=== PATIENT | female | born 1940 | race Caucasian/White ===

== ENCOUNTER 2016-11-14 15:35 | Outpatient (CLI) | payer MEDICARE, BC | END 2016-11-14 15:36 | disposition home or self-care (01) | DX: R07.9 Chest pain, unspecified (principal) ==

== ENCOUNTER 2016-11-22 09:14 | Outpatient (CLI) | payer MEDICARE, BC | END 2016-11-22 09:15 | disposition home or self-care (01) | DX: I08.3 Combined rheumatic disorders of mitral, aortic and tricuspid valves (principal) ==

== ENCOUNTER 2016-12-15 09:09 | Outpatient (CLI) | payer MEDICARE, BC | END 2016-12-15 09:10 | disposition home or self-care (01) | DX: I50.32 Chronic diastolic (congestive) heart failure (principal) ==

== ENCOUNTER 2017-01-22 14:10 | Inpatient (IN) | payer MEDICARE, BC ==
[2017-01-22] MEDS ORDERED: SODIUM CHLORIDE 0.9% 1,000 ML IV ONE (14:20)
[2017-01-22 15:13] LABS: BASOPHILS # (AUTO) 0.1 10^3/uL (0.0-0.1); BASOPHILS % (AUTO) 0.7 %; EOSINOPHILS % (AUTO) 0.1 %; HCT - HEMATOCRIT 42.5 % (37.0-47.0); HGB - HEMOGLOBIN 14.8 g/dL (12.0-16.0); LYMPHOCYTES # (AUTO) 0.8 10^3/uL (1.5-3.5); LYMPHOCYTES % (AUTO) 10.9 %; MEAN CORPUSCULAR HEMOGLOBIN 34.3 pg (27.0-31.0); MEAN CORPUSCULAR HGB CONC 34.8 g/dL (32.0-36.0); MEAN CORPUSCULAR VOLUME 98.8 fL (81.0-99.0); MEAN PLATELET VOLUME 7.8 fL (7.9-10.8); MONOCYTES # (AUTO) 0.8 10^3/uL (0.0-1.0); MONOCYTES % (AUTO) 10.6 %; NEUTROPHILS # (AUTO) 5.6 10^3/uL (1.5-6.6); NEUTROPHILS % (AUTO) 77.7 %; RED CELL DISTRIBUTION WIDTH 14.1 % (12.0-15.0); UNCORRECTED WHITE BLOOD COUNT 7.2 x10^3/uL; WHITE BLOOD COUNT 7.2 x10^3/uL (4.8-10.8)
[2017-01-22 15:18] LABS: INR 1.2 (0.8-1.2); PT - PROTHROMBIN TIME 13.1 secs (9.9-12.6)
--- NOTE | 2017-01-22 15:21 | XRAY Preliminary Report ---
Exam: XR Chest 1 View IMPRESSION: No acute pulmonary consolidation. Atherosclerosis. [facility] SITE ID: [id number]
--- NOTE | 2017-01-22 15:23 | XRAY Report ---
EXAM: CHEST RADIOGRAPHY EXAM DATE: 01/22/2017 03:01 PM. CLINICAL HISTORY: Hypotension. COMPARISON: None. TECHNIQUE: 1 view. FINDINGS: Lungs/Pleura: No focal opacities evident. No pleural effusion. No pneumothorax. Mediastinum: Normal heart size with mild aortic tortuosity and atherosclerotic calcification. Other: None. IMPRESSION: No acute pulmonary consolidation. Atherosclerosis. [facility] Referring Provider Line: [phone] SITE ID: [id number]
[2017-01-22 15:24] LABS: ALBUMIN/GLOBULIN RATIO 1.2 (1.0-2.2); BILIRUBIN,TOTAL 0.9 mg/dL (0.2-1.0); CALCIUM 9.2 mg/dL (8.5-10.3); CREATININE 0.9 mg/dL (0.4-1.0); POTASSIUM 3.3 mmol/L (3.5-5.0); TOTAL PROTEIN 7.8 g/dL (6.7-8.2)
--- NOTE | 2017-01-22 15:27 | ED Physician Documentation ---
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 denies: Fever, Chills Throat: denies: Sore throat Cardiac: denies: Chest pain / pressure, Palpitations Respiratory: reports: Dyspnea. 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 : None HEENT: None Psych: None Musculoskeletal: Other Derm: None - Past Surgical History Past Surgical History: Yes /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 [employer]: section, Hysterectomy, Other - Present Medications Home Medications: Ambulatory Orders Medication Instructions Recorded Confirmed Gabapentin [Neurontin] 300 mg PO BID 03/04/13 01/22/17 metFORMIN [Glucophage] 500 mg PO BIDWM 04/06/15 01/22/17 Atenolol [Tenormin] 50 mg PO BID 08/30/16 01/22/17 Digoxin 0.125 mg PO DAILY 08/30/16 01/22/17 Albuterol Sulfate [Proventil Hfa 1 - 2 puffs INH Q4H PRN #1 inhaler 09/05/16 Inhaler] Furosemide [Lasix] 40 mg PO BIDDIURETIC #120 tablet 09/05/16 01/22/17 Potassium Chloride [K-Dur] 20 meq PO DAILYWM #30 tablet 09/05/16 01/22/17 Mometasone Furoate [Asmanex] 1 puffs INH BID 01/22/17 01/22/17 Warfarin [Coumadin] 2.5 mg PO QDWARFARIN 01/22/17 01/22/17 - Allergies Allergies/Adverse Reactions: Allergies Allergy/AdvReac Type Severity Reaction Status Date / Time No Known Drug Allergies Allergy Verified 01/22/17 14:18 - Social History Does the pt smoke?: No Smoking Status: Never smoker Does the pt drink ETOH?: Yes Does the pt have substance abuse?: No - Immunizations Immunizations are current?: No - POLST Patient has POLST: No POLST Status: Full Code PD ED PE NORMAL - Vitals Vital signs reviewed: Yes - General General: Alert and oriented X 3 - HEENT HEENT: PERRL - Neck Neck: Supple, no meningeal sign - Cardiac Cardiac: No: RRR (rapid irreg) - Respiratory Respiratory: No respiratory distress, Clear bilaterally - Abdomen Abdomen: Soft, Non tender - Derm Derm: Normal color - Extremities Extremities: No edema, No calf tenderness / cord - Neuro Neuro: Alert and oriented X 3 Results - Vitals Vitals: Vital Signs - 24 hr 01/22/17 01/22/17 01/22/17 14:16 15:15 15:45 Temperature 36.7 C Heart Rate 115 H 118 H 116 H Respiratory 14 24 22 Rate Blood Pressure 110/63 102/68 118/75 O2 Saturation 100 96 01/22/17 01/22/17 01/22/17 16:17 16:30 17:00 Temperature 38.3 C H Heart Rate 116 H 124 H 118 H Respiratory 30 H 32 H 34 H Rate Blood Pressure 121/77 125/85 H O2 Saturation 96 96 96 01/22/17 01/22/17 17:03 17:08 Temperature Heart Rate 106 H 108 H Respiratory 34 H Rate Blood Pressure 115/83 H 129/68 O2 Saturation 96 Oxygen O2 Source Room air - EKG (time done) 1433 Rate: Rate (enter#) Rhythm: Atrial fibrillation Other comments: Other comments (ST depression similar but more pronounce than 2016 EKG, no ST elev) - Labs Labs: Laboratory Tests 01/22/17 01/22/17 01/22/17 14:55 14:55 14:55 WBC 7.2 RBC 4.30 Hgb 14.8 Hct 42.5 MCV 98.8 MCH 34.3 H MCHC 34.8 RDW 14.1 Plt Count 169 MPV 7.8 L Neut # 5.6 Lymph # 0.8 L Pope # 0.8 Eos # 0.0 Baso # 0.1 Absolute Nucleated RBC 0.00 Nucleated RBCs 0.0 PT 13.1 H INR 1.2 Sodium 135 Potassium 3.3 L Chloride 95 L Carbon Dioxide 28 Anion Gap 12.0 BUN 12 Creatinine 0.9 Estimated GFR (MDRD) 61 L Glucose 132 H Lactic Acid Calcium 9.2 Total Bilirubin 0.9 AST 38 ALT 24 Alkaline Phosphatase 56 Troponin I Total Protein 7.8 Albumin 4.3 Globulin 3.5 Albumin/Globulin Ratio 1.2 Lipase 19 L Urine Color Urine Clarity Urine pH Ur Specific [place] Urine Protein Urine Glucose (UA) Urine Ketones Urine Occult Blood Urine Nitrite Urine Bilirubin Urine Urobilinogen Ur Leukocyte Esterase Urine RBC Urine WBC Ur Squamous Epith Cells Urine Bacteria Ur Microscopic Review Urine Culture Comments Last Dose Date Last Dose Time Digoxin 01/22/17 01/22/17 01/22/17 14:55 14:55 14:55 WBC RBC Hgb Hct MCV MCH MCHC RDW Plt Count MPV Neut # Lymph # Pope # Eos # Baso # Absolute Nucleated RBC Nucleated RBCs PT INR Sodium Potassium Chloride Carbon Dioxide Anion Gap BUN Creatinine Estimated GFR (MDRD) Glucose Lactic Acid 3.3 H* Calcium Total Bilirubin AST ALT Alkaline Phosphatase Troponin I 0.09 Total Protein Albumin Globulin Albumin/Globulin Ratio Lipase Urine Color Urine Clarity Urine pH Ur Specific [place] Urine Protein Urine Glucose (UA) Urine Ketones Urine Occult Blood Urine Nitrite Urine Bilirubin Urine Urobilinogen Ur Leukocyte Esterase Urine RBC Urine WBC Ur Squamous Epith Cells Urine Bacteria Ur Microscopic Review Urine Culture Comments Last Dose Date UNKNOWN Last Dose Time UNKNOWN Digoxin 0.6 01/22/17 16:00 WBC RBC Hgb Hct MCV MCH MCHC RDW Plt Count MPV Neut # Lymph # Pope # Eos # Baso # Absolute Nucleated RBC Nucleated RBCs PT INR Sodium Potassium Chloride Carbon Dioxide Anion Gap BUN Creatinine Estimated GFR (MDRD) Glucose Lactic Acid Calcium Total Bilirubin AST ALT Alkaline Phosphatase Troponin I Total Protein Albumin Globulin Albumin/Globulin Ratio Lipase Urine Color YELLOW Urine Clarity CLEAR Urine pH 6.0 Ur Specific [place] 1.010 Urine Protein TRACE Urine Glucose (UA) 100 H Urine Ketones NEGATIVE Urine Occult Blood MODERATE H Urine Nitrite NEGATIVE Urine Bilirubin NEGATIVE Urine Urobilinogen 0.2 (NORMAL) Ur Leukocyte Esterase MODERATE H Urine RBC 0-5 Urine WBC 4-5 Ur Squamous Epith Cells FEW Squamous Urine Bacteria Rare Ur Microscopic Review INDICATED Urine Culture Comments INDICATED Last Dose Date Last Dose Time Digoxin - Rads (name of study) CXR Radiology: See rad report (no acute) CTH Radiology: See rad report (no acute) echo Radiology: See rad report (a fib RVR, no regional wall motion abn detected, nl pulm artery and aorta, mod aortic stenosis, mild mitral and tricuspid regurge, no effusion) CTPA Radiology: See rad report (no PE, no dissection, no aneurysm, cardiomegaly, ground glass opacities but no infiltarte or effusion) PD MEDICAL DECISION MAKING - ED course ED course: abn EKG but trop neg and echo = no wall motion abn - so doubt hypotension is cardiac ischemia in etiology INR sub therapeutic - so doubt hemorrhagic / volume hypotension low INR but nl pulm artery on echo so doubt PE elev lactate - suspect sepsis - source unclear but weakly + urine gave invanz will admit pt with inc soa during ER stay - received IVF but lungs still clear no CHF on CXR, actually worse with sitting better with laying down, still slghtly tachypneic - gave lopressor now that BP better, as above doubt PE but planning to get a CT chest for further eval and so will get CTPA Departure - Departure Disposition: 66 [facility] DC/Xfer Clinical Impression: Hypotension Qualifiers: Hypotension type: unspecified hypotension type Qualified Code(s): I95.9 - Hypotension, unspecified Sepsis Qualifiers: Sepsis type: sepsis due to unspecified organism Qualified Code(s): A41.9 - Sepsis, unspecified organism Discharge Date/Time: 01/22/17 18:33
--- NOTE | 2017-01-22 16:06 | CT Preliminary Report ---
Exam: CT Head W/O IMPRESSION: Generalized age-related cortical atrophic changes without evidence of acute intracranial abnormality. [facility] SITE ID: [id number]
[2017-01-22 16:12] LABS: BILIRUBIN,URINE NEGATIVE (NEGATIVE)
[2017-01-22 16:13] LABS: UA w/ MICROSCOPIC CHARGE YES
[2017-01-22 16:16] LABS: UR CULTURE IF IND INDICATED
--- NOTE | 2017-01-22 16:16 | CT Report ---
EXAM: CT HEAD EXAM DATE: 01/22/2017 03:38 PM. CLINICAL HISTORY: Severe headache; on coumadin. COMPARISON: Head MRI 08/13/2007. No prior head CT. TECHNIQUE: Multiaxial CT images were obtained from the foramen magnum to the vertex. IV contrast: Non e. Reformats: Coronal. In accordance with CT protocol optimization, one or more of the following dose reduction techniques w ere utilized for this exam: automated exposure control, adjustment of mA and/or KV based on patient s ize, or use of iterative reconstructive technique. FINDINGS: Parenchyma: No intraparenchymal hemorrhage. No evidence of mass, midline shift, or CT findings of acu te infarction. Cha-white differentiation is distinct. Extraaxial Spaces: Normal for age. No subdural or epidural collections identified. Ventricles: The ventricles and cortical sulci are enlarged, consistent with age-related tissue loss. Sinuses: Imaged paranasal sinuses, orbits, and mastoids show no significant abnormality. Bones: No evidence of fracture or calvarial defect. Other: Diffuse chronic microangiopathic white matter changes are evident. IMPRESSION: Generalized age-related cortical atrophic changes without evidence of acute intracranial abnormality. [facility] Referring Provider Line: [phone] SITE ID: [id number]
[2017-01-22] MEDS ORDERED: METOPROLOL 5 MG/5 ML VIAL IVP STA (16:42)
[2017-01-22] MEDS ORDERED: ERTAPENEM 1 GM in SODIUM CHLORIDE 0.9% MINIBAG 100 ML IV STA (16:43)
[2017-01-22] MEDS ORDERED: METOPROLOL 5 MG/5 ML VIAL IVP ONE (16:46)
[2017-01-22] MEDS ORDERED: HYDROcod/ACETAM 10 MG/325 MG TABLET PO PRN (17:28)
[2017-01-22] MEDS ORDERED: ACETAMINOPHEN 325 MG TABLET PO PRN (17:28)
[2017-01-22] MEDS ORDERED: SODIUM CHLORIDE FLUSH 0.9% 10 ML SYRINGE IVP PRN (17:28)
[2017-01-22] MEDS ORDERED: HYDROcod/ACETAM 5/325 MG TABLET PO PRN (17:28)
[2017-01-22] MEDS ORDERED: LORazepam 2 MG/ML SYRINGE ONE (17:37)
[2017-01-22] MEDS ORDERED: LORazepam 2 MG/ML SYRINGE IVP STA (17:37)
[2017-01-22] MEDS ORDERED: ACETAMINOPHEN 325 MG TABLET PO STA (17:41)
[2017-01-22] MEDS ORDERED: VANCOMYCIN PER PHARMACY 1 GM in SODIUM CHLORIDE 0.9% 250 ML IV SCH (18:00)
[2017-01-22] MEDS ORDERED: NS W/20 MEQ KCL 1,000 ML IV SCH ×2 (18:00→21:45)
[2017-01-22] MEDS ORDERED: IOPAMIDOL-300 100 ML VIAL IVP ONE (18:28)
[2017-01-22] MEDS ORDERED: VANCOMYCIN INJ 1.5 GM in SODIUM CHLORIDE 0.9% 500 ML IV ONE (18:30)
--- NOTE | 2017-01-22 18:52 | CT Preliminary Report ---
Exam: CT Chest Angio (PE) IMPRESSION: 1. No evidence of acute pulmonary embolism through the mid segmental branch level. 2. There is no evidence of thoracic aortic dissection or aneurysm. 3. There are several small, stable areas of groundglass opacity within the lungs. No evidence of loba r consolidation or effusion. 4. There is cardiomegaly. [facility] SITE ID: [id number]
--- NOTE | 2017-01-22 18:54 | CT Report ---
EXAM: CT ANGIOGRAM CHEST EXAM DATE: 01/22/2017 06:34 PM. CLINICAL HISTORY: Dyspnea. COMPARISON: 01/06/2015. TECHNIQUE: Routine helical imaging was performed through the chest in the pulmonary arterial phase. I V Contrast: 100 cc Isovue-300. Reconstructions: Coronal 3-D MIP reconstructions.Sagittal and coronal. In accordance with CT protocol optimization, one or more of the following dose reduction techniques w ere utilized for this exam: automated exposure control, adjustment of mA and/or KV based on patient s ize, or use of iterative reconstructive technique. FINDINGS: Pulmonary Arteries: Diagnostic quality: Adequate through the mid segmental arteries. Respiratory motion artifact obscures portions of distal vessels. No evidence for acute or chronic pulmonary emboli. Lungs/Pleura: There is some scattered areas of groundglass opacity within the lungs. No evidence of l obar consolidation or effusion. No intralobular septal thickening. No focal central airway abnormalit ies. No pneumothorax. Mediastinum: There is cardiomegaly. There are coronary artery calcifications. There are no enlarged t horacic lymph nodes. Thoracic Aorta: There is no evidence of aneurysm or dissection. There are calcifications of the aorta and aortic valve. Upper Abdomen: The visualized portions of the upper abdominal organs demonstrate no acute abnormaliti es. Other: None. IMPRESSION: 1. No evidence of acute pulmonary embolism through the mid segmental branch level. 2. There is no evidence of thoracic aortic dissection or aneurysm. 3. There are several small, stable areas of groundglass opacity within the lungs. No evidence of loba r consolidation or effusion. 4. There is cardiomegaly. [facility] Referring Provider Line: [phone] SITE ID: [id number]
[2017-01-22] MEDS ORDERED: MAGNESIUM SULFATE 2 GRAM 50 ML IV SCH (19:05)
[2017-01-22 19:06] LABS: BASOPHILS % (AUTO) 0.6 %; EOSINOPHILS % (AUTO) 0.2 %; HCT - HEMATOCRIT 42.7 % (37.0-47.0); HGB - HEMOGLOBIN 14.2 g/dL (12.0-16.0); LYMPHOCYTES # (AUTO) 0.8 10^3/uL (1.5-3.5); MEAN CORPUSCULAR HEMOGLOBIN 33.3 pg (27.0-31.0); MEAN CORPUSCULAR HGB CONC 33.4 g/dL (32.0-36.0); MEAN CORPUSCULAR VOLUME 99.8 fL (81.0-99.0); MEAN PLATELET VOLUME 7.8 fL (7.9-10.8); MONOCYTES # (AUTO) 0.8 10^3/uL (0.0-1.0); MONOCYTES % (AUTO) 10.3 %; NEUTROPHILS # (AUTO) 5.8 10^3/uL (1.5-6.6); NEUTROPHILS % (AUTO) 77.9 %; NUCLEATED RED BLOOD CELLS AUTO 0.1 /100WBC; RED BLOOD COUNT 4.28 10^6/uL (4.20-5.40); RED CELL DISTRIBUTION WIDTH 14.3 % (12.0-15.0); UNCORRECTED WHITE BLOOD COUNT 7.4 x10^3/uL; WHITE BLOOD COUNT 7.4 x10^3/uL (4.8-10.8)
[2017-01-22 19:21] LABS: CALCIUM 8.5 mg/dL (8.5-10.3); CREATININE 0.8 mg/dL (0.4-1.0); POTASSIUM 3.6 mmol/L (3.5-5.0)
[2017-01-22] MEDS ORDERED: ALBUTEROL NEB 2.5 MG/3 ML INH PRN (19:43)
[2017-01-22] MEDS: LORazepam 2 MG/ML SYRINGE IVP PRN (19:59)
--- NOTE | 2017-01-22 20:23 | HISTORY & PHYSICAL EXAMINATION ---
DATE OF ADMISSION: 01/22/2017 PRIMARY CARE PHYSICIAN: Doroteo Burton MD. CHIEF COMPLAINT: "I don't feel well." She has not felt well for a couple of days. Friends stopped by to see her and noted she had low blood pressure, brought her into the emergency department. IDENTIFYING INFORMATION: The patient is the primary source of history but is vague and almost evasive at times and has a poor grasp of both recent and past history. The patient's friend is not much yan tional help. There is additional information obtained in the [facility], as well as personal review of past medical records and the data collected during this visit. All were used in addition to her examination in her evaluation and the preparation of th is document. HISTORY OF PRESENT ILLNESS: The patient has had 2 days of being very tired, weak, had a headache. She does not report any fall. She says she has not had any fever or chills. No chest pain. No neck pain. No cough. She says she always is somewhat short of breath and she does not feel any more so today. T he patient denies any nausea, vomiting, diarrhea, vomiting of blood, bloody stool or black stool. REVIEW OF SYSTEMS: The rest of the review of systems is likewise. A complete review of systems is neg ative as well. PAST MEDICAL HISTORY: Remarkable for hypertension, diabetes, peripheral neuropathy. 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 Osteoarthritis. She says she has asthma. She has had pneumonia. The patie nt has also had atrial fibrillation with RVR, is anticoagulated, but has not checked her INR in maybe a year. Also, the patient has had RVR with her atrial fibrillation 2 years ago. PAST SURGICAL HISTORY: She had a x4. She has had a D and C. She has had breast biopsy. PERSONAL AND SOCIAL HISTORY: The patient was born in [place], raised there. She was an only chi ld. She does not really remember what she did after high school. She said she did get . She sa id she did work and she did go to school, but she cannot be more clear about this. It would seem that the patient's mentation is impaired at this time, which may be a part of her septic picture. PERSONAL HABITS: She smoked about 10 years, she says less than a pack a day. Drinks alcohol and has f or many years. The amount of alcohol is unclear, but she says she drinks whiskey with ice and water a nd reports are anywhere from 4-6 drinks a day. FAMILY HISTORY: Father at 91 of old age and mother, 102, old age. There is no diabetes in the jus la, except herself, nor heart disease or cancer. MEDICATIONS AT HOME 1. Neurontin 300 mg b.i.d. 2. Lasix 40 mg b.i.d. 3. Coumadin 2.5 Sunday, Sunday, , Sunday, Sunday. 4. Metformin 500 mg a day. 5. Atenolol 50 mg b.i.d. 6. Digoxin 0.125 daily. 7. Warfarin 2 mg on Sunday and Sunday. 8. Albuterol puff as needed. 9. Tessalon Perles as needed.' 10. Pulmicort 1 puff b.i.d. 11. Potassium 20 mEq daily. 12. Robitussin AC. ALLERGIES: NONE KNOWN. PHYSICAL EXAMINATION GENERAL APPEARANCE: Elderly female, appears stated age, well developed, well nourished. Appears to be addle-brained or altered cognition secondary to the illness that she has. The patient is an obese fe male, appears in respiratory distress, mild to moderate. VITAL SIGNS: Temperature is 36.7, later it was 38.3. 115, 14, later her respiratory rate was up into the 30s. Blood pressure 110/63, O2 saturation was 100% on room air. EYES: EOM within normal limits. PERRL. Nonicteric. MOUTH AND THROAT: Moist mucous membranes. No other pathology noted. NECK: No pain in the neck to palpation. No lymphadenopathy and no thyromegaly. CHEST WALL: Nontender. Symmetric. BREASTS: No breast exam done. HEART: She has atrial fibrillation with RVR. LUNGS: Clear to auscultation. Fair air movement. Patient does have an increased work of breathing. ABDOMEN: Thick abdominal wall, soft, nontender. RECTAL/GENITAL: Exams not done. EXTREMITIES: Trace to 1+ edema in ankles. No pulses appreciated. No cyanosis. Capillary refill 2 seco nds. NEUROLOGIC: Cognition, as noted above, is mildly impaired. The patient's cranial nerves are intact. M otor intact. Sensory intact. Gait was not tested. DIAGNOSTIC DATA: Shows a white count 7.2, hemoglobin and hematocrit 14 and 42. Her platelet count is 169. INR is 1.2. Her sodium 135, potassium 3.3, chloride is 95, CO2 is 28, BUN 12, creatinine 0.1, gl ucose is 132, calcium 9.2, albumin is 4.3. Normal liver enzymes. Lipase is low at 19. Chest x-ray is negative. Urine has some white cells and is being cultured. Lactic is high at 3.3. The patient's digoxin level is 0.6. The patient has an EF of 70% on echocardiogram today and only moderate aortic stenosis. SUMMARY: This is a 76-year-old lady who has had fatigue and complaints of headache for the last coupl e of days. She said she has had no other complaints. In both her history and in the system, patient's past medical history includes aortic stenosis reported as critical. Past medical history of aortic s tenosis, as stated above, CHF exacerbation 2 years ago. diabetes, hypertension. The patient was seen in the emergency department today and has criteria for sepsis and is being admitted. DIAGNOSES 1. Sepsis. No identified source. 2. Atrial fibrillation with rapid ventricular response. 3. Diabetes. 4. Hypertension. 5. Alcohol abuse. DISCUSSION/DECISION MAKING 1. Sepsis: She will be resuscitated with IV fluids and antibiotics choosing vancomycin and cefepime f or initial coverage. She has cultures of blood and urine pending. 2. Atrial fibrillation with RVR: Patient will be given oral medications, IV medications if necessary, to control her atrial fibrillation in the high 90s to low 100s. 3. Diabetes: She will be monitored with glucose checks and sliding scale. 4. Hypertension: Presently, she is not hypertensive and we will be vigilant for possible development of hypotension as a result of her sepsis. 5. Alcohol abuse: The patient will be on a CIWA protocol given the large amount of alcohol over a osiel g period of time, and her inability to actually identify the quantity of alcohol she drinks. HOSPITAL ISSUES 1. CODE STATUS: She is still FULL CODE. 2. VTE prophylaxis will be Lovenox. 3. Her diet, which will be clear liquids and then move on to a diabetic diet. 4. Her activity, which will be bed rest and bedside commode. 5. Tubes and lines: She will have a peripheral IV and Oneal at this time. 6. Hospital status: Given the diagnosis of sepsis with the fever, tachycardia, tachypnea and lactate of 3.3, she will be inpatient status for at least 2 nights, not more than 96 hours. 7. Length of stay: Estimated at 4 nights. 8. Disposition, which is in question whether she will be able to return home or need SNF or assisted living will have to be decided at a later date, but should prepare for a woman with alcohol and decon ditioning to need to go to a retirement facility. JOB #: [id number] EXT JOB #:[id number]
[2017-01-22] MEDS: CEFEPIME 2 GM in SODIUM CHLORIDE 0.9% MINIBAG 100 ML IV SCH (20:50)
[2017-01-22] MEDS ORDERED: CEFEPIME 2 GM in SODIUM CHLORIDE 0.9% MINIBAG 100 ML IV SCH (21:00)
[2017-01-22] MEDS: SODIUM CHLORIDE FLUSH 0.9% 10 ML SYRINGE IVP SCH (22:40)
[2017-01-22] MEDS: GABAPENTIN 300 MG CAPSULE PO SCH (23:58)
[2017-01-23] MEDS: ATENOLOL 25 MG TABLET PO SCH ×4 (01:32→19:56)
[2017-01-23] MEDS ORDERED: FUROSEMIDE 40 MG/4 ML VIAL IVP ONE (02:45)
[2017-01-23] MEDS: METOPROLOL 5 MG/5 ML VIAL IVP PRN ×2 (03:17→05:15)
[2017-01-23] MEDS: SODIUM CHLORIDE FLUSH 0.9% 10 ML SYRINGE IVP SCH ×3 (05:14→21:44)
[2017-01-23 06:02] LABS: BASOPHILS % (AUTO) 0.4 %; EOSINOPHILS % (AUTO) 0.3 %; HCT - HEMATOCRIT 42.6 % (37.0-47.0); HGB - HEMOGLOBIN 14.2 g/dL (12.0-16.0); LYMPHOCYTES # (AUTO) 0.5 10^3/uL (1.5-3.5); LYMPHOCYTES % (AUTO) 6.1 %; MEAN CORPUSCULAR HEMOGLOBIN 33.2 pg (27.0-31.0); MEAN CORPUSCULAR HGB CONC 33.3 g/dL (32.0-36.0); MEAN CORPUSCULAR VOLUME 99.6 fL (81.0-99.0); MEAN PLATELET VOLUME 7.6 fL (7.9-10.8); MONOCYTES # (AUTO) 1.1 10^3/uL (0.0-1.0); MONOCYTES % (AUTO) 12.3 %; NEUTROPHILS % (AUTO) 80.9 %; NUCLEATED RED BLOOD CELLS AUTO 0.1 /100WBC; RED BLOOD COUNT 4.28 10^6/uL (4.20-5.40); RED CELL DISTRIBUTION WIDTH 14.2 % (12.0-15.0); UNCORRECTED WHITE BLOOD COUNT 8.7 x10^3/uL; WHITE BLOOD COUNT 8.7 x10^3/uL (4.8-10.8)
[2017-01-23] MEDS ORDERED: METOPROLOL 5 MG/5 ML VIAL IVP ONE (06:06)
[2017-01-23 06:08] LABS: INR 1.2 (0.8-1.2); PT - PROTHROMBIN TIME 13.1 secs (9.9-12.6)
[2017-01-23 06:16] LABS: ALBUMIN/GLOBULIN RATIO 1.3 (1.0-2.2); BILIRUBIN,TOTAL 0.9 mg/dL (0.2-1.0); CALCIUM 8.3 mg/dL (8.5-10.3); CREATININE 0.7 mg/dL (0.4-1.0); PHOSPHORUS 3.2 mg/dL (2.5-4.6); POTASSIUM 3.6 mmol/L (3.5-5.0); TOTAL PROTEIN 6.8 g/dL (6.7-8.2)
[2017-01-23] MEDS ORDERED: POTASSIUM CHLORIDE INJ 20 MEQ in SODIUM CHLORIDE 0.45% 1,000 ML IV SCH (07:00)
[2017-01-23] MEDS: LORazepam 2 MG/ML SYRINGE IVP PRN ×2 (07:46→10:11)
[2017-01-23] MEDS: DIGOXIN 125 MCG TABLET PO SCH (08:02)
[2017-01-23] MEDS ORDERED: METOPROLOL 5 MG/5 ML VIAL IVP STA (08:13)
[2017-01-23] MEDS ORDERED: LORazepam 2 MG/ML SYRINGE IVP STA (08:13)
--- NOTE | 2017-01-23 08:33 | XRAY Report ---
FRONTAL CHEST: 01/23/2017 CLINICAL INDICATION: Sepsis, worsening hypoxia. COMPARISON: 01/22/2017 FINDINGS: Frontal view of the chest demonstrates an enlarged cardiac silhouette. The lungs remain c lear. No effusion or pneumothorax is present. IMPRESSION: CARDIOMEGALY, BUT NO EVIDENCE OF ACUTE CARDIOPULMONARY DISEASE. JOB #: [id number] EXT JOB #:[id number]
[2017-01-23] MEDS: POTASSIUM CHLORIDE 20 MEQ TABLET PO SCH (08:56)
[2017-01-23] MEDS: SACCHAROMYCES BOULARDII 250 MG CAPSULE PO SCH ×2 (08:56→17:08)
[2017-01-23] MEDS: GABAPENTIN 300 MG CAPSULE PO SCH ×2 (08:56→19:56)
[2017-01-23] MEDS: MULTIVITAMIN 10 ML, THIAMINE INJ 100 MG, FOLIC ACID INJ 1 MG in SODIUM CHLORIDE 0.9% 1,... IV SCH (08:59)
[2017-01-23] MEDS ORDERED: DIGOXIN 125 MCG TABLET PO SCH (09:00)
[2017-01-23] MEDS ORDERED: SODIUM CHLORIDE 0.9% 500 ML IV ONE ×4 (09:14→23:11)
--- NOTE | 2017-01-23 09:30 | PROVIDER PROGRESS NOTE ---
Assessment/Plan - Problem List (1) Severe sepsis Assessment/Plan: Patient presented with nonspecific complaint of not feeling well On presentation patient had a fever with MAXIMUM TEMPERATURE of 39.4, was tachycardic in the 130s to 160s in A. fib, and tachypneic up to the 40s but had no leukocytosis. Patient's lactic acid was elevated to 3.3 Chest x-ray and UA were negative The patient has severe sepsis with unclear source Started on broad-spectrum IV antibiotics given vancomycin and ertapenem in the ER CT angiogram of thorax negative for PE or infection Plan: Continue IV antibiotics with vancomycin and cefepime Echocardiogram did not show any vegetations but did show moderate aortic stenosis Continue IV fluids Awaiting blood cultures and urine culture Repeat chest x-ray negative for pneumonia. 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 CIWA score elevated this morning Plan: On CIWA protocol Patient continues to score high on CIWA Continue IV Ativan On IV fluids with banana bag Daily multivitamin, daily thiamine, daily folic acid Monitor electrolytes Patient currently protecting her airway but continues to be very tachypneic I am concerned the patient may tire out and could possibly need intubation (3) Atrial fibrillation with RVR Assessment/Plan: Patient tachycardic on presentation thought to be secondary to sepsis, alcohol withdrawal and dehydration. History of chronic A. fib in A. fib with RVR with heart rate 130s to 160s Patient received IV fluids and several doses of IV metoprolol and IV diltiazem overnight On telemetry patient continues to have heart rate 130s to 160s Patient on Coumadin for question of compliance as patient has not seen a PCP in one year and has not had INR checked. INR on presentation was 1.2 Plan: Continue home digoxin and atenolol We'll give a dose of IV metoprolol this morning Continue to monitor on telemetry Continue home dose of Coumadin and monitor INR daily (4) Diabetes Qualifiers: Diabetes mellitus type: type 2 Diabetes mellitus complication status: with hyperglycemia Diabetes mellitus long term care pharmacist insulin use: without long term care pharmacist use Qualified Code(s): E11.65 - Type 2 diabetes mellitus with hyperglycemia Assessment/Plan: on presentation patient'sBlood sugar is slightly elevated at 132 The patient is not on insulin at home Patient seen with an A1c of 6.2 Plan Patient was placed on sliding scale insulin while hospitalized we will continue to monitor blood sugars 4 times a day (5) Asthma Assessment/Plan: Patient has history of asthma Patient has a lot of diffuse wheezing this am Plan: Duonebs and Xopenex prn Will consider steroids if this continues CXR negative (6) Aortic stenosis Assessment/Plan: History of critical aortic stenosis was advised to follow up with cardiology during previous admission but failed to do so Repeat Echo shows only moderate aortic stenosis Will need to be careful with IVFs Monitor (7) Hypertension Assessment/Plan: Patient hypotensive this morning after receiving PO atenolol and IV metoprolol for a fib rvr Given 500 ml IV bolus x2 and will receive another bolus Will hold BP meds if BP stays low Will need to consider pressers if we cant get BP to improve - Current Meds Current Meds: Current Medications Generic Name Dose Route Start Last Admin Trade Name Freq PRN Reason Stop Dose Admin Atenolol 50 mg 01/23/17 08:00 01/23/17 08:02 Tenormin PO Not Given BID RAMIRO Digoxin 125 mcg 01/23/17 08:00 01/23/17 08:02 Lanoxin PO Not Given DAILY RAMIRO Gabapentin 300 mg 01/22/17 21:00 01/23/17 08:56 Neurontin PO Not Given BID RAMIRO Cefepime HCl 2 gm/ Sodium 100 mls @ 200 mls/hr 01/22/17 20:00 01/22/17 20:50 Chloride IV 200 mls/hr Q24H RAMIRO Administration Multivitamins 10 ml/ Thiamine 1,011.2 mls @ 100 mls/hr 01/23/17 09:00 01/23/17 08:59 HCl 100 mg/ Folic Acid 1 mg/ IV 100 mls/hr Sodium Chloride DAILY RAMIRO Administration Potassium Chloride 20 meq/ 1,010 mls @ 80 mls/hr 01/23/17 07:00 01/23/17 07:48 Sodium Chloride IV 80 mls/hr .[id number] RAMIRO Administration Lorazepam 2 mg 01/22/17 19:05 01/23/17 07:46 Ativan Inj IVP 2 mg Q30M PRN Administration CIWA>8 Protocol Metoprolol Tartrate 5 mg 01/22/17 19:47 01/23/17 05:15 Lopressor Inj IVP 5 mg Q4H PRN Administration Tachycardia Potassium Chloride 20 meq 01/23/17 08:00 01/23/17 08:56 K-Dur PO Not Given DAILYWM RAMIRO Saccharomyces Boulardii 250 mg 01/23/17 08:00 01/23/17 08:56 Florastor PO Not Given BIDWM RAMIRO Sodium Chloride 10 ml 01/22/17 22:00 01/23/17 05:14 Normal Saline Flush 0.9% IVP 10 ml Q8HR RAMIRO Administration - Lab Result Lab results reviewed: Yes Fish Bone Diagrams: 01/23/17 05:56 01/23/17 05:56 - EKG Results EKG Interpreted Independently: Yes - Diagnostic Imaging Results Diagnostic Imaging Results: positive: Final report reviewed - Additional Planning Condition/Complexity: Critical My Orders: My Active Orders 01/23/17 08:27 Nebulizer/MDI Tx. [RC] QID Resp Teach Nebulizer/MDI [RC] .ONCE Levalbuterol [Xopenex] 1.25 mg INH Q4H PRN Sodium Chloride [Normal Saline] 3 ml INH PRN PRN Plan Discussed with:: Patient Time Spent: 31-60 minutes Subjective - Subjective Patient Reports: Other (Patient very drowsy this morning secondary to ativan. She is not able to provide history but appears to be in significant distress. She is not combative or agitated at this time. She is however very tachypnic, tachycardic and in respiratory distress.) Nursing Reports: Sedated, Shortness of Breath Objective Vital Signs: Vital Signs - 24 hr 01/22/17 01/22/17 01/22/17 19:00 20:00 21:00 Temperature 39.4 C H 99.9 C H Heart Rate Heart Rate [ 120 H 131 H 104 H Monitoring electrodes] Respiratory 15 42 H 32 H Rate Blood Pressure Blood Pressure 108/51 L 88/56 L 83/58 L [Brachial artery] O2 Saturation 98 97 96 01/22/17 01/22/17 01/22/17 21:59 22:00 22:53 Temperature Heart Rate 104 H Heart Rate [ 104 H 99 Monitoring electrodes] Respiratory 29 H 30 H 26 H Rate Blood Pressure Blood Pressure 94/38 L 88/56 L [Brachial artery] O2 Saturation 97 96 01/22/17 01/22/17 01/23/17 23:16 23:59 00:58 Temperature 36.3 C L Heart Rate Heart Rate [ 102 H 98 Monitoring electrodes] Respiratory 28 H 28 H Rate Blood Pressure Blood Pressure 83/62 L 90/50 L [Brachial artery] O2 Saturation 97 96 01/23/17 01/23/17 01/23/17 01:57 02:58 03:17 Temperature Heart Rate Heart Rate [ 95 128 H Monitoring electrodes] Respiratory 30 H 35 H Rate Blood Pressure 131/95 H Blood Pressure 96/64 139/95 H [Brachial artery] O2 Saturation 97 99 01/23/17 01/23/17 01/23/17 03:47 03:58 04:55 Temperature 36.6 C Heart Rate Heart Rate [ 114 H 122 H Monitoring electrodes] Respiratory 36 H 35 H Rate Blood Pressure 113/94 H Blood Pressure 113/84 H 115/74 [Brachial artery] O2 Saturation 97 98 01/23/17 01/23/17 01/23/17 05:15 05:45 05:59 Temperature Heart Rate Heart Rate [ 115 H Monitoring electrodes] Respiratory 38 H Rate Blood Pressure 112/54 L 118/91 H Blood Pressure 123/65 [Brachial artery] O2 Saturation 97 01/23/17 01/23/17 01/23/17 06:55 07:30 08:00 Temperature 36.6 C Heart Rate 150 H Heart Rate [ 132 H 160 H Monitoring electrodes] Respiratory 40 H 45 H 40 H Rate Blood Pressure Blood Pressure 127/60 119/84 H [Brachial artery] O2 Saturation 97 95 01/23/17 01/23/17 08:15 09:00 Temperature Heart Rate Heart Rate [ 103 H Monitoring electrodes] Respiratory 38 H Rate Blood Pressure 119/84 H Blood Pressure 95/61 [Brachial artery] O2 Saturation 97 Oxygen O2 Source Nasal cannula I&O (Last 24 Hrs): Intake and Output Totals x24h 01/21/17 01/22/17 01/23/17 23:59 23:59 23:59 Intake Total 1300 1110 Output Total 260 2045 Balance 1040 -935 General: Severe distress (very tachypnic and drowsy) HEENT: Atraumatic, PERRLA, EOMI, Other (dry mucus membranes) Neck: Supple, No JVD, No thyromegaly, +2 carotid pulse wo bruit, No LAD Lymphatic: no adenopathy Neuro: Non Focal, CN 2-12 Grossly Intact, Other (drowsy but arousable, following commands, not able to provide history) Cardiovascular: Other (tachycardic, irregularily irregular) Respiratory: Chest non-tender, Wheezes (Diffuse, inspiratory and expiratory) Abdomen: Normal bowel sounds, Soft, No tenderness, No hepatospenomegaly Extremities: No clubbing, No cyanosis, No edema, Normal pulses Skin: No rashes, No breakdown, No significant lesion - Results Results: Laboratory Results WBC 8.7 x10^3/uL (4.8-10.8) 01/23/17 05:56 RBC 4.28 10^6/uL (4.20-5.40) 01/23/17 05:56 Hgb 14.2 g/dL (12.0-16.0) 01/23/17 05:56 Hct 42.6 % (37.0-47.0) 01/23/17 05:56 MCV 99.6 fL (81.0-99.0) H 01/23/17 05:56 MCH 33.2 pg (27.0-31.0) H 01/23/17 05:56 MCHC 33.3 g/dL (32.0-36.0) 01/23/17 05:56 RDW 14.2 % (12.0-15.0) 01/23/17 05:56 Plt Count 147 10^3/uL (130-450) 01/23/17 05:56 MPV 7.6 fL (7.9-10.8) L 01/23/17 05:56 Neut # 7.0 10^3/uL (1.5-6.6) H 01/23/17 05:56 Lymph # 0.5 10^3/uL (1.5-3.5) L 01/23/17 05:56 [place] # 1.1 10^3/uL (0.0-1.0) H 01/23/17 05:56 Eos # 0.0 10^3/uL (0.0-0.7) 01/23/17 05:56 Baso # 0.0 10^3/uL (0.0-0.1) 01/23/17 05:56 Absolute Nucleated RBC 0.01 x10^3/uL 01/23/17 05:56 Nucleated RBCs 0.1 /100WBC 01/23/17 05:56 PT 13.1 secs (9.9-12.6) H 01/23/17 05:56 INR 1.2 (0.8-1.2) 01/23/17 05:56 D-Dimer 440.8 ng/mL (200.0-255.0) H 01/22/17 18:56 Sodium 136 mmol/L (135-145) 01/23/17 05:56 Potassium 3.6 mmol/L (3.5-5.0) 01/23/17 05:56 Chloride 100 mmol/L (101-111) L 01/23/17 05:56 Carbon Dioxide 27 mmol/L (21-32) 01/23/17 05:56 Anion Gap 9.0 (6-13) 01/23/17 05:56 BUN 12 mg/dL (6-20) 01/23/17 05:56 Creatinine 0.7 mg/dL (0.4-1.0) 01/23/17 05:56 Estimated GFR (MDRD) 81 (>89) L 01/23/17 05:56 Glucose 142 mg/dL (70-100) H 01/23/17 05:56 Lactic Acid 1.1 mmol/L (0.5-2.2) 01/22/17 18:56 Calcium 8.3 mg/dL (8.5-10.3) L 01/23/17 05:56 Phosphorus 3.2 mg/dL (2.5-4.6) 01/23/17 05:56 Magnesium 2.0 mg/dL (1.7-2.8) 01/23/17 05:56 Total Bilirubin 0.9 mg/dL (0.2-1.0) 01/23/17 05:56 AST 35 IU/L (10-42) 01/23/17 05:56 ALT 26 IU/L (10-60) 01/23/17 05:56 Alkaline Phosphatase 50 IU/L (42-121) 01/23/17 05:56 Troponin I 0.09 ng/mL (<0.49) 01/22/17 14:55 Total Protein 6.8 g/dL (6.7-8.2) 01/23/17 05:56 Albumin 3.8 g/dL (3.2-5.5) 01/23/17 05:56 Globulin 3.0 g/dL (2.1-4.2) 01/23/17 05:56 Albumin/Globulin Ratio 1.3 (1.0-2.2) 01/23/17 05:56 Lipase 19 U/L (22-51) L 01/22/17 14:55 Urine Color YELLOW 01/22/17 16:00 Urine Clarity CLEAR (CLEAR) 01/22/17 16:00 Urine pH 6.0 PH (5.0-7.5) 01/22/17 16:00 Ur Specific [place] 1.010 (1.002-1.030) 01/22/17 16:00 Urine Protein TRACE mg/dL (NEGATIVE) 01/22/17 16:00 Urine Glucose (UA) 100 mg/dL (NEGATIVE) H 01/22/17 16:00 Urine Ketones NEGATIVE mg/dL (NEGATIVE) 01/22/17 16:00 Urine Occult Blood MODERATE (NEGATIVE) H 01/22/17 16:00 Urine Nitrite NEGATIVE (NEGATIVE) 01/22/17 16:00 Urine Bilirubin NEGATIVE (NEGATIVE) 01/22/17 16:00 Urine Urobilinogen 0.2 (NORMAL) E.U./dL (NORMAL) 01/22/17 16:00 Ur Leukocyte Esterase MODERATE (NEGATIVE) H 01/22/17 16:00 Urine RBC 0-5 /HPF (0-5) 01/22/17 16:00 Urine WBC 4-5 /HPF (0-5) 01/22/17 16:00 Ur Squamous Epith Cells FEW Squamous (<= Few) 01/22/17 16:00 Urine Bacteria Rare /HPF (None Seen) 01/22/17 16:00 Ur Microscopic Review INDICATED 01/22/17 16:00 Urine Culture Comments INDICATED 01/22/17 16:00 Last Dose Date UNKNOWN 01/22/17 14:55 Last Dose Time UNKNOWN 01/22/17 14:55 Digoxin 0.6 ng/mL 01/22/17 14:55
[2017-01-23] MEDS: LEVALBUTEROL 1.25 MG INH PRN (09:35)
[2017-01-23] MEDS: SODIUM CHLORIDE INHALATION 3 ML NEB INH PRN (09:35)
[2017-01-23] MEDS ORDERED: SODIUM CHLORIDE 0.9% 1,000 ML IV SCH (10:00)
[2017-01-23] MEDS ORDERED: MULTIVITAMIN 10 ML, THIAMINE INJ 100 MG, FOLIC ACID INJ 1 MG in SODIUM CHLORIDE 0.9% 1,... IV SCH (10:00)
[2017-01-23 10:23] LABS: HEMOGLOBIN A1C 0.68 g/dL
[2017-01-23] MEDS: BUDESONIDE 0.5 MG/2 ML NEB INH SCH ×2 (11:19→18:12)
[2017-01-23] MEDS: INSULIN ASPART 300 UNIT/3 ML PEN SUBQ SCH ×3 (12:10→20:06)
[2017-01-23] MEDS: WARFARIN 2.5 MG TABLET PO SCH (13:58)
[2017-01-23] MEDS ORDERED: VANCOMYCIN INJ 1 GM in SODIUM CHLORIDE 0.9% 250 ML IV SCH (18:00)
[2017-01-23] MEDS: CEFEPIME 2 GM in SODIUM CHLORIDE 0.9% MINIBAG 100 ML IV SCH (19:53)
[2017-01-23] MEDS ORDERED: SODIUM CHLORIDE 0.9% 500 ML IV SCH (23:49)
[2017-01-24] MEDS: LORazepam 2 MG/ML SYRINGE IVP PRN (02:47)
[2017-01-24] MEDS: SODIUM CHLORIDE FLUSH 0.9% 10 ML SYRINGE IVP SCH ×3 (05:05→20:49)
[2017-01-24] MEDS: BUDESONIDE 0.5 MG/2 ML NEB INH SCH ×2 (06:51→19:15)
[2017-01-24] MEDS: SODIUM CHLORIDE INHALATION 3 ML NEB INH PRN ×3 (06:54→19:15)
[2017-01-24] MEDS: LEVALBUTEROL 1.25 MG INH PRN ×3 (06:54→19:15)
[2017-01-24] MEDS: INSULIN ASPART 300 UNIT/3 ML PEN SUBQ SCH ×4 (08:02→21:27)
[2017-01-24] MEDS: GABAPENTIN 300 MG CAPSULE PO SCH ×2 (08:02→20:05)
[2017-01-24] MEDS: DIGOXIN 125 MCG TABLET PO SCH (08:03)
[2017-01-24] MEDS: ATENOLOL 25 MG TABLET PO SCH ×2 (08:03→20:05)
[2017-01-24] MEDS: SACCHAROMYCES BOULARDII 250 MG CAPSULE PO SCH ×2 (08:03→17:04)
[2017-01-24] MEDS: POTASSIUM CHLORIDE 20 MEQ TABLET PO SCH (08:03)
[2017-01-24] MEDS: PRENATAL VITAMIN TABLET PO SCH (08:11)
[2017-01-24] MEDS: THIAMINE 100 MG TABLET PO SCH (08:11)
[2017-01-24] MEDS ORDERED: SODIUM CHLORIDE 0.9% 500 ML IV ONE (08:25)
[2017-01-24 08:37] LABS: BASOPHILS % (AUTO) 0.4 %; EOSINOPHILS # (AUTO) 0.1 10^3/uL (0.0-0.7); EOSINOPHILS % (AUTO) 1.5 %; HGB - HEMOGLOBIN 12.9 g/dL (12.0-16.0); LYMPHOCYTES % (AUTO) 12.3 %; MEAN CORPUSCULAR HEMOGLOBIN 34.1 pg (27.0-31.0); MEAN CORPUSCULAR VOLUME 100.4 fL (81.0-99.0); MEAN PLATELET VOLUME 8.5 fL (7.9-10.8); MONOCYTES # (AUTO) 0.9 10^3/uL (0.0-1.0); MONOCYTES % (AUTO) 11.4 %; NEUTROPHILS % (AUTO) 74.4 %; RED BLOOD COUNT 3.79 10^6/uL (4.20-5.40); RED CELL DISTRIBUTION WIDTH 14.2 % (12.0-15.0); UNCORRECTED WHITE BLOOD COUNT 8.1 x10^3/uL; WHITE BLOOD COUNT 8.1 x10^3/uL (4.8-10.8)
[2017-01-24] MEDS: methylPREDNISolone SUCCINATE 40 MG/ML VIAL IVP SCH ×3 (08:41→21:27)
[2017-01-24] MEDS: MULTIVITAMIN 10 ML, THIAMINE INJ 100 MG, FOLIC ACID INJ 1 MG in SODIUM CHLORIDE 0.9% 1,... IV SCH (09:04)
[2017-01-24 09:14] LABS: ALBUMIN/GLOBULIN RATIO 1.1 (1.0-2.2); BILIRUBIN,TOTAL 1.4 mg/dL (0.2-1.0); BUN - BLOOD UREA NITROGEN 16 mg/dL (6-20); CALCIUM 8.3 mg/dL (8.5-10.3); CARBON DIOXIDE - CO2 26 mmol/L (21-32); CHLORIDE 105 mmol/L (101-111); CREATININE 0.7 mg/dL (0.4-1.0); GFR - MDRD 81 (>89); GLUCOSE 151 mg/dL (70-100); POTASSIUM 3.9 mmol/L (3.5-5.0); SODIUM 139 mmol/L (135-145); TOTAL PROTEIN 6.5 g/dL (6.7-8.2)
[2017-01-24 09:42] LABS: CALCIUM, IONIZED 1.12 mmol/L (1.15-1.33); VBG PH 7.301 (7.31-7.41)
[2017-01-24] MEDS: FUROSEMIDE 40 MG TABLET PO SCH (14:08)
[2017-01-24] MEDS: WARFARIN 2.5 MG TABLET PO SCH (14:10)
--- NOTE | 2017-01-24 17:21 | PROVIDER PROGRESS NOTE ---
Assessment/Plan - Problem List (1) Severe sepsis Assessment/Plan: Patient presented with nonspecific complaint of not feeling well On presentation patient had a fever with MAXIMUM TEMPERATURE of 39.4, was tachycardic in the 130s to 160s in A. fib, and tachypneic up to the 40s but had no leukocytosis. Patient's lactic acid was elevated to 3.3 Chest x-ray and UA were negative The patient has severe sepsis with unclear source Started on broad-spectrum IV antibiotics given vancomycin and ertapenem in the ER CT angiogram of thorax negative for PE or infection Echocardiogram did not show any vegetations but did show moderate aortic stenosis No further fevers, no leukocytosis Presumed source is urine at this time Will get abd ultrasound to look for ascites as patient is alcoholic Resolved Plan: Continue IV antibiotics with cefepime and stop vancomycin Continue IV fluids Blood cx negative, Urine cx showing entercoccus and mixed vivi Repeat chest x-ray negative for pneumonia. Lactic acid improved Patient's presentation may be secondary to alcohol withdrawal Transfer to [facility] PT eval patient may need placement (2) Alcohol withdrawal Assessment/Plan: Patient admits to drinking 6 drinks of whiskey nightly Unable to drink prior to admission secondary to not feeling well Patient with tachycardia, tachypnea and tremors without a source for sepsis concerning for alcohol withdrawal. CIWA score improving Still confused and very forgetful this could be watermelon harvesting supervisor effect of drinking or dementia, could also be delirium or secondary to infection Will get abd us given history of alcohol abuse and check ammonia level Improving Plan: On CIWA protocol On IV fluids with banana bag Daily multivitamin, daily thiamine, daily folic acid Monitor electrolytes (3) Atrial fibrillation with RVR Assessment/Plan: Patient tachycardic on presentation thought to be secondary to sepsis, alcohol withdrawal and dehydration. History of chronic A. fib in A. fib with RVR with heart rate 130s to 160s Patient received IV fluids and several doses of IV metoprolol and IV diltiazem overnight On telemetry this am HR much better controlled Patient on Coumadin for question of compliance as patient has not seen a PCP in one year and has not had INR checked. INR is 1.2 Plan: Continue home digoxin and atenolol Continue to monitor on telemetry Continue home dose of Coumadin and monitor INR daily (4) Diabetes Qualifiers: Diabetes mellitus type: type 2 Diabetes mellitus complication status: with hyperglycemia Diabetes mellitus penitentiary insulin use: without watermelon harvesting supervisor use Qualified Code(s): E11.65 - Type 2 diabetes mellitus with hyperglycemia Assessment/Plan: on presentation patient's Blood sugar is slightly elevated at 132 The patient is not on insulin at home Patient seen with an A1c of 6.2 Plan Patient was placed on sliding scale insulin while hospitalized we will continue to monitor blood sugars 4 times a day (5) Asthma Assessment/Plan: Patient has history of asthma Continues to have diffuse wheezing Plan: Duonebs and Xopenex prn CXR negative Start IV steroid today (6) Aortic stenosis Assessment/Plan: History of critical aortic stenosis was advised to follow up with cardiology during previous admission but failed to do so Repeat Echo shows only moderate aortic stenosis Will need to be careful with IVFs Monitor (7) Hypertension Assessment/Plan: Patient continues to be low normal BP Will continue IVfs Will hold BP meds if SBP less than 90 - Current Meds Current Meds: Current Medications Generic Name Dose Route Start Last Admin Trade Name Freq PRN Reason Stop Dose Admin Acetaminophen 650 mg 01/22/17 17:28 01/23/17 19:29 Tylenol PO 650 mg Q4HR PRN Administration Pain 1 to 4 Atenolol 50 mg 01/23/17 23:12 01/24/17 08:03 Tenormin PO 50 mg BID RAMIRO Administration Budesonide 0.5 mg 01/23/17 11:30 01/24/17 06:51 Pulmicort INH 0.5 mg RTBID RAMIRO Administration Digoxin 125 mcg 01/23/17 08:00 01/24/17 08:03 Lanoxin PO 125 mcg DAILY RAMIRO Administration Furosemide 40 mg 01/24/17 14:00 01/24/17 14:08 Lasix PO 40 mg BIDDIURETIC RAMIRO Administration Gabapentin 300 mg 01/22/17 21:00 01/24/17 08:02 Neurontin PO 300 mg BID RAMIRO Administration Cefepime HCl 2 gm/ Sodium 100 mls @ 200 mls/hr 01/22/17 20:00 01/23/17 19:53 Chloride IV 200 mls/hr Q24H RAMIRO Administration Multivitamins 10 ml/ Thiamine 1,011.2 mls @ 100 mls/hr 01/23/17 09:00 01/24/17 09:04 HCl 100 mg/ Folic Acid 1 mg/ IV 100 mls/hr Sodium Chloride DAILY RAMIRO Administration Insulin Aspart 1 - 5 unit 01/23/17 12:00 01/24/17 17:04 Novolog SUBQ 3 unit 0800,1200,1700,2100 RAMIRO Administration Protocol Levalbuterol HCl 1.25 mg 01/23/17 08:27 01/24/17 10:47 Xopenex INH 1.25 mg Q4H PRN Administration Wheezing Lorazepam 1 mg 01/23/17 09:16 01/24/17 02:47 Ativan Inj IVP 1 mg Q30M PRN Administration CIWA > 8 Protocol Methylprednisolone 40 mg 01/24/17 09:00 01/24/17 14:08 Solu-Medrol (40mg Vial) IVP 40 mg TID RAMIRO Administration Metoprolol Tartrate 5 mg 01/22/17 19:47 01/23/17 05:15 Lopressor Inj IVP 5 mg Q4H PRN Administration Tachycardia Potassium Chloride 20 meq 01/23/17 08:00 01/24/17 08:03 K-Dur PO 20 meq DAILYWM RAMIRO Administration Multivit/Folic Acid/Iron 1 tab 01/24/17 09:00 01/24/17 08:11 Trinatal Rx 1 PO 1 tab DAILY RAMIRO Administration Saccharomyces Boulardii 250 mg 01/23/17 08:00 01/24/17 17:04 Florastor PO 250 mg BIDWM RAMIRO Administration Sodium Chloride 10 ml 01/22/17 22:00 01/24/17 14:08 Normal Saline Flush 0.9% IVP 10 ml Q8HR RAMIRO Administration Sodium Chloride 3 ml 01/23/17 08:27 01/24/17 10:47 Normal Saline INH 3 ml PRN PRN Administration Levalbuterol treatment Thiamine HCl 100 mg 01/24/17 09:00 01/24/17 08:11 Vitamin B-1 PO 100 mg DAILY RAMIRO Administration Warfarin Sodium 2.5 mg 01/23/17 14:00 01/24/17 14:10 Coumadin PO 2.5 mg QDWARFARIN RAMIRO Administration - Lab Result Lab results reviewed: Yes Fish Bone Diagrams: 01/24/17 08:29 01/24/17 08:29 - EKG Results EKG Interpreted Independently: Yes - Diagnostic Imaging Results Diagnostic Imaging Results: positive: Final report reviewed - Additional Planning Condition/Complexity: Guarded My Orders: My Active Orders 01/24/17 Abdomen Complete [US] Routine 01/24/17 09:00 methylPREDNISolone SUCCINATE [SOLU-Medrol (40MG VIAL)] 40 mg IVP TID 01/24/17 13:18 Vital Signs [RC] Q4HR 01/24/17 14:00 Furosemide [Lasix] 40 mg PO BIDDIURETIC Sodium Chloride 0.9% [Normal Saline 0.9%] 1,000 ml IV 125 mls/hr 01/24/17 Dinner DIET [Carb-controlled Diet] [DIET] Consult/Specialty: PT Plan Discussed with:: Patient Time Spent: 31-60 minutes Subjective - Subjective Patient Reports: Other (Confused this am does not remember who I am. She is doing better. No fevers. Much more alert and awake. No tremor.) Nursing Reports: No Complaints Objective Vital Signs: Vital Signs - 24 hr 01/23/17 01/23/17 01/23/17 18:00 18:14 18:42 Temperature Heart Rate 74 Heart Rate [ 75 78 Monitoring electrodes] Respiratory 30 H 22 36 H Rate Blood Pressure 92/54 L 112/69 [Brachial artery] Blood Pressure [Left Brachial artery] O2 Saturation 98 97 01/23/17 01/23/17 01/23/17 19:59 20:53 22:00 Temperature 35.9 C L Heart Rate Heart Rate [ 83 81 72 Monitoring electrodes] Respiratory 30 H 25 H 25 H Rate Blood Pressure 98/53 L 81/46 L 79/51 L [Brachial artery] Blood Pressure [Left Brachial artery] O2 Saturation 98 97 97 01/23/17 01/24/17 01/24/17 23:00 00:00 01:00 Temperature 35.9 C L Heart Rate Heart Rate [ 73 71 70 Monitoring electrodes] Respiratory 26 H 26 H 25 H Rate Blood Pressure 83/53 L 82/45 L 86/50 L [Brachial artery] Blood Pressure [Left Brachial artery] O2 Saturation 97 98 98 01/24/17 01/24/17 01/24/17 01:53 03:00 03:58 Temperature 36.1 C L Heart Rate Heart Rate [ 69 73 80 Monitoring electrodes] Respiratory 21 31 H 27 H Rate Blood Pressure 76/52 L 86/54 L 83/54 L [Brachial artery] Blood Pressure [Left Brachial artery] O2 Saturation 97 98 98 01/24/17 01/24/17 01/24/17 04:42 05:47 06:54 Temperature Heart Rate Heart Rate [ 82 76 105 H Monitoring electrodes] Respiratory 28 H 27 H 36 H Rate Blood Pressure 84/52 L 90/48 L 90/59 L [Brachial artery] Blood Pressure [Left Brachial artery] O2 Saturation 97 97 94 01/24/17 01/24/17 01/24/17 06:55 08:00 09:00 Temperature 36.4 C L 36.7 C Heart Rate 95 Heart Rate [ 105 H 80 Monitoring electrodes] Respiratory 30 H 28 H 38 H Rate Blood Pressure 93/52 L 101/72 [Brachial artery] Blood Pressure [Left Brachial artery] O2 Saturation 96 98 01/24/17 01/24/17 01/24/17 10:00 10:49 11:00 Temperature Heart Rate 96 Heart Rate [ 87 94 Monitoring electrodes] Respiratory 31 H 30 H 34 H Rate Blood Pressure 97/64 122/78 [Brachial artery] Blood Pressure [Left Brachial artery] O2 Saturation 98 96 01/24/17 01/24/17 01/24/17 12:00 12:55 14:17 Temperature Heart Rate Heart Rate [ 93 103 H Monitoring electrodes] Respiratory 30 H 25 H Rate Blood Pressure 105/63 82/61 L 99/69 [Brachial artery] Blood Pressure [Left Brachial artery] O2 Saturation 97 96 01/24/17 01/24/17 15:28 15:40 Temperature 36.4 C L 36.8 C Heart Rate Heart Rate [ 92 94 Monitoring electrodes] Respiratory 26 H 25 H Rate Blood Pressure 105/72 [Brachial artery] Blood Pressure 110/73 [Left Brachial artery] O2 Saturation 97 97 Oxygen O2 Source Nasal cannula I&O (Last 24 Hrs): Intake and Output Totals x24h 01/22/17 01/23/17 01/24/17 23:59 23:59 23:59 Intake Total 1300 4577 2080 Output Total 260 2380 405 Balance 1040 2197 1675 General: Alert, Cooperative, Mild distress (tachypnic), Other (Oriented x2) HEENT: Atraumatic, PERRLA, EOMI, Mucous membr. moist/pink Neck: Supple, No JVD, No thyromegaly, +2 carotid pulse wo bruit, No LAD Lymphatic: no adenopathy Neuro: Alert, Non Focal, CN 2-12 Grossly Intact Cardiovascular: Other (irregular and tachy) Respiratory: Chest non-tender, Wheezes (diffuse exp and insp), Other (tachypnic) Abdomen: Normal bowel sounds, Soft, No tenderness, No hepatospenomegaly Extremities: No clubbing, No cyanosis, No edema, Normal pulses, No tenderness/ swelling Skin: No rashes, No breakdown, No significant lesion - Results Results: Laboratory Results WBC 8.1 x10^3/uL (4.8-10.8) 01/24/17 08: RBC 3.79 10^6/uL (4.20-5.40) L 01/24/17 08: Hgb 12.9 g/dL (12.0-16.0) 01/24/17 08: Hct 38.0 % (37.0-47.0) 01/24/17 08: MCV 100.4 fL (81.0-99.0) H 01/24/17 08: MCH 34.1 pg (27.0-31.0) H 01/24/17 08: MCHC 34.0 g/dL (32.0-36.0) 01/24/17 08: RDW 14.2 % (12.0-15.0) 01/24/17 08: Plt Count 124 10^3/uL (130-450) L 01/24/17 08: MPV 8.5 fL (7.9-10.8) 01/24/17 08: Neut # 6.0 10^3/uL (1.5-6.6) 01/24/17 08: Lymph # 1.0 10^3/uL (1.5-3.5) L 01/24/17 08: [place] # 0.9 10^3/uL (0.0-1.0) 01/24/17 08: Eos # 0.1 10^3/uL (0.0-0.7) 01/24/17 08: Baso # 0.0 10^3/uL (0.0-0.1) 01/24/17 08: Absolute Nucleated RBC 0.00 x10^3/uL 01/24/17 08: Nucleated RBCs 0.0 /100WBC 01/24/17 08: PT 13.1 secs (9.9-12.6) H 01/23/17 05:56 INR 1.2 (0.8-1.2) 01/23/17 05:56 D-Dimer 440.8 ng/mL (200.0-255.0) H 01/22/17 18:56 VBG pH 7.301 (7.31-7.41) L 01/24/17 08:29 Ionized Calcium 1.12 mmol/L (1.15-1.33) L 01/24/17 08:29 Sodium 139 mmol/L (135-145) 01/24/17 08:29 Potassium 3.9 mmol/L (3.5-5.0) 01/24/17 08:29 Chloride 105 mmol/L (101-111) 01/24/17 08:29 Carbon Dioxide 26 mmol/L (21-32) 01/24/17 08:29 Anion Gap 8.0 (6-13) 01/24/17 08:29 BUN 16 mg/dL (6-20) 01/24/17 08:29 Creatinine 0.7 mg/dL (0.4-1.0) 01/24/17 08:29 Estimated GFR (MDRD) 81 (>89) L 01/24/17 08:29 Glucose 151 mg/dL (70-100) H 01/24/17 08:29 Glycated Hemoglobin 6.2 % (4.6-6.2) 01/23/17 05:56 Estim Average Glucose 131 (70-100) H 01/23/17 05:56 Lactic Acid 1.1 mmol/L (0.5-2.2) 01/22/17 18:56 Calcium 8.3 mg/dL (8.5-10.3) L 01/24/17 08:29 Ionized Calcium YES 01/24/17 08:29 Phosphorus 3.2 mg/dL (2.5-4.6) 01/23/17 05:56 Magnesium 2.0 mg/dL (1.7-2.8) 01/23/17 05:56 Total Bilirubin 1.4 mg/dL (0.2-1.0) H 01/24/17 08:29 AST 26 IU/L (10-42) 01/24/17 08:29 ALT 21 IU/L (10-60) 01/24/17 08:29 Alkaline Phosphatase 49 IU/L (42-121) 01/24/17 08:29 Ammonia 23.3 umol/L (7-35) 01/24/17 13:36 Troponin I 0.05 ng/mL (<0.49) 01/24/17 00:32 Total Protein 6.5 g/dL (6.7-8.2) L 01/24/17 08:29 Albumin 3.4 g/dL (3.2-5.5) 01/24/17 08:29 Globulin 3.1 g/dL (2.1-4.2) 01/24/17 08:29 Albumin/Globulin Ratio 1.1 (1.0-2.2) 01/24/17 08:29 Lipase 19 U/L (22-51) L 01/22/17 14:55 Urine Color YELLOW 01/22/17 16:00 Urine Clarity CLEAR (CLEAR) 01/22/17 16:00 Urine pH 6.0 PH (5.0-7.5) 01/22/17 16:00 Ur Specific [place] 1.010 (1.002-1.030) 01/22/17 16:00 Urine Protein TRACE mg/dL (NEGATIVE) 01/22/17 16:00 Urine Glucose (UA) 100 mg/dL (NEGATIVE) H 01/22/17 16:00 Urine Ketones NEGATIVE mg/dL (NEGATIVE) 01/22/17 16:00 Urine Occult Blood MODERATE (NEGATIVE) H 01/22/17 16:00 Urine Nitrite NEGATIVE (NEGATIVE) 01/22/17 16:00 Urine Bilirubin NEGATIVE (NEGATIVE) 01/22/17 16:00 Urine Urobilinogen 0.2 (NORMAL) E.U./dL (NORMAL) 01/22/17 16:00 Ur Leukocyte Esterase MODERATE (NEGATIVE) H 01/22/17 16:00 Urine RBC 0-5 /HPF (0-5) 01/22/17 16:00 Urine WBC 4-5 /HPF (0-5) 01/22/17 16:00 Ur Squamous Epith Cells FEW Squamous (<= Few) 01/22/17 16:00 Urine Bacteria Rare /HPF (None Seen) 01/22/17 16:00 Ur Microscopic Review INDICATED 01/22/17 16:00 Urine Culture Comments INDICATED 01/22/17 16:00 Last Dose Date UNKNOWN 01/22/17 14:55 Last Dose Time UNKNOWN 01/22/17 14:55 Digoxin 0.6 ng/mL 01/22/17 14:55
[2017-01-24] MEDS: SODIUM CHLORIDE 0.9% 1,000 ML IV SCH ×2 (20:06→22:05)
[2017-01-24] MEDS: CEFEPIME 2 GM in SODIUM CHLORIDE 0.9% MINIBAG 100 ML IV SCH (20:45)
[2017-01-25] MEDS: FUROSEMIDE 40 MG TABLET PO SCH ×2 (05:51→14:06)
[2017-01-25] MEDS: methylPREDNISolone SUCCINATE 40 MG/ML VIAL IVP SCH ×2 (05:51→14:06)
[2017-01-25] MEDS: SODIUM CHLORIDE 0.9% 1,000 ML IV SCH (05:59)
[2017-01-25] MEDS: SODIUM CHLORIDE FLUSH 0.9% 10 ML SYRINGE IVP SCH ×3 (05:59→20:44)
[2017-01-25] MEDS: LEVALBUTEROL 1.25 MG INH PRN ×3 (08:09→19:30)
[2017-01-25] MEDS: SODIUM CHLORIDE INHALATION 3 ML NEB INH PRN ×3 (08:09→19:30)
[2017-01-25] MEDS: BUDESONIDE 0.5 MG/2 ML NEB INH SCH ×2 (08:09→19:30)
[2017-01-25] MEDS: LORazepam 2 MG/ML SYRINGE IVP PRN ×3 (08:19→10:38)
[2017-01-25] MEDS: INSULIN ASPART 300 UNIT/3 ML PEN SUBQ SCH ×4 (09:10→20:42)
[2017-01-25] MEDS: GABAPENTIN 300 MG CAPSULE PO SCH ×2 (09:54→20:41)
[2017-01-25] MEDS: ATENOLOL 25 MG TABLET PO SCH ×2 (09:54→20:41)
[2017-01-25] MEDS: DIGOXIN 125 MCG TABLET PO SCH (09:55)
[2017-01-25] MEDS: MULTIVITAMIN 10 ML, THIAMINE INJ 100 MG, FOLIC ACID INJ 1 MG in SODIUM CHLORIDE 0.9% 1,... IV SCH (10:36)
--- NOTE | 2017-01-25 12:52 | Ultrasound Preliminary Report ---
Exam: US Abdomen Complete IMPRESSION: 1. Heterogeneous and echogenic hepatic parenchyma which may be the result of an infiltrative hepatic process, possibly fatty replacement or the result of a developing cirrhotic morphology. Nodular hepat ic contour suggested. No hepatic lesions. If further detail for hepatic lesion is warranted then dedi cated MRI/CT of the liver is recommended. 2. Diffuse gallbladder wall thickening. Findings are nonspecific and can be seen with adjacent hepati c disease, decreased albumin as well as acalculus cholecystitis. No intraluminal calculi are identifi ed. No sonographic Brown's sign is elicited per bus mechanic. 3. No biliary ductal dilatation . 4. Splenic echogenic foci, calcified granulomas versus calcified vessels. 5. Small volume of intra-abdominal free fluid. [facility] SITE ID: [id number]
--- NOTE | 2017-01-25 12:55 | Ultrasound Report ---
EXAM: ABDOMEN ULTRASOUND EXAM DATE: 01/25/2017 12:12 PM. CLINICAL HISTORY: Alcoholic with confusion. Concern for cirrhosis . COMPARISON: 11/22/2016. 01/22/2017.. TECHNIQUE: Real-time scanning was performed with static images obtained. FINDINGS: Liver: Heterogeneous and echogenic hepatic parenchyma. Hepatic contour nodularity suggested. No hepat ic lesions are definitively identified. The liver is not enlarged, 16.6 cm. Main portal vein flow: He patopetal. Gallbladder: Gallbladder is mild to moderately distended and diffusely thick-walled . No intraluminal calculi. Per agricultural agent, no sonographic Brown sign was elicited. Biliary System: Common bile duct measures 3 mm. No intrahepatic or extrahepatic ductal dilatation. Pancreas: The visualized portions of the pancreas are normal in contour and echotexture. Peripancreat ic 1.0 x 0.6 x 1.6 cm structure seen by the pancreatic head favoring a peripancreatic lymph node rath er than pancreatic lesion. Kidneys: Right: 11.8 cm longitudinally. Normal. No contour-deforming mass, stones, or hydronephrosis. Left: 10.6 cm longitudinally. Normal. No contour-deforming mass, stones, or hydronephrosis. Spleen: 9.3 cm. Normal size. Echogenic foci in the spleen may represent splenic granulomas or calcifi ed vessels. Aorta and Inferior Vena Cava: Abdominal aorta is normal in caliber. Calcified atheromatous plaque. No aneurysm. IVC is enlarged. Small volume of intra-abdominal ascites largely perihepatic and perisplenic . IMPRESSION: 1. Heterogeneous and echogenic hepatic parenchyma which may be the result of an infiltrative hepatic process, possibly fatty replacement or the result of a developing cirrhotic morphology. Nodular hepat ic contour suggested. No hepatic lesions. If further detail for hepatic lesion is warranted then dedi cated MRI/CT of the liver is recommended. 2. Diffuse gallbladder wall thickening. Findings are nonspecific and can be seen with adjacent hepati c disease, decreased albumin as well as acalculus cholecystitis. No intraluminal calculi are identifi ed. No sonographic Brown's sign is elicited per agricultural agent. 3. No biliary ductal dilatation . 4. Splenic echogenic foci, calcified granulomas versus calcified vessels. 5. Small volume of intra-abdominal free fluid. [facility] Referring Provider Line: [phone] SITE ID: [id number]
[2017-01-25] MEDS: SACCHAROMYCES BOULARDII 250 MG CAPSULE PO SCH ×2 (13:07→17:04)
[2017-01-25] MEDS ORDERED: ATENOLOL 25 MG TABLET PO SCH (13:30)
[2017-01-25] MEDS: WARFARIN 2.5 MG TABLET PO SCH ×2 (14:06→17:05)
[2017-01-25] MEDS: PRENATAL VITAMIN TABLET PO SCH (14:06)
[2017-01-25] MEDS: POTASSIUM CHLORIDE 20 MEQ TABLET PO SCH (14:06)
[2017-01-25] MEDS: THIAMINE 100 MG TABLET PO SCH (14:06)
--- NOTE | 2017-01-25 16:50 | PROVIDER PROGRESS NOTE ---
Assessment/Plan - Problem List (1) Severe sepsis Assessment/Plan: Patient presented with nonspecific complaint of not feeling well On presentation patient had a fever with MAXIMUM TEMPERATURE of 39.4, was tachycardic in the 130s to 160s in A. fib, and tachypneic up to the 40s but had no leukocytosis. Patient's lactic acid was elevated to 3.3 Chest x-ray and UA were negative The patient has severe sepsis with unclear source Started on broad-spectrum IV antibiotics given vancomycin and ertapenem in the ER CT angiogram of thorax negative for PE or infection Echocardiogram did not show any vegetations but did show moderate aortic stenosis No further fevers, no leukocytosis Presumed source is urine at this time Will get abd ultrasound to look for ascites as patient is alcoholic Resolved (2) Encephalopathy Assessment/Plan: Thought to initially be secondary to sepsis and alcohol withdrawal however both appear to have resolved and patient still confused This morning she does not remember who I am and does not know where she is She continues to have intermittent confusion This could be delirium from being in the hospital Could also be secondary to ativan Could also be secondary to steroids Plan: Stop ativan and CIWA Monitor mental status If not improved tomorrow get MRI and consider LP (3) Alcohol withdrawal Assessment/Plan: Patient admits to drinking 6 drinks of whiskey nightly Unable to drink prior to admission secondary to not feeling well Patient with tachycardia, tachypnea and tremors without a source for sepsis concerning for alcohol withdrawal. CIWA score improving Still confused and very forgetful this could be group home effect of drinking or dementia, could also be delirium or secondary to infection Will get abd us given history of alcohol abuse and check ammonia level Resolved Discontinue CIWA (4) Urinary Tract Infection Assessment/Plan: Likely source of sepsis On cefepime IV Will switch to PO levaquin (5) Atrial fibrillation with RVR Assessment/Plan: Patient tachycardic on presentation thought to be secondary to sepsis, alcohol withdrawal and dehydration. History of chronic A. fib in A. fib with RVR with heart rate 130s to 160s Patient received IV fluids and several doses of IV metoprolol and IV diltiazem overnight On telemetry this am HR much better controlled Patient on Coumadin for question of compliance as patient has not seen a PCP in one year and has not had INR checked. INR is 1.2 HR elevated in 100s today Plan: Continue home digoxin and increase atenolol to 100 mg BID Continue to monitor on telemetry Continue home dose of Coumadin and monitor INR daily (6) Diabetes Qualifiers: Diabetes mellitus type: type 2 Diabetes mellitus complication status: with hyperglycemia Diabetes mellitus group home insulin use: without group home use Qualified Code(s): E11.65 - Type 2 diabetes mellitus with hyperglycemia Assessment/Plan: on presentation patient's Blood sugar is slightly elevated at 132 The patient is not on insulin at home Patient seen with an A1c of 6.2 Plan Patient was placed on sliding scale insulin while hospitalized we will continue to monitor blood sugars 4 times a day (7) Asthma Assessment/Plan: Patient has history of asthma Wheezing improved Plan: Duonebs and Xopenex prn CXR negative IV steroids will change to PO today as this could also contribute to delirium (8) Aortic stenosis Assessment/Plan: History of critical aortic stenosis was advised to follow up with cardiology during previous admission but failed to do so Repeat Echo shows only moderate aortic stenosis Will need to be careful with IVFs Monitor (9) Hypertension Assessment/Plan: BP stable Continue home meds PT saw her today and she is very weak needs SNF - Current Meds Current Meds: Current Medications Generic Name Dose Route Start Last Admin Trade Name Freq PRN Reason Stop Dose Admin Acetaminophen 650 mg 01/22/17 17:28 01/23/17 19:29 Tylenol PO 650 mg Q4HR PRN Administration Pain 1 to 4 Budesonide 0.5 mg 01/23/17 11:30 01/25/17 08:09 Pulmicort INH 0.5 mg RTBID RAMIRO Administration Digoxin 125 mcg 01/23/17 08:00 01/25/17 09:55 Lanoxin PO 125 mcg DAILY RAMIRO Administration Furosemide 40 mg 01/24/17 14:00 01/25/17 14:06 Lasix PO 40 mg BIDDIURETIC RAMIRO Administration Gabapentin 300 mg 01/22/17 21:00 01/25/17 09:54 Neurontin PO 300 mg BID RAMIRO Administration Cefepime HCl 2 gm/ Sodium 100 mls @ 200 mls/hr 01/22/17 20:00 01/24/17 20:45 Chloride IV 200 mls/hr Q24H RAMIRO Administration Insulin Aspart 1 - 5 unit 01/23/17 12:00 01/25/17 14:06 Novolog SUBQ 1 unit 0800,1200,1700,2100 RAMIRO Administration Protocol Levalbuterol HCl 1.25 mg 01/23/17 08:27 01/25/17 14:03 Xopenex INH 1.25 mg Q4H PRN Administration Wheezing Methylprednisolone 40 mg 01/24/17 09:00 01/25/17 14:06 Solu-Medrol (40mg Vial) IVP 40 mg TID RAMIRO Administration Metoprolol Tartrate 5 mg 01/22/17 19:47 01/23/17 05:15 Lopressor Inj IVP 5 mg Q4H PRN Administration Tachycardia Potassium Chloride 20 meq 01/23/17 08:00 01/25/17 14:06 K-Dur PO 20 meq DAILYWM RAMIRO Administration Multivit/Folic Acid/Iron 1 tab 01/24/17 09:00 01/25/17 14:06 Trinatal Rx 1 PO 1 tab DAILY RAMIRO Administration Saccharomyces Boulardii 250 mg 01/23/17 08:00 01/25/17 13:07 Florastor PO Not Given BIDWM ARMIRO Sodium Chloride 10 ml 01/22/17 17:28 01/24/17 21:27 Normal Saline Flush 0.9% IVP 10 ml PRN PRN Administration NEEDED PER PROVIDER ORDERS Sodium Chloride 10 ml 01/22/17 22:00 01/25/17 13:07 Normal Saline Flush 0.9% IVP Not Given Q8HR RAMIRO Sodium Chloride 3 ml 01/23/17 08:27 01/25/17 14:03 Normal Saline INH 3 ml PRN PRN Administration Levalbuterol treatment Thiamine HCl 100 mg 01/24/17 09:00 01/25/17 14:06 Vitamin B-1 PO 100 mg DAILY RAMIRO Administration Warfarin Sodium 2.5 mg 01/23/17 14:00 01/25/17 14:06 Coumadin PO 2.5 mg QDWARFARIN RAMIRO Administration - Lab Result Lab results reviewed: Yes Fish Bone Diagrams: 01/24/17 08:29 01/24/17 08:29 - EKG Results EKG Interpreted Independently: Yes - Diagnostic Imaging Results Diagnostic Imaging Results: positive: Final report reviewed - Additional Planning Condition/Complexity: Improved My Orders: My Active Orders 01/25/17 Evaluate and Treat OT [OT] Routine Evaluate and Treat PT [PT] Routine 01/25/17 21:00 Atenolol [Tenormin] 100 mg PO BID 01/25/17 Dinner Carb-controlled Diet [DIET] 01/26/17 05:00 CBC - COMP BLD CT W/AUTO DIFF [HEME] DAILYLAB CMP, RFLX TO IONIZED CA IF [CHEM] DAILYLAB MAGNESIUM [CHEM] DAILYLAB PHOSPHORUS [CHEM] DAILYLAB PT WITH INR [COAG] DAILYLAB 01/27/17 05:00 CBC - COMP BLD CT W/AUTO DIFF [HEME] DAILYLAB CMP, RFLX TO IONIZED CA IF [CHEM] DAILYLAB MAGNESIUM [CHEM] DAILYLAB PHOSPHORUS [CHEM] DAILYLAB PT WITH INR [COAG] DAILYLAB 01/28/17 05:00 CBC - COMP BLD CT W/AUTO DIFF [HEME] DAILYLAB CMP, RFLX TO IONIZED CA IF [CHEM] DAILYLAB MAGNESIUM [CHEM] DAILYLAB PHOSPHORUS [CHEM] DAILYLAB PT WITH INR [COAG] DAILYLAB 01/29/17 05:00 CBC - COMP BLD CT W/AUTO DIFF [HEME] DAILYLAB CMP, RFLX TO IONIZED CA IF [CHEM] DAILYLAB MAGNESIUM [CHEM] DAILYLAB PHOSPHORUS [CHEM] DAILYLAB PT WITH INR [COAG] DAILYLAB 01/30/17 05:00 CMP, RFLX TO IONIZED CA IF [CHEM] DAILYLAB MAGNESIUM [CHEM] DAILYLAB 01/31/17 05:00 MAGNESIUM [CHEM] DAILYLAB Consult/Specialty: OT, PT Plan Discussed with:: Patient, Family Time Spent: 31-60 minutes Subjective - Subjective Patient Reports: Other (Confused does not remember who I am or why she is here. She denies any pain or difficulty breathing. She is alert. Weak.) Nursing Reports: Confused (Fell twice) Objective Vital Signs: Vital Signs - 24 hr 01/24/17 01/24/17 01/24/17 19:15 20:00 23:30 Temperature 36.8 C 36.5 C Heart Rate 117 H Heart Rate [ 100 93 Monitoring electrodes] Heart Rate [ Sitting] Respiratory 20 20 24 Rate Blood Pressure 119/72 114/78 [Left Brachial artery] Blood Pressure [Sitting] O2 Saturation 96 94 01/25/17 01/25/17 01/25/17 08:12 09:00 11:59 Temperature 36.3 C L 36.4 C L Heart Rate 107 H Heart Rate [ 112 H 108 H Monitoring electrodes] Heart Rate [ Sitting] Respiratory 20 20 18 Rate Blood Pressure 118/85 H 133/80 H [Left Brachial artery] Blood Pressure [Sitting] O2 Saturation 94 01/25/17 01/25/17 01/25/17 14:00 14:03 14:45 Temperature Heart Rate 89 Heart Rate [ 94 Monitoring electrodes] Heart Rate [ 89 Sitting] Respiratory 20 20 Rate Blood Pressure 118/81 H [Left Brachial artery] Blood Pressure 114/78 [Sitting] O2 Saturation 95 Oxygen O2 Source Room air I&O (Last 24 Hrs): Intake and Output Totals x24h 01/23/17 01/24/17 01/25/17 23:59 23:59 23:59 Intake Total 4577 3734 1677 Output Total 2380 1105 740 Balance 2197 2629 937 General: Alert, Cooperative, No acute distress, Other (Oriented x1) HEENT: Atraumatic, PERRLA, EOMI, Mucous membr. moist/pink Neck: Supple, No JVD, No thyromegaly, +2 carotid pulse wo bruit, No LAD Lymphatic: no adenopathy Neuro: Alert, Non Focal, CN 2-12 Grossly Intact, Other (Oriented x1) Cardiovascular: No murmurs, Other (Irregularily irregular) Respiratory: Chest non-tender, No respiratory distress, Wheezes (scattered) Abdomen: Normal bowel sounds, Soft, No tenderness, No hepatospenomegaly Extremities: No clubbing, No cyanosis, No edema, Normal pulses Skin: No rashes, No breakdown - Results Results: Laboratory Results WBC 8.1 x10^3/uL (4.8-10.8) 01/24/17 08:29 RBC 3.79 10^6/uL (4.20-5.40) L 01/24/17 08:29 Hgb 12.9 g/dL (12.0-16.0) 01/24/17 08:29 Hct 38.0 % (37.0-47.0) 01/24/17 08:29 MCV 100.4 fL (81.0-99.0) H 01/24/17 08:29 MCH 34.1 pg (27.0-31.0) H 01/24/17 08:29 MCHC 34.0 g/dL (32.0-36.0) 01/24/17 08:29 RDW 14.2 % (12.0-15.0) 01/24/17 08:29 Plt Count 124 10^3/uL (130-450) L 01/24/17 08:29 MPV 8.5 fL (7.9-10.8) 01/24/17 08:29 Neut # 6.0 10^3/uL (1.5-6.6) 01/24/17 08:29 Lymph # 1.0 10^3/uL (1.5-3.5) L 01/24/17 08:29 [place] # 0.9 10^3/uL (0.0-1.0) 01/24/17 08:29 Eos # 0.1 10^3/uL (0.0-0.7) 01/24/17 08:29 Baso # 0.0 10^3/uL (0.0-0.1) 01/24/17 08:29 Absolute Nucleated RBC 0.00 x10^3/uL 01/24/17 08:29 Nucleated RBCs 0.0 /100WBC 01/24/17 08:29 PT 13.1 secs (9.9-12.6) H 01/23/17 05:56 INR 1.2 (0.8-1.2) 01/23/17 05:56 D-Dimer 440.8 ng/mL (200.0-255.0) H 01/22/17 18:56 VBG pH 7.301 (7.31-7.41) L 01/24/17 08:29 Ionized Calcium 1.12 mmol/L (1.15-1.33) L 01/24/17 08:29 Sodium 139 mmol/L (135-145) 01/24/17 08:29 Potassium 3.9 mmol/L (3.5-5.0) 01/24/17 08:29 Chloride 105 mmol/L (101-111) 01/24/17 08:29 Carbon Dioxide 26 mmol/L (21-32) 01/24/17 08:29 Anion Gap 8.0 (6-13) 01/24/17 08:29 BUN 16 mg/dL (6-20) 01/24/17 08:29 Creatinine 0.7 mg/dL (0.4-1.0) 01/24/17 08:29 Estimated GFR (MDRD) 81 (>89) L 01/24/17 08:29 Glucose 151 mg/dL (70-100) H 01/24/17 08:29 Glycated Hemoglobin 6.2 % (4.6-6.2) 01/23/17 05:56 Estim Average Glucose 131 (70-100) H 01/23/17 05:56 Lactic Acid 1.1 mmol/L (0.5-2.2) 01/22/17 18:56 Calcium 8.3 mg/dL (8.5-10.3) L 01/24/17 08:29 Ionized Calcium YES 01/24/17 08:29 Phosphorus 3.2 mg/dL (2.5-4.6) 01/23/17 05:56 Magnesium 2.0 mg/dL (1.7-2.8) 01/23/17 05:56 Total Bilirubin 1.4 mg/dL (0.2-1.0) H 01/24/17 08:29 AST 26 IU/L (10-42) 01/24/17 08:29 ALT 21 IU/L (10-60) 01/24/17 08:29 Alkaline Phosphatase 49 IU/L (42-121) 01/24/17 08:29 Ammonia 23.3 umol/L (7-35) 01/24/17 13:36 Troponin I 0.05 ng/mL (<0.49) 01/24/17 00:32 Total Protein 6.5 g/dL (6.7-8.2) L 01/24/17 08:29 Albumin 3.4 g/dL (3.2-5.5) 01/24/17 08:29 Globulin 3.1 g/dL (2.1-4.2) 01/24/17 08:29 Albumin/Globulin Ratio 1.1 (1.0-2.2) 01/24/17 08:29 Lipase 19 U/L (22-51) L 01/22/17 14:55 Urine Color YELLOW 01/22/17 16:00 Urine Clarity CLEAR (CLEAR) 01/22/17 16:00 Urine pH 6.0 PH (5.0-7.5) 01/22/17 16:00 Ur Specific [place] 1.010 (1.002-1.030) 01/22/17 16:00 Urine Protein TRACE mg/dL (NEGATIVE) 01/22/17 16:00 Urine Glucose (UA) 100 mg/dL (NEGATIVE) H 01/22/17 16:00 Urine Ketones NEGATIVE mg/dL (NEGATIVE) 01/22/17 16:00 Urine Occult Blood MODERATE (NEGATIVE) H 01/22/17 16:00 Urine Nitrite NEGATIVE (NEGATIVE) 01/22/17 16:00 Urine Bilirubin NEGATIVE (NEGATIVE) 01/22/17 16:00 Urine Urobilinogen 0.2 (NORMAL) E.U./dL (NORMAL) 01/22/17 16:00 Ur Leukocyte Esterase MODERATE (NEGATIVE) H 01/22/17 16:00 Urine RBC 0-5 /HPF (0-5) 01/22/17 16:00 Urine WBC 4-5 /HPF (0-5) 01/22/17 16:00 Ur Squamous Epith Cells FEW Squamous (<= Few) 01/22/17 16:00 Urine Bacteria Rare /HPF (None Seen) 01/22/17 16:00 Ur Microscopic Review INDICATED 01/22/17 16:00 Urine Culture Comments INDICATED 01/22/17 16:00 Last Dose Date UNKNOWN 01/22/17 14:55 Last Dose Time UNKNOWN 01/22/17 14:55 Digoxin 0.6 ng/mL 01/22/17 14:55
[2017-01-25] MEDS ORDERED: OLANZapine ODT 5 MG TABLET TL PRN (21:11)
[2017-01-26] MEDS: SODIUM CHLORIDE FLUSH 0.9% 10 ML SYRINGE IVP SCH ×2 (06:19→13:54)
[2017-01-26] MEDS: FUROSEMIDE 40 MG TABLET PO SCH ×2 (06:19→13:53)
[2017-01-26 06:20] LABS: BASOPHILS % (AUTO) 0.4 %; HCT - HEMATOCRIT 39.9 % (37.0-47.0); HGB - HEMOGLOBIN 13.2 g/dL (12.0-16.0); LYMPHOCYTES # (AUTO) 1.1 10^3/uL (1.5-3.5); LYMPHOCYTES % (AUTO) 8.6 %; MEAN CORPUSCULAR HEMOGLOBIN 33.5 pg (27.0-31.0); MEAN CORPUSCULAR HGB CONC 33.1 g/dL (32.0-36.0); MEAN CORPUSCULAR VOLUME 101.2 fL (81.0-99.0); MEAN PLATELET VOLUME 8.8 fL (7.9-10.8); MONOCYTES # (AUTO) 0.7 10^3/uL (0.0-1.0); MONOCYTES % (AUTO) 5.5 %; NEUTROPHILS # (AUTO) 10.9 10^3/uL (1.5-6.6); NEUTROPHILS % (AUTO) 85.5 %; RED BLOOD COUNT 3.94 10^6/uL (4.20-5.40); RED CELL DISTRIBUTION WIDTH 14.4 % (12.0-15.0); UNCORRECTED WHITE BLOOD COUNT 12.7 x10^3/uL; WHITE BLOOD COUNT 12.7 x10^3/uL (4.8-10.8)
[2017-01-26 06:23] LABS: INR 1.4 (0.8-1.2); PT - PROTHROMBIN TIME 16.4 secs (9.9-12.6)
[2017-01-26 06:24] LABS: ALBUMIN/GLOBULIN RATIO 1.2 (1.0-2.2); BILIRUBIN,TOTAL 1.1 mg/dL (0.2-1.0); BUN - BLOOD UREA NITROGEN 29 mg/dL (6-20); CALCIUM 8.8 mg/dL (8.5-10.3); CARBON DIOXIDE - CO2 22 mmol/L (21-32); CHLORIDE 108 mmol/L (101-111); CREATININE 0.8 mg/dL (0.4-1.0); GFR - MDRD 69 (>89); GLUCOSE 160 mg/dL (70-100); PHOSPHORUS 2.6 mg/dL (2.5-4.6); POTASSIUM 4.1 mmol/L (3.5-5.0); SODIUM 138 mmol/L (135-145); TOTAL PROTEIN 6.5 g/dL (6.7-8.2)
[2017-01-26] MEDS: BUDESONIDE 0.5 MG/2 ML NEB INH SCH (07:47)
[2017-01-26] MEDS: SODIUM CHLORIDE INHALATION 3 ML NEB INH PRN ×2 (07:48→13:28)
[2017-01-26] MEDS: LEVALBUTEROL 1.25 MG INH PRN ×2 (07:48→13:27)
[2017-01-26] MEDS ORDERED: predniSONE 20 MG TABLET PO SCH (08:00)
[2017-01-26] MEDS ORDERED: levoFLOXacin 250 MG TABLET PO SCH (09:00)
[2017-01-26] MEDS: INSULIN ASPART 300 UNIT/3 ML PEN SUBQ SCH ×2 (10:01→11:38)
[2017-01-26] MEDS: DIGOXIN 125 MCG TABLET PO SCH (10:02)
[2017-01-26] MEDS: ATENOLOL 25 MG TABLET PO SCH (10:02)
[2017-01-26] MEDS: GABAPENTIN 300 MG CAPSULE PO SCH (10:08)
[2017-01-26] MEDS: THIAMINE 100 MG TABLET PO SCH (10:08)
[2017-01-26] MEDS: PRENATAL VITAMIN TABLET PO SCH (10:08)
[2017-01-26] MEDS: POTASSIUM CHLORIDE 20 MEQ TABLET PO SCH (10:09)
[2017-01-26] MEDS: SACCHAROMYCES BOULARDII 250 MG CAPSULE PO SCH (10:10)
[2017-01-26] MEDS ORDERED: WARFARIN 2.5 MG TABLET PO SCH (14:00)
[2017-01-26 15:31] VITALS: BP 114/78
--- NOTE | 2017-01-26 18:50 | DISCHARGE SUMMARY ---
DATE OF ADMISSION: 01/22/2017 DATE OF DISCHARGE: 01/26/2017 PRIMARY CARE PROVIDER: Doroteo Burton MD. DISCHARGING PHYSICIAN: Amrit Haro MD. DISCHARGE DIAGNOSES: 1. Severe sepsis. 2. Encephalopathy. 3. Alcohol withdrawal. 4. Urinary tract infection. 5. Atrial fibrillation with rapid ventricular response. 6. Diabetes. 7. Asthma. 8. Aortic stenosis. 9. Hypertension. DISCHARGE MEDICATIONS: 1. Levaquin 500 mg p.o. daily x3 days for UTI and sepsis. 2. Coumadin 5 mg p.o. daily. 3. Metformin 500 mg p.o. b.i.d. with meals. 4. Mometasone furoate 1 puff inhaled b.i.d.. 5. Albuterol sulfate 1-2 puffs inhaled q.4h. p.r.n. for dyspnea or wheezing. 6. Lasix 40 mg p.o. b.i.d.. 7. Digoxin 0.125 mg p.o. daily. 8. Atenolol 100 mg p.o. b.i.d.. 9. Gabapentin 300 mg p.o. b.i.d.. 10. Potassium chloride 20 mEq p.o. daily. 11. Prednisone 40 mg p.o. daily x5 days. 12. Thiamine 100 mg p.o. daily. 13. vitamin 1 tablet p.o. daily. HOSPITAL COURSE: The patient is a 76-year-old female with a past medical history significant for aort ic stenosis, atrial fibrillation on Coumadin, osteoarthritis, and hypertension, who presented to the emergency department with vague symptoms of not feeling well. According to the patient's daughter, th e patient had not been acting her normal self the last few days prior to presenting to the emergency department, and according to the patient, she just did not feel well. She was fatigued. It was diffic ult initially to get a history out of the patient. The patient on presentation was found to be tachyc ardic. She was hypotensive with blood pressure in the 90s. She did have a fever of 38.3 with a T-max of 39.4. She was quite tachypneic with a respiratory rate in the 30s and her lab work was pretty michael gn and unremarkable aside from a lactic acid of 3.3. The patient's urine was weakly positive with ashanti kocyte esterase and 4-5 WBCs. Her chest x-ray was negative for pneumonia and her CT angio of the thor ax was also negative for PE. Her chest CT head was negative for an acute stroke. The patient was init ially admitted to the ICU for severe sepsis of unknown source. Initially the patient was placed on va ncomycin and cefepime. We later learned the patient was also drinking 6 whiskey's a night and she did begin to go into some withdrawal, the patient was placed on CIWA. The patient remained tachypneic fo r the next 24-48 hours. However, she did not appear to have pneumonia. Her fevers did subside with an tibiotics and eventually it was decided that the patient likely had sepsis secondary to UTI. Therefor e, she was switched just to cefepime and then eventually to Levaquin by the time of discharge. The nanda boland did have some acute encephalopathy during the hospitalization, initially was thought to be seco ndary to sepsis, then it was thought to be secondary to alcohol withdrawal. However, once the patient 's alcohol withdrawal seemed to have resolved, the patient likely was still confused secondary to Ati van. Her CIWA was stopped, the Ativan was discontinued and on the morning of 01/26/2017 the patient a ppeared to be back to her baseline mental status. The patient was seen by Physical Therapy. She was v herlinda unsteady on her feet. She fell twice while in the hospital, partially because she was so impulsiv e and would get up without calling for the nurses. The patient had buckling at her knees and was too weak to return home to live independently. The patient qualified for subacute rehab and was sent to [facility] for PT and OT treatment. We did speak with the patient's daughter, who was very concerned abou t the patient's alcohol abuse, and has stated that had been going on for over 30 years now. The patie nt was advised about the need to quit alcohol and was recommended to go to alcohol rehabilitation aft er her stint at the subacute rehabilitation. The patient's daughter was given information by the fran al work regarding alcohol rehab centers. The patient also underwent an ultrasound of her abdomen, whi ch did show some heterogeneous and echogenic hepatic parenchymal changes which could be secondary to infiltrative hepatic process or just fatty replacement or the results of a developing cirrhosis. The patient's daughter was made aware of this and the patient was also told of the effects that the drink ing is having on her body, particularly her liver. The patient did not seem particularly interested i n quitting drinking, as she became disinterested in conversation when it was brought up. The patient was in stable condition at the time of discharge, she has had no further fevers. Her white blood cell count had improved. It did go up prior to discharge, likely secondary to being given steroids. While the patient was hospitalized, she did develop an asthma exacerbation, and was discharged to [facility]hab [facility]. PHYSICAL EXAMINATION AT DISCHARGE: VITAL SIGNS: Temperature 36.4, heart rate 78, blood pressure 107/70, respiratory rate 20, O2 saturati on 96% on room air. GENERAL: The patient is alert and able to answer all my questions appropriately. She is not in any ac jh distress. She is sitting in the chair comfortably. HEENT: Pupils are equal and reactive to light. Extraocular muscles are intact. Mucous membranes are m oist. There is no conjunctival pallor or scleral icterus noted. NECK: Supple. No thyromegaly. No JVD. Trachea is midline. LYMPH NODES: There is no cervical or axillary lymphadenopathy noted. CARDIOVASCULAR: S1, S2, irregularly irregular rhythm. No murmurs, rubs, or gallops. LUNGS: There are some scattered wheezes, but they are much improved from earlier. She has no rhonchi, no crackles. She is not in any respiratory distress. ABDOMEN: Soft, nontender, nondistended. Bowel sounds are present in all 4 quadrants. EXTREMITIES: No lower extremity edema. Peripheral pulses are palpable. There is no cyanosis or clubbi ng. SKIN: No skin rashes, lesions, cellulitis, or abscesses. NEUROLOGIC: The patient is alert and oriented x3. Cranial nerves 2-12 grossly intact. Strength is edgar ssly normal. Sensations are intact. LABORATORY: WBC is 12.7, hemoglobin 13.2, hematocrit 39.9, platelet count 189. INR 1.4, ionized calci um 1.12. Sodium 138, potassium 4.1, chloride 108, carbon dioxide 22, BUN 29, creatinine 0.8, glucose 160, glycosylated hemoglobin 6.2, calcium 8.8, phosphorus 2.6, magnesium 2.0. Total bilirubin 1.1, T 32, ALT 36, alkaline phosphatase 56. Ammonia 23.3. Troponin 0.05. Albumin 3.5. UA, moderate occult blood, moderate leukocyte esterase, 4-5 WBCs. Blood cultures negative x2 days. Urine culture was 10,000-50,000 enterococcus species. FOLLOWUP/RECOMMENDATIONS: The patient is being discharged to [facility] for physical therapy and occupational therapy rehabilitation. The patient previously was living independently but was too weak after her hospitalization for severe sepsis and alcohol withdrawal to return back to independent living. The patient will need at least 1-2 weeks of rehabilitation to get appropriate strength to re turn home. The patient also had acute encephalopathy which was likely secondary to her sepsis and alc ohol withdrawal, but this had resolved by the time of discharge. The patient was given information on alcohol rehab programs. She will complete a course of Levaquin. She also developed some asthma exace rbation during the hospitalization and will also complete a course of prednisone at [facility]. She was stable at the time of discharge and will followup with her primary care physician. The patient will n eed to have her INR checked. Her INR was subtherapeutic prior to presentation. The patient had stated that she was not taking her Coumadin as prescribed to her prior to admission. They will also need to check her digoxin level during her stay at [facility]. TIME SPENT ON DISCHARGE: Greater than 30 minutes were spent on discharge. JOB #: [id number] EXT JOB #:[id number]
== END 2017-01-26 16:05 | DRG 871 ==
LOC: ED 14:10 → ICU 17:28 → MS 01-24 14:49
PROVIDERS: ADMIT Internal Medicine; ATTEND Internal Medicine
DX: A41.9 Sepsis, unspecified organism (principal); G93.41 Metabolic encephalopathy; R82.90 Unspecified abnormal findings in urine; F10.231 Alcohol dependence with withdrawal delirium; I48.91 Unspecified atrial fibrillation; N39.0 Urinary tract infection, site not specified; J45.901 Unspecified asthma with (acute) exacerbation; J45.909 Unspecified asthma, uncomplicated; E11.9 Type 2 diabetes mellitus without complications; R65.20 Severe sepsis without septic shock; B95.2 Enterococcus as the cause of diseases classified elsewhere; I48.2 Chronic atrial fibrillation; E11.65 Type 2 diabetes mellitus with hyperglycemia; E11.42 Type 2 diabetes mellitus with diabetic polyneuropathy; I35.0 Nonrheumatic aortic (valve) stenosis; I11.0 Hypertensive heart disease with heart failure; I50.9 Heart failure, unspecified; E86.0 Dehydration; I95.9 Hypotension, unspecified; D47.2 Monoclonal gammopathy; E66.9 Obesity, unspecified; Z79.01 Long term (current) use of anticoagulants; Z79.84 Long term (current) use of oral hypoglycemic drugs; Z91.81 History of falling; Z87.01 Personal history of pneumonia (recurrent); Z87.891 Personal history of nicotine dependence; Z68.31 Body mass index [BMI] 31.0-31.9, adult
CPT/HCPCS: 36415; 51701; 70450; 71010; 71275; 76700; 80048; 80053; 80162; 81001; 81003; 82140; 82330; 83036; 83605; 83690; 83735; 84100; 84484; 85025; 85379; 85610; 87040; 87086; 87150; 93005; 93010; 93306; 94640; 96361; 96365; 96375; 99284; 99285

== ENCOUNTER 2017-01-28 08:00 | Outpatient (CLI) | payer BC, MEDICARE, OTHER | END 2017-01-28 08:01 | disposition home or self-care (01) | LOC: LAB.R 08:00 | PROVIDERS: ATTEND Internal Medicine | DX: I48.91 Unspecified atrial fibrillation (principal) | CPT/HCPCS: 80162 ==

== ENCOUNTER 2017-05-17 06:55 | Day surgery (SDC) | payer MEDICARE, BC ==
[~2017-05-17 06:55] MED LIST: CYCLOPENTOLATE 1% OPHTH DROPS 2 ML ONE; KETOROLAC 0.45% OPHTH DROPS ONE; PHENYLEPHRINE 2.5% OPHTH 2 ML DROPS ONE; PROPARACAINE 0.5% OPHTH DROPS 15 ML ONE
[2017-05-17] MEDS ORDERED: CYCLOPENTOLATE 1% OPHTH DROPS 2 ML OPTH ONE (07:10)
[2017-05-17] MEDS ORDERED: KETOROLAC 0.45% OPHTH DROPS OPTH ONE (07:10)
[2017-05-17] MEDS ORDERED: PHENYLEPHRINE 2.5% OPHTH 2 ML DROPS OPTH ONE (07:10)
[2017-05-17] MEDS ORDERED: PROPARACAINE 0.5% OPHTH DROPS 15 ML OPTH ONE ×2 (07:10→08:04)
[2017-05-17] MEDS ORDERED: LACTATED RINGERS 1,000 ML IV ONE (07:59)
[2017-05-17] MEDS ORDERED: CHONDR SULF/HYALURONATE SYRINGE IO ONE (08:04)
[2017-05-17] MEDS ORDERED: TIMOLOL 0.5% OPHTH DROPS OPTH ONE (08:04)
[2017-05-17] MEDS ORDERED: TRIAMCIN/MOXIFLOX/VANCO 1 ML VIAL IO ONE ×2 (08:04)
[2017-05-17] MEDS ORDERED: BRIMONIDINE 0.2% OPHTH DROPS 5 ML OPTH ONE (08:04)
[2017-05-17] MEDS ORDERED: BSS/LIDOCAINE/EPINEPHRINE 1 ML SYRINGE IO ONE ×2 (08:04)
[2017-05-17] MEDS ORDERED: EPINEPHrine 1 MG/ML AMP IVP ONE (08:04)
[2017-05-17] MEDS ORDERED: MIDAZOLAM 2 MG/2 ML VIAL IVP ONE (08:10)
--- NOTE | 2017-05-17 08:36 | OPERATIVE REPORT ---
DATE OF SURGERY: 05/17/2017 00:00:00 PREOPERATIVE DIAGNOSIS: Visually significant cataract, left eye. This is her first cataract surgery. POSTOPERATIVE DIAGNOSIS: Visually significant cataract, left eye. This is her first cataract surgery. NAME OF PROCEDURE: Phacoemulsification posterior chamber intraocular lens implant, left eye. SURGEON: Kirit Basurto MD. ANESTHESIA: Monitored anesthesia care. COMPLICATIONS: None. OPERATIVE INDICATIONS: This is a 77-year-old woman with progressive vision loss in the left eye due t o 2+ nuclear sclerotic and 3+ cortical cataract. Best corrected visual acuity was 20/30 with glare to 20/100 in the left eye. Indications for surgery were overall decrease in vision, difficulty seeing w ords on the computer screen, difficulty reading, difficulty seeing words or close captions or game sc ores on TV, difficulty seeing street signs, and difficulty driving in low light or at night. She was consented at length concerning the risks and benefits of cataract surgery, after which she expressed a desire to proceed with surgery. OPERATIVE PROCEDURE: The patient was taken into OR #2 and placed under monitored anesthesia care. A s urgical time-out was conducted confirming the correct patient, correct procedure, and correct surgica l site. She was given topical anesthesia and then prepped and draped in the usual sterile fashion. Th e eye was entered at the 6- and 3 o'clock positions. Intracameral Shugarcaine was injected into the a nterior chamber followed by Viscoat. A continuous tear curvilinear capsulorrhexis was performed. The nucleus was hydrodissected and phacoemulsified. The cortex was evacuated using automated infusion asp iration. Provisc was injected into the capsular bag and a 21.5 diopter intraocular lens was inserted into the bag. Approximately 0.7 mL of a mixture of triamcinolone, moxifloxacin, and vancomycin was in jected subconjunctivally in the superior quadrant for infection and inflammation prophylaxis. I/A was used to evacuate the viscoelastic materials. The eye was inflated to physiologic pressure using gracy nced salt solution and found to be watertight. The patient was taken from the operating room in good condition and given postoperative instructions. JOB #: [id number] EXT JOB #:[id number]
[2017-05-17 09:10] VITALS: BP 88/44
== END 2017-05-17 06:56 | disposition home or self-care (01) ==
LOC: SDS 06:55
PROVIDERS: ATTEND Ophthalmology
PROC: 08RK3JZ Replacement of Left Lens with Synthetic Substitute, Percutaneous Approach (ICD-10-PCS; principal; 2017-05-17 08:00)
DX: H25.812 Combined forms of age-related cataract, left eye (principal); I48.91 Unspecified atrial fibrillation; Z79.01 Long term (current) use of anticoagulants; I50.9 Heart failure, unspecified
CPT/HCPCS: 66984; A9270; J3490; J7120; V2632

== ENCOUNTER 2017-08-30 07:15 | Day surgery (SDC) | payer MEDICARE, BC ==
[2017-08-30] MEDS ORDERED: BRIMONIDINE 0.2% OPHTH DROPS 5 ML ONE (07:16)
[2017-08-30] MEDS ORDERED: TIMOLOL 0.5% OPHTH DROPS ONE (07:17)
[2017-08-30] MEDS ORDERED: EPINEPHrine 1 MG/ML VIAL ONE (07:31)
[2017-08-30] MEDS ORDERED: KETOROLAC 0.45% OPHTH DROPS ONE (07:33)
[2017-08-30] MEDS ORDERED: PROPARACAINE 0.5% OPHTH DROPS 15 ML ONE (07:33)
[2017-08-30] MEDS ORDERED: CYCLOPENTOLATE 1% OPHTH DROPS 2 ML ONE ×2 (07:34)
[2017-08-30] MEDS ORDERED: PHENYLEPHRINE 50 MG/5 ML VIAL ONE (07:35)
[2017-08-30] MEDS ORDERED: PHENYLEPHRINE 2.5% OPHTH 2 ML DROPS ONE (07:35)
[2017-08-30] MEDS ORDERED: KETOROLAC 0.45% OPHTH DROPS RIGHTEYE ONE (08:00)
[2017-08-30] MEDS ORDERED: PROPARACAINE 0.5% OPHTH DROPS 15 ML RIGHTEYE ONE ×2 (08:00→09:01)
[2017-08-30] MEDS ORDERED: CYCLOPENTOLATE 1% OPHTH DROPS 2 ML RIGHTEYE ONE (08:00)
[2017-08-30] MEDS ORDERED: PHENYLEPHRINE 2.5% OPHTH 2 ML DROPS RIGHTEYE ONE (08:00)
[2017-08-30] MEDS ORDERED: LACTATED RINGERS 500 ML IV ONE (08:15)
[2017-08-30] MEDS ORDERED: TIMOLOL 0.5% OPHTH DROPS OPTH ONE (08:59)
[2017-08-30] MEDS ORDERED: CHONDR SULF/HYALURONATE SYRINGE IO ONE (08:59)
[2017-08-30] MEDS ORDERED: BRIMONIDINE 0.2% OPHTH DROPS 5 ML OPTH ONE (08:59)
[2017-08-30] MEDS ORDERED: EPINEPHrine 1 MG/ML AMP IVP ONE (08:59)
[2017-08-30] MEDS ORDERED: MIDAZOLAM 2 MG/2 ML VIAL IVP ONE (09:00)
[2017-08-30] MEDS ORDERED: PROPOFOL 200 MG/20 ML VIAL IVP ONE (09:00)
[2017-08-30] MEDS ORDERED: BSS/LIDOCAINE/EPINEPHRINE 1 ML SYRINGE IO ONE (09:00)
[2017-08-30] MEDS ORDERED: TRIAMCIN/MOXIFLOX/VANCO 1 ML VIAL IO ONE (09:00)
[2017-08-30 09:37] VITALS: BP 90/63
--- NOTE | 2017-08-30 09:38 | PROCEDURE REPORT ---
[address] [address] DOS: 08/30/2017 Physician: Kirit Basurto MD PREOPERATIVE DIAGNOSIS: Visually significant cataract, right eye. A cataract surgery was performed on the left eye on 05/27/2017. POSTOPERATIVE DIAGNOSIS: Visually significant cataract, right eye. PROCEDURE: Phacoemulsification with posterior chamber intraocular implant, right eye. SURGEON: Dr. Kirit Basruto. ANESTHESIA: Monitored anesthesia care. COMPLICATIONS: None. OPERATIVE INDICATIONS: This is a 77-year-old woman with progressive vision loss in the right eye due to 2+ nuclear sclerotic and 3+ cortical cataract. Best corrected visual acuity was 20/30 with glare to 20/40 in the right eye. Indications for surgery were difficulty reading, difficulty seeing words, close captions or game scores on TV and difficulty seeing street signs. She was consented at length concerning risks and benefits of cataract surgery, after which she expressed a desire to proceed with surgery. OPERATIVE PROCEDURE: The patient was taken to OR #3 and placed under monitored anesthesia care. A surgical timeout was conducted confirming the correct patient , correct procedure, and correct surgical site. She was given topical anesthesia and then prepped and draped in the usual sterile fashion. The eye was entered at the 12 and 9 o'clock positions. Intracameral Shugarcaine was injected into the anterior chamber, followed by Viscoat. A continuous-tear curvilinear capsulorrhexis was performed. The nucleus was hydrodissected and phacoemulsified. The cortex was evacuated using automated infusion and aspiration (I&A). Provisc was injected in the capsular bag and a 22.0 diopter intraocular lens was inserted into the bag. Approximately 0.7 mL of a mixture of triamcinolone and moxifloxacin, vancomycin was injected subconjunctivally in the superior quadrant for infection or inflammation prophylaxis. I&A was used to evacuate the viscoelastic material. The eye was inflated to physiologic pressure using balanced salt solution and found to be watertight. The patient was taken from the operating room in good condition and given postop instructions. Dictating Provider: MD LIZBETH Nelson/ TD: 08/30/2017 10:37 [facility]
== END 2017-08-30 07:16 | disposition home or self-care (01) ==
LOC: SDS 07:15
PROVIDERS: ATTEND Ophthalmology
PROC: 08RJ3JZ Replacement of Right Lens with Synthetic Substitute, Percutaneous Approach (ICD-10-PCS; principal; 2017-08-30 08:30)
DX: H25.811 Combined forms of age-related cataract, right eye (principal); I48.91 Unspecified atrial fibrillation; Z79.01 Long term (current) use of anticoagulants; I50.9 Heart failure, unspecified
CPT/HCPCS: 66984; A9270; J0171; J3490; V2632

== ENCOUNTER 2017-09-07 12:49 | Outpatient (CLI) | payer MEDICARE, BC | END 2017-09-07 12:50 | disposition home or self-care (01) | LOC: DI 12:49 | PROVIDERS: ATTEND Internal Medicine Cardiovascular Disease | DX: I08.3 Combined rheumatic disorders of mitral, aortic and tricuspid valves (principal); I27.20 Pulmonary hypertension, unspecified | CPT/HCPCS: 93306 ==

== ENCOUNTER 2017-09-16 02:29 | Emergency (ER) | payer MEDICARE, BC ==
[2017-09-16 02:36] VITALS: BP 100/61
[2017-09-16] MEDS ORDERED: LIDOCAINE VISCOUS 2% 15 ML UDC MM STA (02:42)
--- NOTE | 2017-09-16 02:49 | ED Physician Documentation ---
PD HPI HEENT - Stated complaint Stated Complaint: BLISTERS IN MOUTH - Chief complaint Chief Complaint: General - History obtained from History obtained from: Patient - History of Present Illness Timing - onset: Yesterday Timing - details: Gradual onset, Still present Location: Mouth Worsens: Swalllowing, Temperatures Associated symptoms: No: Fever, Congestion Similar symptoms before: Has not had sx before Recently seen: Not recently seen - Additional information Additional information: Patient is a 77 year old female who is presenting to the emergency department for mouth pain. patient states that it has been going on for the last couple of days. patient states that she can't sleep due to the pain so she came in for evaluation. Review of Systems Constitutional: denies: Fever, Chills Eyes: reports: Reviewed and negative Ears: reports: Reviewed and negative Nose: reports: Reviewed and negative Throat: reports: Oral lesions / sores. 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 HEENT: None Psych: None Musculoskeletal: Other Derm: None - Past Surgical History Past Surgical History: Yes /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: section, Hysterectomy, Other HEENT: Cataracts - Present Medications Home Medications: Ambulatory Orders Medication Instructions Recorded Confirmed Gabapentin [Neurontin] 300 mg PO BID 03/04/13 08/30/17 metFORMIN [Glucophage] 500 mg PO BIDWM 04/06/15 08/30/17 Digoxin 0.125 mg PO DAILY 08/30/16 08/30/17 Furosemide [Lasix] 40 mg PO BIDDIURETIC #120 tablet 09/05/16 08/30/17 Potassium Chloride [K-Dur] 20 meq PO DAILYWM #30 tablet 09/05/16 08/30/17 Warfarin [Coumadin] 2 mg PO QDWARFARIN 01/22/17 08/30/17 Metoprolol Succinate 50 mg PO 08/30/17 Chlorhexidine Gluconate 15 ml MM Q6HR #473 ml 09/16/17 Lidocaine Viscous 2% [Xylocaine 15 ml MM TID PRN #1 bottle 09/16/17 Viscous 2%] - Allergies Allergies/Adverse Reactions: Allergies Allergy/AdvReac Type Severity Reaction Status Date / Time No Known Drug Allergies Allergy Verified 01/22/17 14:18 - Social History Does the pt smoke?: No Smoking Status: Never smoker Does the pt drink ETOH?: Yes Does the pt have substance abuse?: No - Immunizations Immunizations are current?: No - POLST Patient has POLST: No POLST Status: Full Code PD ED PE NORMAL - Vitals Vital signs reviewed: Yes - General General: Alert and oriented X 3, No acute distress - Neck Neck: Supple, no meningeal sign - Cardiac Cardiac: RRR, No murmur - Respiratory Respiratory: No respiratory distress - Abdomen Abdomen: Soft, Non tender, Non distended - Derm Derm: Normal color, Warm and dry, No rash - Extremities Extremities: No deformity, Normal ROM s pain, No calf tenderness / cord - Neuro Neuro: Alert and oriented X 3, No motor deficit, No sensory deficit, Normal speech Eye Opening: Spontaneous Motor: Obeys Commands Verbal: Oriented GCS Score: 15 PD ED PE EXPANDED - HEENT HEENT: Other (oral lesions and decay on the medial surface of multiple teeth, and some leukoplakia) Results - Vitals Vitals: Vital Signs - 24 hr 09/16/17 02:32 Temperature 35.4 C L Heart Rate 104 H Respiratory 18 Rate Blood Pressure 100/61 O2 Saturation 96 Oxygen O2 Source Room air PD MEDICAL DECISION MAKING - ED course Complexity details: reviewed old records, reviewed results, re-evaluated patient , considered differential, d/w patient ED course: Patient was seen and examined at bedside. patient was treated with viscous lidocaine. prescriptions were written. patient required no further inpatient work up or testing and was stable for discharge with outpatient follow up. Departure - Departure Disposition: 01 Home, Self Care Clinical Impression: Gingivitis Condition: Good Instructions: Gingivitis Follow-Up: Doroteo Burton MD [Primary Care Provider] - Prescriptions: Chlorhexidine Gluconate 15 ml MM Q6HR #473 ml Lidocaine Viscous 2% [Xylocaine Viscous 2%] 15 ml MM TID PRN #1 bottle PRN Reason: Pain Comments: Your symptoms are being caused by gingivitis. You have been given a numbing medication tonight and a prescription for an antibiotic rinse. You will need to use the antibiotic rinse after every meal. You should follwo up with your dentist this week for reevaluation.
== END 2017-09-16 02:56 | disposition home or self-care (01) ==
LOC: ED 02:29
DX: K05.10 Chronic gingivitis, plaque induced (principal); I11.0 Hypertensive heart disease with heart failure; I50.9 Heart failure, unspecified; I48.91 Unspecified atrial fibrillation; Z79.01 Long term (current) use of anticoagulants; E11.9 Type 2 diabetes mellitus without complications; Z79.84 Long term (current) use of oral hypoglycemic drugs; J45.909 Unspecified asthma, uncomplicated
CPT/HCPCS: 99283

== ENCOUNTER 2017-11-26 15:29 | Outpatient (CLI) | payer MEDICARE, BC ==
--- NOTE | 2017-11-27 17:41 | Mammography Report ---
DIGITAL SCREENING MAMMOGRAM: 11/26/2017 CLINICAL INDICATION: A 77-year-old with history of benign biopsies for screening. COMPARISON: 01/2015, 07/2012, 07/2011, 07/2010. TECHNIQUE: Routine CC and MLO projections were obtained of the breasts. FINDINGS: The breasts again demonstrate heterogeneously dense fibroglandular parenchyma bilaterally. Postoperative changes are stable. Coarse and punctate, typically benign calcifications are present. No suspicious masses, clustered microcalcifications, or regions of architectural distortion are identified. IMPRESSION: BENIGN FINDINGS. RECOMMENDATION: Routine annual screening unless otherwise clinically indicated. BIRADS category 2 benign findings. STANDARD QUALIFYING STATEMENTS 1. This examination was reviewed with the aid of Computed-Aided Detection (CAD). 2. A negative or benign imaging report should not delay biopsy if clinically suspicious findings are present. Consider surgical consultation if warranted. More than 5% of cancers are not identified by imaging. 3. Dense breasts may obscure an underlying neoplasm. TD: 11/27/2017 17:40
== END 2017-11-26 15:30 | disposition home or self-care (01) ==
LOC: DI 15:29
PROVIDERS: ATTEND Internal Medicine
DX: Z12.31 Encounter for screening mammogram for malignant neoplasm of breast (principal)
CPT/HCPCS: 77067

== ENCOUNTER 2018-02-25 10:31 | Outpatient (CLI) | payer MEDICARE, BC ==
--- NOTE | 2018-02-25 11:56 | Ultrasound Report ---
Procedure Date: 02/25/2018 Accession Number: [id number] / [id number] Procedure: US - Breast Unilateral Limited CPT Code: FULL RESULT: EXAM: Right breast mammogram and right breast ultrasound DATE: 02/25/2018 11:25 AM CLINICAL HISTORY: RT BREAST PAIN TECHNIQUE: Right CC, MLO, and true lateral views. Real-time scanning by the infection control nurse in the area of norma-areolar pain with saved static images reviewed. COMPARISON: 11/26/2017 mammogram UNILATERAL RIGHT MAMMOGRAM FINDINGS: The breast tissue is heterogeneously dense. No dominant mass, architectural distortion, skin thickening, suspicious microcalcifications or interval change since 11/26/2017. Multiple coarse and punctate typically benign calcifications are present. RIGHT BREAST ULTRASOUND FINDINGS: The right breast is scanned in the periareolar 3:00 and 9:00 positions. No cystic or solid mass, abnormal fluid collection, dilated ducts, or other abnormality is seen. IMPRESSION: Benign findings right breast BI-RADS 2. Suggest return to routine screening November 2018. Suggest clinical follow-up of the area of pain.
--- NOTE | 2018-02-25 18:31 | Mammography Report ---
Procedure Date: 02/25/2018 Accession Number: [id number] / [id number] Procedure: DOUG - Diagnostic Dig RT CPT Code: FULL RESULT: EXAM: Right breast mammogram and right breast ultrasound DATE: 02/25/2018 11:25 AM CLINICAL HISTORY: RT BREAST PAIN TECHNIQUE: Right CC, MLO, and true lateral views. Real-time scanning by the manager of learning in the area of norma-areolar pain with saved static images reviewed. COMPARISON: 11/26/2017 mammogram UNILATERAL RIGHT MAMMOGRAM FINDINGS: The breast tissue is heterogeneously dense. No dominant mass, architectural distortion, skin thickening, suspicious microcalcifications or interval change since 11/26/2017. Multiple coarse and punctate typically benign calcifications are present. RIGHT BREAST ULTRASOUND FINDINGS: The right breast is scanned in the periareolar 3:00 and 9:00 positions. No cystic or solid mass, abnormal fluid collection, dilated ducts, or other abnormality is seen. IMPRESSION: Benign findings right breast BI-RADS 2. Suggest return to routine screening November 2018. Suggest clinical follow-up of the area of pain. STANDARD QUALIFYING STATEMENTS: 1. This examination was reviewed with the aid of Computer-Aided Detection (CAD). 2. A negative or benign imaging report should not delay biopsy if clinically suspicious findings are present. Consider surgical consultation if warrented. More than 5% of cancers are not identified by imaging. 3. Dense breasts may obscure an underlying neoplasm.
== END 2018-02-25 10:32 | disposition home or self-care (01) ==
LOC: DI 10:31
PROVIDERS: ATTEND Registered Nurse
DX: N64.4 Mastodynia (principal)
CPT/HCPCS: 76642

== ENCOUNTER 2018-05-25 10:52 | Outpatient (CLI) | payer MEDICARE, BC | END 2018-05-25 10:53 | disposition home or self-care (01) | LOC: DI 10:52 | PROVIDERS: ATTEND Internal Medicine Cardiovascular Disease | DX: I08.3 Combined rheumatic disorders of mitral, aortic and tricuspid valves (principal) | CPT/HCPCS: 93306 ==

== ENCOUNTER 2018-07-16 16:23 | Outpatient (CLI) | payer MEDICARE, BC ==
--- NOTE | 2018-07-16 19:48 | Ultrasound Report ---
Reason: SEVERE AORTIC STENOSIS, PRE-OP TESTING Procedure Date: 07/16/2018 Accession Number: [id number] / [id number] Procedure: US - Carotid Doppler Complete CPT Code: FULL RESULT: EXAM: BILATERAL CAROTID AND VERTEBRAL ARTERY DUPLEX DOPPLER ULTRASOUND. EXAM DATE: 07/16/2018 07:24 PM CLINICAL HISTORY: Severe aortic stenosis, pre-op testing. COMPARISON: None available. TECHNIQUE: Grayscale imaging, color Doppler, and duplex spectral Doppler were used to evaluate the carotid and vertebral arteries bilaterally. Static images were obtained. FINDINGS: Calcified and noncalcified plaque is identified in the right and left common and internal carotid arteries. No abnormally elevated peak systolic velocities to suggest hemodynamically significant stenosis. Antegrade flow is present in bilateral vertebral arteries. VELOCITIES (cm/sec): Right CCA mid: PSV 55.5 cm/sec CCA dist: PSV 45.4 cm/sec ICA prox: PSV 41.7 cm/sec, EDV 11.51 cm/sec ICA mid: PSV 54.1 cm/sec, EDV 10.53 cm/sec ICA dist: PSV 54.2 cm/sec, EDV 11.4 cm/sec ECA: PSV 43.6 cm/sec Vert: PSV 25.4 cm/sec ICA/CCA: 0.97 Left CCA mid: PSV 42.6 cm/sec CCA dist: PSV 68.7 cm/sec ICA prox: PSV 56.1 cm/sec, EDV 11.0 cm/sec ICA mid: PSV 54.7 cm/sec, EDV 15.1 cm/sec ICA dist: PSV 47.0 cm/sec, EDV 17.7 cm/sec ECA: PSV 56.1 cm/sec Vert: PSV 21.1 cm/sec ICA/CCA: 0.82 ICA diameter stenosis: Right: <50% by velocity and <70% by NASCET criteria. Left: <50% by velocity and <70% by NASCET criteria. IMPRESSION: 1. Bilateral carotid artery atherosclerosis. 2. In the right carotid artery there are no elevated carotid artery velocities to suggest hemodynamically significant stenosis. 3. In the left carotid artery there are no elevated carotid artery velocities to suggest hemodynamically significant stenosis. 4. Normal antegrade flow is present in bilateral vertebral arteries. General Recommendations: Stenosis =50% ICA - Follow-up ultrasound 6-12 months Stenosis <50% ICA - High Risk Patient with plaque - Follow-up ultrasound 1-2 years Normal Study but High Risk Patient - Follow-up ultrasound 3-5 years Management recommendations and diagnostic criteria are based on current IAC endorsed standards in Carotid Artery Stenosis: Grayscale and Doppler Ultrasound Diagnosis. Validated velocity measurements with angiographic measurements and velocity criteria are extrapolated from diameter data as defined by the Society of Radiologists in Ultrasound Consensus Conference Radiology 2003; 229;340-346. RADIA
== END 2018-07-16 16:24 | disposition home or self-care (01) ==
LOC: DI 16:23
PROVIDERS: ATTEND Nurse Practitioner
DX: Z01.818 Encounter for other preprocedural examination (principal); I35.0 Nonrheumatic aortic (valve) stenosis
CPT/HCPCS: 93880

== ENCOUNTER 2018-08-02 23:35 | Emergency (ER) | payer MEDICARE, BC ==
[2018-08-02 23:50] VITALS: BP 104/71
--- NOTE | 2018-08-03 00:40 | ED Physician Documentation ---
History of Present Illness - Stated complaint Stated Complaint: LOW BLOOD PRESSURE,DIZZINESS - Chief complaint Chief Complaint: General - History obtained from History obtained from: Patient - History of Present Illness Timing: Prior to arrival Pain level max: 0 Pain level now: 0 - Additonal information Additional information: 78-year-old female who had an aortic valve replacement 2 weeks ago and was supposed to check her blood pressure daily. Today her blood pressure was low and so she tried to get to the EMS but nobody was answering so they went to the emergency room. Patient denied any symptoms. She is just here to have her blood pressure checked.Her systolic blood pressure in the ER was 104 with this blood pressure she said that her normal and she does not want any workup labs or EKG. She says she is feeling better she just needed her blood pressure checked. 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, Other Cardiovascular: Valve replacement HEENT: Cataracts - Present Medications Home Medications: Ambulatory Orders Medication Instructions Recorded Confirmed RX: Gabapentin [Neurontin] 300 mg PO BID 03/04/13 06/11/18 RX: metFORMIN [Glucophage] 500 mg PO BIDWM 04/06/15 06/11/18 RX: Digoxin 0.125 mg PO DAILY 08/30/16 06/11/18 RX: Furosemide [Lasix] 40 mg PO BIDDIURETIC #120 tablet 09/05/16 06/11/18 RX: Potassium Chloride [K-Dur] 20 meq PO DAILYWM #30 tablet 09/05/16 06/11/18 Warfarin [Coumadin] 2 mg PO QDWARFARIN 01/22/17 06/11/18 RX: Metoprolol Succinate 50 mg PO DAILY 08/30/17 06/11/18 RX: Chlorhexidine Gluconate 15 ml MM Q6HR #473 ml 09/16/17 06/11/18 RX: Lidocaine Viscous 2% 15 ml MM TID PRN #1 bottle 09/16/17 06/11/18 [Xylocaine Viscous 2%] - Allergies Allergies/Adverse Reactions: Allergies Allergy/AdvReac Type Severity Reaction Status Date / Time No Known Drug Allergies Allergy Verified 01/22/17 14:18 - Social History Does the pt smoke?: No Smoking Status: Never smoker Does the pt drink ETOH?: Yes Does the pt have substance abuse?: No - Immunizations Immunizations are current?: No - POLST Patient has POLST: No POLST Status: Full Code PD ED PE NORMAL - Vitals Vital signs reviewed: Yes - General General: Alert and oriented X 3, No acute distress, Well developed/nourished - HEENT HEENT: Moist mucous membranes - Neck Neck: Supple, no meningeal sign - Cardiac Cardiac: RRR, No murmur - Respiratory Respiratory: No respiratory distress, Clear bilaterally - Abdomen Abdomen: Normal bowel sounds, Soft, Non tender - Back Back: No CVA TTP - Derm Derm: Normal color, Warm and dry - Extremities Extremities: No deformity - Neuro Neuro: Alert and oriented X 3 - Psych Psych: Normal mood, Normal affect Results - Vitals Vitals: Vital Signs - 24 hr 08/02/18 08/02/18 23:42 23:53 Temperature 35.8 C L Heart Rate 68 Respiratory 18 Rate Blood Pressure 104/71 104/71 O2 Saturation 94 94 Oxygen O2 Source Room air PD MEDICAL DECISION MAKING - ED course Complexity details: re-evaluated patient, considered differential (Blood pressure machine air, blood pressure check), d/w patient ED course: 12:45 AM patient denies any dizziness, headaches, chest pain or shortness of breath. She stated her blood pressure is normal and would like to go home and does not want any workup. Patient is in no acute distress and nontoxic appearing. Departure - Departure Disposition: 01 Home, Self Care Clinical Impression: Blood pressure check Condition: Stable Instructions: ED Hypotension All Causes Comments: Monitor your blood pressure closely. If you become symptomatic return to the emergency room or if you become worse return to the emergency room. Otherwise follow-up with your primary doctor as scheduled. Discharge Date/Time: 08/03/18 00:53
== END 2018-08-03 00:53 | disposition home or self-care (01) ==
LOC: ED 23:35
DX: Z01.30 Encounter for examination of blood pressure without abnormal findings (principal); I11.0 Hypertensive heart disease with heart failure; I50.9 Heart failure, unspecified; I48.91 Unspecified atrial fibrillation; Z79.01 Long term (current) use of anticoagulants; E11.9 Type 2 diabetes mellitus without complications; Z79.84 Long term (current) use of oral hypoglycemic drugs; Z95.2 Presence of prosthetic heart valve
CPT/HCPCS: 99281; 99283

== ENCOUNTER 2018-10-02 11:43 | Outpatient (CLI) | payer MEDICARE, BC ==
--- NOTE | 2018-10-02 14:18 | XRAY Report ---
Reason: LOW BACK PAIN Procedure Date: 10/02/2018 Accession Number: [id number] / [id number] Procedure: XR - Lumbar Spine 2 View CPT Code: FULL RESULT: EXAM: LUMBOSACRAL SPINE RADIOGRAPHY EXAM DATE: 10/02/2018 12:53 PM. CLINICAL HISTORY: Low back pain. COMPARISONS: XR lumbar spine 2 or 3 views 03/02/2010 1:51 AM. TECHNIQUE: 3 views. FINDINGS: Alignment: S-shaped at least moderate lumbar scoliosis in the form of a dextroconvex scoliosis centered about L2 followed by a compensatory levoconvex scoliosis centered at L4-L5. Mild, approximately 5 mm anterolisthesis of L4 on L5. Bones: Five [id number] lumbar vertebral bodies are present. No fractures or bone lesions. Disks: Significant degenerative changes along the scoliotic curvature. Facets: Multilevel facet arthropathy which is most pronounced at L5 where it is severe. Sacroiliac Joints: Unremarkable. Soft Tissues: Calcified aorta. IMPRESSION: At least moderate degenerative changes including anterolisthesis and scoliosis as described. RADIA
== END 2018-10-02 11:44 | disposition home or self-care (01) ==
LOC: DI 11:43
PROVIDERS: ATTEND Internal Medicine
DX: M47.9 Spondylosis, unspecified (principal); M51.36 Other intervertebral disc degeneration, lumbar region; M41.56 Other secondary scoliosis, lumbar region; M43.16 Spondylolisthesis, lumbar region
CPT/HCPCS: 72100

== ENCOUNTER 2018-11-08 21:36 | Emergency (ER) | payer MEDICARE, BC ==
[2018-11-08 21:48] VITALS: BP 114/60
== END 2018-11-08 22:35 | disposition left against medical advice (07) ==
LOC: ED 21:36
DX: M54.5 Low back pain (principal); M19.90 Unspecified osteoarthritis, unspecified site; Z53.21 Procedure and treatment not carried out due to patient leaving prior to being seen by health care provider

== ENCOUNTER 2018-12-11 14:15 | Emergency (ER) | payer MEDICARE, BC ==
--- NOTE | 2018-12-11 14:32 | ED Physician Documentation ---
History of Present Illness - Stated complaint Stated Complaint: SOA - Chief complaint Chief Complaint: Resp - History obtained from History obtained from: Patient - History of Present Illness Timing: Other (1 month ago) Pain level max: 0 Pain level now: 0 - Additonal information Additional information: states had TAVR at [facility] 07/28 and for the past month has had increasing dyspnea. Has severe mitral regurg as well. saw aviation electrician last month who reportedly wanted an echo. patient unable to get to [facility] to have that done. [facility] administrator sent patient here for eval. Sees Dr. Melendez for cardiology. 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 HEENT: None Psych: None Musculoskeletal: Other Derm: None - Past Surgical History Past Surgical History: Yes General: Other /MARINE FIREMAN: section, Hysterectomy, Other Cardiovascular: Valve replacement HEENT: Cataracts - Present Medications Home Medications: Ambulatory Orders Medication Instructions Recorded Confirmed Gabapentin [Neurontin] 300 mg PO BID 03/04/13 06/11/18 metFORMIN [Glucophage] 500 mg PO BIDWM 04/06/15 06/11/18 Digoxin 0.125 mg PO DAILY 08/30/16 06/11/18 Furosemide [Lasix] 40 mg PO BIDDIURETIC #120 tablet 09/05/16 06/11/18 Potassium Chloride [K-Dur] 20 meq PO DAILYWM #30 tablet 09/05/16 06/11/18 Warfarin [Coumadin] 5 mg PO QDWARFARIN 01/22/17 06/11/18 Metoprolol Succinate 100 mg PO BID 08/30/17 06/11/18 Albuterol Sulf [Ventolin Hfa 1 - 2 puffs INH Q4HR PRN 12/11/18 12/11/18 Inhaler] Aspirin 81 mg PO 12/11/18 12/11/18 Fluticasone 44 Mcg [Flovent] 1 puffs INH BID 12/11/18 12/11/18 Multivitamin [Multiple Vitamins] 1 each PO 12/11/18 12/11/18 - Allergies Allergies/Adverse Reactions: Allergies Allergy/AdvReac Type Severity Reaction Status Date / Time No Known Drug Allergies Allergy Verified 12/11/18 14:29 - Social History Does the pt smoke?: No Smoking Status: Never smoker Does the pt drink ETOH?: Yes Does the pt have substance abuse?: No - Immunizations Immunizations are current?: No - POLST Patient has POLST: No POLST Status: Full Code PD ED PE NORMAL - Vitals Vital signs reviewed: Yes - General General: Alert and oriented X 3, No acute distress, Well developed/nourished - HEENT HEENT: PERRL, Moist mucous membranes - Neck Neck: Supple, no meningeal sign - Cardiac Cardiac: RRR, No murmur - Respiratory Respiratory: No respiratory distress, Clear bilaterally - Abdomen Abdomen: Soft, Non tender, Non distended - Derm Derm: Warm and dry - Extremities Extremities: No calf tenderness / cord, Other (1+ BLE edema) - Neuro Neuro: Alert and oriented X 3 - Psych Psych: Normal mood, Normal affect Results - Vitals Vitals: Vital Signs - 24 hr 12/11/18 12/11/18 12/11/18 14:27 16:00 17:48 Temperature 35.8 C L Heart Rate 76 66 61 Respiratory 20 17 18 Rate Blood Pressure 126/78 124/58 L 124/58 L O2 Saturation 96 96 100 Oxygen O2 Source Room air - EKG (time done) 1437 Rate: Rate (enter#) (74) Rhythm: Atrial fibrillation [place]: Normal QRS: Normal Ischemia: Normal ST segments - Labs Labs: Laboratory Tests 12/11/18 12/11/18 12/11/18 14:46 14:46 14:46 WBC 7.4 RBC 4.13 L Hgb 14.6 Hct 42.8 MCV 103.5 H MCH 35.2 H MCHC 34.0 RDW 15.0 Plt Count 251 MPV 7.7 L Neut # (Auto) 5.0 Lymph # (Auto) 1.4 L [place] # (Auto) 0.7 Eos # (Auto) 0.2 Baso # (Auto) 0.2 H Absolute Nucleated RBC 0.00 Nucleated RBC % 0.1 PT INR Sodium 137 Potassium 4.0 Chloride 97 L Carbon Dioxide 26 Anion Gap 14.0 H BUN 18 Creatinine 1.0 Estimated GFR (MDRD) 53 L Glucose 106 H Calcium 9.1 Total Bilirubin 1.8 H AST 27 ALT 17 Alkaline Phosphatase 73 B-Natriuretic Peptide 364 H Total Protein 8.1 Albumin 4.5 Globulin 3.6 Albumin/Globulin Ratio 1.3 Lipase 31 Last Dose Date Last Dose Time Digoxin 12/11/18 12/11/18 14:46 14:46 WBC RBC Hgb Hct MCV MCH MCHC RDW Plt Count MPV Neut # (Auto) Lymph # (Auto) [place] # (Auto) Eos # (Auto) Baso # (Auto) Absolute Nucleated RBC Nucleated RBC % PT 37.5 H INR 3.4 H Sodium Potassium Chloride Carbon Dioxide Anion Gap BUN Creatinine Estimated GFR (MDRD) Glucose Calcium Total Bilirubin AST ALT Alkaline Phosphatase B-Natriuretic Peptide Total Protein Albumin Globulin Albumin/Globulin Ratio Lipase Last Dose Date Not Reportable Last Dose Time Not Reportable Digoxin 0.7 - Rads (name of study) cxr Radiology: Prelim report reviewed, EMP read contemporaneously, See rad report (No acute infiltrates or edema. ) cardiac echo Radiology: Prelim report reviewed PD MEDICAL DECISION MAKING - ED course Complexity details: reviewed results, re-evaluated patient, considered differential, d/w patient, d/w it security consultant ED course: 78-year-old female with dyspnea over the past month. Discussed the case with Dr. Ramos. who will see her on sunday. Departure - Departure Disposition: Home, Self Care Clinical Impression: Dyspnea Qualifiers: Dyspnea type: unspecified Qualified Code(s): R06.00 - Dyspnea, unspecified Condition: Good Instructions: ED Dyspnea Shortness of Breath Follow-Up: Doroteo Burton MD [Primary Care Provider] - Ezra Melendez MD [Provider Admit Priv/Credential] - ANDREA RAMOS MD [Physician No Access] - 12/13/18 Comments: Dr. Ramos's office will call you with your appointment on Sunday. Return if you worsen. Your TAVR is performing normally on the echo today. Discharge Date/Time: 12/11/18 17:49
[2018-12-11 15:09] LABS: INR 3.4 (0.8-1.2); PT - PROTHROMBIN TIME 37.5 secs (9.9-12.6)
[2018-12-11 15:18] LABS: BASOPHILS # (AUTO) 0.2 10^3/uL (0.0-0.1); BASOPHILS % (AUTO) 2.3 %; EOSINOPHILS # (AUTO) 0.2 10^3/uL (0.0-0.7); HGB - HEMOGLOBIN 14.6 g/dL (12.0-16.0); LYMPHOCYTES # (AUTO) 1.4 10^3/uL (1.5-3.5); LYMPHOCYTES % (AUTO) 18.6 %; MEAN CORPUSCULAR HEMOGLOBIN 35.2 pg (27.0-31.0); MEAN CORPUSCULAR VOLUME 103.5 fL (81.0-99.0); MEAN PLATELET VOLUME 7.7 fL (7.9-10.8); MONOCYTES # (AUTO) 0.7 10^3/uL (0.0-1.0); MONOCYTES % (AUTO) 8.9 %; NEUTROPHILS % (AUTO) 67.2 %; PLT - PLATELET COUNT 251 10^3/uL (130-450); RED BLOOD COUNT 4.13 10^6/uL (4.20-5.40); WHITE BLOOD COUNT 7.4 x10^3/uL (4.8-10.8)
[2018-12-11 15:21] LABS: DIGOXIN 0.7 ng/mL
--- NOTE | 2018-12-11 15:27 | XRAY Report ---
Reason: dyspnea Procedure Date: 12/11/2018 Accession Number: [id number] / [id number] Procedure: XR - Chest 2 View X-Ray CPT Code: 16370 FULL RESULT: EXAM: CHEST RADIOGRAPHY EXAM DATE: 12/11/2018 03:09 PM. CLINICAL HISTORY: Dyspnea. COMPARISON: CHEST 1 VIEW 01/23/2017 8:03 AM. CHEST ANGIO 01/22/2017 6:16 PM. CHEST 2 VIEW PA/LAT 11/14/2016 3:43 PM. TECHNIQUE: 2 views. FINDINGS: Lungs/Pleura: No focal opacities evident. No pleural effusion. No pneumothorax. Normal volumes. No edema. Mediastinum: Heart size is upper limits of normal. There is a stable appearance of contour prominence of the anterior mediastinum on the lateral projection which otherwise corresponds to normal superimposition of vascular structures by CT. Prominent mitral annular calcification noted. Other: Aortic valvuloplasty component is in stable position. Stable degenerative dextroscoliosis of the upper lumbar spine. IMPRESSION: No acute infiltrates or edema. RADIA
[2018-12-11 15:36] LABS: ALBUMIN 4.5 g/dL (3.2-5.5); ALBUMIN/GLOBULIN RATIO 1.3 (1.0-2.2); BILIRUBIN,TOTAL 1.8 mg/dL (0.2-1.0); CALCIUM 9.1 mg/dL (8.5-10.3); TOTAL PROTEIN 8.1 g/dL (6.7-8.2)
[2018-12-11 16:31] VITALS: BP 124/58
== END 2018-12-11 17:49 | disposition home or self-care (01) ==
LOC: ED 14:15
DX: R06.00 Dyspnea, unspecified (principal); I48.91 Unspecified atrial fibrillation; I11.0 Hypertensive heart disease with heart failure; I50.9 Heart failure, unspecified; E11.9 Type 2 diabetes mellitus without complications; Z79.84 Long term (current) use of oral hypoglycemic drugs; Z79.82 Long term (current) use of aspirin; Z79.01 Long term (current) use of anticoagulants; Z95.2 Presence of prosthetic heart valve
CPT/HCPCS: 36415; 71046; 80053; 80162; 83690; 83880; 85025; 85610; 93005; 93306; 99283; 99284

== ENCOUNTER 2019-01-31 06:14 | Outpatient (CLI) | payer MEDICARE, BC | END 2019-01-31 06:15 | disposition critical access hospital (66) | LOC: EMS 06:14 | PROVIDERS: ATTEND Surgery | DX: R10.32 Left lower quadrant pain (principal); R11.0 Nausea | CPT/HCPCS: A0425; A0429 ==

== ENCOUNTER 2019-01-31 06:26 | Emergency (ER) | payer MEDICARE, BC ==
[2019-01-31] MEDS ORDERED: KETOROLAC 30 MG/ML VIAL IVP STA (06:33)
--- NOTE | 2019-01-31 06:39 | ED Physician Documentation ---
PD HPI BACK PAIN - Stated complaint Stated Complaint: FLANK PAIN - Chief complaint Chief Complaint: Back Pain - History obtained from History obtained from: Patient, EMS - History of Present Illness Timing - onset: How many days ago (3) Timing - duration: Days (3) Timing - details: Gradual onset Pain level max: 8 Pain level now: 8 Location: Lower, Left Quality: Pain, Spasm, Similar to prior episodes Associated symptoms: No: Fever, Weakness, Numbness, Incontinent of urine, Unable to urinate, Hematuria, Incontinent of stool Improves with: Rest Worsened by: Movement Contributing factors: No: Lifting, Twisting, Trauma, Anticoagulated, Cancer, IVDA, Out of meds Similar symptoms before: Diagnosis (has had sciatica, but states that this feels different.) Recently seen: Clinic (yesterday by PCP for same. States that they, "didn't do anything" but gave her a "slip for an xray" if she didn't feel better by Sunday. 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 HEENT: None Psych: None Musculoskeletal: Other Derm: None - Past Surgical History Past Surgical History: Yes General: Other /EMT PARAMEDIC: section, Hysterectomy, Other Cardiovascular: Valve replacement HEENT: Cataracts - Present Medications Home Medications: Ambulatory Orders Medication Instructions Recorded Confirmed Gabapentin [Neurontin] 300 mg PO BID 03/04/13 06/11/18 metFORMIN [Glucophage] 500 mg PO BIDWM 04/06/15 06/11/18 Digoxin 0.125 mg PO DAILY 08/30/16 06/11/18 Furosemide [Lasix] 40 mg PO BIDDIURETIC #120 tablet 09/05/16 06/11/18 Potassium Chloride [K-Dur] 20 meq PO DAILYWM #30 tablet 09/05/16 06/11/18 Warfarin [Coumadin] 5 mg PO QDWARFARIN 01/22/17 06/11/18 Metoprolol Succinate 100 mg PO BID 08/30/17 06/11/18 Albuterol Sulf [Ventolin Hfa 1 - 2 puffs INH Q4HR PRN 12/11/18 12/11/18 Inhaler] Aspirin 81 mg PO 12/11/18 12/11/18 Fluticasone 44 Mcg [Flovent] 1 puffs INH BID 12/11/18 12/11/18 Multivitamin [Multiple Vitamins] 1 each PO 12/11/18 12/11/18 - Allergies Allergies/Adverse Reactions: Allergies Allergy/AdvReac Type Severity Reaction Status Date / Time No Known Drug Allergies Allergy Verified 01/31/19 06:33 - Social History Does the pt smoke?: No Smoking Status: Never smoker Does the pt drink ETOH?: Yes Does the pt have substance abuse?: No - Immunizations Immunizations are current?: No - POLST Patient has POLST: No POLST Status: Full Code PD ED PE NORMAL - Vitals Vital signs reviewed: Yes - General General: Alert and oriented X 3, No acute distress, Well developed/nourished - HEENT HEENT: PERRL, Moist mucous membranes - Neck Neck: Supple, no meningeal sign - Cardiac Cardiac: RRR, Strong equal pulses - Respiratory Respiratory: No respiratory distress, Clear bilaterally - Abdomen Abdomen: Soft, Non tender, Non distended - Back Back: No spinal TTP, Other (No midline tenderness to palpation or percussion. No step-off or deformity. Tender to palpation left lower lumbar paraspinal area. No CVA tenderness.) - Derm Derm: Warm and dry - Extremities Extremities: No calf tenderness / cord, Other (When she lifts her left leg it hurts her low back.) - Neuro Neuro: Alert and oriented X 3, No motor deficit, No sensory deficit, Other (Normal bilateral lower extremity patellar and ankle jerk reflexes. Normal great toe extension bilaterally. no saddle anesthesia) - Psych Psych: Normal mood, Normal affect Results - Vitals Vitals: Vital Signs - 24 hr 01/31/19 06:31 Temperature 36.5 C Heart Rate 98 Respiratory 17 Rate Blood Pressure 113/78 O2 Saturation 97 Oxygen O2 Source Room air PD MEDICAL DECISION MAKING - ED course Complexity details: reviewed results, re-evaluated patient, considered differential (No cauda equina, no spinal epidural abscess, no fracture, no aortic dissection or evidence of aneursym rupture), d/w patient ED course: 78-year-old female presents to the emergency department with what appears to be likely musculoskeletal left-sided low back pain. Given her age, comorbidities and her warfarin status. Will check labs as well as urinalysis. Given 15 mg of IV Toradol initially. Patient will be signed out to Dr. Sorensen for final disposition. This document was made in part using voice recognition software. While efforts are made to proofread this document, sound alike and grammatical errors may occur. Departure - Departure Clinical Impression: Low back pain Qualifiers: Chronicity: acute Back pain laterality: left Sciatica presence: without sciatica Qualified Code(s): M54.5 - Low back pain
[2019-01-31 06:58] LABS: BASOPHILS # (AUTO) 0.1 10^3/uL (0.0-0.1); BASOPHILS % (AUTO) 1.1 %; EOSINOPHILS # (AUTO) 0.4 10^3/uL (0.0-0.7); EOSINOPHILS % (AUTO) 5.3 %; HGB - HEMOGLOBIN 14.4 g/dL (12.0-16.0); LYMPHOCYTES # (AUTO) 1.6 10^3/uL (1.5-3.5); LYMPHOCYTES % (AUTO) 23.2 %; MEAN CORPUSCULAR HEMOGLOBIN 36.1 pg (27.0-31.0); MEAN CORPUSCULAR HGB CONC 34.3 g/dL (32.0-36.0); MEAN CORPUSCULAR VOLUME 105.1 fL (81.0-99.0); MEAN PLATELET VOLUME 7.4 fL (7.9-10.8); MONOCYTES # (AUTO) 0.7 10^3/uL (0.0-1.0); MONOCYTES % (AUTO) 10.7 %; NEUTROPHILS # (AUTO) 4.1 10^3/uL (1.5-6.6); NEUTROPHILS % (AUTO) 59.7 %; PLT - PLATELET COUNT 249 10^3/uL (130-450); RED BLOOD COUNT 3.98 10^6/uL (4.20-5.40); RED CELL DISTRIBUTION WIDTH 14.4 % (12.0-15.0); WHITE BLOOD COUNT 6.8 x10^3/uL (4.8-10.8)
[2019-01-31 07:05] LABS: INR 2.9 (0.8-1.2); PT - PROTHROMBIN TIME 32.4 secs (9.9-12.6)
[2019-01-31 07:17] LABS: ALBUMIN 4.3 g/dL (3.2-5.5); ALBUMIN/GLOBULIN RATIO 1.2 (1.0-2.2); BILIRUBIN,TOTAL 1.1 mg/dL (0.2-1.0); CALCIUM 9.1 mg/dL (8.5-10.3); CREATININE 0.9 mg/dL (0.4-1.0); TOTAL PROTEIN 7.8 g/dL (6.7-8.2)
[2019-01-31 10:28] LABS: BILIRUBIN,URINE NEGATIVE (NEGATIVE); GLUCOSE, URINE (UA) NEGATIVE (NEGATIVE); KETONES,URINE (UA) NEGATIVE (NEGATIVE); LEUKOCYTE ESTERASE, URINE TRACE (NEGATIVE); NITRITE,URINE NEGATIVE (NEGATIVE); OCCULT BLOOD,URINE SMALL (NEGATIVE); PH,URINE 5.5 PH (5.0-7.5); PROTEIN,URINE NEGATIVE (NEGATIVE); UROBILINOGEN,URINE 0.2 (NORMAL) E.U./dL (NORMAL)
[2019-01-31 10:32] LABS: CLARITY,URINE CLEAR (CLEAR)
[2019-01-31 10:41] LABS: BACTERIA,URINE Few /HPF (None Seen); RBC,URINE 0-5 /HPF (0-5); SQUAMOUS EPITHELIAL CELL,UR MOD Squamous (<= Few)
[2019-01-31] MEDS ORDERED: HYDROmorphone 1 MG/ML CARPUJECT IVP STA (11:30)
[2019-01-31] MEDS ORDERED: ONDANSETRON 4 MG/2 ML VIAL IVP STA (11:30)
--- NOTE | 2019-01-31 11:32 | ED Physician Documentation ---
PD HPI BACK PAIN - Stated complaint Stated Complaint: FLANK PAIN - Chief complaint Chief Complaint: Back Pain - History obtained from History obtained from: Patient - Additional information Additional information: Care of patient is turned over to me at shift change See [place] note for further details. 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 HEENT: None Psych: None Musculoskeletal: Other Derm: None - Past Surgical History Past Surgical History: Yes General: Other /RADIO REPAIRER: section, Hysterectomy, Other Cardiovascular: Valve replacement HEENT: Cataracts - Present Medications Home Medications: Ambulatory Orders Medication Instructions Recorded Confirmed RX: Gabapentin [Neurontin] 300 mg PO BID 03/04/13 06/11/18 RX: metFORMIN [Glucophage] 500 mg PO BIDWM 04/06/15 06/11/18 RX: Digoxin 0.125 mg PO DAILY 08/30/16 06/11/18 RX: Furosemide [Lasix] 40 mg PO BIDDIURETIC #120 tablet 09/05/16 06/11/18 RX: Potassium Chloride [K-Dur] 20 meq PO DAILYWM #30 tablet 09/05/16 06/11/18 Warfarin [Coumadin] 5 mg PO QDWARFARIN 01/22/17 06/11/18 RX: Metoprolol Succinate 100 mg PO BID 08/30/17 06/11/18 Albuterol Sulf [Ventolin Hfa 1 - 2 puffs INH Q4HR PRN 12/11/18 12/11/18 Inhaler] Fluticasone 44 Mcg [Flovent] 1 puffs INH BID 12/11/18 12/11/18 Multivitamin [Multiple Vitamins] 1 each PO 12/11/18 12/11/18 RX: Aspirin 81 mg PO 12/11/18 12/11/18 Cyclobenzaprine [Flexeril] 10 mg PO TID PRN #20 tablet 01/31/19 Hydrocodone/Acetaminophen 1 - 2 each PO Q6H PRN #14 tablet 01/31/19 [Hydrocodon-Acetaminophen 5-325] - Allergies Allergies/Adverse Reactions: Allergies Allergy/AdvReac Type Severity Reaction Status Date / Time No Known Drug Allergies Allergy Verified 01/31/19 06:33 - Social History Does the pt smoke?: No Smoking Status: Never smoker Does the pt drink ETOH?: Yes Does the pt have substance abuse?: No - Immunizations Immunizations are current?: No - POLST Patient has POLST: No POLST Status: Full Code Results - Vitals Vitals: Vital Signs - 24 hr 01/31/19 01/31/19 01/31/19 06:31 06:54 07:13 Temperature 36.5 C Heart Rate 98 90 92 Respiratory 17 17 16 Rate Blood Pressure 113/78 112/73 111/71 O2 Saturation 97 95 98 01/31/19 01/31/19 01/31/19 10:23 13:04 15:11 Temperature Heart Rate 63 64 80 Respiratory 14 14 Rate Blood Pressure 138/94 H 123/82 H 106/80 O2 Saturation 100 98 97 Oxygen O2 Source Room air - Labs Labs: Laboratory Tests 01/31/19 01/31/19 01/31/19 06:50 06:50 06:50 WBC 6.8 RBC 3.98 L Hgb 14.4 Hct 41.8 MCV 105.1 H MCH 36.1 H MCHC 34.3 RDW 14.4 Plt Count 249 MPV 7.4 L Neut # (Auto) 4.1 Lymph # (Auto) 1.6 [place] # (Auto) 0.7 Eos # (Auto) 0.4 Baso # (Auto) 0.1 Absolute Nucleated RBC 0.00 Nucleated RBC % 0.1 PT 32.4 H INR 2.9 H Sodium 139 Potassium 3.6 Chloride 99 L Carbon Dioxide 27 Anion Gap 13.0 BUN 18 Creatinine 0.9 Estimated GFR (MDRD) 60 L Glucose 114 H Calcium 9.1 Total Bilirubin 1.1 H AST 29 ALT 21 Alkaline Phosphatase 71 Total Protein 7.8 Albumin 4.3 Globulin 3.5 Albumin/Globulin Ratio 1.2 Lipase 26 Urine Color Urine Clarity Urine pH Ur Specific [place] Urine Protein Urine Glucose (UA) Urine Ketones Urine Occult Blood Urine Nitrite Urine Bilirubin Urine Urobilinogen Ur Leukocyte Esterase Urine RBC Urine WBC Ur Squamous Epith Cells Urine Bacteria Ur Microscopic Review Urine Culture Comments 01/31/19 10:15 WBC RBC Hgb Hct MCV MCH MCHC RDW Plt Count MPV Neut # (Auto) Lymph # (Auto) [place] # (Auto) Eos # (Auto) Baso # (Auto) Absolute Nucleated RBC Nucleated RBC % PT INR Sodium Potassium Chloride Carbon Dioxide Anion Gap BUN Creatinine Estimated GFR (MDRD) Glucose Calcium Total Bilirubin AST ALT Alkaline Phosphatase Total Protein Albumin Globulin Albumin/Globulin Ratio Lipase Urine Color DARK YELLOW Urine Clarity CLEAR Urine pH 5.5 Ur Specific [place] 1.015 Urine Protein NEGATIVE Urine Glucose (UA) NEGATIVE Urine Ketones NEGATIVE Urine Occult Blood SMALL H Urine Nitrite NEGATIVE Urine Bilirubin NEGATIVE Urine Urobilinogen 0.2 (NORMAL) Ur Leukocyte Esterase TRACE H Urine RBC 0-5 Urine WBC 6-10 H Ur Squamous Epith Cells MOD Squamous H Urine Bacteria Few Ur Microscopic Review INDICATED Urine Culture Comments NOT INDICATED - Rads (name of study) lumbar spine Radiology: Prelim report reviewed (Impression: 1. Negative for compression fracture or spondylolisthesis 2 significant interval change in the multilevel moderate to severe degenerative disc disease and mid lower lumbar spine heart hypertrophic facet disease.), EMP read indepedently, See rad report Procedures - IVC sono (time) 1128 Bedside IVC sono: IVC measures (cm) (1.85), Euvolemia PD MEDICAL DECISION MAKING - ED course Complexity details: reviewed results, re-evaluated patient, considered differential, d/w patient, d/w family ED course: 78 year-old female with pain in her left lower lumbar area for about 3 days has a marked increase in her pain this morning and she is having a hard time getting in and out of bed. I suspect she has lumbar compression fracture and lumbar films are obtained. She did not get adequate relief of her pain with the use of 15 mg of Toradol and she is administered Dilaudid and Zofran. She has improvement in pain with the dialudid but is still having as hard time moving about. She is administered decadron as well. She is adequately hydrated does not have UTI and she does not have compression fracture on plain film. She has significant advanced DJD. Social work is consulted and the patient does have multiple sources of help. Departure - Departure Disposition: 01 Home, Self Care Clinical Impression: Low back pain Condition: Stable Instructions: ED Sprain Strain Lumbar Follow-Up: Doroteo Burton MD [Primary Care Provider] - Prescriptions: Cyclobenzaprine [Flexeril] 10 mg PO TID PRN #20 tablet PRN Reason: Spasms Hydrocodone/Acetaminophen [Hydrocodon-Acetaminophen 5-325] 1 - 2 each PO Q6H PRN #14 tablet PRN Reason: pain Discharge Date/Time: 01/31/19 15:12
--- NOTE | 2019-01-31 12:23 | XRAY Report ---
Reason: lower lumbar pain like a compression fx. Procedure Date: 01/31/2019 Accession Number: [id number] / [id number] Procedure: XR - Lumbar Spine 2 View CPT Code: FULL RESULT: EXAM: LUMBOSACRAL SPINE RADIOGRAPHY EXAM DATE: 01/31/2019 12:02 PM. CLINICAL HISTORY: Lower lumbar pain, clinical concern for compression fracture. COMPARISONS: LUMBAR SPINE 2 VIEW 10/02/2018 12:38 PM. TECHNIQUE: 3 views. FINDINGS: Alignment: No spondylolisthesis. The mild upper lumbar spine dextroscoliosis again noted, without significant interval changes. Bones: Five [id number] lumbar vertebral bodies are present. No new fractures or bone lesions. Disks: Multilevel moderate to severe degenerative disk disease in the lower thoracic spine through the S1, slightly more prominent at the L5-S1 again noted, without significant interval changes. Facets: Mild to moderate hypertrophic degenerative changes at the mid lower lumbar spine, predominantly at the L5-S1 again seen, unchanged. Sacroiliac Joints: Unremarkable. Soft Tissues: The visualized bowel gas pattern is normal. Diffuse calcified wall of the abdominal aorta without dilatation again noted. IMPRESSION: 1. Negative for compression fracture or spondylolisthesis. 2. No significant interval change of the multilevel [id number] degenerative disk disease and mid-lower lumbar spine hypertrophic facet disease. RADIA
[2019-01-31] MEDS ORDERED: CHERRY SYRUP 10 ML UDC PO ONE (12:36)
[2019-01-31] MEDS ORDERED: DEXAMETHASONE 10 MG/ML VIAL PO STA (12:36)
[2019-01-31 15:12] VITALS: BP 106/80
== END 2019-01-31 15:12 | disposition home or self-care (01) ==
LOC: EDUNIT# → ED 06:26
DX: M54.5 Low back pain (principal); I10 Essential (primary) hypertension; E11.9 Type 2 diabetes mellitus without complications; Z79.84 Long term (current) use of oral hypoglycemic drugs; Z79.01 Long term (current) use of anticoagulants; Z95.2 Presence of prosthetic heart valve
CPT/HCPCS: 36415; 72100; 80053; 81001; 83690; 85025; 85610; 96374; 96375; 99284; A9270; J1170; 81003; 87086

== ENCOUNTER 2019-05-17 19:34 | Emergency (ER) | payer MEDICARE, BC ==
--- NOTE | 2019-05-17 20:15 | ED Physician Documentation ---
PD HPI BACK PAIN - Stated complaint Stated Complaint: BACK PAIN - Chief complaint Chief Complaint: Back Pain - History obtained from History obtained from: Patient - History of Present Illness Timing - onset: Other (79-year-old woman on warfarin for atrial fibrillation, also on digoxin presents with back pain that is been going on for the last 9 months and is progressive and moving lower. Over the last 2 months she is noted incontinence of stool, but no incontinence of urine. She also has shocklike pains into her groin without saddle anesthesia. No fevers. 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: Other : None HEENT: None Psych: None Musculoskeletal: Other Derm: None - Past Surgical History Past Surgical History: Yes General: Other /CLERK GENERAL OFFICE: section, Hysterectomy, Other Cardiovascular: Valve replacement HEENT: Cataracts - Present Medications Home Medications: Ambulatory Orders Medication Instructions Recorded Confirmed RX: Gabapentin [Neurontin] 300 mg PO BID 03/04/13 06/11/18 RX: metFORMIN [Glucophage] 500 mg PO BIDWM 04/06/15 06/11/18 RX: Digoxin 0.125 mg PO DAILY 08/30/16 06/11/18 RX: Furosemide [Lasix] 40 mg PO BIDDIURETIC #120 tablet 09/05/16 06/11/18 RX: Potassium Chloride [K-Dur] 20 meq PO DAILYWM #30 tablet 09/05/16 06/11/18 Warfarin [Coumadin] 5 mg PO QDWARFARIN 01/22/17 06/11/18 RX: Metoprolol Succinate 100 mg PO BID 08/30/17 06/11/18 Albuterol Sulf [Ventolin Hfa 1 - 2 puffs INH Q4HR PRN 12/11/18 12/11/18 Inhaler] Fluticasone 44 Mcg [Flovent] 1 puffs INH BID 12/11/18 12/11/18 Multivitamin [Multiple Vitamins] 1 each PO 12/11/18 12/11/18 RX: Aspirin 81 mg PO 12/11/18 12/11/18 Cyclobenzaprine [Flexeril] 10 mg PO TID PRN #20 tablet 01/31/19 Hydrocodone/Acetaminophen 1 - 2 each PO Q6H PRN #14 tablet 01/31/19 [Hydrocodon-Acetaminophen 5-325] Oxycodone HCl/Acetaminophen 1 - 2 each PO Q6H PRN #14 tablet 05/17/19 [Percocet 5-325 mg Tablet] - Allergies Allergies/Adverse Reactions: Allergies Allergy/AdvReac Type Severity Reaction Status Date / Time No Known Drug Allergies Allergy Verified 05/17/19 19:51 - Social History Does the pt smoke?: No Smoking Status: Never smoker Does the pt drink ETOH?: Yes Does the pt have substance abuse?: No - Immunizations Immunizations are current?: No - POLST Patient has POLST: No POLST Status: Full Code PD ED PE NORMAL - Vitals Vital signs reviewed: Yes - General General: Alert and oriented X 3, No acute distress - HEENT HEENT: PERRL, EOMI - Neck Neck: Supple, no meningeal sign, No bony TTP - Back Back: No spinal TTP - Extremities Extremities: Other (The patient has equal and normal Achilles and patellar reflexes bilaterally. Normal sensation in all areas of the legs. Patient denies saddle anesthesia. Normal strength in flexion-extension at the ankles, knees, and flexion of the hips.) - Neuro Neuro: Alert and oriented X 3, Normal speech Results - Vitals Vitals: Vital Signs - 24 hr 05/17/19 05/17/19 19:35 22:01 Temperature 36.0 C L 36.4 C L Heart Rate 80 92 Respiratory 18 20 Rate Blood Pressure 108/78 120/62 O2 Saturation 99 95 Oxygen O2 Source Room air - Rads (name of study) CT Lspine Radiology: EMP read contemporaneously (Right convexity lumbar scoliosis and diffuse disc and facet joint degenerative changes resulting in variable degrees of bilateral neuronal foraminal And central canal stenosis most significant at L4 and L5) PD MEDICAL DECISION MAKING - ED course ED course: 79-year-old woman presents with progressive back pain, radiation to the groin without saddle anesthesia but does have subacute incontinence of stool. This is concerning for spinal stenosis. CT confirms a diagnosis of spinal stenosis. Note that her neurologic symptoms are not acute, her bowel incontinence is been going on for several months now. I did want to touch base with a spine surgeon for her after the CT but the andres ent was getting very anxious to leave. Page was made to [facility] but the patient all but demanded to leave prior to that consultation being made. I offered to call her at home subsequent to that consult, If expedited intervention was recommended by the spinal surgeon. Subsequent to that, the neurosurgeon, Dr. Davidson did call me back, we discussed the case. She felt that she could be followed up outpatient in an expedited manner given the subacute nature of her incontinence. Departure - Departure Disposition: Home, Self Care Clinical Impression: Spinal stenosis Condition: Good Record reviewed to determine appropriate education?: Yes Instructions: ED Sciatica Prescriptions: Oxycodone HCl/Acetaminophen [Percocet 5-325 mg Tablet] 1 - 2 each PO Q6H PRN #14 tablet PRN Reason: pain Comments: As discussed, I think you need to follow-up with a spinal specialist for evaluation. One option would be Dr. Oro in [place], call [phone] for an appointment. Also as discussed if you will have any surgical intervention, you will need to have your dye tank tender involved. Return for new or worsening symptoms. Do not drink or drive while taking narcotic pain medication. Note that many narcotic pain relievers also contain Tylenol/acetaminophen. Please ensure that your total dose of acetaminophen from all sources does not exceed 3 g (3000 mg) per day. You may get constipated while on this medication. Take a stool softener such as Colace twice a day while you are on it. Also add an [id number] laxative such as senna or MiraLAX on any day that you do not have a bowel movement. If you received a narcotic pain medication or sedative while in the emergency department, do not drive for the next 24 hours. Discharge Date/Time: 05/17/19 22:07
--- NOTE | 2019-05-17 21:31 | CT Report ---
Reason: back pain, suspect spinal stenosis Procedure Date: 05/17/2019 Accession Number: [id number] / [id number] Procedure: CT - LUMBAR SPINE WO CPT Code: FULL RESULT: EXAM: CT LUMBAR SPINE WITHOUT CONTRAST EXAM DATE: 05/17/2019 08:40 PM. CLINICAL HISTORY: Back pain, suspect spinal stenosis. COMPARISONS: None. TECHNIQUE: Thin-section axial images were acquired of the lumbar spine from T12 to S1 without contrast. Post-processing: Coronal and sagittal reformats. Other: None. In accordance with CT protocol optimization, one or more of the following dose reduction techniques were utilized for this exam: automated exposure control, adjustment of mA and/or KV based on patient size, or use of iterative reconstructive technique. FINDINGS: Alignment: Mild right convexity lumbar scoliosis. No vertebral body subluxations. Bones: Five [id number] lumbar vertebral bodies are present. No fractures or bone lesions. Disk spaces/facet joints: L1-L2: Loss of disk height with posterior disk bulging resulting in mild bilateral neuroforaminal stenosis, left greater than right. L2-L3: Asymmetric degenerative bulging disk osteophyte complex resulting in moderate left and mild right neural foraminal stenosis. There is mild central canal stenosis. L3-L4: Degenerative bulging disk osteophyte complex and facet joint arthropathy resulting in severe right and mild left neuroforaminal stenosis. There is mild central canal stenosis. L4-L5: Degenerative bulging disk osteophyte complex, ligamentum flavum and facet joint arthropathy resulting in mild bilateral neural central canal stenosis. There is approximately 2 mm of L4 on L5 anterolisthesis and mild central canal stenosis. L5-S1: Degenerative bulging disk osteophyte complex resulting in moderate bilateral neural foraminal stenosis. Musculature: Normal. No fatty atrophy. Other: Atherosclerotic aortic disease without evidence of aneurysm. There is diverticulosis. IMPRESSION: 1. No acute lumbar spine bony abnormality. 2. Right convexity lumbar scoliosis. 3. Diffuse disk and facet joint related degenerative changes resulting in variable degrees of bilateral neural foraminal and central canal stenosis most significant at L4-L5. RADIA
[2019-05-17] MEDS ORDERED: oxyCODONE/ACET 5/325 Prepack 4 PO STA (21:36)
[2019-05-17 22:02] VITALS: BP 120/62
== END 2019-05-17 22:07 | disposition home or self-care (01) ==
LOC: ED 19:34
DX: M48.061 Spinal stenosis, lumbar region without neurogenic claudication (principal); I10 Essential (primary) hypertension; E11.9 Type 2 diabetes mellitus without complications; Z79.84 Long term (current) use of oral hypoglycemic drugs
CPT/HCPCS: 72131; 99284

== ENCOUNTER 2019-05-26 14:31 | Emergency (ER) | payer MEDICARE, BC ==
[2019-05-26 14:57] LABS: BASOPHILS # (AUTO) 0.1 10^3/uL (0.0-0.1); EOSINOPHILS # (AUTO) 0.3 10^3/uL (0.0-0.7); EOSINOPHILS % (AUTO) 3.6 %; HGB - HEMOGLOBIN 14.5 g/dL (12.0-16.0); LYMPHOCYTES # (AUTO) 1.7 10^3/uL (1.5-3.5); LYMPHOCYTES % (AUTO) 18.4 %; MEAN CORPUSCULAR HEMOGLOBIN 33.9 pg (27.0-31.0); MEAN CORPUSCULAR HGB CONC 32.1 g/dL (32.0-36.0); MEAN CORPUSCULAR VOLUME 105.6 fL (81.0-99.0); MEAN PLATELET VOLUME 8.9 fL (7.9-10.8); MONOCYTES # (AUTO) 1.2 10^3/uL (0.0-1.0); MONOCYTES % (AUTO) 12.6 %; NEUTROPHILS % (AUTO) 63.3 %; PLT - PLATELET COUNT 306 10^3/uL (130-450); RED BLOOD COUNT 4.28 10^6/uL (4.20-5.40); RED CELL DISTRIBUTION WIDTH 13.2 % (12.0-15.0); WHITE BLOOD COUNT 9.4 x10^3/uL (4.8-10.8)
[2019-05-26 15:12] LABS: ALBUMIN 4.5 g/dL (3.2-5.5); ALBUMIN/GLOBULIN RATIO 1.3 (1.0-2.2); BILIRUBIN,TOTAL 0.7 mg/dL (0.2-1.0); CALCIUM 9.6 mg/dL (8.5-10.3); CREATININE 0.9 mg/dL (0.4-1.0); TOTAL PROTEIN 7.9 g/dL (6.7-8.2)
--- NOTE | 2019-05-26 15:45 | ED Physician Documentation ---
PD HPI DYSPNEA - Stated complaint Stated Complaint: DIZZY/SWEATING - Chief complaint Chief Complaint: Neuro - History obtained from History obtained from: Patient - History of Present Illness Timing - onset: How many minutes ago (45) Timing - onset during: Light activity (sitting at desk) Timing - duration: Minutes Timing - details: Abrupt onset (she had feeling of lightheadedness and some dyspnea, sweating, that lasted several minutes then improved. No syncope. Had this happen a few days ago as well, when lying down in bed. Otherwise normal activity.), Now resolved Inciting event(s): No: Out of meds, URI Worsened by: No: Exertion, Laying flat Associated symptoms: No: Fever, Cough, Wheezing, Palpitations, Bilateral edema Similar symptoms before: No diagnosis Recently seen: Not recently seen Review of Systems Constitutional: denies: Fever, Chills, Myalgias Nose: denies: Rhinorrhea / runny nose, Congestion Throat: denies: Sore throat Cardiac: denies: Chest pain / pressure, Palpitations Respiratory: denies: Dyspnea, Cough GI: denies: Abdominal Pain, Nausea, Vomiting, Diarrhea, Bloody / black stool Skin: denies: Rash, Lesions Neurologic: reports: Near syncope (today, for few minutes while sitting at desk.). 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 HEENT: None Psych: None Musculoskeletal: Other Derm: None - Past Surgical History Past Surgical History: Yes General: Other /FOURDRINIER MACHINE TENDER: section, Hysterectomy, Other Cardiovascular: Valve replacement HEENT: Cataracts - Present Medications Home Medications: Ambulatory Orders Medication Instructions Recorded Confirmed Gabapentin [Neurontin] 300 mg PO BID 03/04/13 05/26/19 metFORMIN [Glucophage] 500 mg PO DAILY 04/06/15 05/26/19 Digoxin 0.125 mg PO DAILY 08/30/16 05/26/19 Furosemide [Lasix] 40 mg PO BIDDIURETIC #120 tablet 09/05/16 05/26/19 Potassium Chloride [K-Dur] 20 meq PO DAILYWM #30 tablet 09/05/16 05/26/19 Warfarin [Coumadin] 5 mg PO QDWARFARIN 01/22/17 05/26/19 Metoprolol Succinate 100 mg PO DAILY 08/30/17 05/26/19 Albuterol Sulf [Ventolin Hfa 1 - 2 puffs INH Q4HR PRN 12/11/18 05/26/19 Inhaler] Aspirin 81 mg PO DAILY 12/11/18 05/26/19 Oxycodone HCl/Acetaminophen 1 - 2 each PO Q6H PRN #14 tablet 05/17/19 05/26/19 [Percocet 5-325 mg Tablet] - Allergies Allergies/Adverse Reactions: Allergies Allergy/AdvReac Type Severity Reaction Status Date / Time No Known Drug Allergies Allergy Verified 05/26/19 14:44 - Social History Does the pt smoke?: No Smoking Status: Never smoker Does the pt drink ETOH?: Yes Does the pt have substance abuse?: No - Immunizations Immunizations are current?: No - POLST Patient has POLST: No POLST Status: Full Code PD ED PE NORMAL - Vitals Vital signs reviewed: Yes - General General: Alert and oriented X 3, No acute distress, Well developed/nourished - HEENT HEENT: Pharynx benign - Neck Neck: Supple, no meningeal sign, No adenopathy - Cardiac Cardiac: No rub, Other (several sounds heard - systolic murmur c/w valvular sound left chest, also systolic right chest. ). No: RRR (irregular but controlled rate) - Respiratory Respiratory: Clear bilaterally - Abdomen Abdomen: Soft, Non tender - Derm Derm: Normal color, Warm and dry, No rash - Extremities Extremities: No tenderness to palpate, Normal ROM s pain, No edema, No calf tenderness / cord - Neuro Neuro: Alert and oriented X 3, No motor deficit, Normal speech Results - Vitals Vitals: Vital Signs - 24 hr 05/26/19 05/26/19 05/26/19 14:41 16:48 16:54 Temperature 36.5 C Heart Rate 68 83 Heart Rate [ 65 Sitting] Heart Rate [ 78 Standing] Heart Rate [ 62 Supine] Respiratory 19 18 Rate Blood Pressure 111/63 115/65 Blood Pressure 113/73 [Sitting] Blood Pressure 115/65 [Standing] Blood Pressure 117/72 [Supine] O2 Saturation 97 95 05/26/19 17:49 Temperature Heart Rate 65 Heart Rate [ Sitting] Heart Rate [ Standing] Heart Rate [ Supine] Respiratory 16 Rate Blood Pressure 126/69 Blood Pressure [Sitting] Blood Pressure [Standing] Blood Pressure [Supine] O2 Saturation 98 Oxygen O2 Source Room air - EKG (time done) 14:44 Rate: Rate (enter#) (70) Rhythm: Atrial fibrillation Edelstein: Normal QRS: Normal Ischemia: Normal ST segments, Non specific changes. No: ST elevation c/w ischemia, ST depression - Labs Labs: Laboratory Tests 05/26/19 05/26/19 05/26/19 14:54 14:54 14:54 WBC 9.4 RBC 4.28 Hgb 14.5 Hct 45.2 MCV 105.6 H MCH 33.9 H MCHC 32.1 RDW 13.2 Plt Count 306 MPV 8.9 Neut # (Auto) 6.0 Lymph # (Auto) 1.7 [place] # (Auto) 1.2 H Eos # (Auto) 0.3 Baso # (Auto) 0.1 Absolute Nucleated RBC 0.00 Nucleated RBC % 0.0 PT INR Sodium 140 Potassium 3.8 Chloride 99 L Carbon Dioxide 31 Anion Gap 10.0 BUN 14 Creatinine 0.9 Estimated GFR (MDRD) 60 L Glucose 118 H Calcium 9.6 Magnesium 1.9 Total Bilirubin 0.7 AST 24 ALT 17 Alkaline Phosphatase 64 Troponin I High Sens B-Natriuretic Peptide Total Protein 7.9 Albumin 4.5 Globulin 3.4 Albumin/Globulin Ratio 1.3 Lipase 26 Last Dose Date Last Dose Time Digoxin 05/26/19 05/26/19 05/26/19 14:54 14:54 14:54 WBC RBC Hgb Hct MCV MCH MCHC RDW Plt Count MPV Neut # (Auto) Lymph # (Auto) [place] # (Auto) Eos # (Auto) Baso # (Auto) Absolute Nucleated RBC Nucleated RBC % PT INR Sodium Potassium Chloride Carbon Dioxide Anion Gap BUN Creatinine Estimated GFR (MDRD) Glucose Calcium Magnesium Total Bilirubin AST ALT Alkaline Phosphatase Troponin I High Sens 15.0 H* B-Natriuretic Peptide 290 H Total Protein Albumin Globulin Albumin/Globulin Ratio Lipase Last Dose Date UNKNOWN Last Dose Time UNKNOWN Digoxin 0.8 05/26/19 14:54 WBC RBC Hgb Hct MCV MCH MCHC RDW Plt Count MPV Neut # (Auto) Lymph # (Auto) [place] # (Auto) Eos # (Auto) Baso # (Auto) Absolute Nucleated RBC Nucleated RBC % PT 27.6 H INR 2.5 H Sodium Potassium Chloride Carbon Dioxide Anion Gap BUN Creatinine Estimated GFR (MDRD) Glucose Calcium Magnesium Total Bilirubin AST ALT Alkaline Phosphatase Troponin I High Sens B-Natriuretic Peptide Total Protein Albumin Globulin Albumin/Globulin Ratio Lipase Last Dose Date Last Dose Time Digoxin - Rads (name of study) chest xray Radiology: Prelim report reviewed, EMP read contemporaneously (no failure; no acute process), See rad report PD MEDICAL DECISION MAKING - ED course Complexity details: considered differential (consider changes in BP or rhythm episodically. 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 So she may need higher filling pressure and she currently has relatively low BP, which might need to be higher. So would have her decrease Lasix for now. Has PMD appt in 3 days. Consider decreasing Metoprolol as well. ), d/w patient Departure - Departure Disposition: 01 Home, Self Care Clinical Impression: Episodic lightheadedness Atrial fibrillation Qualifiers: Atrial fibrillation type: chronic Qualified Code(s): I48.2 - Chronic atrial fibrillation Condition: Stable Record reviewed to determine appropriate education?: Yes Instructions: ED Near Syncope Unkn Follow-Up: Drooteo Burton MD [Primary Care Provider] - Comments: Decrease your furosemide from twice to once a day. Hold your digoxin for 1 day and then continue as usual. Stay well-hydrated. Follow-up with Dr. Burton in 3 days as planned. If you continue with some lightheaded episodes, they may consider decreasing your metoprolol dose as well. Return to the ER if needed for worse symptoms. Discharge Date/Time: 05/26/19 17:52
[2019-05-26 16:27] LABS: DIGOXIN 0.8 ng/mL
--- NOTE | 2019-05-26 16:34 | XRAY Report ---
Reason: near syncope Procedure Date: 05/26/2019 Accession Number: [id number] / [id number] Procedure: XR - Chest 1 View X-Ray CPT Code: 47329 FULL RESULT: EXAM:CHEST RADIOGRAPHY EXAM DATE: 05/26/2019 04:21 PM. CLINICAL HISTORY: Near syncope. COMPARISON: CHEST 2 VIEW 12/11/2018 2:38 PM. TECHNIQUE: 1 view. FINDINGS: Lungs/Pleura: Mild pulmonary edema. No focal opacities evident. No pleural effusion. No pneumothorax. Mediastinum: Mild stable cardiomegaly Other: None. IMPRESSION: Mild stable cardiomegaly and mild perihilar vascular congestion/mild pulmonary edema. Unchanged since prior dated 12/11/2018. RADIA
[2019-05-26 17:41] LABS: INR 2.5 (0.8-1.2); PT - PROTHROMBIN TIME 27.6 secs (9.9-12.6)
[2019-05-26 17:50] VITALS: BP 126/69
== END 2019-05-26 17:52 | disposition home or self-care (01) ==
LOC: ED 14:31
DX: R42 Dizziness and giddiness (principal); I48.2 Chronic atrial fibrillation; Z95.2 Presence of prosthetic heart valve; Z79.01 Long term (current) use of anticoagulants; I11.0 Hypertensive heart disease with heart failure; I50.9 Heart failure, unspecified; E11.9 Type 2 diabetes mellitus without complications; Z79.84 Long term (current) use of oral hypoglycemic drugs
CPT/HCPCS: 36415; 71045; 80053; 80162; 83690; 83735; 83880; 84484; 85025; 85610; 93005; 99284

== ENCOUNTER 2019-11-21 13:16 | Outpatient (CLI) | payer MEDICARE, BC | END 2019-11-21 13:17 | disposition home or self-care (01) | LOC: DI 13:16 | PROVIDERS: ATTEND Internal Medicine Cardiovascular Disease | DX: R06.00 Dyspnea, unspecified (principal); Z95.2 Presence of prosthetic heart valve; I08.1 Rheumatic disorders of both mitral and tricuspid valves; I27.20 Pulmonary hypertension, unspecified | CPT/HCPCS: 93306 ==

== ENCOUNTER 2020-01-15 10:18 | Outpatient (CLI) | payer MEDICARE, BC ==
[2020-01-15 10:56] LABS: BASOPHILS # (AUTO) 0.1 10^3/uL (0.0-0.1); EOSINOPHILS # (AUTO) 0.2 10^3/uL (0.0-0.7); EOSINOPHILS % (AUTO) 2.9 %; HGB - HEMOGLOBIN 14.5 g/dL (12.0-16.0); LYMPHOCYTES # (AUTO) 1.4 10^3/uL (1.5-3.5); LYMPHOCYTES % (AUTO) 16.3 %; MEAN CORPUSCULAR HEMOGLOBIN 35.5 pg (27.0-31.0); MEAN CORPUSCULAR HGB CONC 33.3 g/dL (32.0-36.0); MEAN CORPUSCULAR VOLUME 106.6 fL (81.0-99.0); MEAN PLATELET VOLUME 9.1 fL (7.9-10.8); MONOCYTES # (AUTO) 0.8 10^3/uL (0.0-1.0); MONOCYTES % (AUTO) 9.9 %; NEUTROPHILS # (AUTO) 5.8 10^3/uL (1.5-6.6); NEUTROPHILS % (AUTO) 68.8 %; PLT - PLATELET COUNT 282 10^3/uL (130-450); RED BLOOD COUNT 4.09 10^6/uL (4.20-5.40); WHITE BLOOD COUNT 8.4 x10^3/uL (4.8-10.8)
[2020-01-15 11:02] LABS: INR 1.8 (0.8-1.2); PT - PROTHROMBIN TIME 19.5 secs (9.9-12.6)
[2020-01-15 11:14] LABS: ALBUMIN 4.3 g/dL (3.2-5.5); ALBUMIN/GLOBULIN RATIO 1.3 (1.0-2.2); ALKALINE PHOSPHATASE 67 IU/L (42-121); ALT ALANINE AMINOTRANSFERASE 19 IU/L (10-60); AST ASPARTATE AMINOTRANSFERASE 29 IU/L (10-42); BILIRUBIN,TOTAL 1.3 mg/dL (0.2-1.0); BUN - BLOOD UREA NITROGEN 16 mg/dL (6-20); CARBON DIOXIDE - CO2 29 mmol/L (21-32); CHLORIDE 96 mmol/L (101-111); CHOL/HDL RATIO 4.5 (<4.4); CHOLESTEROL 240 mg/dL; CREATININE 1.2 mg/dL (0.4-1.0); GLUCOSE 130 mg/dL (70-100); HDL CHOLESTEROL 53 mg/dL; LDL CHOLESTEROL,CALCULATED 162 mg/dL; LDL/HDL RATIO 3.1 (<4.4); SODIUM 136 mmol/L (135-145); TOTAL PROTEIN 7.5 g/dL (6.7-8.2); VLDL CHOLESTEROL 25 mg/dL
[2020-01-15 11:52] LABS: HB2 TOTAL 15.5 g/dL; HEMOGLOBIN A1C 0.61 g/dL; HEMOGLOBIN A1C % 5.8 % (4.6-6.2)
--- NOTE | 2020-01-15 19:49 | XRAY Report ---
Reason: RADICULOPATHY, LOWER BACK Procedure Date: 01/15/2020 Accession Number: [id number] / [id number] Procedure: XR - Lumbar Spine 2 View CPT Code: Final Report FULL RESULT: EXAM: LUMBOSACRAL SPINE RADIOGRAPHY EXAM DATE: 01/15/2020 10:44 AM. CLINICAL HISTORY: RADICULOPATHY, LOWER BACK. COMPARISONS: LUMBAR SPINE 2 VIEW 01/31/2019 11:42 AM. TECHNIQUE: 2 views. FINDINGS: Alignment: Mild right convex upper lumbar scoliosis. Mild right lateral subluxation L3 on L4. Bones: Five [id number]-[id number] lumbar vertebral bodies are present. No fractures or bone lesions. Disks: Disk height loss and endplate osteophyte formation indicating moderate to severe degenerative disk disease throughout the lumbar spine, as before. Facets: No significant facet hypertrophy. Sacroiliac Joints: Unremarkable. Soft Tissues: Mild aortoiliac atherosclerotic calcification. IMPRESSION: 1. Moderate to severe multilevel lumbar degenerative disk disease. 2. Mild right convex upper lumbar scoliosis. 3. No significant change since 2019. RADIA
== END 2020-01-15 10:19 | disposition home or self-care (01) ==
LOC: DI 10:18
PROVIDERS: ATTEND Family Medicine
DX: M51.36 Other intervertebral disc degeneration, lumbar region (principal); Z95.2 Presence of prosthetic heart valve; I50.1 Left ventricular failure, unspecified; E11.51 Type 2 diabetes mellitus with diabetic peripheral angiopathy without gangrene; M41.9 Scoliosis, unspecified; I48.20 Chronic atrial fibrillation, unspecified
CPT/HCPCS: 36415; 72100; 80053; 80061; 83036; 83721; 84443; 85025; 85610

== ENCOUNTER 2020-02-12 08:00 | Outpatient (CLI) | payer MEDICARE, BC | END 2020-02-12 23:59 | disposition home or self-care (01) | LOC: LAB.WCP 08:00 | PROVIDERS: ATTEND Family Medicine | DX: I48.20 Chronic atrial fibrillation, unspecified (principal); Z79.01 Long term (current) use of anticoagulants ==

== ENCOUNTER 2020-02-17 08:00 | Outpatient (CLI) | payer MEDICARE, BC | END 2020-02-17 23:59 | disposition home or self-care (01) | LOC: LAB.WCP 08:00 | PROVIDERS: ATTEND Family Medicine | DX: I48.20 Chronic atrial fibrillation, unspecified (principal); Z79.01 Long term (current) use of anticoagulants ==

== ENCOUNTER 2020-02-23 08:00 | Outpatient (CLI) | payer MEDICARE, BC | END 2020-02-23 23:59 | disposition home or self-care (01) | LOC: LAB.WCP 08:00 | PROVIDERS: ATTEND Family Medicine | DX: I48.20 Chronic atrial fibrillation, unspecified (principal); Z79.01 Long term (current) use of anticoagulants ==

== ENCOUNTER 2020-03-16 08:00 | Outpatient (CLI) | payer MEDICARE, BC | END 2020-03-16 23:59 | disposition home or self-care (01) | LOC: LAB.WCP 08:00 | PROVIDERS: ATTEND Family Medicine | DX: Z95.2 Presence of prosthetic heart valve (principal); Z79.01 Long term (current) use of anticoagulants ==

== ENCOUNTER 2020-04-23 16:33 | Emergency (ER) | payer MEDICARE, BC ==
[2020-04-23] MEDS ORDERED: IPRATROPIUM/ALBUTEROL 3 ML NEB INH STA (16:50)
--- NOTE | 2020-04-23 16:53 | ED Physician Documentation ---
History of Present Illness - Stated complaint Stated Complaint: SOA - History obtained from History obtained from: Patient, Family - History of Present Illness Timing: Today Pain level max: 0 Pain level now: 0 - Additonal information Additional information: 80-year-old female states that she had a mitral valve replacement done 2 days ago at [facility]. She thinks that the doctor's name was Dr. Gautam, but she is unsure. She does not know what medications she was placed on. She states that she is having increasing difficulty breathing today. They called [facility] who recommended they go to the closest emergency department. Nothing makes it better or worse. She does not know her normal medications at home. Does not smoke. Denies any COPD or asthma history. She is not having any chest pain. The patient does not have her discharge paperwork either. The medication list that is available to us currently is from 2017. We will try to obtain records from [facility]. She was sent home from the hospital yesterday, her daughter checked on her today and found her to have difficulty breathing. Review of Systems Constitutional: denies: Fever, Chills Ears: denies: Ear pain Nose: denies: Rhinorrhea / runny nose, Congestion Throat: denies: Sore throat Cardiac: denies: Chest pain / pressure, Palpitations Respiratory: reports: Dyspnea. 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 HEENT: None Psych: None Musculoskeletal: Other Derm: None - Past Surgical History Past Surgical History: Yes General: Other /FACIAL OPERATOR: section, Hysterectomy, Other Cardiovascular: Valve replacement HEENT: Cataracts - Present Medications Home Medications: Ambulatory Orders Medication Instructions Recorded Confirmed Gabapentin [Neurontin] 300 mg PO BID 03/04/13 05/26/19 metFORMIN [Glucophage] 500 mg PO DAILY 04/06/15 05/26/19 Digoxin 0.125 mg PO DAILY 08/30/16 05/26/19 Furosemide [Lasix] 40 mg PO BIDDIURETIC #120 tablet 09/05/16 05/26/19 Potassium Chloride [K-Dur] 20 meq PO DAILYWM #30 tablet 09/05/16 05/26/19 Warfarin [Coumadin] 5 mg PO QDWARFARIN 01/22/17 05/26/19 Metoprolol Succinate 100 mg PO DAILY 08/30/17 05/26/19 Albuterol Sulf [Ventolin Hfa 1 - 2 puffs INH Q4HR PRN 12/11/18 05/26/19 Inhaler] Aspirin 81 mg PO DAILY 12/11/18 05/26/19 Oxycodone HCl/Acetaminophen 1 - 2 each PO Q6H PRN #14 tablet 05/17/19 05/26/19 [Percocet 5-325 mg Tablet] Albuterol Sulf [Ventolin Hfa 1 - 2 puffs INH Q4HR PRN #1 inhaler 04/23/20 Inhaler] - Allergies Allergies/Adverse Reactions: Allergies Allergy/AdvReac Type Severity Reaction Status Date / Time No Known Drug Allergies Allergy Verified 05/26/19 14:44 - Social History Does the pt smoke?: No Smoking Status: Never smoker Does the pt drink ETOH?: Yes Does the pt have substance abuse?: No - Immunizations Immunizations are current?: No - POLST Patient has POLST: No POLST Status: Full Code PD ED PE NORMAL - Vitals Vital signs reviewed: Yes - General General: Alert and oriented X 3, No acute distress, Well developed/nourished - HEENT HEENT: Moist mucous membranes - Neck Neck: Supple, no meningeal sign - Cardiac Cardiac: Strong equal pulses, Other (Irregularly irregular) - Respiratory Respiratory: Other (Crackles in the bases, diminished breath sounds throughout) - Abdomen Abdomen: Soft, Non tender, Non distended - Derm Derm: Warm and dry - Extremities Extremities: No edema, No calf tenderness / cord - Neuro Neuro: Alert and oriented X 3 - Psych Psych: Normal mood, Normal affect Results - Vitals Vitals: Vital Signs - 24 hr 04/23/20 04/23/20 04/23/20 16:35 17:07 17:11 Temperature 37 C Heart Rate 111 H 92 105 H Respiratory 32 H 33 H 33 H Rate Blood Pressure 109/85 H 108/59 L O2 Saturation 95 100 04/23/20 04/23/20 04/23/20 17:19 17:26 18:01 Temperature Heart Rate 91 93 92 Respiratory 30 H 18 20 Rate Blood Pressure 85/46 L 97/56 L 106/62 O2 Saturation 98 97 98 04/23/20 04/23/20 04/23/20 18:30 19:25 19:45 Temperature Heart Rate 85 90 78 Respiratory 20 28 H 22 Rate Blood Pressure 96/61 106/64 98/54 L O2 Saturation 99 100 100 04/23/20 04/23/20 20:00 20:30 Temperature Heart Rate 64 83 Respiratory 28 H 28 H Rate Blood Pressure 108/72 105/61 O2 Saturation 95 94 Oxygen O2 Source Room air - EKG (time done) 1644 Rate: Rate (enter#) (105) Rhythm: Atrial fibrillation QRS: Normal Ischemia: ST depression - Labs Labs: Laboratory Tests 04/23/20 04/23/20 04/23/20 16:55 16:55 16:55 WBC 14.2 H RBC 3.69 L Hgb 13.1 Hct 39.8 MCV 107.9 H MCH 35.5 H MCHC 32.9 RDW 14.5 Plt Count 187 MPV 9.5 Neut # (Auto) Not Reportable Lymph # (Auto) Not Reportable Saunders # (Auto) Not Reportable Eos # (Auto) Not Reportable Baso # (Auto) Not Reportable Absolute Nucleated RBC Not Reportable Total Counted 100 Band Neuts % (Manual) 7 Abnorm Lymph % (Manual) 0 Nucleated RBC % Not Reportable Neutrophils # (Manual) 11.1 H Lymphocytes # (Manual) 1.1 L Monocytes # (Manual) 2.0 H Eosinophils # (Manual) 0.0 Basophils # (Manual) 0.0 Differential Comment MANUAL DIFFERENTIAL Platelet Estimate NORMAL (130-450,000) Platelet Morphology NORMAL APPEARANCE RBC Morph Micro Appear NORMAL APPEARANCE PT INR Sodium 140 Potassium 3.6 Chloride 102 Carbon Dioxide 27 Anion Gap 11.0 BUN 15 Creatinine 0.9 Estimated GFR (MDRD) 60 L Glucose 141 H Calcium 8.4 L Total Bilirubin 0.7 AST 35 ALT 16 Alkaline Phosphatase 47 Total Protein 6.4 L Albumin 3.8 Globulin 2.6 Albumin/Globulin Ratio 1.5 Lipase 20 L Last Dose Date UNKNOWN Last Dose Time UNKNOWN Digoxin 1.2 04/23/20 16:55 WBC RBC Hgb Hct MCV MCH MCHC RDW Plt Count MPV Neut # (Auto) Lymph # (Auto) Saunders # (Auto) Eos # (Auto) Baso # (Auto) Absolute Nucleated RBC Total Counted Band Neuts % (Manual) Abnorm Lymph % (Manual) Nucleated RBC % Neutrophils # (Manual) Lymphocytes # (Manual) Monocytes # (Manual) Eosinophils # (Manual) Basophils # (Manual) Differential Comment Platelet Estimate Platelet Morphology RBC Morph Micro Appear PT 15.7 H INR 1.4 H Sodium Potassium Chloride Carbon Dioxide Anion Gap BUN Creatinine Estimated GFR (MDRD) Glucose Calcium Total Bilirubin AST ALT Alkaline Phosphatase Total Protein Albumin Globulin Albumin/Globulin Ratio Lipase Last Dose Date Last Dose Time Digoxin - Rads (name of study) cxr Radiology: Prelim report reviewed, EMP read contemporaneously, See rad report (No acute cardiopulmonary findings. ) CT chest angio Radiology: Prelim report reviewed, EMP read contemporaneously, See rad report PD MEDICAL DECISION MAKING - ED course Complexity details: reviewed results, re-evaluated patient, considered pawel cummings, d/w patient ED course: 80-year-old female presents to the emergency department with dyspnea. Feels much better after nebulizer treatment. The mitral valve clip appears in place on CT and chest x-ray. No evidence of pericardial effusion or tamponade. Given Lasix as well. A. fib RVR was controlled with a single dose of diltiazem. Discussed the case with cardiology at [facility], Dr. Waggoner, Who reviewed the images as well. We will prescribe an inhaler for home and continue her Lasix at home. Patient is ambulating well in the emergency department without any h ypoxia or recurrent dyspnea. Patient had a negative COVID swab at [facility]. Afebrile. No evidence of pneumonia. Patient counseled regarding signs and symptoms for which I believe and urgent re-evaluation would be necessary. Patient with good understanding of and agreement to plan and is comfortable going home at this time This document was made in part using voice recognition software. While efforts are made to proofread this document, sound alike and grammatical errors may occur. 1. No acute pulmonary embolus is identified. Enlargement of the main pulmonary trunk to 3.8 cm is nonspecific, but can be seen in setting of pulmonary hypertension. 2. Nonspecific groundglass opacity in the right upper lobe. Additional small groundglass opacities are seen scattered in both lungs. An infectious or inflammatory etiology is suspected. Recommend clinical correlation. Short-term follow-up with repeat chest CT in 3 months is recommended to exclude an underlying neoplasm such as adenocarcinoma. 3. Status post aortic valve replacement. Departure - Departure Disposition: 01 Home, Self Care Clinical Impression: Dyspnea Qualifiers: Dyspnea type: shortness of breath Qualified Code(s): R06.02 - Shortness of br eath Condition: Good Instructions: ED Dyspnea Shortness of Breath Follow-Up: Edson Bee MD [Primary Care Provider] - Within 3 Days Prescriptions: Albuterol Sulf [Ventolin Hfa Inhaler] 1 - 2 puffs INH Q4HR PRN #1 inhaler PRN Reason: Shortness Of Air/Wheezing Comments: Postoperative complicationContinue your medications as directed by [facility]. Return if you worsen. We will prescribe you an inhaler as well. Discharge Date/Time: 04/23/20 20:44
[2020-04-23] MEDS ORDERED: DILTIAZEM 50 MG/10 ML VIAL IVP ONE (16:56)
--- NOTE | 2020-04-23 17:04 | XRAY Report ---
PROCEDURE: Chest 1 View X-Ray INDICATIONS: dyspnea TECHNIQUE: One view of the chest was acquired. COMPARISON: Single view the chest dated 05/26/2019 FINDINGS: Surgical changes and devices: None. Lungs and pleura: No pleural effusions or pneumothorax. Lungs are clear. Mediastinum: Mediastinal contours appear normal. Heart size is mildly enlarged, as before. Bones and chest wall: No suspicious bony lesions. Overlying soft tissues appear unremarkable. IMPRESSION: No acute cardiopulmonary findings. Reviewed by: Marcia Jenkins MD on 04/23/2020 5:03 PM PDT Approved by: Marcia Jenkins MD on 04/23/2020 5:03 PM PDT Station ID: [id number]
[2020-04-23 17:15] LABS: BASOPHILS % (AUTO) 0.6 %; EOSINOPHILS % (AUTO) 0.4 %; HGB - HEMOGLOBIN 13.1 g/dL (12.0-16.0); LYMPHOCYTES % (AUTO) 6.2 %; MEAN CORPUSCULAR HEMOGLOBIN 35.5 pg (27.0-31.0); MEAN CORPUSCULAR HGB CONC 32.9 g/dL (32.0-36.0); MEAN CORPUSCULAR VOLUME 107.9 fL (81.0-99.0); MEAN PLATELET VOLUME 9.5 fL (7.9-10.8); MONOCYTES % (AUTO) 11.6 %; NEUTROPHILS % (AUTO) 79.8 %; PLT - PLATELET COUNT 187 10^3/uL (130-450); RED BLOOD COUNT 3.69 10^6/uL (4.20-5.40); RED CELL DISTRIBUTION WIDTH 14.5 % (12.0-15.0); WHITE BLOOD COUNT 14.2 x10^3/uL (4.8-10.8)
[2020-04-23] MEDS: FUROSEMIDE 40 MG/4 ML VIAL IVP STA ×3 (17:15→19:52)
[2020-04-23 17:28] LABS: ABNORMAL LYMPHS % (MANUAL) 0 %; ALBUMIN 3.8 g/dL (3.2-5.5); ALBUMIN/GLOBULIN RATIO 1.5 (1.0-2.2); BILIRUBIN,TOTAL 0.7 mg/dL (0.2-1.0); CALCIUM 8.4 mg/dL (8.5-10.3); CREATININE 0.9 mg/dL (0.4-1.0); TOTAL PROTEIN 6.4 g/dL (6.7-8.2)
[2020-04-23 17:29] LABS: DIGOXIN 1.2 ng/mL
[2020-04-23 17:46] LABS: INR 1.4 (0.8-1.2); PT - PROTHROMBIN TIME 15.7 secs (9.9-12.6)
[2020-04-23 18:00] LABS: BAND NEUTROPHILS % (MANUAL) 7 %; LYMPHOCYTES # (MANUAL) 1.1 10^3/uL (1.5-3.5); LYMPHOCYTES % (MANUAL) 8 %
[2020-04-23 18:01] LABS: DIFFERENTIAL COMMENT MANUAL DIFFERENTIAL; PLATELET ESTIMATE, MANUAL NORMAL (130-450,000) (NORMAL); PLATELET MORPHOLOGY NORMAL APPEARANCE (NORMAL); RBC MORPHOLOGY (MULTIPLE) NORMAL APPEARANCE (NORMAL)
[2020-04-23] MEDS ORDERED: IOVERSOL 320 100 ML VIAL IVP ONE ×2 (18:01→18:54)
[2020-04-23] MEDS ORDERED: ALBUTEROL NEB 2.5 MG/3 ML INH STA (19:06)
--- NOTE | 2020-04-23 19:09 | CT Report ---
PROCEDURE: ANGIO CHEST W/WO INDICATIONS: dyspnea s/p mitral valve replacement CONTRAST: IV CONTRAST: Optiray 320 ml: 80 PO CONTRAST: *NO PO CONTRAST TECHNIQUE: After the administration of intravenous contrast, 2 mm thick sections acquired from the pulmonary api eran to the posterior costophrenic angles. 3-dimensional maximum intensity projection (MIP) coronal a nd sagittal reformats were then acquired through the thorax. For radiation dose reduction, the follow ing was used: automated exposure control, adjustment of mA and/or kV according to patient size. COMPARISON: Chest radiograph dated 2019 FINDINGS: Image quality: Excellent. Pulmonary arteries: There is enlargement of the main pulmonary trunk to 3.8 cm in diameter, which is nonspecific, but can be seen in the setting of pulmonary hypertension. No intraluminal filling defec t is identified to suggest central pulmonary embolism. Lungs and pleura: Multiple patchy areas of groundglass opacity are seen in both lungs, most prominen tly in the right upper lobe. No pleural effusions or pneumothorax. Central and peripheral airways ar e patent. Mediastinum: Heart size is normal, without pericardial effusion. No mediastinal or hilar adenopathy . Postsurgical changes are seen from aortic valve replacement. Atherosclerotic calcifications are see n in the thoracic aorta. Esophagus is normal in caliber, without hiatal hernia. Bones and chest wall: No suspicious bony lesions. Chronic fractures are seen at the posterior latera l aspect of the 10th and 11th ribs on the left. A nonspecific 4 mm nodule is seen in the right lobe o f the thyroid that does not require imaging follow-up based on ACR white paper criteria. No axillary or supraclavicular adenopathy. Abdomen: Visualized upper abdominal solid organs appear normal in the nonenhancing phase. IMPRESSION: 1. No acute pulmonary embolus is identified. Enlargement of the main pulmonary trunk to 3.8 cm is non specific, but can be seen in setting of pulmonary hypertension. 2. Nonspecific groundglass opacity in the right upper lobe. Additional small groundglass opacities ar e seen scattered in both lungs. An infectious or inflammatory etiology is suspected. Recommend clinic al correlation. Short-term follow-up with repeat chest CT in 3 months is recommended to exclude an un derlying neoplasm such as adenocarcinoma. 3. Status post aortic valve replacement. Reviewed by: Pipe Orourke MD on 04/23/2020 7:08 PM PDT Approved by: Pipe Orourke MD on 04/23/2020 7:08 PM PDT Station ID: [id number]
[2020-04-23 20:44] VITALS: BP 105/61
== END 2020-04-23 20:44 | disposition home or self-care (01) ==
LOC: EDUNIT# → ED 16:33
DX: R06.02 Shortness of breath (principal); Z95.2 Presence of prosthetic heart valve; I48.91 Unspecified atrial fibrillation; Z79.01 Long term (current) use of anticoagulants; I11.0 Hypertensive heart disease with heart failure; I50.9 Heart failure, unspecified; E11.9 Type 2 diabetes mellitus without complications; Z79.84 Long term (current) use of oral hypoglycemic drugs
CPT/HCPCS: 36415; 71045; 71275; 80053; 80162; 83690; 85025; 85610; 93005; 94640; 96374; 96375; 99284; Q9967

== ENCOUNTER 2020-04-24 15:31 | Emergency (ER) | payer MEDICARE, BC ==
[2020-04-24] MEDS ORDERED: IPRATROPIUM/ALBUTEROL 3 ML NEB INH STA (15:36)
--- NOTE | 2020-04-24 16:22 | ED Physician Documentation ---
PD HPI DYSPNEA - Stated complaint Stated Complaint: SOA - Chief complaint Chief Complaint: Resp - History obtained from History obtained from: Patient, Family - History of Present Illness Timing - onset: Yesterday Timing - onset during: Rest Timing - duration: Days (2) Timing - details: Gradual onset Pain level max: 0 Pain level now: 0 Associated symptoms: No: Fever, Cough, Hemoptysis, Wheezing, Chest pain / discomfort, Palpitations, Diaphoresis, Bilateral edema Recently seen: Emergency Dept, Surgery - Additional information Additional information: 80-year-old female status post mitral valve clip placement at [facility] in [place] 3 days ago. She started having difficulty breathing yesterday. Given extra dose of Lasix as well as nebulizer treatments. [place] better and wanted to go home last night. CT scan of the chest did not reveal any acute abnormalities. The mitral clips were in the correct position. Today her family noticed her having an increased rate of breathing while she was sleeping. Patient says she feels like she cannot take a deep breath. Nothing makes it better or worse. No fever. No cough. Review of Systems Ten Systems: 10 systems reviewed and negative Constitutional: denies: Fever, Chills Ears: denies: Ear pain Nose: denies: Rhinorrhea / runny nose, Congestion Cardiac: denies: Chest pain / pressure, Palpitations, Calf pain Respiratory: reports: Dyspnea. 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, Other Cardiovascular: Valve replacement HEENT: Cataracts - Present Medications Home Medications: Ambulatory Orders Medication Instructions Recorded Confirmed Gabapentin [Neurontin] 300 mg PO BID 03/04/13 05/26/19 metFORMIN [Glucophage] 500 mg PO DAILY 04/06/15 05/26/19 Digoxin 0.125 mg PO DAILY 08/30/16 05/26/19 Furosemide [Lasix] 40 mg PO BIDDIURETIC #120 tablet 09/05/16 05/26/19 Potassium Chloride [K-Dur] 20 meq PO DAILYWM #30 tablet 09/05/16 05/26/19 Warfarin [Coumadin] 5 mg PO QDWARFARIN 01/22/17 05/26/19 Metoprolol Succinate 100 mg PO DAILY 08/30/17 05/26/19 Albuterol Sulf [Ventolin Hfa 1 - 2 puffs INH Q4HR PRN 12/11/18 05/26/19 Inhaler] Aspirin 81 mg PO DAILY 12/11/18 05/26/19 Oxycodone HCl/Acetaminophen 1 - 2 each PO Q6H PRN #14 tablet 05/17/19 05/26/19 [Percocet 5-325 mg Tablet] Albuterol Sulf [Ventolin Hfa 1 - 2 puffs INH Q4HR PRN #1 inhaler 04/23/20 Inhaler] - Allergies Allergies/Adverse Reactions: Allergies Allergy/AdvReac Type Severity Reaction Status Date / Time No Known Drug Allergies Allergy Verified 04/24/20 15:49 - Social History Does the pt smoke?: No Smoking Status: Never smoker Does the pt drink ETOH?: Yes Does the pt have substance abuse?: No - Immunizations Immunizations are current?: No - POLST Patient has POLST: No POLST Status: Full Code PD ED PE NORMAL - Vitals Vital signs reviewed: Yes - General General: Alert and oriented X 3, No acute distress - HEENT HEENT: Moist mucous membranes - Neck Neck: Supple, no meningeal sign - Cardiac Cardiac: RRR - Respiratory Respiratory: No respiratory distress, Other (Diminished breath sounds bilaterally, fine crackles throughout) - Abdomen Abdomen: Soft, Non tender, Non distended - Derm Derm: Warm and dry - Extremities Extremities: No calf tenderness / cord, Other (trace edema B) - Neuro Neuro: Alert and oriented X 3 - Psych Psych: Normal mood Results - Vitals Vitals: Vital Signs - 24 hr 04/24/20 04/24/20 04/24/20 15:38 16:08 16:18 Temperature 37.1 C Heart Rate 82 77 76 Respiratory 24 25 H 22 Rate Blood Pressure 94/61 111/60 O2 Saturation 96 100 04/24/20 17:00 Temperature Heart Rate 82 Respiratory 29 H Rate Blood Pressure 129/57 L O2 Saturation 94 Oxygen O2 Source Room air - Labs Labs: Laboratory Tests 04/24/20 04/24/20 04/24/20 16:22 16:22 16:22 WBC 8.4 RBC 3.65 L Hgb 13.1 Hct 39.3 MCV 107.7 H MCH 35.9 H MCHC 33.3 RDW 14.4 Plt Count 173 MPV 9.2 Neut # (Auto) 5.7 Lymph # (Auto) 1.4 L [place] # (Auto) 1.0 Eos # (Auto) 0.2 Baso # (Auto) 0.1 Absolute Nucleated RBC 0.00 Nucleated RBC % 0.0 Sodium 138 Potassium 3.1 L Chloride 99 L Carbon Dioxide 28 Anion Gap 11.0 BUN 15 Creatinine 1.1 H Estimated GFR (MDRD) 48 L Glucose 118 H Calcium 8.6 Total Bilirubin 0.8 AST 36 ALT 21 Alkaline Phosphatase 57 B-Natriuretic Peptide 582 H Total Protein 6.9 Albumin 4.0 Globulin 2.9 Albumin/Globulin Ratio 1.4 Lipase 21 L - Rads (name of study) cxr Radiology: Prelim report reviewed, EMP read contemporaneously, See rad report PD MEDICAL DECISION MAKING - ED course Complexity details: reviewed old records, reviewed results, re-evaluated patient, considered differential, d/w patient, d/w family, d/w mobile sales consultant ED course: Patient with her second emergency department visit and 2 days for dyspnea after her a mitral valve clip was placed 3 days ago at [facility]. Given her lack of improvement, we will transfer her there for further care. No acute findings on x-ray today. She was given a DuoNeb treatment here. Will likely need increased Lasix, we will hold this until she arrives at [facility] given the long ambulance transport. Discussed the case with Dr. Ackerman, cardiology who recommends admission to the hospitalist, discussed with Dr. Bonner at 1740 who graciously accepts in transfer. COBRA forms completed. This document was made in part using voice recognition software. While efforts are made to proofread this document, sound alike and grammatical errors may occur. Departure - Departure Disposition: 02 Transfer Acute Care Hosp Clinical Impression: Dyspnea Qualifiers: Dyspnea type: shortness of breath Qualified Code(s): R06.02 - Shortness of breath; R06.00 - Dyspnea, unspecified; R06.01 - Orthopnea CHF (congestive heart failure) Qualifiers: Heart failure type: unspecified Heart failure chronicity: unspecified Qualified Code(s): I50.9 - Heart failure, unspecified Condition: Stable
--- NOTE | 2020-04-24 16:26 | XRAY Report ---
PROCEDURE: Chest 1 View X-Ray INDICATIONS: dyspnea TECHNIQUE: One view of the chest was acquired. COMPARISON: 04/23/[address] chest [address] chest CT FINDINGS: Surgical changes and devices: A percutaneously placed aortic valve prosthesis can be seen. Lungs and pleura: No pleural effusions or pneumothorax. Minimal, poorly defined infiltrates are seen involving the lower lungs, which are better seen on the prior CT. Mediastinum: The aorta is prominent and tortuous. The cardiac contours are at the upper limits of no rmal. Bones and chest wall: No suspicious bony lesions. Age-appropriate degenerative changes are seen. Overlying soft tissues appear unremarkable. IMPRESSION: There are minimal infiltrates seen involving the lower lungs. These are much better seen on the prior CT examination. Cardiac silhouette at the upper limits of normal. Status post aortic valve replacement. Reviewed by: Bernard Powell MD on 04/24/2020 3:25 PM COLLEEN Approved by: Bernard Powell MD on 04/24/2020 3:25 PM AKBUSTER Station ID: [id number]
[2020-04-24 16:29] LABS: BASOPHILS # (AUTO) 0.1 10^3/uL (0.0-0.1); BASOPHILS % (AUTO) 0.6 %; EOSINOPHILS # (AUTO) 0.2 10^3/uL (0.0-0.7); EOSINOPHILS % (AUTO) 2.5 %; HGB - HEMOGLOBIN 13.1 g/dL (12.0-16.0); LYMPHOCYTES # (AUTO) 1.4 10^3/uL (1.5-3.5); LYMPHOCYTES % (AUTO) 16.4 %; MEAN CORPUSCULAR HEMOGLOBIN 35.9 pg (27.0-31.0); MEAN CORPUSCULAR HGB CONC 33.3 g/dL (32.0-36.0); MEAN CORPUSCULAR VOLUME 107.7 fL (81.0-99.0); MEAN PLATELET VOLUME 9.2 fL (7.9-10.8); MONOCYTES % (AUTO) 11.7 %; NEUTROPHILS # (AUTO) 5.7 10^3/uL (1.5-6.6); NEUTROPHILS % (AUTO) 66.9 %; PLT - PLATELET COUNT 173 10^3/uL (130-450); RED BLOOD COUNT 3.65 10^6/uL (4.20-5.40); RED CELL DISTRIBUTION WIDTH 14.4 % (12.0-15.0); WHITE BLOOD COUNT 8.4 x10^3/uL (4.8-10.8)
[2020-04-24 16:43] LABS: ALBUMIN/GLOBULIN RATIO 1.4 (1.0-2.2); BILIRUBIN,TOTAL 0.8 mg/dL (0.2-1.0); CALCIUM 8.6 mg/dL (8.5-10.3); CREATININE 1.1 mg/dL (0.4-1.0); TOTAL PROTEIN 6.9 g/dL (6.7-8.2)
[2020-04-24] MEDS ORDERED: FUROSEMIDE 40 MG/4 ML VIAL IVP STA (19:03)
[2020-04-24 19:17] VITALS: BP 112/58
== END 2020-04-24 20:05 | disposition short-term general hospital (02) ==
LOC: EDUNIT# → ED 15:31
DX: I11.0 Hypertensive heart disease with heart failure (principal); I50.9 Heart failure, unspecified; Z95.2 Presence of prosthetic heart valve; I48.91 Unspecified atrial fibrillation; Z79.01 Long term (current) use of anticoagulants; Z79.82 Long term (current) use of aspirin; J45.909 Unspecified asthma, uncomplicated; E11.9 Type 2 diabetes mellitus without complications; Z79.84 Long term (current) use of oral hypoglycemic drugs
CPT/HCPCS: 36415; 71045; 80053; 83690; 83880; 85025; 94640; 94664; 96374; 99285

== ENCOUNTER 2020-05-03 18:01 | Emergency (ER) | payer MEDICARE, BC ==
[2020-05-03] MEDS ORDERED: TETANUS/DIPHTHERIA/PERTUSSIS 0.5 ML SYRINGE IM ONE (18:17)
--- NOTE | 2020-05-03 18:18 | ED Physician Documentation ---
History of Present Illness - Stated complaint Stated Complaint: LT LEG INJ - Chief complaint Chief Complaint: Ext Problem - History obtained from History obtained from: Patient, Family (son-in law) - History of Present Illness Timing: Today - Additonal information Additional information: This is a roxi 80-year-old woman who is on warfarin. She was not using her walker and tripped and fell. She went over backwards and scraped up her leg. Tetanus is unknown. She did hit the back of her head on the ground. Denies Altered mental status or loss of consciousness. 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 : None HEENT: None Psych: None Musculoskeletal: Other Derm: None - Past Surgical History Past Surgical History: Yes General: Other /IN STORE MARKETING ASSOCIATE: section, Hysterectomy, Other Cardiovascular: Valve replacement HEENT: Cataracts - Present Medications Home Medications: Ambulatory Orders Medication Instructions Recorded Confirmed Gabapentin [Neurontin] 300 mg PO BID 03/04/13 05/26/19 metFORMIN [Glucophage] 500 mg PO DAILY 04/06/15 05/26/19 Digoxin 0.125 mg PO DAILY 08/30/16 05/26/19 Furosemide [Lasix] 40 mg PO BIDDIURETIC #120 tablet 09/05/16 05/26/19 Potassium Chloride [K-Dur] 20 meq PO DAILYWM #30 tablet 09/05/16 05/26/19 Warfarin [Coumadin] 5 mg PO QDWARFARIN 01/22/17 05/26/19 Metoprolol Succinate 100 mg PO DAILY 08/30/17 05/26/19 Albuterol Sulf [Ventolin Hfa 1 - 2 puffs INH Q4HR PRN 12/11/18 05/26/19 Inhaler] Aspirin 81 mg PO DAILY 12/11/18 05/26/19 Oxycodone HCl/Acetaminophen 1 - 2 each PO Q6H PRN #14 tablet 05/17/19 05/26/19 [Percocet 5-325 mg Tablet] Albuterol Sulf [Ventolin Hfa 1 - 2 puffs INH Q4HR PRN #1 inhaler 04/23/20 Inhaler] - Allergies Allergies/Adverse Reactions: Allergies Allergy/AdvReac Type Severity Reaction Status Date / Time No Known Drug Allergies Allergy Verified 04/24/20 15:49 - Social History Does the pt smoke?: No Smoking Status: Never smoker Does the pt drink ETOH?: Yes Does the pt have substance abuse?: No - Immunizations Immunizations are current?: No - POLST Patient has POLST: No POLST Status: Full Code PD ED PE NORMAL - Vitals Vital signs reviewed: Yes - General General: Alert and oriented X 3 (Mild dementia but alert and oriented) - HEENT HEENT: PERRL, EOMI - Neck Neck: Supple, no meningeal sign, No bony TTP - Respiratory Respiratory: No respiratory distress, Clear bilaterally - Extremities Extremities: Other (Multiple skin tears on the left lower extremity without bony tenderness.) - Neuro Neuro: Alert and oriented X 3, No motor deficit, No sensory deficit, Normal speech Eye Opening: Spontaneous Motor: Obeys Commands Verbal: Oriented GCS Score: 15 Results - Vitals Vitals: Vital Signs - 24 hr 05/03/20 05/03/20 18:04 18:14 Temperature 36.4 C L 36.4 C L Heart Rate 58 L 58 L Respiratory 16 16 Rate Blood Pressure 116/53 L 116/53 L O2 Saturation 95 95 Oxygen O2 Source Room air Procedures - Laceration (location) Left lower extremity skin tears Length in cm: 4 Wound type: Superficial Skin layer closure: Dermabond, Steri strips Other: Tetanus booster given Complexity: Simple PD MEDICAL DECISION MAKING - ED course ED course: She received tetanus here. Whole blood pro time was done. Our CT scanner is down, given the combination of head injury and anticoagulation she was agreeable to being transferred to [facility] for CT scan. Dr. Barajas there accepts. They want to go by private vehicle. Signed appropriate forms for that. Departure - Departure Disposition: 02 Transfer Acute Care Hosp Clinical Impression: Adequate anticoagulation on anticoagulant therapy Noninfected skin tear of left lower extremity Qualifiers: Encounter type: initial encounter Qualified Code(s): S81.812A - Laceration without foreign body, left lower leg, initial encounter Head injury Qualifiers: Encounter type: initial encounter Qualified Code(s): S09.90XA - Unspecified injury of head, initial encounter Condition: Stable Comments: Per verbal report from lab staff, whole blood pro time was 3.4.
[2020-05-03 18:49] VITALS: BP 122/41
== END 2020-05-03 18:55 | disposition short-term general hospital (02) ==
LOC: ED 18:01
DX: S81.812A Laceration without foreign body, left lower leg, initial encounter (principal); S09.90XA Unspecified injury of head, initial encounter; W01.198A Fall on same level from slipping, tripping and stumbling with subsequent striking against other object, initial encounter; Y92.007 Garden or yard of unspecified non-institutional (private) residence as the place of occurrence of the external cause; Z23 Encounter for immunization; Z79.01 Long term (current) use of anticoagulants; Z79.82 Long term (current) use of aspirin; I48.91 Unspecified atrial fibrillation; I10 Essential (primary) hypertension; Z95.2 Presence of prosthetic heart valve; E11.9 Type 2 diabetes mellitus without complications; Z79.84 Long term (current) use of oral hypoglycemic drugs; F03.90 Unspecified dementia, unspecified severity, without behavioral disturbance, psychotic disturbance, mood disturbance, and anxiety
CPT/HCPCS: 12002; 85610; 90471; 99284; 99285

== ENCOUNTER 2020-05-05 18:04 | Outpatient (CLI) | payer MEDICARE, BC | END 2020-05-05 18:05 | disposition critical access hospital (66) | LOC: EMS 18:04 | PROVIDERS: ATTEND Surgery | DX: R09.89 Other specified symptoms and signs involving the circulatory and respiratory systems (principal); R29.6 Repeated falls | CPT/HCPCS: A0425; A0429 ==

== ENCOUNTER 2020-05-05 18:16 | Emergency (ER) | payer MEDICARE, BC ==
[2020-05-05 19:19] LABS: BASOPHILS # (AUTO) 0.1 10^3/uL (0.0-0.1); BASOPHILS % (AUTO) 0.7 %; EOSINOPHILS # (AUTO) 0.1 10^3/uL (0.0-0.7); EOSINOPHILS % (AUTO) 0.7 %; HGB - HEMOGLOBIN 13.7 g/dL (12.0-16.0); LYMPHOCYTES # (AUTO) 2.1 10^3/uL (1.5-3.5); LYMPHOCYTES % (AUTO) 16.9 %; MEAN CORPUSCULAR HEMOGLOBIN 35.8 pg (27.0-31.0); MEAN CORPUSCULAR VOLUME 105.2 fL (81.0-99.0); MEAN PLATELET VOLUME 8.9 fL (7.9-10.8); MONOCYTES # (AUTO) 0.8 10^3/uL (0.0-1.0); MONOCYTES % (AUTO) 6.1 %; NEUTROPHILS # (AUTO) 9.1 10^3/uL (1.5-6.6); PLT - PLATELET COUNT 342 10^3/uL (130-450); RED BLOOD COUNT 3.83 10^6/uL (4.20-5.40); RED CELL DISTRIBUTION WIDTH 13.5 % (12.0-15.0); WHITE BLOOD COUNT 12.3 x10^3/uL (4.8-10.8)
--- NOTE | 2020-05-05 19:30 | ED Physician Documentation ---
History of Present Illness - Stated complaint Stated Complaint: FELL, ETOH - Chief complaint Chief Complaint: General - Additonal information Additional information: 80-year-old female was brought into the emergency department for evaluation after she was proceeding to head home after having to drinks of bourbon this afternoon. She reports that she tripped and grabbed to the wall but could not steady herself upright therefore a friend helped her to the ground. She did not strike her head. She denies that it any point she had slurred speech facial droop arm or leg weakness. This lady is currently on Coumadin she does have a history of atrial fibrillation. In addition to that she did have mitral valve clips placed at [facility] about 1 week ago. She has follow-up with cardiology in 2 days. At present time she reports that she feels fine. She would like to go home and have another bourbon. She denies any chest pain or shortness of breath. She denies any headache feeling nauseated or having any abdominal pain. EMS reports that they felt she may have been orthostatic and therefore recommended she come to the ER for further evaluation Review of Systems Constitutional: denies: Fever, Chills Eyes: denies: Loss of vision, Decreased vision Ears: denies: Loss of hearing, Ear pain, Tinnitus/ringing Nose: denies: Rhinorrhea / runny nose, Congestion Throat: denies: Dental pain / toothache, Oral lesions / sores, Swollen tonsils Cardiac: denies: Chest pain / pressure, Palpitations, Pedal edema, Calf pain Respiratory: denies: Dyspnea, Cough GI: denies: Abdominal Pain, Abdominal Swelling, Nausea, Vomiting, Constipation, Diarrhea : denies: Dysuria, Frequency Skin: reports: Lesions (skin tear left lower leg (old injury)) Musculoskeletal: denies: Neck pain, Back pain, Extremity pain Neurologic: denies: Generalized weakness, Focal weakness, Numbness, Difficulty speaking, Syncope, Seizure, Confused, Altered mental status, Headache, Head injury, LOC PD PAST MEDICAL HISTORY - Past Medical History Past Medical History: Yes Cardiovascular: Congestive heart failure, Hypertension, Atrial fibrillation, Valve disorder Respiratory: Asthma Neuro: None Endocrine/Autoimmune: Type 2 diabetes GI: None 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 : None HEENT: None Psych: None Musculoskeletal: Other Derm: None - Past Surgical History Past Surgical History: Yes General: Other /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 ASSISTANT: section, Hysterectomy, Other Cardiovascular: Valve replacement HEENT: Cataracts - Present Medications Home Medications: Ambulatory Orders Medication Instructions Recorded Confirmed Gabapentin [Neurontin] 300 mg PO BID 03/04/13 05/26/19 metFORMIN [Glucophage] 500 mg PO DAILY 04/06/15 05/26/19 Digoxin 0.125 mg PO DAILY 08/30/16 05/26/19 Furosemide [Lasix] 40 mg PO BIDDIURETIC #120 tablet 09/05/16 05/26/19 Potassium Chloride [K-Dur] 20 meq PO DAILYWM #30 tablet 09/05/16 05/26/19 Warfarin [Coumadin] 5 mg PO QDWARFARIN 01/22/17 05/26/19 Metoprolol Succinate 100 mg PO DAILY 08/30/17 05/26/19 Albuterol Sulf [Ventolin Hfa 1 - 2 puffs INH Q4HR PRN 12/11/18 05/26/19 Inhaler] Aspirin 81 mg PO DAILY 12/11/18 05/26/19 Oxycodone HCl/Acetaminophen 1 - 2 each PO Q6H PRN #14 tablet 05/17/19 05/26/19 [Percocet 5-325 mg Tablet] Albuterol Sulf [Ventolin Hfa 1 - 2 puffs INH Q4HR PRN #1 inhaler 04/23/20 Inhaler] - Allergies Allergies/Adverse Reactions: Allergies Allergy/AdvReac Type Severity Reaction Status Date / Time No Known Drug Allergies Allergy Verified 05/05/20 18:28 - Social History Does the pt smoke?: No Smoking Status: Never smoker Does the pt drink ETOH?: Yes Does the pt have substance abuse?: No - Immunizations Immunizations are current?: No - POLST Patient has POLST: No POLST Status: Full Code PD ED PE NORMAL - General General: Alert and oriented X 3, No acute distress, Well developed/nourished - Neck Neck: Supple, no meningeal sign, No bony TTP, No adenopathy - Cardiac Cardiac: Strong equal pulses (radial, femoral and pedal 2+ bialterally). No: RRR (irregular), No murmur (+ systolic murmur) - Respiratory Respiratory: No respiratory distress - Abdomen Abdomen: Normal bowel sounds, Soft, Non tender - Back Back: No CVA TTP, No spinal TTP - Derm Derm: Normal color, Warm and dry - Extremities Extremities: No deformity, Normal ROM s pain, No edema - Neuro Neuro: Alert and oriented X 3, digital design engineer 2-12 intact, No motor deficit, Normal speech Eye Opening: Spontaneous Motor: Obeys Commands Verbal: Oriented GCS Score: 15 Results - Vitals Vitals: Vital Signs - 24 hr 05/05/20 05/05/20 05/05/20 18:19 19:19 19:34 Temperature 37.3 C Heart Rate 60 75 Heart Rate [ Sitting] Heart Rate [ Standing] Heart Rate [ Supine] Respiratory 18 19 18 Rate Blood Pressure 138/89 H 119/65 Blood Pressure [Sitting] Blood Pressure [Standing] Blood Pressure [Supine] O2 Saturation 99 99 05/05/20 05/05/20 05/05/20 19:58 20:01 20:10 Temperature Heart Rate 71 Heart Rate [ 72 Sitting] Heart Rate [ 74 Standing] Heart Rate [ 60 Supine] Respiratory 16 17 Rate Blood Pressure 104/65 Blood Pressure 97/63 [Sitting] Blood Pressure 106/66 [Standing] Blood Pressure 122/64 [Supine] O2 Saturation 99 05/05/20 05/05/20 20:53 22:12 Temperature Heart Rate 60 58 L Heart Rate [ Sitting] Heart Rate [ Standing] Heart Rate [ Supine] Respiratory 16 16 Rate Blood Pressure 112/60 130/68 Blood Pressure [Sitting] Blood Pressure [Standing] Blood Pressure [Supine] O2 Saturation 95 95 Oxygen O2 Source Room air - EKG (time done) 1914 Rate: Rate (enter#) (75) Rhythm: Atrial fibrillation, Other (PVSC's) [place]: Normal QRS: Normal Ischemia: Non specific changes Compare to prior EKG: Unchanged from prior EKG Computer interpretation: Agree with computer - Labs Labs: Laboratory Tests 05/05/20 05/05/20 05/05/20 19:11 19:11 19:11 WBC 12.3 H RBC 3.83 L Hgb 13.7 Hct 40.3 MCV 105.2 H MCH 35.8 H MCHC 34.0 RDW 13.5 Plt Count 342 MPV 8.9 Neut # (Auto) 9.1 H Lymph # (Auto) 2.1 [place] # (Auto) 0.8 Eos # (Auto) 0.1 Baso # (Auto) 0.1 Absolute Nucleated RBC 0.00 Nucleated RBC % 0.0 PT INR Sodium 137 Potassium 3.4 L Chloride 92 L Carbon Dioxide 28 Anion Gap 17.0 H BUN 23 H Creatinine 1.0 Estimated GFR (MDRD) 53 L Glucose 99 Calcium 9.1 Total Bilirubin 1.0 AST 31 ALT 23 Alkaline Phosphatase 47 Troponin I High Sens 35.4 H* B-Natriuretic Peptide Total Protein 7.2 Albumin 4.3 Globulin 2.9 Albumin/Globulin Ratio 1.5 Lipase 30 Ethyl Alcohol 16.7 05/05/20 05/05/20 05/05/20 19:11 19:11 20:05 WBC RBC Hgb Hct MCV MCH MCHC RDW Plt Count MPV Neut # (Auto) Lymph # (Auto) [place] # (Auto) Eos # (Auto) Baso # (Auto) Absolute Nucleated RBC Nucleated RBC % PT 28.9 H INR 2.7 H Sodium Potassium Chloride Carbon Dioxide Anion Gap BUN Creatinine Estimated GFR (MDRD) Glucose Calcium Total Bilirubin AST ALT Alkaline Phosphatase Troponin I High Sens 38.4 H* B-Natriuretic Peptide 459 H Total Protein Albumin Globulin Albumin/Globulin Ratio Lipase Ethyl Alcohol - Rads (name of study) CXR Radiology: Final report received (no acute process) PD MEDICAL DECISION MAKING - ED course Complexity details: reviewed old records, reviewed results, re-evaluated patient, considered differential, d/w patient, d/w family, d/w senior research consultant (Dr. Russell (cardiology [facility])) ED course: 80-year-old female presents to the emergency department after she was drinking this afternoon and stumbled on her feet and fell into a wall. She was assisted to the ground he did not fall to the ground. She did not strike her head or lose consciousness. She denies that she had any syncopal episodes. Her history is most significant for history of aortic valve replacement as well as recent mitral valve clipping for mitral valve regurgitation. At present she denies that she has had any chest pain. She has no cough or dyspnea. She has no leg swelling. On initial exam she was alert and very well-appearing and she was requesting to be discharged home. EMS brought her to the emergency department because they felt that she was orthostatic. Initial EKG showed atrial fib with PVCs but no ischemic changes. The first high-sensitivity troponin was mildly elevated at 34.5. Repeat troponin a few hours later was 38. Her BNP was 459. This was within the typical range for her. However given the recent mitral valve clipping I did consult with cardiology at [facility] Dr. Russell. We discussed her labs recent procedures and imaging and EKG today he does not feel that the troponin elevation is consistent with acute coronary syndrome. He does not recommend further testing or transfer for this. She has followed up with cardiology and is scheduled to see them again next week. Her mild troponin elevation may be and leak secondary to her atrial fib. Her BNP is noted to be mildly elevated however she does not have any crackles, hypoxia pleural effusions. Her chest x-ray is also fairly unremarkable. Patient will be discharged home. She is to resume taking her Coumadin which she had stopped a few days ago for an elevated INR. INR today is 2.7. Patient is to return to the emergency department for any chest pain shortness of breath fainting episodes or any other emergent concerns Departure - Departure Disposition: 01 Home, Self Care Clinical Impression: Troponin level elevated Mitral valve regurgitation Qualifiers: Cardiac valve disease etiology: etiology unspecified Qualified Code(s): I34.0 - Nonrheumatic mitral (valve) insufficiency Atrial fibrillation Qualifiers: Atrial fibrillation type: longstanding persistent Qualified Code(s): I48.11 - Longstanding persistent atrial fibrillation Condition: Stable Record reviewed to determine appropriate education?: Yes Follow-Up: Edson Bee MD [Primary Care Provider] - Comments: Morgan today you were seen after you tripped. The chest x-ray was normal and most of your labs were also on concerning. Your INR today is 2.7. You can resume taking your Coumadin as previously prescribed. We discussed your slightly elevated troponin levels. I discussed this with the psychiatric np Dr. Russell at [facility]. At this time we do not feel that you are having a heart attack. Your slightly elevated troponin levels may be related to your longstanding history of atrial fibrillation and valve regurgitation. Please continue to follow-up with cardiology and your primary care doctors. If at any point you develop chest pain, have shortness of breath leg swelling, feel faint or have a racing heart please return immediately to the emergency department
[2020-05-05 19:34] LABS: ALBUMIN 4.3 g/dL (3.2-5.5); ALBUMIN/GLOBULIN RATIO 1.5 (1.0-2.2); CALCIUM 9.1 mg/dL (8.5-10.3); TOTAL PROTEIN 7.2 g/dL (6.7-8.2)
[2020-05-05 19:56] LABS: INR 2.7 (0.8-1.2); PT - PROTHROMBIN TIME 28.9 secs (9.9-12.6)
--- NOTE | 2020-05-05 19:56 | XRAY Report ---
PROCEDURE: Chest 1 View X-Ray INDICATIONS: Chest Pain TECHNIQUE: One view of the chest was acquired. COMPARISON: 04.24.20 FINDINGS: Surgical changes and devices: None. Lungs and pleura: No pleural effusions or pneumothorax. Lungs are clear. Mediastinum: Mediastinal contours appear normal. Heart size is normal. Bones and chest wall: No suspicious bony lesions. Overlying soft tissues appear unremarkable. IMPRESSION: No acute process. Reviewed by: Alejandra Diallo MD on 05/05/2020 7:55 PM PDT Approved by: Alejandra Diallo MD on 05/05/2020 7:55 PM PDT Station ID: [id number]
[2020-05-05 22:12] VITALS: BP 130/68
== END 2020-05-05 22:40 | disposition home or self-care (01) ==
LOC: EDUNIT# → ED 18:16
DX: Z04.3 Encounter for examination and observation following other accident (principal); W18.39XA Other fall on same level, initial encounter; Y93.89 Activity, other specified; I48.11 Longstanding persistent atrial fibrillation; I49.3 Ventricular premature depolarization; Z79.01 Long term (current) use of anticoagulants; E11.9 Type 2 diabetes mellitus without complications; Z79.84 Long term (current) use of oral hypoglycemic drugs; Z79.82 Long term (current) use of aspirin; I11.0 Hypertensive heart disease with heart failure; I50.9 Heart failure, unspecified; Z95.4 Presence of other heart-valve replacement; I34.0 Nonrheumatic mitral (valve) insufficiency; R79.89 Other specified abnormal findings of blood chemistry
CPT/HCPCS: 36415; 71045; 80053; 80320; 83690; 83880; 84484; 85025; 85610; 93005; 99283; 99284

== ENCOUNTER 2020-07-26 08:00 | Outpatient (CLI) | payer MEDICARE, BC | END 2020-07-26 23:59 | disposition home or self-care (01) | LOC: LAB.WCP 08:00 | PROVIDERS: ATTEND Family Medicine | DX: Z79.01 Long term (current) use of anticoagulants (principal) ==

== ENCOUNTER 2020-07-29 10:40 | Outpatient (CLI) | payer MEDICARE, BC | END 2020-07-29 10:41 | disposition home or self-care (01) | LOC: LAB 10:40 | PROVIDERS: ATTEND Family Medicine | DX: I48.20 Chronic atrial fibrillation, unspecified (principal) | CPT/HCPCS: 85610 ==

== ENCOUNTER 2020-08-12 10:25 | Outpatient (CLI) | payer MEDICARE, BC | END 2020-08-12 10:26 | disposition home or self-care (01) | LOC: DI 10:25 | PROVIDERS: ATTEND Internal Medicine Cardiovascular Disease | DX: I48.91 Unspecified atrial fibrillation (principal); I51.7 Cardiomegaly | CPT/HCPCS: 93306 ==

== ENCOUNTER 2020-08-16 08:00 | Outpatient (CLI) | payer MEDICARE, BC | END 2020-08-16 23:59 | disposition home or self-care (01) | LOC: LAB.WCP 08:00 | PROVIDERS: ATTEND Family Medicine | DX: Z79.01 Long term (current) use of anticoagulants (principal) ==

== ENCOUNTER 2020-08-23 | Outpatient (CLI) | payer MEDICARE, BC ==
--- OUTSIDE RECORDS SUMMARY | 2020-09-22 01:42 | EXTERNAL MEDICAL SUMMARY RPT | Continuity of Care Document ---
:1940 Demographics Phone Unavailable Preferred Language Lao Marital Status Unknown Zoroastrianism Affiliation Unknown Race Unknown Ethnic Group Unknown Author Organization [place] Address [address] [phone] Phone Care Team Providers Name Role Phone Demmler Unavailable Unavailable MD Unavailable Unavailable Problems date description facility Never smoked tobacco (finding) [facility] Patient Education [facility] Finding 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 2020-06-30 14:00 UNSPECIFIED ATRIAL FIBRILLATION [facility] 2020-06-30 14:00 HEART FAILURE, UNSPECIFIED [facility] 2020-06-30 14:00 NON-PRS CHR ULC UNSP PRT OF L [facility] LEG LIMITED TO BRKDWN SKIN 2020-06-30 14:00 NON-PRS CHR ULC UNSP PRT OF L [facility] LEG W FAT LAYER EXPOSED 2020-06-30 14:00 CHRONIC KIDNEY DISEASE, [facility] UNSPECIFIED 2020-06-30 14:00 LACERATION WITHOUT FOREIGN BODY, [facility] LEFT LOWER LEG, SEQUELA 2020-06-30 14:00 SHELTER (CURRENT) USE OF [facility] SYSTEMIC STEROIDS 2020-06-30 14:00 EXECUTIVE VICE PRESIDENT OF SALES (CURRENT) USE OF ORAL [facility] HYPOGLYCEMIC DRUGS 2020-06-30 14:00 OTHER EXECUTIVE VICE PRESIDENT OF SALES (CURRENT) DRUG [facility] THERAPY 2020-07-07 11:[address] [facility] 2020-07-13 14:45 TYPE 2 DIABETES MELLITUS WITH [facility] OTHER SKIN ULCER 2020-07-13 14:45 TYPE 2 DIABETES MELLITUS WITHOUT [facility] COMPLICATIONS 2020-07-13 14:45 HYPERTENSIVE HEART DISEASE WITH [facility] HEART FAILURE 2020-07-13 14:45 UNSPECIFIED ATRIAL FIBRILLATION [facility] 2020-07-13 14:45 HEART FAILURE, UNSPECIFIED [facility] 2020-07-13 14:45 NON-PRESSURE CHRONIC ULCER OF LEFT [facility] CALF W FAT LAYER EXPOSED 2020-07-13 14:45 NON-PRS CHR ULC UNSP PRT OF L [facility] LEG LIMITED TO BRKDWN SKIN 2020-07-13 14:45 NON-PRS CHR ULC UNSP PRT OF L [facility] LEG W FAT LAYER EXPOSED 2020-07-13 14:45 LACERATION W/O FOREIGN BODY, RIGHT [facility] LOWER LEG, INIT ENCNTR 2020-07-13 14:45 SHELTER (CURRENT) USE OF [facility] ANTICOAGULANTS 2020-07-13 14:45 SHELTER (CURRENT) USE OF [facility] SYSTEMIC STEROIDS 2020-07-13 14:45 SHELTER (CURRENT) USE OF ORAL [facility] HYPOGLYCEMIC DRUGS 2020-07-13 14:45 OTHER EXECUTIVE VICE PRESIDENT OF SALES (CURRENT) DRUG [facility] THERAPY 2020-07-22 11:30 TYPE 2 DIABETES MELLITUS WITHOUT [facility] COMPLICATIONS 2020-07-22 11:30 HYPERTENSIVE HEART DISEASE WITH [facility] HEART FAILURE 2020-07-22 11:30 UNSPECIFIED ATRIAL FIBRILLATION [facility] 2020-07-22 11:30 HEART FAILURE, UNSPECIFIED [facility] 2020-07-22 11:30 NON-PRESSURE CHRONIC ULCER OF LEFT [facility] CALF W FAT LAYER EXPOSED 2020-07-22 11:30 NON-PRS CHR ULC UNSP PRT OF L LOW [facility] LEG LIMITED TO BRKDWN SKIN 2020-07-22 11:30 NON-PRS [facility] UNSP PRT OF L LOW [facility] LEG W FAT LAYER EXPOSED 2020-07-22 11:30 LACERATION W/O FOREIGN BODY, RIGHT i [facility] LOWER LEG, INIT ENCNTR 2020-07-22 11:30 SHELTER (CURRENT) USE OF [facility] ANTICOAGULANTS 2020-07-22 11:30 SHELTER (CURRENT) USE OF [facility] SYSTEMIC STEROIDS 2020-07-22 11:30 EXECUTIVE VICE PRESIDENT OF SALES (CURRENT) USE OF ORAL [facility] HYPOGLYCEMIC DRUGS 2020-07-22 11:30 OTHER SHELTER (CURRENT) DRUG [facility] THERAPY 2020-07-26 08:00 EXECUTIVE VICE PRESIDENT OF SALES (CURRENT) USE OF [facility] ANTICOAGULANTS 2020-07-29 10:40 CHRONIC ATRIAL FIBRILLATION, [facility] UNSPECIFIED 2020-07-29 10:45 TYPE 2 DIABETES MELLITUS WITHOUT [facility] COMPLICATIONS 2020-07-29 10:45 HYPERTENSIVE HEART DISEASE WITH [facility] HEART FAILURE 2020-07-29 10:45 UNSPECIFIED ATRIAL FIBRILLATION [facility] 2020-07-29 10:45 HEART FAILURE, UNSPECIFIED [facility] 2020-07-29 10:45 NON-PRESSURE CHRONIC ULCER OF LEFT [facility] CALF W FAT LAYER EXPOSED 2020-07-29 10:45 NON-PRS [facility] UNSP PRT OF L [facility] LEG LIMITED TO BRKDWN SKIN 2020-07-29 10:45 NON-PRS [facility] UNSP PRT OF L [facility] LEG W FAT LAYER EXPOSED 2020-07-29 10:45 LACERATION W/O FOREIGN BODY, RIGHT [facility] LOWER LEG, INIT ENCNTR 2020-07-29 10:45 EXECUTIVE VICE PRESIDENT OF SALES (CURRENT) USE OF [facility] ANTICOAGULANTS 2020-07-29 10:45 EXECUTIVE VICE PRESIDENT OF SALES (CURRENT) USE OF [facility] SYSTEMIC STEROIDS 2020-07-29 10:45 SHELTER (CURRENT) USE OF ORAL [facility] HYPOGLYCEMIC DRUGS 2020-07-29 10:45 OTHER EXECUTIVE VICE PRESIDENT OF SALES (CURRENT) DRUG [facility] THERAPY 2020-08-04 09:45 TYPE 2 DIABETES MELLITUS WITHOUT [facility] COMPLICATIONS 2020-08-04 09:45 HYPERTENSIVE HEART DISEASE WITH [facility] HEART FAILURE 2020-08-04 09:45 UNSPECIFIED ATRIAL FIBRILLATION [facility] 2020-08-04 09:45 HEART FAILURE, UNSPECIFIED [facility] 2020-08-04 09:45 NON-PRESSURE CHRONIC ULCER OF LEFT [facility] CALF W FAT LAYER EXPOSED 2020-08-04 09:45 NON-PRS CHR ULC UNSP PRT OF [facility] LEG LIMITED TO BRKDWN SKIN 2020-08-04 09:45 NON-PRS CHR ULC UNSP PRT OF [facility] LEG W FAT LAYER EXPOSED 2020-08-04 09:45 LACERATION W/O FOREIGN BODY, RIGHT [facility] LOWER LEG, INIT ENCNTR 2020-08-04 09:45 EXECUTIVE VICE PRESIDENT OF SALES (CURRENT) USE OF [facility] ANTICOAGULANTS 2020-08-04 09:45 SHELTER (CURRENT) USE OF [facility] SYSTEMIC STEROIDS 2020-08-04 09:45 EXECUTIVE VICE PRESIDENT OF SALES (CURRENT) USE OF ORAL [facility] HYPOGLYCEMIC DRUGS 2020-08-04 09:45 OTHER EXECUTIVE VICE PRESIDENT OF SALES (CURRENT) DRUG [facility] THERAPY 2020-08-12 09:30 TYPE 2 DIABETES MELLITUS WITHOUT [facility] COMPLICATIONS 2020-08-12 09:30 HYPERTENSIVE HEART DISEASE WITH [facility] HEART FAILURE 2020-08-12 09:30 UNSPECIFIED ATRIAL FIBRILLATION [facility] 2020-08-12 09:30 HEART FAILURE, UNSPECIFIED [facility] 2020-08-12 09:30 NON-PRESSURE CHRONIC ULCER OF LEFT [facility] CALF W FAT LAYER EXPOSED 2020-08-12 09:30 NON-PRS CHR ULC UNSP PRT OF L [facility] LEG LIMITED TO BRKDWN SKIN 2020-08-12 09:30 NON-PRS CHR ULC UNSP PRT OF L [facility] LEG W FAT LAYER EXPOSED 2020-08-12 09:30 LACERATION W/O FOREIGN BODY, RIGHT [facility] LOWER LEG, INIT ENCNTR 2020-08-12 09:30 EXECUTIVE VICE PRESIDENT OF SALES (CURRENT) USE OF [facility] ANTICOAGULANTS 2020-08-12 09:30 SHELTER (CURRENT) USE OF [facility] SYSTEMIC STEROIDS 2020-08-12 09:30 EXECUTIVE VICE PRESIDENT OF SALES (CURRENT) USE OF ORAL [facility] HYPOGLYCEMIC DRUGS 2020-08-12 09:30 OTHER EXECUTIVE VICE PRESIDENT OF SALES (CURRENT) DRUG [facility] THERAPY 2020-08-16 08:00 EXECUTIVE VICE PRESIDENT OF SALES (CURRENT) USE OF [facility] ANTICOAGULANTS 2020-08-19 10:30 TYPE 2 DIABETES MELLITUS WITHOUT [facility] COMPLICATIONS 2020-08-19 10:30 HYPERTENSIVE HEART DISEASE WITH [facility] HEART FAILURE 2020-08-19 10:30 UNSPECIFIED ATRIAL FIBRILLATION [facility] 2020-08-19 10:30 HEART FAILURE, UNSPECIFIED [facility] 2020-08-19 10:30 VARICOSE VEINS OF LEFT LOWER [facility] EXTREMITY WITH ULCER OF CALF 2020-08-19 10:30 NON-PRESSURE CHRONIC ULCER OF LEFT [facility] CALF W FAT LAYER EXPOSED 2020-08-19 10:30 NON-PRS CHR UL UNSP PRT OF L [facility] LEG LIMITED TO BRKDWN SKIN 2020-08-19 10:30 NON-PRS [facility] UNSP PRT OF L [facility] LEG W FAT LAYER EXPOSED 2020-08-19 10:30 LACERATION W/O FOREIGN BODY, RIGHT [facility] LOWER LEG, INIT ENCNTR 2020-08-19 10:30 EXECUTIVE VICE PRESIDENT OF SALES (CURRENT) USE OF [facility] ANTICOAGULANTS 2020-08-19 10:30 EXECUTIVE VICE PRESIDENT OF SALES (CURRENT) USE OF [facility] SYSTEMIC STEROIDS 2020-08-19 10:30 EXECUTIVE VICE PRESIDENT OF SALES (CURRENT) USE OF ORAL [facility] HYPOGLYCEMIC DRUGS 2020-08-19 10:30 OTHER EXECUTIVE VICE PRESIDENT OF SALES (CURRENT) DRUG [facility] THERAPY 2020-08-23 08:00 EXECUTIVE VICE PRESIDENT OF SALES (CURRENT) USE OF [facility] ANTICOAGULANTS 2020-08-24 09:15 TYPE 2 DIABETES MELLITUS WITHOUT [facility] COMPLICATIONS 2020-08-24 09:15 HYPERTENSIVE HEART DISEASE WITH [facility] HEART FAILURE 2020-08-24 09:15 UNSPECIFIED ATRIAL FIBRILLATION [facility] 2020-08-24 09:15 HEART FAILURE, UNSPECIFIED [facility] 2020-08-24 09:15 VARICOSE VEINS OF LEFT LOWER [facility] EXTREMITY WITH ULCER OF CALF 2020-08-24 09:15 NON-PRESSURE CHRONIC ULCER OF LEFT [facility] CALF W FAT LAYER EXPOSED 2020-08-24 09:15 NON-PRS [facility] UNSP PRT OF [facility] LEG LIMITED TO BRKDWN SKIN 2020-08-24 09:15 NON-PRS [facility] UNSP PRT OF [facility] LEG W FAT LAYER EXPOSED 2020-08-24 09:15 LACERATION W/O FOREIGN BODY, RIGHT [facility] LOWER LEG, INIT ENCNTR 2020-08-24 09:15 EXECUTIVE VICE PRESIDENT OF SALES (CURRENT) USE OF [facility] ANTICOAGULANTS 2020-08-24 09:15 EXECUTIVE VICE PRESIDENT OF SALES (CURRENT) USE OF [facility] SYSTEMIC STEROIDS 2020-08-24 09:15 EXECUTIVE VICE PRESIDENT OF SALES (CURRENT) USE OF ORAL [facility] HYPOGLYCEMIC DRUGS 2020-08-24 09:15 OTHER EXECUTIVE VICE PRESIDENT OF SALES (CURRENT) DRUG [facility] THERAPY 2020-08-31 11:15 TYPE 2 DIABETES MELLITUS WITHOUT [facility] COMPLICATIONS 2020-08-31 11:15 HYPERTENSIVE HEART DISEASE WITH [facility] HEART FAILURE 2020-08-31 11:15 UNSPECIFIED ATRIAL FIBRILLATION [facility] 2020-08-31 11:15 HEART FAILURE, UNSPECIFIED [facility] 2020-08-31 11:15 VARICOSE VEINS OF LEFT LOWER [facility] EXTREMITY WITH ULCER OF CALF 2020-08-31 11:15 VENOUS INSUFFICIENCY (CHRONIC) [facility] (PERIPHERAL) 2020-08-31 11:15 NON-PRESSURE CHRONIC ULCER OF LEFT [facility] CALF W FAT LAYER EXPOSED 2020-08-31 11:15 NON-PRS CHRONIC ULCER OTH PRT R [facility] LOW LEG W FAT LAYER EXPOSED 2020-08-31 11:15 NON-PRS CHR ULC UNSP PRT OF L [facility] LEG LIMITED TO BRKDWN SKIN 2020-08-31 11:15 NON-PRS CHR ULC UNSP PRT OF L [facility] LEG W FAT LAYER EXPOSED 2020-08-31 11:15 LACERATION W/O FOREIGN BODY, RIGHT [facility] LOWER LEG, INIT ENCNTR 2020-08-31 11:15 SHELTER (CURRENT) USE OF [facility] ANTICOAGULANTS 2020-08-31 11:15 SHELTER (CURRENT) USE OF [facility] SYSTEMIC STEROIDS 2020-08-31 11:15 EXECUTIVE VICE PRESIDENT OF SALES (CURRENT) USE OF ORAL [facility] HYPOGLYCEMIC DRUGS 2020-08-31 11:15 OTHER SHELTER (CURRENT) DRUG [facility] THERAPY 2020-09-09 10:00 TYPE 2 DIABETES MELLITUS WITHOUT [facility] COMPLICATIONS 2020-09-09 10:00 HYPERTENSIVE HEART DISEASE WITH [facility] HEART FAILURE 2020-09-09 10:00 UNSPECIFIED ATRIAL FIBRILLATION [facility] 2020-09-09 10:00 HEART FAILURE, UNSPECIFIED [facility] 2020-09-09 10:00 VARICOSE VEINS OF LEFT LOWER [facility] EXTREMITY WITH ULCER OF CALF 2020-09-09 10:00 VENOUS INSUFFICIENCY (CHRONIC) [facility] (PERIPHERAL) 2020-09-09 10:00 NON-PRESSURE CHRONIC ULCER OF LEFT [facility] CALF W FAT LAYER EXPOSED 2020-09-09 10:00 NON-PRS CHRONIC ULCER OTH PRT R [facility] LOW LEG W FAT LAYER EXPOSED 2020-09-09 10:00 NON-PRS CHR ULC UNSP PRT OF L [facility] LEG LIMITED TO BRKDWN SKIN 2020-09-09 10:00 NON-PRS CHR ULC UNSP PRT OF L [facility] LEG W FAT LAYER EXPOSED 2020-09-09 10:00 LACERATION W/O FOREIGN BODY, RIGHT [facility] LOWER LEG, INIT ENCNTR 2020-09-09 10:00 SHELTER (CURRENT) USE OF [facility] ANTICOAGULANTS 2020-09-09 10:00 SHELTER (CURRENT) USE OF [facility] SYSTEMIC STEROIDS 2020-09-09 10:00 SHELTER (CURRENT) USE OF ORAL [facility] HYPOGLYCEMIC DRUGS 2020-09-09 10:00 OTHER SHELTER (CURRENT) DRUG [facility] THERAPY 2020-09-13 08:00 EXECUTIVE VICE PRESIDENT OF SALES (CURRENT) USE OF [facility] ANTICOAGULANTS 2020-09-15 11:00 TYPE 2 DIABETES MELLITUS WITHOUT [facility] COMPLICATIONS 2020-09-15 11:00 HYPERTENSIVE HEART DISEASE WITH [facility] HEART FAILURE 2020-09-15 11:00 UNSPECIFIED ATRIAL FIBRILLATION [facility] 2020-09-15 11:00 HEART FAILURE, UNSPECIFIED [facility] 2020-09-15 11:00 VARICOSE VEINS OF LEFT LOWER [facility] EXTREMITY WITH ULCER OF CALF 2020-09-15 11:00 VENOUS INSUFFICIENCY (CHRONIC) [facility] (PERIPHERAL) 2020-09-15 11:00 NON-PRESSURE CHRONIC ULCER OF LEFT [facility] CALF W FAT LAYER EXPOSED 2020-09-15 11:00 NON-PRS CHRONIC ULCER OTH PRT R [facility] LOW LEG W FAT LAYER EXPOSED 2020-09-15 11:00 NON-PRS CHR ULC UNSP PRT OF L [facility] LEG LIMITED TO BRKDWN SKIN 2020-09-15 11:00 NON-PRS CHR ULC UNSP PRT OF L [facility] LEG W FAT LAYER EXPOSED 2020-09-15 11:00 LACERATION W/O FOREIGN BODY, RIGHT [facility] LOWER LEG, INIT ENCNTR 2020-09-15 11:00 SHELTER (CURRENT) USE OF [facility] ANTICOAGULANTS 2020-09-15 11:00 EXECUTIVE VICE PRESIDENT OF SALES (CURRENT) USE OF [facility] SYSTEMIC STEROIDS 2020-09-15 11:00 EXECUTIVE VICE PRESIDENT OF SALES (CURRENT) USE OF ORAL [facility] HYPOGLYCEMIC DRUGS 2020-09-15 11:00 OTHER EXECUTIVE VICE PRESIDENT OF SALES (CURRENT) DRUG [facility] THERAPY 2020-09-15 11:28 TYPE 2 DIABETES MELLITUS WITHOUT [facility] COMPLICATIONS 2020-09-15 11:28 HYPERTENSIVE HEART DISEASE WITH [facility] HEART FAILURE 2020-09-15 11:28 UNSPECIFIED ATRIAL FIBRILLATION [facility] 2020-09-15 11:28 HEART FAILURE, UNSPECIFIED [facility] 2020-09-15 11:28 VARICOSE VEINS OF LEFT LOWER [facility] EXTREMITY WITH ULCER OF CALF 2020-09-15 11:28 VENOUS INSUFFICIENCY (CHRONIC) [facility] (PERIPHERAL) 2020-09-15 11:28 NON-PRESSURE CHRONIC ULCER OF LEFT [facility] CALF W FAT LAYER EXPOSED 2020-09-15 11:28 NON-PRS CHRONIC ULCER OTH PRT R [facility] LOW LEG W FAT LAYER EXPOSED 2020-09-15 11:28 NON-PRS CHR ULC UNSP PRT OF L [facility] LEG LIMITED TO BRKDWN SKIN 2020-09-15 11:28 NON-PRS CHR ULC UNSP PRT OF L [facility] LEG W FAT LAYER EXPOSED 2020-09-15 11:28 LACERATION W/O FOREIGN BODY, RIGHT [facility] LOWER LEG, INIT ENCNTR 2020-09-15 11:28 EXECUTIVE VICE PRESIDENT OF SALES (CURRENT) USE OF [facility] ANTICOAGULANTS 2020-09-15 11:28 EXECUTIVE VICE PRESIDENT OF SALES (CURRENT) USE OF [facility] SYSTEMIC STEROIDS 2020-09-15 11:28 SHELTER (CURRENT) USE OF ORAL [facility] HYPOGLYCEMIC DRUGS 2020-09-15 11:28 OTHER EXECUTIVE VICE PRESIDENT OF SALES (CURRENT) DRUG [facility] THERAPY Allergies date description facility No Known Drug [facility]ergies [facility] CITALOPRAM [facility] PENICILLINS [facility] ALENDRONATE SODIUM [facility] AMITRIPTYLINE [facility] CEFTRIAXONE SODIUM [facility] C[facility]FLOXACIN [facility]CLINE [facility] HYOS[facility] MORPHINE [facility] MOXIFLOXACIN HCL [facility] MOXIFLOXACIN [facility] NSAIDS (NON-STEROIDAL ANTI-INFLAMMATORY DRUG) [facility] PENICILLIN [facility] SULFA (SULFONAMIDE ANTIBIOTICS) [facility] TRAZODONE [facility] PENICILLINS [facility] SULFA (SULFONAMIDE ANTIBIOTICS) [facility] NO KNOWN ALLERGIES [facility] HYDROCODONE-ACETAMINOPHEN [facility] No Known Drug Allergies [facility] ALENDRONATE SODIUM [facility] BUSPIRONE HCL [facility] CIPROFLOXACIN [facility] CODEINE SULFATE [facility] ERYTHROMYCIN BASE [facility] QUININE [facility] SULFAMETHOXAZOLE-TRIMETHOPRIM [facility] TRAMADOL [facility] NO KNOWN ENVIRONMENTAL ALLERGIES [facility] SULFA ANTIBIOTICS [facility] NO KNOWN ALLERGIES [facility] PENICILLINS [facility] NO KNOWN ALLERGIES [facility] MORPHINE [facility] Procedures date description facility 2020-07-07 00:00:00 [facility] date description facility 2020-07-07 00:00:00 [facility] date description facility 2020-07-26 00:00:00 POC PROTHROMBIN TIME [facility] date description facility 2020-07-26 00:00:00 ANTICOAG MGMT PT [facility] date description facility 2020-07-26 00[facility]00:00 [facility] date description facility 2020-07-29 00:00:00 ANTICOAG MGMT PT WARFARIN [facility] date description facility 2020-07-29 00:00:00 [facility] date description facility 2020-08-16 00:00:00 POC PROTHROMBIN TIME [facility] date description facility 2020-08-16 00:00:00 ANTICOAG MGMT PT WARFARIN [facility] date description facility 2020-08-16 00:00:00 [facility] date description facility 2020-08-23 00:00:00 POC PROTHROMBIN TIME [facility] date description facility 2020-08-23 00:00:00 ANTICOAG MGMT PT WARFARIN [facility] date description facility 2020-08-23 00:00:00 [facility] date description facility 2020-08-30 00:00:00 POC PROTHROMBIN TIME [facility] date description facility 2020-08-30 00:00:00 ANTICOAG MGMT PT WARFARIN [facility] date description facility 2020-08-30 00:00:00 [facility] date description facility 2020-09-13 00:00:00 POC PROTHROMBIN TIME [facility] date description facility 2020-09-13 00:00:00 ANTICOAG MGMT PT WARFARIN [facility] date description facility 2020-09-13 00:00:00 [facility] date description facility 2020-09-20 00:00:00 POC PROTHROMBIN TIME [facility] date description facility 2020-09-20 00:00:00 ANTICOAG MGMT PT WARFARIN [facility] date description facility 2020-09-20 00:00:00 [facility] Results Social History date description facility [id number] Never smoked tobacco (finding) [facility] Social History date description facility [id number] Never smoked tobacco (finding) [facility] date description facility [id number]
== END 2020-08-23 23:59 | disposition home or self-care (01) ==
DX: Z79.01 Long term (current) use of anticoagulants (principal)

== ENCOUNTER 2020-09-13 08:00 | Outpatient (CLI) | payer MEDICARE, BC | END 2020-09-13 23:59 | disposition home or self-care (01) | LOC: LAB.WCP 08:00 | PROVIDERS: ATTEND Family Medicine | DX: Z79.01 Long term (current) use of anticoagulants (principal) ==

== ENCOUNTER 2020-09-20 08:00 | Outpatient (CLI) | payer MEDICARE, BC | END 2020-09-20 23:59 | disposition home or self-care (01) | LOC: LAB.WCP 08:00 | PROVIDERS: ATTEND Family Medicine | DX: Z79.01 Long term (current) use of anticoagulants (principal) ==

== ENCOUNTER 2020-09-22 12:11 | Outpatient (CLI) | payer MEDICARE, BC | END 2020-09-22 12:12 | disposition EMS.NT | LOC: EMS 12:11 | PROVIDERS: ATTEND Surgery | DX: R19.7 Diarrhea, unspecified (principal) ==

== ENCOUNTER 2020-09-23 21:19 | Outpatient (CLI) | payer MEDICARE, BC | END 2020-09-23 21:20 | disposition critical access hospital (66) | LOC: EMS 21:19 | PROVIDERS: ATTEND Surgery | DX: M25.551 Pain in right hip (principal) | CPT/HCPCS: A0425; A0427 ==

== ENCOUNTER 2020-09-23 21:32 | Inpatient (IN) | payer MEDICARE, BC ==
[2020-09-23] MEDS ORDERED: fentaNYL 100 MCG/2 ML VIAL IVP STA ×3 (21:45→23:23)
[2020-09-23 21:52] LABS: EOSINOPHILS % (AUTO) 0.1 %; MEAN CORPUSCULAR HGB CONC 32.9 g/dL (32.0-36.0); RED CELL DISTRIBUTION WIDTH 13.6 % (12.0-15.0)
[2020-09-23 21:55] LABS: BASOPHILS % (AUTO) 0.9 %; HCT - HEMATOCRIT 42.6 % (37.0-47.0); LYMPHOCYTES % (AUTO) 7.4 %; MEAN CORPUSCULAR HEMOGLOBIN 34.3 pg (27.0-31.0); MEAN CORPUSCULAR VOLUME 104.4 fL (81.0-99.0); MEAN PLATELET VOLUME 9.4 fL (7.9-10.8); MONOCYTES % (AUTO) 16.1 %; NEUTROPHILS % (AUTO) 74.1 %; PLT - PLATELET COUNT 230 10^3/uL (130-450); RED BLOOD COUNT 4.08 10^6/uL (4.20-5.40); WHITE BLOOD COUNT 10.3 x10^3/uL (4.8-10.8)
[2020-09-23 21:59] LABS: INR 2.1 (0.8-1.2); PT - PROTHROMBIN TIME 21.9 secs (9.9-12.6)
[2020-09-23 22:03] LABS: ABNORMAL LYMPHS % (MANUAL) 0 %
[2020-09-23 22:06] LABS: ALBUMIN 4.1 g/dL (3.2-5.5); ALBUMIN/GLOBULIN RATIO 1.2 (1.0-2.2); BILIRUBIN,TOTAL 1.1 mg/dL (0.2-1.0); CALCIUM 9.2 mg/dL (8.5-10.3); CREATININE 1.2 mg/dL (0.4-1.0); POTASSIUM 3.9 mmol/L (3.5-5.0); TOTAL PROTEIN 7.4 g/dL (6.7-8.2)
[2020-09-23 22:38] LABS: BILIRUBIN,URINE NEGATIVE (NEGATIVE); GLUCOSE, URINE (UA) NEGATIVE (NEGATIVE); KETONES,URINE (UA) NEGATIVE (NEGATIVE); LEUKOCYTE ESTERASE, URINE NEGATIVE (NEGATIVE); NITRITE,URINE NEGATIVE (NEGATIVE); OCCULT BLOOD,URINE SMALL (NEGATIVE); PH,URINE 5.5 PH (5.0-7.5); PROTEIN,URINE TRACE mg/dL (NEGATIVE); UROBILINOGEN,URINE 0.2 (NORMAL) E.U./dL (NORMAL)
[2020-09-23 22:41] LABS: CLARITY,URINE CLEAR (CLEAR)
[2020-09-23 22:47] LABS: BACTERIA,URINE Rare /HPF (None Seen); CASTS, URINE 6-10 Hyaline Casts /LPF; EPITHELIAL CELLS,UR FEW Renal Tubular /HPF (<= Few); MUCUS,URINE Few Strands; RBC,URINE 0-5 /HPF (0-5); SQUAMOUS EPITHELIAL CELL,UR MOD Squamous (<= Few); WBC,URINE 0-3 /HPF (0-5)
[2020-09-23 22:47] LABS: BAND NEUTROPHILS % (MANUAL) 16 %; LYMPHOCYTES # (MANUAL) 0.9 10^3/uL (1.5-3.5); LYMPHOCYTES % (MANUAL) 5 %; MONOCYTES # (MANUAL) 1.1 10^3/uL (0.0-1.0); NEUTROPHILS # (MANUAL) 8.2 10^3/uL (1.5-6.6); REACTIVE LYMPHS % (MANUAL) 4 %
[2020-09-23 22:48] LABS: DIFFERENTIAL COMMENT MANUAL DIFFERENTIAL; PLATELET ESTIMATE, MANUAL NORMAL (130-450,000) (NORMAL); PLATELET MORPHOLOGY NORMAL APPEARANCE (NORMAL); RBC MORPHOLOGY (MULTIPLE) NORMAL APPEARANCE (NORMAL)
--- NOTE | 2020-09-23 23:04 | ED Physician Documentation ---
PD HPI LOWER EXT INJURY - Stated complaint Stated Complaint: GLF WITH EXTREME HIP ROTATION - Chief complaint Chief Complaint: Trauma Ext - History obtained from History obtained from: Patient, EMS - History of Present Illness PD HPI LOW EXT INJURY LOCATION: Right, Hip Type of injury: Fall Where injury occurred: Home Timing - onset: Today Timing - duration: Minutes Timing - details: Abrupt onset, Still present Improved by: Rest, Immobilization Worsened by: Moving, Palpating Associated symptoms: No: Weakness, Numbness Contributing factors: Anticoagulated Similar symptoms before: Has not had sx before Recently seen: Not recently seen - Additional information Additional information: 80-year-old female who is on Coumadin for atrial fibrillation turned around in her the doorway and fell down landing on her right hip fracturing her right hip. She hit the back of her head did not have LOC but, she does have some mild neck pain. Review of Systems Constitutional: denies: Fever Eyes: denies: Decreased vision Ears: denies: Ear pain Nose: denies: Congestion Throat: denies: Sore throat Cardiac: denies: Chest pain / pressure, Palpitations Respiratory: denies: Dyspnea, Cough GI: denies: Abdominal Pain, Nausea, Vomiting : denies: Dysuria, Frequency Skin: denies: Rash Musculoskeletal: reports: Neck pain, Extremity pain, Joint pain. denies: Back pain Neurologic: denies: Generalized weakness, Focal weakness, Numbness PD PAST MEDICAL HISTORY - Past Medical History Past Medical History: Yes Cardiovascular: Congestive heart failure, Hypertension, Atrial fibrillation, Valve disorder Respiratory: Asthma Neuro: None, Dementia Endocrine/Autoimmune: Type 2 diabetes GI: None BAGMAN/WOMAN: Other : None HEENT: None Psych: None Musculoskeletal: Chronic back pain Derm: None - Past Surgical History Past Surgical History: Yes General: Other /BAGMAN/WOMAN: section, Hysterectomy, Other Cardiovascular: Valve replacement HEENT: Cataracts - Present Medications Home Medications: Ambulatory Orders Medication Instructions Recorded Confirmed Gabapentin [Neurontin] 300 mg PO BID 03/04/13 09/23/20 metFORMIN [Glucophage] 500 mg PO DAILY 04/06/15 09/23/20 Digoxin 0.125 mg PO DAILY 08/30/16 09/23/20 Potassium Chloride [K-Dur] 20 meq PO DAILYWM #30 tablet 09/05/16 09/23/20 Warfarin [Coumadin] 5 mg PO QDWARFARIN 01/22/17 09/23/20 Metoprolol Succinate 100 mg PO DAILY 08/30/17 09/23/20 Aspirin 81 mg PO DAILY 12/11/18 09/23/20 Oxycodone HCl/Acetaminophen 1 - 2 each PO Q6H PRN #14 tablet 05/17/19 09/23/20 [Percocet 5-325 mg Tablet] Albuterol Sulf [Ventolin Hfa 1 - 2 puffs INH Q4HR PRN #1 inhaler 04/23/20 09/23/20 Inhaler] Bumetanide 2 mg PO BID 08/19/20 09/23/20 - Allergies Allergies/Adverse Reactions: Allergies Allergy/AdvReac Type Severity Reaction Status Date / Time No Known Drug Allergies Allergy Verified 09/23/20 21:41 - Social History Does the pt smoke?: No Smoking Status: Never smoker Does the pt drink ETOH?: Yes Does the pt have substance abuse?: No - Immunizations Immunizations are current?: No - POLST Patient has POLST: No POLST Status: Full Code PD ED PE NORMAL - Vitals Vital signs reviewed: Yes (hypertensive ) - General General: Alert and oriented X 3, No acute distress, Well developed/nourished - HEENT HEENT: Atraumatic, PERRL, EOMI - Neck Neck: Supple, no meningeal sign, Other (midline bony tenderness is mild ) - Cardiac Cardiac: No murmur, Other (irregularly irregular rate and rhythm) - Respiratory Respiratory: No respiratory distress, Clear bilaterally - Abdomen Abdomen: Soft, Non tender - Back Back: No CVA TTP, No spinal TTP - Derm Derm: Normal color, Warm and dry, No rash - Extremities Extremities: Other (There is tenderness to the right hip and the leg is externally rotated and kept in a position of comfort flexed at the hip. ) - Neuro Neuro: Alert and oriented X 3, audio visual secretary 2-12 intact, No motor deficit, No sensory deficit, Normal speech Eye Opening: Spontaneous Motor: Obeys Commands Verbal: Oriented GCS Score: 15 - Psych Psych: Normal mood, Normal affect Results - Vitals Vitals: Vital Signs - 24 hr 09/23/20 09/23/20 09/23/20 21:38 21:41 21:46 Temperature 36.2 C L 36.2 C L 36.2 C L Heart Rate 97 97 88 Respiratory 20 20 20 Rate Blood Pressure 157/99 H 157/99 H 158/92 H O2 Saturation 97 97 97 09/23/20 09/23/20 09/23/20 22:16 22:30 23:00 Temperature 36.2 C L 36.2 C L 36.5 C Heart Rate 96 89 100 Respiratory 21 22 22 Rate Blood Pressure 128/80 128/81 H 116/56 L O2 Saturation 96 96 95 09/23/20 09/24/20 09/24/20 23:30 00:00 00:24 Temperature 36.5 C 36.5 C 36.5 C Heart Rate 95 94 96 Respiratory 23 22 22 Rate Blood Pressure 128/63 100/80 122/75 O2 Saturation 93 95 95 Oxygen O2 Source Room air - Labs Labs: Laboratory Tests 09/23/20 09/23/20 09/23/20 21:45 21:45 21:45 WBC 10.3 RBC 4.08 L Hgb 14.0 Hct 42.6 MCV 104.4 H MCH 34.3 H MCHC 32.9 RDW 13.6 Plt Count 230 MPV 9.4 Neut # (Auto) Not Reportable Lymph # (Auto) Not Reportable Wagoner # (Auto) Not Reportable Eos # (Auto) Not Reportable Baso # (Auto) Not Reportable Absolute Nucleated RBC Not Reportable Total Counted 100 Band Neuts % (Manual) 16 H Reactive Lymphs % (Man) 4 Abnorm Lymph % (Manual) 0 Nucleated RBC % Not Reportable Neutrophils # (Manual) 8.2 H Lymphocytes # (Manual) 0.9 L Monocytes # (Manual) 1.1 H Eosinophils # (Manual) 0.0 Basophils # (Manual) 0.0 Differential Comment MANUAL DIFFERENTIAL Platelet Estimate NORMAL (130-450,000) Platelet Morphology NORMAL APPEARANCE RBC Morph Micro Appear NORMAL APPEARANCE PT 21.9 H INR 2.1 H Sodium 137 Potassium 3.9 Chloride 92 L Carbon Dioxide 28 Anion Gap 17.0 H BUN 27 H Creatinine 1.2 H Estimated GFR (MDRD) 43 L Glucose 160 H Calcium 9.2 Total Bilirubin 1.1 H AST 43 H ALT 27 Alkaline Phosphatase 48 Total Protein 7.4 Albumin 4.1 Globulin 3.3 Albumin/Globulin Ratio 1.2 Lipase 29 Urine Color Urine Clarity Urine pH Ur Specific [place] Urine Protein Urine Glucose (UA) Urine Ketones Urine Occult Blood Urine Nitrite Urine Bilirubin Urine Urobilinogen Ur Leukocyte Esterase Urine RBC Urine WBC Ur Epithelial Cells Ur Squamous Epith Cells Urine Bacteria Urine Casts Urine Mucus Ur Microscopic Review Urine Culture Comments Nasal Adenovirus (PCR) Nasal B. parapertussis DNA (PCR) Nasal Coronavir 229E PCR Nasal Coronavir HKU1 PCR Nasal Coronavir NL63 PCR Nasal Coronavir OC43 PCR Nasal Enterovir/Rhinovir PCR Nasal Influenza B PCR Nasal Influenza A PCR Nasal Parainfluen 1 PCR Nasal Parainfluen 2 PCR Nasal Parainfluen 3 PCR Nasal Parainfluen 4 PCR Nasal RSV (PCR) Nasal B.pertussis DNA PCR Nasal C.pneumoniae (PCR) Yuriy Human Metapneumo PCR Nasal M.pneumoniae (PCR) Nasal SARS-CoV-2 (PCR) Last Dose Date Last Dose Time Digoxin 09/23/20 09/23/20 09/23/20 21:50 22:16 22:26 WBC RBC Hgb Hct MCV MCH MCHC RDW Plt Count MPV Neut # (Auto) Lymph # (Auto) Wagoner # (Auto) Eos # (Auto) Baso # (Auto) Absolute Nucleated RBC Total Counted Band Neuts % (Manual) Reactive Lymphs % (Man) Abnorm Lymph % (Manual) Nucleated RBC % Neutrophils # (Manual) Lymphocytes # (Manual) Monocytes # (Manual) Eosinophils # (Manual) Basophils # (Manual) Differential Comment Platelet Estimate Platelet Morphology RBC Morph Micro Appear PT INR Sodium Potassium Chloride Carbon Dioxide Anion Gap BUN Creatinine Estimated GFR (MDRD) Glucose Calcium Total Bilirubin AST ALT Alkaline Phosphatase Total Protein Albumin Globulin Albumin/Globulin Ratio Lipase Urine Color YELLOW Urine Clarity CLEAR Urine pH 5.5 Ur Specific [place] 1.015 Urine Protein TRACE Urine Glucose (UA) NEGATIVE Urine Ketones NEGATIVE Urine Occult Blood SMALL H Urine Nitrite NEGATIVE Urine Bilirubin NEGATIVE Urine Urobilinogen 0.2 (NORMAL) Ur Leukocyte Esterase NEGATIVE Urine RBC 0-5 Urine WBC 0-3 Ur Epithelial Cells FEW Renal Tubular Ur Squamous Epith Cells MOD Squamous H Urine Bacteria Rare Urine Casts 6-10 Hyaline Casts Urine Mucus Few Strands Ur Microscopic Review INDICATED Urine Culture Comments NOT INDICATED Nasal Adenovirus (PCR) NOT DETECTED Nasal B. parapertussis DNA (PCR) NOT DETECTED Nasal Coronavir 229E PCR NOT DETECTED Nasal Coronavir HKU1 PCR NOT DETECTED Nasal Coronavir NL63 PCR NOT DETECTED Nasal Coronavir OC43 PCR NOT DETECTED Nasal Enterovir/Rhinovir PCR NOT DETECTED Nasal Influenza B PCR NOT DETECTED Nasal Influenza A PCR NOT DETECTED Nasal Parainfluen 1 PCR NOT DETECTED Nasal Parainfluen 2 PCR NOT DETECTED Nasal Parainfluen 3 PCR NOT DETECTED Nasal Parainfluen 4 PCR NOT DETECTED Nasal RSV (PCR) NOT DETECTED Nasal B.pertussis DNA PCR NOT DETECTED Nasal C.pneumoniae (PCR) NOT DETECTED Yuriy Human Metapneumo PCR NOT DETECTED Nasal M.pneumoniae (PCR) NOT DETECTED Nasal SARS-CoV-2 (PCR) NOT DETECTED Last Dose Date 09-23-20 Last Dose Time UNKNOWN Digoxin 1.1 - Rads (name of study) CT hip R w/o Radiology: Prelim report reviewed (Impression: Right femoral neck fracture with adjacent soft tissue injury.), EMP read indepedently, See rad report CT head Radiology: Prelim report reviewed (Impression: No acute findings.), EMP read indepedently, See rad report cervical spine Radiology: Prelim report reviewed (Impression: No cervical spine fracture. 5 mm anterolisthesis of C4 on C5, degenerative. Groundglass opacity in the right upper lobe. Correlate clinically for signs/symptoms of respiratory infection. A posttraumatic etiology is considered less likely.), EMP read indepedently, See rad report PD MEDICAL DECISION MAKING - ED course Complexity details: reviewed old records, reviewed results, re-evaluated patient, considered differential, d/w patient ED course: 80-year-old female on Coumadin for atrial fibrillation has had a fall in her home today and has broken her right hip. She does not have evidence of intracranial hemorrhage or fracture of her neck. Dr. Melendez is consulted in the case and would like us to consult the hospitalist for admission with a plan of surgical fixation. He recommends reversal of the Coumadin with vitamin K and does not think fresh frozen plasma would be necessary. Departure - Departure Disposition: [facility] DC/Xfer Clinical Impression: Closed right hip fracture Qualifiers: Encounter type: initial encounter Qualified Code(s): S72.001A - Fracture of unspecified part of neck of right femur, initial encounter for closed fracture Discharge Date/Time: 09/24/20 01:30
[2020-09-23 23:41] LABS: DIGOXIN 1.1 ng/mL
[2020-09-23 23:56] LABS: B. PARAPERTUSSIS- RESP PCR PAN NOT DETECTED; B. PERTUSSIS- RESP PCR PANEL NOT DETECTED; C. PNEUMONIAE- RESP PCR PANEL NOT DETECTED; CORONAVIRUS 229E-RESP PCR NOT DETECTED; CORONAVIRUS HKU1-RESP PCR NOT DETECTED; CORONAVIRUS NL63-RESP PCR NOT DETECTED; CORONAVIRUS OC43-RESP PCR NOT DETECTED; HUMAN METAPNEUMOVIRUS NOT DETECTED; INFLUENZA A- RESP PCR PANEL NOT DETECTED; INFLUENZA B - RESP PCR PANEL NOT DETECTED; M. PNEUMONIAE- RESP PCR PANEL NOT DETECTED; PARAINFLUENZA VIRUS 1 NOT DETECTED; PARAINFLUENZA VIRUS 2 NOT DETECTED; PARAINFLUENZA VIRUS 3 NOT DETECTED; PARAINFLUENZA VIRUS 4 NOT DETECTED; RHINOVIRUS/ENTEROVIRUS NOT DETECTED; RSV- RESP PCR PANEL NOT DETECTED; SARS-CoV-2 -RESP PCR PANEL NOT DETECTED
[2020-09-24] MEDS ORDERED: PHYTONADIONE 10 MG/ML AMP IVP STA (00:01)
[2020-09-24] MEDS ORDERED: ONDANSETRON 4 MG/2 ML VIAL IVP PRN (00:27)
[2020-09-24] MEDS ORDERED: SODIUM CHLORIDE FLUSH 0.9% 10 ML SYRINGE IVP PRN (00:27)
[2020-09-24] MEDS ORDERED: oxyCODONE/ACET 5/325 Prepack 4 PO PRN (00:33)
[2020-09-24] MEDS ORDERED: ONDANSETRON 4 MG/2 ML VIAL IVP STA (00:42)
[2020-09-24] MEDS ORDERED: HYDROmorphone 1 MG/ML CARPUJECT IVP STA (00:42)
[2020-09-24] MEDS ORDERED: LORazepam 2 MG/ML VIAL IVP PRN (00:47)
[2020-09-24] MEDS ORDERED: DEXTROSE 5%-0.9% NACL 1,000 ML IV SCH (01:00)
[2020-09-24] MEDS ORDERED: ALBUTEROL 6.7 GM INHALER INH PRN (01:20)
[2020-09-24] MEDS: SODIUM CHLORIDE FLUSH 0.9% 10 ML SYRINGE IVP SCH ×3 (01:37→17:18)
[2020-09-24] MEDS: HYDROmorphone 0.5 MG/0.5 ML SYRINGE IVP PRN ×4 (02:54→14:22)
--- NOTE | 2020-09-24 03:46 | HISTORY & PHYSICAL EXAMINATION ---
DATE OF SERVICE: 09/24/2020 Physician: Sandy Renee MD HISTORY OF PRESENT ILLNESS: This is an 80-year-old white female who has a history of TAVR with a bioprosthetic valve inserted in 2016 for aortic stenosis, MitraClip done in April 2020 for severe mitral regurgitation, has pulmonary hypertension, chronic atrial fibrillation on Coumadin; diabetes mellitus on metformin, asthma on p.r.n. inhalers, hypertension, and chronic venous insufficiency with leg ulcers for which she needs to be followed up in the [facility]. She also carries a history of monoclonal gammopathy, dementia and was here for an alcohol abuse withdrawal in 2016. Today, the patient was turning in her house and had a mechanical fall, landing on her right hip, but also hitting her head going down. She had no loss of consciousness. She was brought to the emergency room and imaging shows that she has a right hip fracture. I do not see that a head CT or head and neck imaging was done yet. The ER doctor spoke to the orthopedic doctor who advised admission and she will undergo hip surgery; however, the INR is 2.1 and it will need to be reversed, and the orthopedist recommended using vitamin K. PAST MEDICAL HISTORY: As described in the first paragraph above. PAST SURGICAL HISTORY 1. TAVR. 2. MitraClip. 3. . 4. Hysterectomy. 5. Cataract surgery. ALLERGIES: NONE. MEDICATIONS 1. Aspirin 81 mg daily. 2. Potassium chloride 20 mEq daily. 3. Bumex 2 mg b.i.d. 4. Metformin 500 mg daily. 5. Warfarin 5 mg daily. 6. Ventolin inhaler p.r.n. 7. Digoxin 0.125 mg daily. 8. Neurontin 300 mg b.i.d. 9. Metoprolol succinate 100 mg daily. 10. Percocet 5/325 mg every 6 hours p.r.n. pain. FAMILY HISTORY: Noncontributory. SOCIAL HISTORY: The patient never smoked. She did have alcohol abuse in the past, does drink some alcohol now. Her living situation is not known (The patient was unable to answer detailed questions as she is now somnolent after receiving several doses of narcotics in the ER for pain control). REVIEW OF SYSTEMS: This was done from chart review and discussion with the ER doctor since the patient cannot provide detailed answers being lethargic. A comprehensive review of systems was performed and the pertinent positives are listed, the rest are negative. PHYSICAL EXAMINATION GENERAL: Elderly white female. She is lethargic after receiving narcotics for pain. VITAL SIGNS: Blood pressure 122/75, heart rate 89-100 in atrial fibrillation, afebrile, room air saturation 93-95%. HEENT: Unremarkable. NECK: Without JVD. LUNGS: Clear, distant breath sounds. HEART: Irregular. There is no murmur, but very distant heart sounds. ABDOMEN: Soft, nontender. Normal bowel sounds. EXTREMITIES: No clubbing, cyanosis and there is trace edema and bandages of shins. NEUROLOGIC: Lethargic, but grossly intact. The patient is followed by Dr. Melendez in cardiology and she just underwent an echo as an outpatient done one month ago and this showed normal LV size and function, right ventricle mildly enlarged, but with normal RV function, normal TAVR function with a bioprosthetic valve, normal mitral valve function with a MitraClip, but slightly elevated diastolic gradient and moderate pulmonary hypertension with PA pressure 56 mmHg. No EKG was done now. LABORATORY DATA: Sodium 137, potassium 3.9, BUN 27, creatinine 1.2. Her baseline creatinine is 1.0. Her glucose is 160, AST 43, ALT 27. Lipase normal at 29. White blood count 10.3, hemoglobin 14, MCV 104. Platelet count 230. INR 2.1. Urinalysis unremarkable. BioFire test for COVID was negative. Her digoxin level is 1.1, but last dose was unknown in relation to this lab draw. IMAGING: There was no chest x-ray done. There was imaging of the right hip, which showed a right femoral neck fracture with adjacent soft tissue injury. A head CT and neck CT was done and verbal report to me from the ER doctor was: unremarkable head CT, listhesis change of neck and a mass seen in upper chest. IMPRESSION/DIAGNOSES 1. Right hip fracture after a fall. 2. Preoperative evaluation. This patient's risk is class III, which provides her a 10% risk of 30-day chance of having , NC or cardiac arrest. 3. Prerenal azotemia. 4. Transcatheter aortic valve replacement. 5. MitraClip. 6. Pulmonary hypertension. 7. Chronic atrial fibrillation, on Coumadin. 8. Diabetes mellitus. 9. Asthma. 10. Hypertension. 11. Chronic venous insufficiency. 12. Leg ulcer, chronic and longstanding, and she needs to go to the [facility] for this. 13. Monoclonal gammopathy history. 14. Dementia history. 15. Prior alcohol abuse history. PLAN: Admit the patient to Inpatient status on telemetry. An Echo does not need to be repeated as it was just done one month ago. Obtain a pre-op EKG and CXR. The risk assessment is as described above. Vitamin K has already been given for reversal of the high INR. Recheck her INR this morning and follow it every morning. Check a fasting digoxin level as well. Begin gentle hydration at just 40 mL/hour while she is eatimg and not npo, but continue with once daily, not twice daily, loop diuretic. Continue with her beta-cely, digoxin, gabapentin, p.r.n. inhalers. Begin a diabetic diet, Accu-Cheks and low dose regular insulin to cover the glucose levels. Hold the metformin for now. Check an A1c. Continue with management of her leg wounds as she was doing at home. There was concern that alcohol use is still ongoing given the high MCV, labs with AST greater than ALT, and this fall at home. We will check a serum alcohol level and will order a CIWA protocol while she is here. Start oral daily Thiamine. DEEP VENOUS THROMBOSIS PROPHYLAXIS: Pharmacotherapy. CODE STATUS: FULL CODE. ATTESTATION: Patient is expected to be discharged or transferred to another facility within 96 hours: Yes. cc: Edson Bee MD TD: 09/24/2020 00:49 MTDD
[2020-09-24 05:15] LABS: BASOPHILS % (AUTO) 0.7 %; EOSINOPHILS % (AUTO) 0.2 %; HCT - HEMATOCRIT 38.6 % (37.0-47.0); HGB - HEMOGLOBIN 13.1 g/dL (12.0-16.0); LYMPHOCYTES % (AUTO) 13.9 %; MEAN CORPUSCULAR HEMOGLOBIN 34.9 pg (27.0-31.0); MEAN CORPUSCULAR HGB CONC 33.9 g/dL (32.0-36.0); MEAN CORPUSCULAR VOLUME 102.9 fL (81.0-99.0); MEAN PLATELET VOLUME 9.9 fL (7.9-10.8); MONOCYTES % (AUTO) 17.3 %; NEUTROPHILS % (AUTO) 66.6 %; PLT - PLATELET COUNT 229 10^3/uL (130-450); RED BLOOD COUNT 3.75 10^6/uL (4.20-5.40); RED CELL DISTRIBUTION WIDTH 13.5 % (12.0-15.0); WHITE BLOOD COUNT 10.1 x10^3/uL (4.8-10.8)
[2020-09-24 05:23] LABS: CALCIUM 8.9 mg/dL (8.5-10.3); CREATININE 1.3 mg/dL (0.4-1.0); POTASSIUM 3.8 mmol/L (3.5-5.0)
[2020-09-24 05:31] LABS: DIGOXIN 1.1 ng/mL; MAGNESIUM 1.6 mg/dL (1.7-2.8)
[2020-09-24 05:32] LABS: ABNORMAL LYMPHS % (MANUAL) 0 %
[2020-09-24 06:09] LABS: INR 1.4 (0.8-1.2); PT - PROTHROMBIN TIME 15.2 secs (9.9-12.6)
[2020-09-24 06:19] LABS: BAND NEUTROPHILS % (MANUAL) 9 %; BASOPHILS # (MANUAL) 0.1 10^3/uL (0-0.1); BASOPHILS % (MANUAL) 1 %; DIFFERENTIAL COMMENT MANUAL DIFFERENTIAL; LYMPHOCYTES # (MANUAL) 1.9 10^3/uL (1.5-3.5); LYMPHOCYTES % (MANUAL) 19 %; MONOCYTES # (MANUAL) 1.2 10^3/uL (0.0-1.0); NEUTROPHILS # (MANUAL) 6.9 10^3/uL (1.5-6.6); PLATELET ESTIMATE, MANUAL NORMAL (130-450,000) (NORMAL); RBC MORPHOLOGY (MULTIPLE) NORMAL APPEARANCE (NORMAL)
--- NOTE | 2020-09-24 07:29 | CT Report ---
PROCEDURE: HEAD WO INDICATIONS: polytrauma TECHNIQUE: Noncontrast 4.5 mm thick angled axial sections acquired from the foramen magnum to the vertex. For r adiation dose reduction, the following was used: automated exposure control, adjustment of mA and/or kV according to patient size. COMPARISON: None FINDINGS: Image quality: Excellent. CSF spaces: Basal cisterns are patent. No extra-axial fluid collections. The ventricles are symmet minerva in size and shape. Brain: No intracranial bleeds or masses. There is cerebral volume loss for age, with resultant vent ricular and sulcal prominence. There are periventricular and deep white matter chronic small vessel ischemic changes. There is intracranial internal carotid artery atherosclerosis. Skull and face: Calvarium and visualized facial bones appear intact, without suspicious lesions. Sinuses: Visualized sinuses and mastoids are clear. IMPRESSION: No acute intracranial disease process. Reviewed by: Anna Fisher MD, PhD on 09/24/2020 7:27 AM [facility] Approved by: Anna Fisher MD, PhD on 09/24/2020 7:27 AM [facility] Station ID: [id number]
[2020-09-24] MEDS ORDERED: MAGNESIUM OXIDE 400 MG TABLET PO ONE (08:00)
--- NOTE | 2020-09-24 08:13 | CT Report ---
PROCEDURE: CERVICAL SPINE WO INDICATIONS: head injury neck pain coumadin TECHNIQUE: Noncontrast 3 mm thick sections acquired from the skull base to the T4 level. Sagittal and coronal r eformats were then constructed. For radiation dose reduction, the following was used: automated exp osure control, adjustment of mA and/or kV according to patient size. COMPARISON: None. FINDINGS: Image quality: Excellent. Bones: No fractures or dislocations. 4-5 mm of C4-C5 degenerative anterolisthesis. Visualized superi or ribs are intact. Spine degenerative disc disease and facet arthropathy are noted. Soft tissues: Prevertebral soft tissues are normal in thickness. No paravertebral hematomas. No ap ical pneumothoraces. Groundglass opacity noted in the apex of the right lung concerning for pneumonia . IMPRESSION: 1. No fracture. No acute osseous lesion. If there is continued clinical concern for pathology, then M RI should be considered for further evaluation.. 2. Ground glass opacity in the apex of the right lung concerning for pneumonia. Reviewed by: Anna Fisher MD, PhD on 09/24/2020 8:12 AM PST Approved by: Anna Fisher MD, PhD on 09/24/2020 8:12 AM PST Station ID: [id number]
[2020-09-24] MEDS ORDERED: IPRATROPIUM/ALBUTEROL 3 ML NEB INH PRN (08:16)
[2020-09-24] MEDS ORDERED: ALBUTEROL NEB 2.5 MG/3 ML INH PRN (08:16)
[2020-09-24] MEDS ORDERED: ALBUTEROL 1 PUFF INH PRN (08:17)
--- NOTE | 2020-09-24 08:18 | XRAY Report ---
PROCEDURE: Chest 1 View X-Ray INDICATIONS: pre-op eval TECHNIQUE: One view of the chest was acquired. COMPARISON: None. FINDINGS: Surgical changes and devices: Status post TAVR. Lungs and pleura: No pleural effusions or pneumothorax. Lungs are clear. Mediastinum: Mediastinal contours appear normal. Heart size is normal. Mitral valvular calcificati ons. Bones and chest wall: No suspicious bony lesions. Overlying soft tissues appear unremarkable. IMPRESSION: No acute disease. Reviewed by: Etienne Barton MD on 09/24/2020 8:17 AM PST Approved by: Etienne Barton MD on 09/24/2020 8:17 AM PST Station ID: [id number]
--- NOTE | 2020-09-24 08:22 | CT Report ---
PROCEDURE: LOWER EXTREMITY WO - RT INDICATIONS: fall rotation of right hip TECHNIQUE: Noncontrast 3 mm axial sections acquired of the right hip, with coronal and sagittal reformats. COMPARISON: None. FINDINGS: Image quality: Excellent. Bones: Severely comminuted right femoral neck and intertrochanteric fracture. The right femoral head remains seated within the right acetabulum. Background mild to moderate bilateral hip joint degenera tion lumbar spondylosis, facet arthropathy. Right hip periarticular soft tissue edema and swelling. IMPRESSION: Severely comminuted right femoral neck and intertrochanteric femur fracture. Findings are concordant with the preliminary study interpretation provided at the time of the study. Reviewed by: Etienne Barton MD on 09/24/2020 8:21 AM PST Approved by: Etienne Barton MD on 09/24/2020 8:21 AM PST Station ID: [id number]
[2020-09-24] MEDS: INSULIN ASPART 300 UNIT/3 ML PEN SUBQ SCH ×4 (08:59→20:51)
[2020-09-24] MEDS: GABAPENTIN 300 MG CAPSULE PO SCH ×2 (09:01→21:06)
[2020-09-24] MEDS: FAMOTIDINE 20 MG TABLET PO SCH ×2 (09:01→21:06)
[2020-09-24] MEDS: DIGOXIN 125 MCG TABLET PO SCH (09:03)
[2020-09-24] MEDS: SODIUM CHLORIDE 0.9% 1,000 ML IV SCH ×2 (09:04→18:32)
[2020-09-24] MEDS: PRENATAL VITAMIN TABLET PO SCH (09:16)
[2020-09-24] MEDS: THIAMINE 100 MG TABLET PO SCH (09:16)
[2020-09-24] MEDS: ACETAMINOPHEN 325 MG TABLET PO PRN ×2 (09:18→21:06)
[2020-09-24] MEDS: METOPROLOL SUCCINATE 50 MG TABLET PO SCH (09:21)
[2020-09-24 10:24] LABS: ESTIMATED AVERAGE GLUCOSE 131 mg/dL (70-100); HEMOGLOBIN A1c% 6.2 % (4.27-6.07)
[2020-09-24] MEDS: BUMETANIDE 1 MG TABLET PO SCH (10:55)
--- NOTE | 2020-09-24 11:30 | PHARMACY PROGRESS NOTE ---
- Best Possible Medication History Admit Date and Time: 09/24/20 0027 Processed by: Pharmacy Medication History completed: Yes Patient Interview: Completed Secondary Source(s): Pharmacy records, Insurance records (PATIENT UNABLE TO CONFIRM HOME MEDICATIONS. MEDICATION RECONCILIATION COMPLETED USING INSURANCE AND PHARMACY RECORDS ) As the person ultimately responsible for medication therapy, providers are able to order a medication from an existing home medication list in [facility] via the "Reconcile Routine" prior to Confirmation of that medication by ground support equipment fitter. Such practice is discouraged except when the physician, in their clinical j udgment, deems that a medical need exists for a medication without regard to previous use.
--- NOTE | 2020-09-24 18:02 | CONSULTATION NOTE ---
DATE OF SERVICE: 09/24/2020 Physician: Bin Melendez MD REFERRING PHYSICIAN: Dr. Shashi Sorensen of the emergency room department. CHIEF COMPLAINT: "My right hip hurts." HISTORY OF PRESENT ILLNESS: Patient is an 80-year-old female who apparently lost her collette ce while in the doorway at her home on the day of her admission and fell, landing on her right side. She noted immediate pain and deformity to her right leg. She was unable to stand or weight bear on the right side due to pain. She was taken by ambulance to the emergency room at [facility] where her evaluation led to the diagnosis of a right intertrochanteric hip fracture. Her fractu re is complicated by the fact that she is on chronic Coumadin for treatment of her atrial fibrillatio n. PHYSICAL EXAM: The patient's right leg is somewhat shortened and externally rotated. She has tender ness over the lateral aspect of her right hip. It was very painful with hip range of motion noted. Able to move her toes on command. Sensation appeared to be intact distally in the right lower extrem ity. Good capillary filling noted of the toes. IMAGING: X-rays and a CT scan previously taken of her right hip shows evidence of a right intertroch anteric hip fracture. ASSESSMENT 1. Closed displaced right intertrochanteric hip fracture. 2. Atrial fibrillation - on chronic Coumadin treatment. Admission INR equal to 2.1. 3. History of heart valve surgeries. 4. History of congestive heart failure in the past. PLAN: Patient will be evaluated by the medical service to determine if we should proceed with surgic al fixation of her fracture. It is recommended we proceed with a short Intertan nailing of her right hip fracture for stabilization, so we can mobilize her postoperatively. I have contacted the anesth esia department as well and they will do a preoperative evaluation. Assuming that the patient has be en cleared medically and by anesthesia, then we will plan on proceeding with surgical fixation of her fracture Sunday. Surgery has been tentatively scheduled for 8:00 on Sunday. Ryan boland's leg has been marked. TD: 09/24/2020 17:49
[2020-09-25] MEDS: ACETAMINOPHEN 325 MG TABLET PO PRN ×3 (01:12→17:39)
[2020-09-25] MEDS: HYDROmorphone 0.5 MG/0.5 ML SYRINGE IVP PRN (02:34)
[2020-09-25] MEDS: SODIUM CHLORIDE FLUSH 0.9% 10 ML SYRINGE IVP SCH ×2 (04:51→17:06)
[2020-09-25 05:22] LABS: BASOPHILS % (AUTO) 0.6 %; EOSINOPHILS % (AUTO) 2.4 %; HCT - HEMATOCRIT 32.7 % (37.0-47.0); HGB - HEMOGLOBIN 10.6 g/dL (12.0-16.0); LYMPHOCYTES % (AUTO) 19.6 %; MEAN CORPUSCULAR HEMOGLOBIN 34.6 pg (27.0-31.0); MEAN CORPUSCULAR HGB CONC 32.4 g/dL (32.0-36.0); MEAN CORPUSCULAR VOLUME 106.9 fL (81.0-99.0); MEAN PLATELET VOLUME 9.8 fL (7.9-10.8); MONOCYTES % (AUTO) 16.1 %; NEUTROPHILS % (AUTO) 59.7 %; PLT - PLATELET COUNT 176 10^3/uL (130-450); RED BLOOD COUNT 3.06 10^6/uL (4.20-5.40); RED CELL DISTRIBUTION WIDTH 13.5 % (12.0-15.0); WHITE BLOOD COUNT 10.1 x10^3/uL (4.8-10.8)
[2020-09-25 05:29] LABS: ABNORMAL LYMPHS % (MANUAL) 0 %; BAND NEUTROPHILS % (MANUAL) 0 %
[2020-09-25 05:34] LABS: CALCIUM 8.2 mg/dL (8.5-10.3); CREATININE 1.3 mg/dL (0.4-1.0); POTASSIUM 3.6 mmol/L (3.5-5.0)
[2020-09-25 06:13] LABS: INR 1.1 (0.8-1.2); PT - PROTHROMBIN TIME 11.9 secs (9.9-12.6)
[2020-09-25 06:56] LABS: DIFFERENTIAL COMMENT MANUAL DIFFERENTIAL; EOSINOPHILS # (MANUAL) 0.5 10^3/uL (0-0.7); LYMPHOCYTES # (MANUAL) 2.4 10^3/uL (1.5-3.5); LYMPHOCYTES % (MANUAL) 24 %; MONOCYTES # (MANUAL) 1.1 10^3/uL (0.0-1.0); MYELOCYTES % (MANUAL) 1 %; PLATELET ESTIMATE, MANUAL NORMAL (130-450,000) (NORMAL); PLATELET MORPHOLOGY NORMAL APPEARANCE (NORMAL); RBC MORPHOLOGY (MULTIPLE) NORMAL APPEARANCE (NORMAL); WBC MORPHOLOGY (MULTIPLE) NORMAL APPEARANCE (NORMAL)
[2020-09-25] MEDS ORDERED: ONDANSETRON 4 MG/2 ML VIAL ONE (07:43)
[2020-09-25] MEDS ORDERED: LIDOCAINE-MPF 2% 5 ML VIAL ONE (07:43)
[2020-09-25] MEDS ORDERED: PROPOFOL 200 MG/20 ML VIAL IVP ONE ×2 (07:43→10:36)
[2020-09-25] MEDS ORDERED: ROCURONIUM 50 MG/5 ML VIAL ONE (07:43)
[2020-09-25] MEDS ORDERED: ePHEDrine 50 MG/ML VIAL IVP ONE (07:43)
[2020-09-25] MEDS ORDERED: DEXAMETHASONE 4 MG/ML VIAL ONE (07:44)
[2020-09-25] MEDS ORDERED: fentaNYL 100 MCG/2 ML VIAL ONE (07:44)
[2020-09-25] MEDS ORDERED: LIDOCAINE 2%-EPI 1:100000 20 ML MDV ONE (07:45)
[2020-09-25] MEDS ORDERED: BUPIVACAINE 0.25% PF 30 ML VIAL ONE (07:45)
[2020-09-25] MEDS ORDERED: SODIUM CHLORIDE 0.9% 10 ML ONE (07:47)
[2020-09-25] MEDS: INSULIN ASPART 300 UNIT/3 ML PEN SUBQ SCH ×4 (07:55→21:01)
[2020-09-25] MEDS ORDERED: ceFAZolin 2 GM/50 ML 2 GM/50 ML BAG IV ONE (08:00)
[2020-09-25] MEDS ORDERED: MIDAZOLAM 2 MG/2 ML VIAL ONE (08:06)
[2020-09-25] MEDS ORDERED: ceFAZolin 1 GM VIAL ONE (08:36)
[2020-09-25] MEDS ORDERED: BUPIVACAINE 0.25% PF 30 ML VIAL SUBQ ONE ×3 (08:44)
--- NOTE | 2020-09-25 08:53 | ANESTHESIA ---
Pre-Anesthesia VS, & Labs - Diagnosis R hip fracture - Procedure R hip IM nailing Vital Signs: Temp Pulse Resp BP Pulse Ox 36.9 C 74 18 111/58 L 94 09/25/20 07:50 09/25/20 07:50 09/25/20 07:50 09/25/20 07:50 09/25/20 07:50 Height: 5 ft 5 in Weight (kg): 74 kg Body Mass Index: 27.1 BMI Classification: Overweight - NPO >8 hours - Is Patient ?: No - Lab Results Current Lab Results: Laboratory Tests 09/25/20 04:57: Sodium 136, Potassium 3.6, Chloride 99 L, Carbon Dioxide 26, Anion Gap 11.0, BUN 34 H, Creatinine 1.3 H, Estimated GFR (MDRD) 39 L, Glucose 103 H, Calcium 8.2 L 09/25/20 04:57: PT 11.9, INR 1.1 09/25/20 04:57: WBC 10.1, RBC 3.06 L, Hgb 10.6 L, Hct 32.7 L, MCV 106.9 H, MCH 3 4.6 H, MCHC 32.4, RDW 13.5, Plt Count 176, MPV 9.8, Neut # (Auto) Not Reportable, Lymph # (Auto) Not Reportable, Sunflower # (Auto) Not Reportable, Eos # (Auto) Not Reportable, Baso # (Auto) Not Reportable, Absolute Nucleated RBC Not Reportable, Total Counted 100, Band Neuts % (Manual) 0, Abnorm Lymph % (Manual) 0, Myelocytes % 1 H, Nucleated RBC % Not Reportable, Neutrophils # (Manual) 6.0, Lymphocytes # (Manual) 2.4, Monocytes # (Manual) 1.1 H, Eosinophils # (Manual) 0.5, Basophils # (Manual) 0.0, Differential Comment MANUAL DIFFERENTIAL, WBC Morphology NORMAL APPEARANCE, Platelet Estimate NORMAL (130-450,000), Platelet Morphology NORMAL APPEARANCE, RBC Morph Micro Appear NORMAL APPEARANCE 09/24/20 05:45: Ethyl Alcohol < 5.0 09/24/20 04:09: Magnesium 1.6 L, Last Dose Date 09-23-20, Last Dose Time 0900, Digoxin 1.1 09/24/20 04:09: Estimat Average Glucose 131 H, Hemoglobin A1c % 6.2 H 09/24/20 04:09: Sodium 137, Potassium 3.8, Chloride 94 L, Carbon Dioxide 27, Anion Gap 16.0 H, BUN 30 H, Creatinine 1.3 H, Estimated GFR (MDRD) 39 L, Glucose 140 H, Calcium 8.9 09/24/20 04:09: PT 15.2 H, INR 1.4 H 09/24/20 04:09: WBC 10.1, RBC 3.75 L, Hgb 13.1, Hct 38.6, MCV 102.9 H, MCH 34.9 H, MCHC 33.9, RDW 13.5, Plt Count 229, MPV 9.9, Neut # (Auto) Not Reportable, Lymph # (Auto) Not Reportable, Sunflower # (Auto) Not Reportable, Eos # (Auto) Not Reportable, Baso # (Auto) Not Reportable, Absolute Nucleated RBC Not Reportable, Total Counted 100, Band Neuts % (Manual) 9, Abnorm Lymph % (Manual) 0, Nucleated RBC % Not Reportable, Neutrophils # (Manual) 6.9 H, Lymphocytes # (Manual) 1.9, Monocytes # (Manual) 1.2 H, Eosinophils # (Manual) 0.0, Basophils # (Manual) 0.1, Differential Comment MANUAL DIFFERENTIAL, Platelet Estimate NORMAL (130- 450,000), RBC Morph Micro Appear NORMAL APPEARANCE 09/23/20 21:50: Last Dose Date 09-23-20, Last Dose Time UNKNOWN, Digoxin 1.1 09/23/20 21:45: Sodium 137, Potassium 3.9, Chloride 92 L, Carbon Dioxide 28, Anion Gap 17.0 H, BUN 27 H, Creatinine 1.2 H, Estimated GFR (MDRD) 43 L, Glucose 160 H, Calcium 9.2, Total Bilirubin 1.1 H, AST 43 H, ALT 27, Alkaline Phosphatase 48, Total Protein 7.4, Albumin 4.1, Globulin 3.3, Albumin/Globulin Ratio 1.2, Lipase 29 09/23/20 21:45: PT 21.9 H, INR 2.1 H 09/23/20 21:45: WBC 10.3, RBC 4.08 L, Hgb 14.0, Hct 42.6, MCV 104.4 H, MCH 34.3 H, MCHC 32.9, RDW 13.6, Plt Count 230, MPV 9.4, Neut # (Auto) Not Reportable, Lymph # (Auto) Not Reportable, Sunflower # (Auto) Not Reportable, Eos # (Auto) Not Reportable, Baso # (Auto) Not Reportable, Absolute Nucleated RBC Not Reportable, Total Counted 100, Band Neuts % (Manual) 16 H, Reactive Lymphs % (Man) 4, Abnorm Lymph % (Manual) 0, Nucleated RBC % Not Reportable, Neutrophils # (Manual) 8.2 H , Lymphocytes # (Manual) 0.9 L, Monocytes # (Manual) 1.1 H, Eosinophils # (Manual) 0.0, Basophils # (Manual) 0.0, Differential Comment MANUAL DIFFERENTIAL, Platelet Estimate NORMAL (130-450,000), Platelet Morphology NORMAL APPEARANCE, RBC Morph Micro Appear NORMAL APPEARANCE Fish Bones: 09/25/20 04:57 09/25/20 04:57 Home Medications and Allergies Home Medications: Ambulatory Orders Metoprolol Succinate [Toprol Xl] 50 mg PO DAILY 09/24/20 Active Medications Acetaminophen (Acetaminophen 325 Mg Tablet) 650 mg PO Q4HR PRN PRN Reason: Pain 1 to 4 Last Admin: 09/25/20 01:12 Dose: 650 mg Documented by: Albuterol (Albuterol Neb 2.5 Mg/3 Ml) 2.5 mg INH RTQ4H PRN PRN Reason: Wheezing Last Admin: 09/24/20 08:22 Dose: 2.5 mg Documented by: Albuterol/Ipratropium (Ipratropium/Albuterol 3 Ml Neb) 3 ml INH RTQID PRN PRN Reason: Shortness of Air/Wheezing Bumetanide (Bumetanide 1 Mg Tablet) 2 mg PO DAILY [facility] Last Admin: 09/24/20 10:55 Dose: 2 mg Documented by: Digoxin (Digoxin 125 Mcg Tablet) 125 mcg PO DAILY [facility] Last Admin: 09/24/20 09:03 Dose: 125 mcg Documented by: Famotidine (Famotidine 20 Mg Tablet) 20 mg PO BID [facility] Last Admin: 09/24/20 21:06 Dose: 20 mg Documented by: Gabapentin (Gabapentin 300 Mg Capsule) 300 mg PO BID [facility] Last Admin: 09/24/20 21:06 Dose: 300 mg Documented by: Hydromorphone HCl (Hydromorphone 0.5 Mg/0.5 Ml Syringe) 0.5 mg IVP Q2H PRN PRN Reason: Pain 8 to 10 Last Admin: 09/25/20 02:34 Dose: 0.5 mg Documented by: Insulin Aspart (Insulin Aspart 300 Unit/3 Ml Pen) 1 - 5 unit SUBQ 0800,1200,1700,2100 [facility]; Protocol Last Admin: 09/25/20 07:55 Dose: Not Given Documented by: Lorazepam (Lorazepam 2 Mg/Ml Vial) 1 mg IVP Q30M PRN; Protocol PRN Reason: CIWA >8 Metoprolol Succinate (Metoprolol Succinate 50 Mg Tablet) 100 mg PO DAILY [facility] Last Admin: 09/24/20 09:21 Dose: 100 mg Documented by: Ondansetron HCl (Ondansetron 4 Mg/2 Ml Vial) 4 mg IVP Q6HR PRN PRN Reason: Nausea / Vomiting Oxycodone HCl (Oxycodone 5 Mg Tablet) 5 mg PO Q6HR PRN PRN Reason: PAIN Multivit/Folic Acid/Iron ( Vitamin Tablet) 1 tab PO DAILYWM [facility] Last Admin: 09/24/20 09:16 Dose: 1 tab Documented by: Sodium Chloride (Sodium Chloride Flush 0.9% 10 Ml Syringe) 10 ml IVP PRN PRN PRN Reason: NEEDED PER PROVIDER ORDERS Sodium Chloride (Sodium Chloride Flush 0.9% 10 Ml Syringe) 10 ml IVP 0100,0900,1700 [facility] Last Admin: 09/25/20 04:51 Dose: Not Given Documented by: Thiamine HCl (Thiamine 100 Mg Tablet) 100 mg PO DAILY [facility] Last Admin: 09/24/20 09:16 Dose: 100 mg Documented by: Gabapentin [Neurontin] 300 mg PO BID 03/04/13 metFORMIN [Glucophage] 500 mg PO DAILY 04/06/15 Digoxin 0.125 mg PO DAILY 08/30/16 Warfarin [Coumadin] 2.5 mg PO QDWARFARIN 01/22/17 Aspirin 81 mg PO DAILY 12/11/18 Bumetanide 2 mg PO BID 08/19/20 Metoprolol Succinate [Toprol Xl] 50 mg PO DAILY 09/24/20 Allergies/Adverse Reactions: Allergies Allergy/AdvReac Type Severity Reaction Status Date / Time No Known Drug Allergies Allergy Verified 09/23/20 21:41 Anes History & Medical History - Anesthetic History Family history of Anesthesia Complications: Denies Family history of Malignant Hyperthermia: Denies - Medical History Cardiovascular: reports: Congestive heart failure, Hypertension, Atrial fibrillation, Valve disorder Pulmonary: reports: Asthma Gastrointestinal: reports: None Urinary: reports: None Neuro: reports: None, Dementia Musculoskeletal: reports: Chronic back pain Endocrine/Autoimmune: reports: Type 2 diabetes Blood Disorders: reports: None Skin: reports: None Smoking Status: Never smoker - Surgical History General: Other Eyes Ears Nose Throat (EENT): Cataracts Cardiothoracic: Valve replacement Gynecologic: section, Hysterectomy, Other Exam General: Other (mild confusion noted) Mouth and Teeth Image: 1 - missing tooth Mouth Openin Fingerbreadth Neck Mobility: Normal Mallampati classification: II Plan Anesthesia Type: General Consent for Procedure(s) Verified and Reviewed: Yes Code Status: Attempt Resuscitation ASA classification: 3-Severe systemic disease Is this case an emergency?: Yes
[2020-09-25] MEDS ORDERED: HYDROmorphone 0.5 MG/0.5 ML SYRINGE IVP PRN ×2 (08:55→10:42)
[2020-09-25] MEDS ORDERED: MORPHINE 2 MG/ML CARPUJECT IVP PRN (08:55)
[2020-09-25] MEDS ORDERED: ONDANSETRON 4 MG/2 ML VIAL IVP PRN ×2 (08:55→10:42)
[2020-09-25] MEDS ORDERED: ATROPINE ABBOJECT 1 MG/10 ML SYRINGE IVP PRN (08:55)
[2020-09-25] MEDS ORDERED: ePHEDrine 50 MG/ML VIAL IVP PRN (08:55)
[2020-09-25] MEDS ORDERED: NALOXONE 0.4 MG/ML VIAL IVP PRN (08:55)
[2020-09-25] MEDS ORDERED: fentaNYL 100 MCG/2 ML VIAL IVP PRN (08:55)
[2020-09-25] MEDS ORDERED: LACTATED RINGERS 1,000 ML IV SCH (09:00)
[2020-09-25] MEDS ORDERED: NEOSTIGMINE 1 MG/1 ML 10 ML MDV ONE (10:12)
[2020-09-25] MEDS ORDERED: GLYCOPYRROLATE 1 MG/5 ML VIAL ONE (10:12)
[2020-09-25] MEDS ORDERED: LACTATED RINGERS 1,000 ML IV ONE (10:40)
--- NOTE | 2020-09-25 10:40 | OPERATIVE REPORT ---
Operative Report - General Admit Date: 09/24/20 Procedure Date: 09/25/20 Planned Procedure: Long interTan nailing of left IT hip fracture Pre-Op Diagnosis: Left IT hip fracture Procedure Performed: Closed reduction and long interTan nailing of left IT hip fracture Post Op Diagnosis: Same - Procedure Note Primary Surgeon: MD Merced Anesthesia Provider: Jori Peterson CRNA Anesthesia Technique: General ET tube IV Fluids (mL): 800 Estimated Blood Loss (mL): 150 Complications: None
[2020-09-25] MEDS ORDERED: SODIUM CHLORIDE FLUSH 0.9% 10 ML SYRINGE IVP PRN (10:42)
[2020-09-25] MEDS ORDERED: PROCHLORPERAZINE 10 MG/2 ML VIAL IVP PRN (10:42)
[2020-09-25] MEDS ORDERED: SENNA 8.6 MG TABLET PO PRN (10:42)
--- NOTE | 2020-09-25 11:00 | PROVIDER PROGRESS NOTE ---
Assessment/Plan - Problem List (1) Closed right hip fracture Qualifiers: Encounter type: initial encounter Qualified Code(s): S72.001A - Fracture of unspecified part of neck of right femur, initial encounter for closed fracture Assessment/Plan: Patient is postop day 0. Dr. Melendez with orthopedic surgery following. He reported surgery going well with minimal blood loss. Plan is for PT OT tomorrow. We will continue pain management as needed (2) Atrial fibrillation Qualifiers: Atrial fibrillation type: longstanding persistent Qualified Code(s): I48.11 - Longstanding persistent atrial fibrillation Assessment/Plan: Chronic Patient's INR upon presentation was 2.1. Coumadin was held in anticipation of surgery. Patient received Coumadin 5 mg p.o. once after surgery. Patient's dose of Coumadin 2.5 mg p.o. daily was resumed for the following day. She is on Metoprolol succinate 100 mg p.o. daily and digoxin 125 mcg p.o. daily. (3) Diabetes Qualifiers: Diabetes mellitus type: type 2 Diabetes mellitus correction insulin use: without contact center representative use Diabetes mellitus complication status: with hyperglycemia Qualified Code(s): E11.65 - Type 2 diabetes mellitus with hyperglycemia Assessment/Plan: Patient's Metformin held. On sliding scale insulin. Accu-Cheks before every meal and at bedtime. (4) Hypertension Assessment/Plan: On metoprolol succinate 100 mg p.o. daily (5) Confusion Assessment/Plan: Chronic Dementia is suspected. The patient's daughter reports cognitive decline. Occupational Therapy consulted for a cognitive eval on 09/27/20. (6) History of alcohol abuse Assessment/Plan: It was reported that patient drinks at least 2 cocktails daily. [facility] protocol ordered. We will continue to monitor and treat accordingly. (7) Acute kidney injury Assessment/Plan: Patient's creatinine was 1.3 with a GFR of 39. Patient receiving IV hydration with normal saline at 100 mils per hour. - Current Meds Current Meds: Current Medications Generic Name Dose Route Start Last Admin Trade Name Freq PRN Reason Stop Dose Admin Acetaminophen 650 mg 09/24/20 00:27 09/25/20 01:12 Acetaminophen 325 Mg Tablet PO 650 mg Q4HR PRN Administration Pain 1 to 4 Albuterol 2.5 mg 09/24/20 08:16 09/24/20 08:22 Albuterol Neb 2.5 Mg/3 Ml INH 2.5 mg RTQ4H PRN Administration Wheezing Bumetanide 2 mg 09/24/20 09:00 09/24/20 10:55 Bumetanide 1 Mg Tablet PO 2 mg DAILY RAMIRO Administration Digoxin 125 mcg 09/24/20 09:00 09/24/20 09:03 Digoxin 125 Mcg Tablet PO 125 mcg DAILY RAMIRO Administration Famotidine 20 mg 09/24/20 09:00 09/24/20 21:06 Famotidine 20 Mg Tablet PO 20 mg BID RAMIRO Administration Gabapentin 300 mg 09/24/20 09:00 09/24/20 21:06 Gabapentin 300 Mg Capsule PO 300 mg BID RAMIRO Administration Hydromorphone HCl 0.5 mg 09/24/20 11:36 09/25/20 02:34 Hydromorphone 0.5 Mg/0.5 Ml Syringe IVP 0.5 mg Q2H PRN Administration Pain 8 to 10 Insulin Aspart 1 - 5 unit 09/24/20 08:00 09/25/20 07:55 Insulin Aspart 300 Unit/3 Ml Pen SUBQ Not Given 0800,1200,1700,2100 [facility] Protocol Metoprolol Succinate 100 mg 09/24/20 09:00 09/24/20 09:21 Metoprolol Succinate 50 Mg Tablet PO 100 mg DAILY RAMIRO Administration Multivit/Folic Acid/Iron 1 tab 09/24/20 08:00 09/24/20 09:16 Vitamin Tablet PO 1 tab DAILYWM [facility]IRO Administration Sodium Chloride 10 ml 09/24/20 01:00 09/25/20 04:51 Sodium Chloride Flush 0.9% 10 Ml Syringe IVP Not Given 0100,0900,1700 [facility] Thiamine HCl 100 mg 09/24/20 09:00 09/24/20 09:16 Thiamine 100 Mg Tablet PO 100 mg DAILY RAMIRO Administration - Lab Result Fish Bone Diagrams: 09/26/20 05:00 09/26/20 05:00 Subjective - Subjective Patient Reports: Other (Patient had just returned from surgery when I evaluated her. She was somewhat lethargic as a result of sedation during the operation. Though awake she mainly just smiled to any questions asked. She appeared comfortable.) Objective Vital Signs: Vital Signs - 24 hr 09/24/20 09/24/20 09/24/20 11:59 16:00 18:20 Temperature 36.5 C 36.5 C Heart Rate 80 Heart Rate [ 77 73 Brachial] Respiratory 18 18 18 Rate Blood Pressure Blood Pressure 91/58 L 103/52 L [Right Brachial artery] O2 Saturation 97 93 09/24/20 09/24/20 09/24/20 18:26 19:56 20:10 Temperature 36.5 C 36.4 C L Heart Rate 80 77 Heart Rate [ 90 Brachial] Respiratory 18 18 18 Rate Blood Pressure Blood Pressure 110/55 L [Right Brachial artery] O2 Saturation 92 96 09/24/20 09/25/20 09/25/20 23:50 02:40 02:48 Temperature 36.6 C Heart Rate Heart Rate [ 43 L 83 Brachial] Respiratory 17 Rate Blood Pressure Blood Pressure 92/55 L 92/42 L [Right Brachial artery] O2 Saturation 96 95 09/25/20 09/25/20 09/25/20 03:14 07:50 10:42 Temperature 36.9 C 36.2 C L Heart Rate 105 H Heart Rate [ 74 74 Brachial] Respiratory 17 18 18 Rate Blood Pressure 141/74 H Blood Pressure 100/55 L 111/58 L [Right Brachial artery] O2 Saturation 94 94 100 09/25/20 09/25/20 09/25/20 10:45 10:51 10:55 Temperature 36.2 C L 36.2 C L 36.4 C L Heart Rate 98 100 105 H Heart Rate [ Brachial] Respiratory 16 16 16 Rate Blood Pressure 141/73 H 131/78 H 125/68 Blood Pressure [Right Brachial artery] O2 Saturation 100 22 L 99 Oxygen O2 Source Room air I&O (Last 24 Hrs): Intake and Output Totals x24h 09/23/20 09/24/20 09/25/20 23:59 23:59 23:59 Intake Total 0052.906 9227 Output Total 550 250 Balance 1015.334 750 General: Alert, No acute distress, Other (Awake but not oriented to place time or reason.) HEENT: PERRLA, EOMI Neck: Supple, No JVD Neuro: Alert, Non Focal, Oriented Times 3 (Not oriented to place time or reason.) Cardiovascular: Regular rate Respiratory: Chest non-tender, No respiratory distress, Breath sounds nml Abdomen: Normal bowel sounds, Soft Extremities: No clubbing, No edema, Other (Significant bruising on patient's lower extremities.) Skin: No rashes - Results Results: Laboratory Results WBC 10.1 x10^3/uL (4.8-10.8) 09/25/20 04:57 RBC 3.06 10^6/uL (4.20-5.40) L 09/25/20 04:57 Hgb 10.6 g/dL (12.0-16.0) L 09/25/20 04:57 Hct 32.7 % (37.0-47.0) L 09/25/20 04:57 MCV 106.9 fL (81.0-99.0) H 09/25/20 04:57 MCH 34.6 pg (27.0-31.0) H 09/25/20 04:57 MCHC 32.4 g/dL (32.0-36.0) 09/25/20 04:57 RDW 13.5 % (12.0-15.0) 09/25/20 04:57 Plt Count 176 10^3/uL (130-450) 09/25/20 04:57 MPV 9.8 fL (7.9-10.8) 09/25/20 04:57 Neut # (Auto) Not Reportable 09/25/20 04:57 Lymph # (Auto) Not Reportable 09/25/20 04:57 [place] # (Auto) Not Reportable 09/25/20 04:57 Eos # (Auto) Not Reportable 09/25/20 04:57 Baso # (Auto) Not Reportable 09/25/20 04:57 Absolute Nucleated RBC Not Reportable 09/25/20 04:57 Total Counted 100 09/25/20 04:57 Band Neuts % (Manual) 0 % (0-10) 09/25/20 04:57 Reactive Lymphs % (Man) 4 % 09/23/20 21:45 Abnorm Lymph % (Manual) 0 % 09/25/20 04:57 Myelocytes % 1 % (-0) H 09/25/20 04:57 Nucleated RBC % Not Reportable 09/25/20 04:57 Neutrophils # (Manual) 6.0 10^3/uL (1.5-6.6) 09/25/20 04:57 Lymphocytes # (Manual) 2.4 10^3/uL (1.5-3.5) 09/25/20 04:57 Monocytes # (Manual) 1.1 10^3/uL (0.0-1.0) H 09/25/20 04:57 Eosinophils # (Manual) 0.5 10^3/uL (0-0.7) 09/25/20 04:57 Basophils # (Manual) 0.0 10^3/uL (0-0.1) 09/25/20 04:57 Differential Comment MANUAL DIFFERENTIAL 09/25/20 04:57 WBC Morphology NORMAL APPEARANCE (NORMAL) 09/25/20 04:57 Platelet Estimate NORMAL (130-450,000) (NORMAL) 09/25/20 04:57 Platelet Morphology NORMAL APPEARANCE (NORMAL) 09/25/20 04:57 RBC Morph Micro Appear NORMAL APPEARANCE (NORMAL) 09/25/20 04:57 PT 11.9 secs (9.9-12.6) 09/25/20 04:57 INR 1.1 (0.8-1.2) 09/25/20 04:57 Sodium 136 mmol/L (135-145) 09/25/20 04:57 Potassium 3.6 mmol/L (3.5-5.0) 09/25/20 04:57 Chloride 99 mmol/L (101-111) L 09/25/20 04:57 Carbon Dioxide 26 mmol/L (21-32) 09/25/20 04:57 Anion Gap 11.0 (6-13) 09/25/20 04:57 BUN 34 mg/dL (6-20) H 09/25/20 04:57 Creatinine 1.3 mg/dL (0.4-1.0) H 09/25/20 04:57 Estimated GFR (MDRD) 39 (>89) L 09/25/20 04:57 Glucose 103 mg/dL (70-100) H 09/25/20 04:57 Estimat Average Glucose 131 mg/dL (70-100) H 09/24/20 04:09 Hemoglobin A1c % 6.2 % (4.27-6.07) H 09/24/20 04:09 Calcium 8.2 mg/dL (8.5-10.3) L 09/25/20 04:57 Magnesium 1.6 mg/dL (1.7-2.8) L 09/24/20 04:09 Total Bilirubin 1.1 mg/dL (0.2-1.0) H 09/23/20 21:45 AST 43 IU/L (10-42) H 09/23/20 21:45 ALT 27 IU/L (10-60) 09/23/20 21:45 Alkaline Phosphatase 48 IU/L (42-121) 09/23/20 21:45 Total Protein 7.4 g/dL (6.7-8.2) 09/23/20 21:45 Albumin 4.1 g/dL (3.2-5.5) 09/23/20 21:45 Globulin 3.3 g/dL (2.1-4.2) 09/23/20 21:45 Albumin/Globulin Ratio 1.2 (1.0-2.2) 09/23/20 21:45 Lipase 29 U/L (22-51) 09/23/20 21:45 Urine Color YELLOW 09/23/20 22:26 Urine Clarity CLEAR (CLEAR) 09/23/20 22:26 Urine pH 5.5 PH (5.0-7.5) 09/23/20 22:26 Ur Specific [place] 1.015 (1.002-1.030) 09/23/20 22:26 Urine Protein TRACE mg/dL (NEGATIVE) 09/23/20 22:26 Urine Glucose (UA) NEGATIVE mg/dL (NEGATIVE) 09/23/20 22:26 Urine Ketones NEGATIVE mg/dL (NEGATIVE) 09/23/20 22:26 Urine Occult Blood SMALL (NEGATIVE) H 09/23/20 22:26 Urine Nitrite NEGATIVE (NEGATIVE) 09/23/20 22: Urine Bilirubin NEGATIVE (NEGATIVE) 09/23/20 22:26 Urine Urobilinogen 0.2 (NORMAL) E.U./dL (NORMAL) 09/23/20 22:26 Ur Leukocyte Esterase NEGATIVE (NEGATIVE) 09/23/20 22:26 Urine RBC 0-5 /HPF (0-5) 09/23/20 22:26 Urine WBC 0-3 /HPF (0-5) 09/23/20 22:26 Ur Epithelial Cells FEW Renal Tubular /HPF (<= Few) 09/23/20 22:26 Ur Squamous Epith Cells MOD Squamous (<= Few) H 09/23/20 22:26 Urine Bacteria Rare /HPF (None Seen) 09/23/20 22:26 Urine Casts 6-10 Hyaline Casts /LPF 09/23/20 22:26 Urine Mucus Few Strands 09/23/20 22:26 Ur Microscopic Review INDICATED 09/23/20 22:26 Urine Culture Comments NOT INDICATED 09/23/20 22:26 Nasal Adenovirus (PCR) NOT DETECTED 09/23/20 22:16 Nasal B. parapertussis DNA (PCR) NOT DETECTED 09/23/20 22:16 Nasal Coronavir 229E PCR NOT DETECTED 09/23/20 22:16 Nasal Coronavir HKU1 PCR NOT DETECTED 09/23/20 22:16 Nasal Coronavir NL63 PCR NOT DETECTED 09/23/20 22:16 Nasal Coronavir OC43 PCR NOT DETECTED 09/23/20 22:16 Nasal Enterovir/Rhinovir PCR NOT DETECTED 09/23/20 22:16 Nasal Influenza B PCR NOT DETECTED 09/23/20 22:16 Nasal Influenza A PCR NOT DETECTED 09/23/20 22:16 Nasal Parainfluen 1 PCR NOT DETECTED 09/23/20 22:16 Nasal Parainfluen 2 PCR NOT DETECTED 09/23/20 22:16 Nasal Parainfluen 3 PCR NOT DETECTED 09/23/20 22:16 Nasal Parainfluen 4 PCR NOT DETECTED 09/23/20 22:16 Nasal RSV (PCR) NOT DETECTED 09/23/20 22:16 Nasal B.pertussis DNA PCR NOT DETECTED 09/23/20 22:16 Nasal C.pneumoniae (PCR) NOT DETECTED 09/23/20 22:16 Yuriy Human Metapneumo PCR NOT DETECTED 09/23/20 22:16 Nasal M.pneumoniae (PCR) NOT DETECTED 09/23/20 22:16 Nasal SARS-CoV-2 (PCR) NOT DETECTED 09/23/20 22:16 Last Dose Date 09-23-20 09/24/20 04:09 Last Dose Time 0900 09/24/20 04:09 Digoxin 1.1 ng/mL 09/24/20 04:09 Ethyl Alcohol < 5.0 mg/dL 09/24/20 05:45 - Procedures Procedures: Procedures REPLACEMENT OF LEFT LENS WITH SYNTH SUB, PERC APPROACH (05/17/17) REPLACEMENT OF RIGHT LENS WITH SYNTH SUB, PERC APPROACH (08/30/17) ABX Reporting Has patient been on IV antibiotics over the past 48 hours?: No
--- NOTE | 2020-09-25 11:53 | XRAY Report ---
PROCEDURE: OR C-Arm Procedure INDICATIONS: hip fracture repair TECHNIQUE: Fluoroscopic images were obtained during an operative procedure and submitted for interpre tation following the completion of the procedure. COMPARISON: 09/23/2020 FINDINGS: This study was performed for intraoperative localization. On these images, a right femoral tarah has be en placed, with a right femoral neck dynamic compression screw. Please correlate with intraoperative findings. IMPRESSION: Normal intraoperative study. Reviewed by: Bernard Powell MD on 09/25/2020 10:52 AM [facility] Approved by: Bernard Powell MD on 09/25/2020 10:52 AM [facility] Station ID: [id number]
[2020-09-25] MEDS: THIAMINE 100 MG TABLET PO SCH (13:27)
[2020-09-25] MEDS: BUMETANIDE 1 MG TABLET PO SCH (13:27)
[2020-09-25] MEDS: PRENATAL VITAMIN TABLET PO SCH (13:28)
[2020-09-25] MEDS: GABAPENTIN 300 MG CAPSULE PO SCH ×2 (13:28→21:27)
[2020-09-25] MEDS: METOPROLOL SUCCINATE 50 MG TABLET PO SCH (13:28)
[2020-09-25] MEDS: FAMOTIDINE 20 MG TABLET PO SCH ×2 (13:28→21:27)
[2020-09-25] MEDS: DIGOXIN 125 MCG TABLET PO SCH (13:29)
[2020-09-25] MEDS: SODIUM CHLORIDE 0.9% 1,000 ML IV SCH ×2 (13:30→13:54)
[2020-09-25] MEDS ORDERED: WARFARIN 5 MG TABLET PO ONE (14:30)
[2020-09-25] MEDS: ceFAZolin 2 GM/50 ML 2 GM/50 ML BAG IV SCH (15:58)
[2020-09-25] MEDS: oxyCODONE 5 MG TABLET PO PRN (20:19)
--- NOTE | 2020-09-25 22:05 | OPERATIVE REPORT ---
DATE OF SERVICE: 09/25/2020 Physician: Bin Melendez MD PREOPERATIVE DIAGNOSIS: Closed left intertrochanteric left hip fracture. POSTOPERATIVE DIAGNOSIS: Closed left intertrochanteric left hip fracture. PROCEDURE: Closed reduction and long Intertan nailing of left intertrochanteric hip fracture. SURGEON: Bin Melendez MD CALL WORKER PERSON: - - - ANESTHESIA TYPE/PROVIDER: General. DESCRIPTION OF PROCEDURE: The patient was taken to the operating room on the morning of 09/25/2020 where she was placed under a general anesthetic without any complications. She was then positioned supine onto the [place] fracture table. Her left unfractured extremity had her hip flexed and abducted widely and held with a well leg katz. Her fractured right lower extremity was then placed in axial traction with the leg internally rotated about 30 degrees. This gave us a nice closed reduction of the fracture, which was confirmed with the AP and lateral fluoroscopic views of the fracture and the entire femur. We then prepped and draped the lateral aspect of her thigh in the usual fashion for our procedure. Next, an oblique proximal skin incision was made just proximal to the tip of the greater trochanter. We dissected through the fascia ish and we were able to palpate the tip of the greater trochanter. This is where we placed the threaded-tip guidewire from our set. Fluoroscopic view confirmed the point of the guide pin to be at the tip of the greater trochanter. We then proceeded to advance this pin under power in an oblique fashion through the proximal femoral shaft, down to the level of the lesser trochanter. Its position and depth was confirmed in AP and lateral projection of the fluoroscopic images. Satisfied with this, we then used the 16 mm channel reamer to ream over our inserted guide pin to prepare the proximal femur. The guide pin and the channel reamer then removed. We then followed this up with the ball-tip guide, which was advanced manually down the proximal femur through the femoral shaft and down distally to about the level of the cystocele scar in the distal femoral portion of the bone. This was confirmed with fluoroscopic views. Next, the nail measuring guide was then inserted over our ball-tip guide. We determined a 38 cm length nail would be utilized. We then proceeded to sequentially ream the proximal femur using flexible reamers. We started with a 9 mm end cutting reamer and advanced in 0.5 mm increments until we had reamed up to 11.5 mm size. We did notice that we were obtaining chatter as we were reaming the proximal femoral shaft at about the 11 mm level. We then selected our long Intertan nail comprised of a 10 mm diameter x 38 cm length with 125-degree proximal hole. This was placed on our insertion alignment guide and we proceeded to insert this nail first manually and complete the setting with a mallet. Once we advanced the nail to where the proximal hole in our nail was in alignment with the central axis of the femoral neck and head, we stopped our insertion. We then made a skin incision to allow for the oval drill sleeve to be inserted in the distal end of our alignment guide. This was advanced until the pin guide was up against the lateral femoral cortex. We then drove our threaded-tip guidewire then through our drill sleeve and then to the proximal femur, the femoral neck and femoral head. Fluoroscopic views in AP and lateral projection showed the position of our guide pin to be in satisfactory position and the depth of the pin to be within about 3 mm of the subchondral bone in AP and lateral projection. The length of our hip lag screw was then determined to be 100 mm from our direct measuring guide. We then removed our pin guide and then proceeded to ream the proximal femur, femoral neck and head with the cannulated drill reamer. This was again advanced to within about 3 mm of subchondral bone. After the reamer was removed, we then replaced it over our guide pin with the selected subtrochanteric hip lag screw: 11 mm x 100 mm. This was advanced until we got good purchase of the screw into the femoral head and that this was within about 3 mm of the subchondral bone in AP and lateral projection. We then compressed the fracture using the compression knob on our inserted the lag screw. We obtained some compression. Next, we locked the proximal set screw in our nail with the hinged screwdriver. This was tightened snugly and then backed off 90 degrees. We then removed our insertion apparatus and guide off the proximal nail, which had been now firmly inserted. We then abducted the leg to allow for better visualization of the proximal portion of our nail. The C-Arm lateral views were then obtained. With adjustments, we were able to obtain a nearly circular hole of our distal locking holes in our nail fluoroscopically. Next, using standard technique, we then proceeded to insert 2 distal locking screws of the proper length. This was done freehand. Final fluoroscopic views were then obtained showing again our two distal locking screws to be in satisfactory position and to be bicorticate. It was within the nail holes confirmed with fluoroscopic views in AP and lateral projection. Final x-rays were then obtained distally and proximally, again showing the hardware to be satisfactory position, as well as good reduction of our fracture. We then irrigated the wounds out thoroughly with saline. Closed the proximal and skin incision with one stitch of 0 Vicryl suture. The 2 proximal incisions, subcutaneous tissue was then closed using buried simple stitches of 0 Vicryl as well. Finally, skin ye used to approximate the skin edges of all our wounds. We then injected 20 mL of 0.25% Marcaine without epinephrine to provide incisional local anesthesia to all our incisions. We then dressed the wounds. Patient then transferred off the fracture table onto her bed and taken to the recovery room in satisfactory condition. ESTIMATED BLOOD LOSS: 150 mL. REPLACEMENT: 800 mL of crystalloid. INTRAOPERATIVE COMPLICATIONS: None. PLAN: Patient may be weightbearing as tolerated on this extremity. Will likely be able to be discharged to a rehab center in about two days. She will be started back on her anticoagulation for atrial fibrillation beginning this evening. TD: 09/25/2020 10:59 AZEB
[2020-09-26] MEDS: ceFAZolin 2 GM/50 ML 2 GM/50 ML BAG IV SCH (00:01)
[2020-09-26] MEDS: ACETAMINOPHEN 325 MG TABLET PO PRN ×3 (00:39→14:56)
[2020-09-26] MEDS: SODIUM CHLORIDE FLUSH 0.9% 10 ML SYRINGE IVP SCH ×3 (02:44→17:02)
[2020-09-26 05:31] LABS: BASOPHILS # (AUTO) 0.1 10^3/uL (0.0-0.1); BASOPHILS % (AUTO) 0.6 %; EOSINOPHILS # (AUTO) 0.2 10^3/uL (0.0-0.7); EOSINOPHILS % (AUTO) 2.1 %; HCT - HEMATOCRIT 26.1 % (37.0-47.0); HGB - HEMOGLOBIN 8.7 g/dL (12.0-16.0); LYMPHOCYTES # (AUTO) 1.9 10^3/uL (1.5-3.5); LYMPHOCYTES % (AUTO) 19.2 %; MEAN CORPUSCULAR HEMOGLOBIN 35.2 pg (27.0-31.0); MEAN CORPUSCULAR HGB CONC 33.3 g/dL (32.0-36.0); MEAN CORPUSCULAR VOLUME 105.7 fL (81.0-99.0); MEAN PLATELET VOLUME 10.3 fL (7.9-10.8); MONOCYTES # (AUTO) 1.3 10^3/uL (0.0-1.0); MONOCYTES % (AUTO) 13.4 %; NEUTROPHILS # (AUTO) 5.9 10^3/uL (1.5-6.6); PLT - PLATELET COUNT 188 10^3/uL (130-450); RED BLOOD COUNT 2.47 10^6/uL (4.20-5.40); RED CELL DISTRIBUTION WIDTH 13.5 % (12.0-15.0); WHITE BLOOD COUNT 9.7 x10^3/uL (4.8-10.8)
[2020-09-26 05:39] LABS: INR 1.3 (0.8-1.2); PT - PROTHROMBIN TIME 14.2 secs (9.9-12.6)
[2020-09-26 05:41] LABS: CALCIUM 7.8 mg/dL (8.5-10.3); POTASSIUM 3.2 mmol/L (3.5-5.0)
[2020-09-26] MEDS: INSULIN ASPART 300 UNIT/3 ML PEN SUBQ SCH ×4 (08:01→20:46)
[2020-09-26] MEDS: PRENATAL VITAMIN TABLET PO SCH (08:08)
[2020-09-26] MEDS: METOPROLOL SUCCINATE 50 MG TABLET PO SCH (08:21)
[2020-09-26] MEDS: FAMOTIDINE 20 MG TABLET PO SCH ×2 (08:22→20:42)
[2020-09-26] MEDS: GABAPENTIN 300 MG CAPSULE PO SCH ×2 (08:22→20:42)
[2020-09-26] MEDS: THIAMINE 100 MG TABLET PO SCH (08:22)
[2020-09-26] MEDS: DIGOXIN 125 MCG TABLET PO SCH (08:30)
[2020-09-26] MEDS: BUMETANIDE 1 MG TABLET PO SCH (08:42)
[2020-09-26] MEDS: oxyCODONE 5 MG TABLET PO PRN (10:32)
[2020-09-26] MEDS: SODIUM CHLORIDE 0.9% 1,000 ML IV SCH ×2 (10:32)
--- NOTE | 2020-09-26 11:29 | PROVIDER PROGRESS NOTE ---
Subjective - Prog Note Date Prog Note Date: 09/26/20 Prog Note Time: 11:26 - Subjective Pt reports feeling: Improved Objective - Vital Signs/Intake & Output Vital Signs: Vital Signs x48h Temp Pulse Resp BP Pulse Ox 09/26/20 07:48 36.6 C 87 20 109/46 L 95 09/26/20 04:39 36.9 C 86 16 103/44 L 92 Intake & Output: Intake & Output 09/23/20 09/24/20 09/25/20 09/26/20 23:59 23:59 23:59 23:59 Intake Total 7468.661 3078.667 1866.667 Output Total 550 1250 425 Balance 1015.334 808.157 0437.667 - Lab Results Fish Bones: 09/26/20 05:00 09/26/20 05:00 Other Labs: Lab Results x24hrs 09/26/20 09/26/20 09/26/20 Range/Units 05:00 05:00 05:00 WBC 9.7 (4.8-10.8) x10^3/uL RBC 2.47 L (4.20-5.40) 10^6/uL Hgb 8.7 L (12.0-16.0) g/dL Hct 26.1 L (37.0-47.0) % MCV 105.7 H (81.0-99.0) fL MCH 35.2 H (27.0-31.0) pg MCHC 33.3 (32.0-36.0) g/dL RDW 13.5 (12.0-15.0) % Plt Count 188 (130-450) 10^3/uL MPV 10.3 (7.9-10.8) fL Neut # (Auto) 5.9 (1.5-6.6) 10^3/uL Lymph # (Auto) 1.9 (1.5-3.5) 10^3/uL [place] # (Auto) 1.3 H (0.0-1.0) 10^3/uL Eos # (Auto) 0.2 (0.0-0.7) 10^3/uL Baso # (Auto) 0.1 (0.0-0.1) 10^3/uL Absolute Nucleated RBC 0.00 x10^3/uL Nucleated RBC % 0.0 /100WBC PT 14.2 H (9.9-12.6) secs INR 1.3 H (0.8-1.2) Sodium 134 L (135-145) mmol/L Potassium 3.2 L (3.5-5.0) mmol/L Chloride 99 L (101-111) mmol/L Carbon Dioxide 27 (21-32) mmol/L Anion Gap 8.0 (6-13) BUN 24 H (6-20) mg/dL Creatinine 1.0 (0.4-1.0) mg/dL Estimated GFR (MDRD) 53 L (>89) Glucose 115 H (70-100) mg/dL Calcium 7.8 L (8.5-10.3) mg/dL - Other Results/Comments Other Results/Comments: EXAM: Dressing intact. Moves toes. Sensation intact. Good cap filling. Mild pain with hip motion Assessment/Plan - Problem List (1) Closed right hip fracture Impression: Satis post op PLAN: Mobilize as tolerated. PT: walker ambulate - WBAT on right. When transfered to SNF< follow up with ortho clinic in 2 weeks for ye out and new XR. If any orthopedic concerns arise prior to tranfer, please reconsult Dr. Perea, as needed. Qualifiers: Encounter type: initial encounter Qualified Code(s): S72.001A - Fracture of unspecified part of neck of right femur, initial encounter for closed fracture
[2020-09-26] MEDS ORDERED: POTASSIUM CHLORIDE 20 MEQ TABLET PO ONE (12:02)
--- NOTE | 2020-09-26 12:02 | PROVIDER PROGRESS NOTE ---
Assessment/Plan - Problem List (1) Closed right hip fracture Qualifiers: Encounter type: initial encounter Qualified Code(s): S72.001A - Fracture of unspecified part of neck of right femur, initial encounter for closed fracture Assessment/Plan: PT OT to evaluate, treat and give recommendations. Dr. Melendez with orthopedics saw patient. Weight bearing as tolerated. Follow-up with orthopedic clinic in 2 weeks. (2) Atrial fibrillation Qualifiers: Atrial fibrillation type: longstanding persistent Qualified Code(s): I48.11 - Longstanding persistent atrial fibrillation Assessment/Plan: Chronic Patient's INR today was 1.3 On Coumadin 2.5 mg p.o. daily. Resumed for the following day. She is on metoprolol succinate 100 mg p.o. daily and digoxin 125 mcg p.o. daily. (3) Diabetes Qualifiers: Diabetes mellitus type: type 2 Diabetes mellitus mcfp insulin use: without mcfp use Diabetes mellitus complication status: with hyperglycemia Qualified Code(s): E11.65 - Type 2 diabetes mellitus with hyperglycemia Assessment/Plan: Patient's Metformin held. On sliding scale insulin. Accu-Cheks before every meal and at bedtime. (4) Hypertension Assessment/Plan: On metoprolol succinate 100 mg p.o. daily Patient is also on Bumex however she declined taking it today. (5) Confusion Assessment/Plan: Chronic Dementia is suspected. The patient's daughter reports cognitive decline. Occupational Therapy consulted for a cognitive eval on 09/27/20. (6) History of alcohol abuse Assessment/Plan: It was reported that patient drinks at least 2 cocktails daily. CIWA protocol ordered. Librium 25 mg p.o. twice daily ordered. We will continue to monitor and treat accordingly. (7) Acute kidney injury Assessment/Plan: Resolved with IV hydration. The patient's creatinine to the is 1.0 with an estimated GFR of 53. IV fluids were discontinued. - Current Meds Current Meds: Current Medications Generic Name Dose Route Start Last Admin Trade Name Freq PRN Reason Stop Dose Admin Acetaminophen 650 - 975 mg 09/25/20 10:42 09/26/20 08:29 Acetaminophen 325 Mg Tablet PO 650 mg Q4HR PRN Administration PAIN Albuterol 2.5 mg 09/24/20 08:16 09/24/20 08:22 Albuterol Neb 2.5 Mg/3 Ml INH 2.5 mg RTQ4H PRN Administration Wheezing Bumetanide 2 mg 09/24/20 09:00 09/26/20 08:42 Bumetanide 1 Mg Tablet PO Not Given DAILY RAMIRO Digoxin 125 mcg 09/24/20 09:00 09/26/20 08:30 Digoxin 125 Mcg Tablet PO 125 mcg DAILY RAMIRO Administration Famotidine 20 mg 09/24/20 09:00 09/26/20 08:22 Famotidine 20 Mg Tablet PO 20 mg BID RAMIRO Administration Gabapentin 300 mg 09/24/20 09:00 09/26/20 08:22 Gabapentin 300 Mg Capsule PO 300 mg BID RAMIRO Administration Sodium Chloride 1,000 mls @ 100 mls/hr 09/25/20 14:00 09/26/20 10:32 Normal Saline 0.9% IV 100 mls/hr .Q10H RAMIRO Administration Insulin Aspart 1 - 5 unit 09/24/20 08:00 09/26/20 08:01 Insulin Aspart 300 Unit/3 Ml Pen SUBQ Not Given 0800,1200,1700,2100 [facility] Protocol Metoprolol Succinate 100 mg 09/24/20 09:00 09/26/20 08:21 Metoprolol Succinate 50 Mg Tablet PO Not Given DAILY [facility] Oxycodone HCl 5 mg 09/24/20 10:10 09/26/20 10:32 Oxycodone 5 Mg Tablet PO 5 mg Q6HR PRN Administration PAIN Multivit/Folic Acid/Iron 1 tab 09/24/20 08:00 09/26/20 08:08 Vitamin Tablet PO 1 tab DAILYWM RAMIRO Administration Sodium Chloride 10 ml 09/25/20 17:00 09/26/20 09:18 Sodium Chloride Flush 0.9% 10 Ml Syringe IVP Not Given 0100,0900,1700 [facility] Thiamine HCl 100 mg 09/24/20 09:00 09/26/20 08:22 Thiamine 100 Mg Tablet PO 100 mg DAILY RAMIRO Administration - Lab Result Fish Bone Diagrams: 09/26/20 05:00 09/26/20 05:00 - Additional Planning My Orders: My Active Orders 09/26/20 14:00 Warfarin [Coumadin] 2.5 mg PO [id number] Subjective - Subjective Patient Reports: Other (And what stated in the bedside chair at the time of exam. She was fully awake and alert and smiling. However she only chose to respond to questions she felt like an extreme. She did not appear to be in any distress.) Objective Vital Signs: Vital Signs - 24 hr 09/25/20 09/25/20 09/25/20 12:10 13:25 16:00 Temperature 36.5 C 36.3 C L Heart Rate [ 86 81 88 Brachial] Respiratory 18 18 Rate Blood Pressure 120/59 L 124/50 L 103/51 L [Right Brachial artery] O2 Saturation 96 98 09/25/20 09/26/20 09/26/20 21:00 00:25 04:39 Temperature 36.2 C L 36.8 C 36.9 C Heart Rate [ 77 74 86 Brachial] Respiratory 18 18 16 Rate Blood Pressure 100/51 L 94/42 L 103/44 L [Right Brachial artery] O2 Saturation 93 93 92 09/26/20 07:48 Temperature 36.6 C Heart Rate [ 87 Brachial] Respiratory 20 Rate Blood Pressure 109/46 L [Right Brachial artery] O2 Saturation 95 Oxygen O2 Source Room air I&O (Last 24 Hrs): Intake and Output Totals x24h 09/24/20 09/25/20 09/26/20 23:59 23:59 23:59 Intake Total 9122.071 2310.667 1866.667 Output Total 550 1250 425 Balance 1015.334 296.835 7628.667 General: Alert, No acute distress, Other (Though awake and alert, she is not oriented to place time or reason.) HEENT: PERRLA, EOMI Neck: Supple, No JVD Neuro: Alert, Non Focal Cardiovascular: Other (Irregularly irregular rhythm, regular rate.) Respiratory: Chest non-tender, No respiratory distress, Breath sounds nml Abdomen: Normal bowel sounds, Soft, No tenderness Extremities: No clubbing, No cyanosis, Other (Extensive bruising.) - Results Results: Laboratory Results WBC 9.7 x10^3/uL (4.8-10.8) 09/26/20 05:00 RBC 2.47 10^6/uL (4.20-5.40) L 09/26/20 05:00 Hgb 8.7 g/dL (12.0-16.0) L 09/26/20 05:00 Hct 26.1 % (37.0-47.0) L 09/26/20 05:00 MCV 105.7 fL (81.0-99.0) H 09/26/20 05:00 MCH 35.2 pg (27.0-31.0) H 09/26/20 05:00 MCHC 33.3 g/dL (32.0-36.0) 09/26/20 05:00 RDW 13.5 % (12.0-15.0) 09/26/20 05:00 Plt Count 188 10^3/uL (130-450) 09/26/20 05:00 MPV 10.3 fL (7.9-10.8) 09/26/20 05:00 Neut # (Auto) 5.9 10^3/uL (1.5-6.6) 09/26/20 05:00 Lymph # (Auto) 1.9 10^3/uL (1.5-3.5) 09/26/20 05:00 [place] # (Auto) 1.3 10^3/uL (0.0-1.0) H 09/26/20 05:00 Eos # (Auto) 0.2 10^3/uL (0.0-0.7) 09/26/20 05:00 Baso # (Auto) 0.1 10^3/uL (0.0-0.1) 09/26/20 05:00 Absolute Nucleated RBC 0.00 x10^3/uL 09/26/20 05:00 Total Counted 100 09/25/20 04:57 Band Neuts % (Manual) 0 % (0-10) 09/25/20 04:57 Reactive Lymphs % (Man) 4 % 09/23/20 21:45 Abnorm Lymph % (Manual) 0 % 09/25/20 04:57 Myelocytes % 1 % (-0) H 09/25/20 04:57 Nucleated RBC % 0.0 /100WBC 09/26/20 05:00 Neutrophils # (Manual) 6.0 10^3/uL (1.5-6.6) 09/25/20 04:57 Lymphocytes # (Manual) 2.4 10^3/uL (1.5-3.5) 09/25/20 04:57 Monocytes # (Manual) 1.1 10^3/uL (0.0-1.0) H 09/25/20 04:57 Eosinophils # (Manual) 0.5 10^3/uL (0-0.7) 09/25/20 04:57 Basophils # (Manual) 0.0 10^3/uL (0-0.1) 09/25/20 04:57 Differential Comment MANUAL DIFFERENTIAL 09/25/20 04:57 WBC Morphology NORMAL APPEARANCE (NORMAL) 09/25/20 04:57 Platelet Estimate NORMAL (130-450,000) (NORMAL) 09/25/20 04:57 Platelet Morphology NORMAL APPEARANCE (NORMAL) 09/25/20 04:57 RBC Morph Micro Appear NORMAL APPEARANCE (NORMAL) 09/25/20 04:57 PT 14.2 secs (9.9-12.6) H 09/26/20 05:00 INR 1.3 (0.8-1.2) H 09/26/20 05:00 Sodium 134 mmol/L (135-145) L 09/26/20 05:00 Potassium 3.2 mmol/L (3.5-5.0) L 09/26/20 05:00 Chloride 99 mmol/L (101-111) L 09/26/20 05:00 Carbon Dioxide 27 mmol/L (21-32) 09/26/20 05:00 Anion Gap 8.0 (6-13) 09/26/20 05:00 BUN 24 mg/dL (6-20) H 09/26/20 05:00 Creatinine 1.0 mg/dL (0.4-1.0) 09/26/20 05:00 Estimated GFR (MDRD) 53 (>89) L 09/26/20 05:00 Glucose 115 mg/dL (70-100) H 09/26/20 05:00 Estimat Average Glucose 131 mg/dL (70-100) H 09/24/20 04:09 Hemoglobin A1c % 6.2 % (4.27-6.07) H 09/24/20 04:09 Calcium 7.8 mg/dL (8.5-10.3) L 09/26/20 05:00 Magnesium 1.6 mg/dL (1.7-2.8) L 09/24/20 04:09 Total Bilirubin 1.1 mg/dL (0.2-1.0) H 09/23/20 21:45 AST 43 IU/L (10-42) H 09/23/20 21:45 ALT 27 IU/L (10-60) 09/23/20 21:45 Alkaline Phosphatase 48 IU/L (42-121) 09/23/20 21:45 Total Protein 7.4 g/dL (6.7-8.2) 09/23/20 21:45 Albumin 4.1 g/dL (3.2-5.5) 09/23/20 21:45 Globulin 3.3 g/dL (2.1-4.2) 09/23/20 21:45 Albumin/Globulin Ratio 1.2 (1.0-2.2) 09/23/20 21:45 Lipase 29 U/L (22-51) 09/23/20 21:45 Urine Color YELLOW 09/23/20 22:26 Urine Clarity CLEAR (CLEAR) 09/23/20 22:26 Urine pH 5.5 PH (5.0-7.5) 09/23/20 22:26 Ur Specific [place] 1.015 (1.002-1.030) 09/23/20 22:26 Urine Protein TRACE mg/dL (NEGATIVE) 09/23/20 22:26 Urine Glucose (UA) NEGATIVE mg/dL (NEGATIVE) 09/23/20 22:26 Urine Ketones NEGATIVE mg/dL (NEGATIVE) 09/23/20 22:26 Urine Occult Blood SMALL (NEGATIVE) H 09/23/20 22:26 Urine Nitrite NEGATIVE (NEGATIVE) 09/23/20 22:26 Urine Bilirubin NEGATIVE (NEGATIVE) 09/23/20 22:26 Urine Urobilinogen 0.2 (NORMAL) E.U./dL (NORMAL) 09/23/20 22:26 Ur Leukocyte Esterase NEGATIVE (NEGATIVE) 09/23/20 22:26 Urine RBC 0-5 /HPF (0-5) 09/23/20 22:26 Urine WBC 0-3 /HPF (0-5) 09/23/20 22:26 Ur Epithelial Cells FEW Renal Tubular /HPF (<= Few) 09/23/20 22:26 Ur Squamous Epith Cells MOD Squamous (<= Few) H 09/23/20 22:26 Urine Bacteria Rare /HPF (None Seen) 09/23/20 22:26 Urine Casts 6-10 Hyaline Casts /LPF 09/23/20 22:26 Urine Mucus Few Strands 09/23/20 22:26 Ur Microscopic Review INDICATED 09/23/20 22:26 Urine Culture Comments NOT INDICATED 09/23/20 22:26 Nasal Adenovirus (PCR) NOT DETECTED 09/23/20 22:16 Nasal B. parapertussis DNA (PCR) NOT DETECTED 09/23/20 22:16 Nasal Coronavir 229E PCR NOT DETECTED 09/23/20 22:16 Nasal Coronavir HKU1 PCR NOT DETECTED 09/23/20 22:16 Nasal Coronavir NL63 PCR NOT DETECTED 09/23/20 22:16 Nasal Coronavir OC43 PCR NOT DETECTED 09/23/20 22:16 Nasal Enterovir/Rhinovir PCR NOT DETECTED 09/23/20 22:16 Nasal Influenza B PCR NOT DETECTED 09/23/20 22:16 Nasal Influenza A PCR NOT DETECTED 09/23/20 22:16 Nasal Parainfluen 1 PCR NOT DETECTED 09/23/20 22:16 Nasal Parainfluen 2 PCR NOT DETECTED 09/23/20 22:16 Nasal Parainfluen 3 PCR NOT DETECTED 09/23/20 22:16 Nasal Parainfluen 4 PCR NOT DETECTED 09/23/20 22:16 Nasal RSV (PCR) NOT DETECTED 09/23/20 22:16 Nasal B.pertussis DNA PCR NOT DETECTED 09/23/20 22:16 Nasal C.pneumoniae (PCR) NOT DETECTED 09/23/20 22:16 Yuriy Human Metapneumo PCR NOT DETECTED 09/23/20 22:16 Nasal M.pneumoniae (PCR) NOT DETECTED 09/23/20 22:16 Nasal SARS-CoV-2 (PCR) NOT DETECTED 09/23/20 22:16 Last Dose Date 09-23-20 09/24/20 04:09 Last Dose Time 0900 09/24/20 04:09 Digoxin 1.1 ng/mL 09/24/20 04:09 Ethyl Alcohol < 5.0 mg/dL 09/24/20 05:45 - Procedures Procedures: Procedures REPLACEMENT OF LEFT LENS WITH SYNTH SUB, PERC APPROACH (05/17/17) REPLACEMENT OF RIGHT LENS WITH SYNTH SUB, PERC APPROACH (08/30/17)
[2020-09-26] MEDS ORDERED: chlordiazePOXIDE 25 MG CAPSULE PO SCH (13:00)
[2020-09-26] MEDS: WARFARIN 2.5 MG TABLET PO SCH (14:11)
[2020-09-27] MEDS: SODIUM CHLORIDE FLUSH 0.9% 10 ML SYRINGE IVP SCH ×3 (00:19→21:01)
[2020-09-27] MEDS: ACETAMINOPHEN 325 MG TABLET PO PRN ×2 (00:33→09:02)
[2020-09-27 05:53] LABS: BASOPHILS # (AUTO) 0.1 10^3/uL (0.0-0.1); BASOPHILS % (AUTO) 0.6 %; EOSINOPHILS # (AUTO) 0.2 10^3/uL (0.0-0.7); HCT - HEMATOCRIT 25.5 % (37.0-47.0); HGB - HEMOGLOBIN 8.4 g/dL (12.0-16.0); LYMPHOCYTES # (AUTO) 1.7 10^3/uL (1.5-3.5); LYMPHOCYTES % (AUTO) 15.2 %; MEAN CORPUSCULAR HGB CONC 32.9 g/dL (32.0-36.0); MEAN CORPUSCULAR VOLUME 106.3 fL (81.0-99.0); MEAN PLATELET VOLUME 9.6 fL (7.9-10.8); MONOCYTES # (AUTO) 1.2 10^3/uL (0.0-1.0); MONOCYTES % (AUTO) 11.1 %; NEUTROPHILS # (AUTO) 7.2 10^3/uL (1.5-6.6); NEUTROPHILS % (AUTO) 64.9 %; NRBC ABSOLUTE COUNT (AUTO) 0.02 x10^3/uL; NUCLEATED RED BLOOD CELLS AUTO 0.2 /100WBC; PLT - PLATELET COUNT 247 10^3/uL (130-450); RED CELL DISTRIBUTION WIDTH 13.9 % (12.0-15.0); WHITE BLOOD COUNT 11.1 x10^3/uL (4.8-10.8)
[2020-09-27 05:59] LABS: CALCIUM 8.3 mg/dL (8.5-10.3); CREATININE 0.9 mg/dL (0.4-1.0); POTASSIUM 3.6 mmol/L (3.5-5.0)
[2020-09-27 06:02] LABS: INR 1.4 (0.8-1.2); PT - PROTHROMBIN TIME 15.4 secs (9.9-12.6)
[2020-09-27] MEDS: INSULIN ASPART 300 UNIT/3 ML PEN SUBQ SCH ×4 (09:01→21:08)
[2020-09-27] MEDS: PRENATAL VITAMIN TABLET PO SCH (09:03)
[2020-09-27] MEDS: FAMOTIDINE 20 MG TABLET PO SCH ×2 (09:03→21:00)
[2020-09-27] MEDS: DIGOXIN 125 MCG TABLET PO SCH (09:03)
[2020-09-27] MEDS: DOCUSATE SODIUM 100 MG CAPSULE PO PRN (09:04)
[2020-09-27] MEDS: GABAPENTIN 300 MG CAPSULE PO SCH ×2 (09:04→21:00)
[2020-09-27] MEDS: THIAMINE 100 MG TABLET PO SCH (09:05)
[2020-09-27] MEDS: METOPROLOL SUCCINATE 50 MG TABLET PO SCH (09:05)
[2020-09-27] MEDS: BUMETANIDE 1 MG TABLET PO SCH (09:15)
[2020-09-27] MEDS: oxyCODONE 5 MG TABLET PO PRN (09:54)
--- NOTE | 2020-09-27 11:18 | PROVIDER PROGRESS NOTE ---
Assessment/Plan - Problem List (1) Closed right hip fracture Qualifiers: Encounter type: initial encounter Qualified Code(s): S72.001A - Fracture of unspecified part of neck of right femur, initial encounter for closed fracture Assessment/Plan: PT OT to evaluate, treat and give recommendations. Dr. Melendez with orthopedics saw patient. Weight bearing as tolerated. Follow-up with orthopedic clinic in 2 weeks. (2) Atrial fibrillation Qualifiers: Atrial fibrillation type: longstanding persistent Qualified Code(s): I48.11 - Longstanding persistent atrial fibrillation Assessment/Plan: Chronic Patient's INR today was 1.4 On Coumadin 2.5 mg p.o. daily. Resumed for the following day. he is on metoprolol succinate 100 mg p.o. daily and digoxin 125 mcg p.o. daily.Patient's Metformin held. (3) Diabetes Qualifiers: Diabetes mellitus type: type 2 Diabetes mellitus jail insulin use: without jail use Diabetes mellitus complication status: with hyperglycemia Qualified Code(s): E11.65 - Type 2 diabetes mellitus with hyperglycemia Assessment/Plan: On sliding scale insulin. Accu-Cheks before every meal and at bedtime. (4) Hypertension Assessment/Plan: On metoprolol succinate 100 mg p.o. daily (5) Confusion Assessment/Plan: Dementia is suspected. The patient's daughter reports cognitive decline. Occupational Therapy consulted for a cognitive eval on 09/27/20. Also checking vitamin B12, folate and treponema antibody (6) History of alcohol abuse Assessment/Plan: It was reported that patient drinks at least 2 cocktails daily. CIWA protocol ordered. Librium Continued because the patient was significantly sedated. We will continue to monitor and treat accordingly. (7) Acute kidney injury Assessment/Plan: Resolved with IV hydration. - Current Meds Current Meds: Current Medications Generic Name Dose Route Start Last Admin Trade Name Freq PRN Reason Stop Dose Admin Acetaminophen 650 - 975 mg 09/25/20 10:42 09/27/20 09:02 Acetaminophen 325 Mg Tablet PO 650 mg Q4HR PRN Administration PAIN Albuterol 2.5 mg 09/24/20 08:16 09/24/20 08:22 Albuterol Neb 2.5 Mg/3 Ml INH 2.5 mg RTQ4H PRN Administration Wheezing Bumetanide 2 mg 09/24/20 09:00 09/27/20 09:15 Bumetanide 1 Mg Tablet PO 2 mg DAILY RAMIRO Administration Digoxin 125 mcg 09/24/20 09:00 09/27/20 09:03 Digoxin 125 Mcg Tablet PO 125 mcg DAILY RAMIRO Administration Docusate Sodium 100 mg 09/25/20 10:42 09/27/20 09:04 Docusate Sodium 100 Mg Capsule PO 100 mg BID PRN Administration Constipation Famotidine 20 mg 09/24/20 09:00 09/27/20 09:03 Famotidine 20 Mg Tablet PO 20 mg BID RAMIRO Administration Gabapentin 300 mg 09/24/20 09:00 09/27/20 09:04 Gabapentin 300 Mg Capsule PO 300 mg BID RAMIRO Administration Insulin Aspart 1 - 5 unit 09/24/20 08:00 09/27/20 09:01 Insulin Aspart 300 Unit/3 Ml Pen SUBQ Not Given 0800,1200,1700,2100 [facility] Protocol Metoprolol Succinate 100 mg 09/24/20 09:00 09/27/20 09:05 Metoprolol Succinate 50 Mg Tablet PO 100 mg DAILY RAMIRO Administration Oxycodone HCl 5 mg 09/24/20 10:10 09/27/20 09:54 Oxycodone 5 Mg Tablet PO 5 mg Q6HR PRN Administration PAIN Multivit/Folic Acid/Iron 1 tab 09/24/20 08:00 09/27/20 09:03 Vitamin Tablet PO 1 tab DAILYWM [facility] Administration Sodium Chloride 10 ml 09/25/20 17:00 09/27/20 09:05 Sodium Chloride Flush 0.9% 10 Ml Syringe IVP 10 ml 0100,0900,1700 [facility] Administration Thiamine HCl 100 mg 09/24/20 09:00 09/27/20 09:05 Thiamine 100 Mg Tablet PO 100 mg DAILY RAMIRO Administration Warfarin Sodium 2.5 mg 09/26/20 14:00 09/26/20 14:11 Warfarin 2.5 Mg Tablet PO 2.5 mg QDWARFARIN [facility] Administration - Lab Result Fish Bone Diagrams: 09/27/20 05:40 09/27/20 05:40 - Additional Planning My Orders: My Active Orders 09/26/20 14:00 Warfarin [Coumadin] 2.5 mg PO QDWARFARIN 09/27/20 11:08 FOLATE [IAI] Routine VITAMIN B12 [IAI] Routine 09/27/20 11:09 TREPONEMA AB IGG [REFLAB] Routine Subjective - Subjective Patient Reports: Other (Patient was not cooperative to go through the OT cognitive eval. It was postponed for tomorrow.Though awake and alert she only responds to questions she feels like answering. This significantly limits the visit.) Objective Vital Signs: Vital Signs - 24 hr 09/26/20 09/26/20 09/26/20 12:06 16:33 18:05 Temperature 36.5 C 36.4 C L 36.4 C L Heart Rate Heart Rate [ 79 79 74 Brachial] Respiratory 24 18 22 Rate Blood Pressure 110/54 L 111/48 L 117/46 L [Right Brachial artery] O2 Saturation 93 94 94 09/26/20 09/26/20 09/27/20 20:36 21:15 00:32 Temperature 36.9 C 36.8 C Heart Rate 78 Heart Rate [ 80 74 Brachial] Respiratory 18 18 24 Rate Blood Pressure 108/43 L 115/48 L [Right Brachial artery] O2 Saturation 93 94 09/27/20 09/27/20 09/27/20 03:43 07:25 09:24 Temperature 36.4 C L 36.4 C L Heart Rate Heart Rate [ 81 83 Brachial] Respiratory 28 H 21 Rate Blood Pressure 101/44 L 104/52 L 120/46 L [Right Brachial artery] O2 Saturation 95 98 Oxygen O2 Source Room air I&O (Last 24 Hrs): Intake and Output Totals x24h 09/25/20 09/26/20 09/27/20 23:59 23:59 23:59 Intake Total 2101.667 2836.667 1600 Output Total 1250 1325 325 Balance 822.104 5465.667 1275 General: Alert, No acute distress HEENT: PERRLA, EOMI Neck: Supple, No JVD Neuro: Alert Respiratory: Chest non-tender, No respiratory distress, Breath sounds nml Abdomen: Normal bowel sounds, Soft, No tenderness Extremities: No clubbing, No edema - Results Results: Laboratory Results WBC 11.1 x10^3/uL (4.8-10.8) H 09/27/20 05:40 RBC 2.40 10^6/uL (4.20-5.40) L 09/27/20 05:40 Hgb 8.4 g/dL (12.0-16.0) L 09/27/20 05:40 Hct 25.5 % (37.0-47.0) L 09/27/20 05:40 MCV 106.3 fL (81.0-99.0) H 09/27/20 05:40 MCH 35.0 pg (27.0-31.0) H 09/27/20 05:40 MCHC 32.9 g/dL (32.0-36.0) 09/27/20 05:40 RDW 13.9 % (12.0-15.0) 09/27/20 05:40 Plt Count 247 10^3/uL (130-450) 09/27/20 05:40 MPV 9.6 fL (7.9-10.8) 09/27/20 05:40 Neut # (Auto) 7.2 10^3/uL (1.5-6.6) H 09/27/20 05:40 Lymph # (Auto) 1.7 10^3/uL (1.5-3.5) 09/27/20 05:40 [place] # (Auto) 1.2 10^3/uL (0.0-1.0) H 09/27/20 05:40 Eos # (Auto) 0.2 10^3/uL (0.0-0.7) 09/27/20 05:40 Baso # (Auto) 0.1 10^3/uL (0.0-0.1) 09/27/20 05:40 Absolute Nucleated RBC 0.02 x10^3/uL 09/27/20 05:40 Total Counted 100 09/25/20 04:57 Band Neuts % (Manual) 0 % (0-10) 09/25/20 04:57 Reactive Lymphs % (Man) 4 % 09/23/20 21:45 Abnorm Lymph % (Manual) 0 % 09/25/20 04:57 Myelocytes % 1 % (-0) H 09/25/20 04:57 Nucleated RBC % 0.2 /100WBC 09/27/20 05:40 Neutrophils # (Manual) 6.0 10^3/uL (1.5-6.6) 09/25/20 04:57 Lymphocytes # (Manual) 2.4 10^3/uL (1.5-3.5) 09/25/20 04:57 Monocytes # (Manual) 1.1 10^3/uL (0.0-1.0) H 09/25/20 04:57 Eosinophils # (Manual) 0.5 10^3/uL (0-0.7) 09/25/20 04:57 Basophils # (Manual) 0.0 10^3/uL (0-0.1) 09/25/20 04:57 Differential Comment MANUAL DIFFERENTIAL 09/25/20 04:57 WBC Morphology NORMAL APPEARANCE (NORMAL) 09/25/20 04:57 Platelet Estimate NORMAL (130-450,000) (NORMAL) 09/25/20 04:57 Platelet Morphology NORMAL APPEARANCE (NORMAL) 09/25/20 04:57 RBC Morph Micro Appear NORMAL APPEARANCE (NORMAL) 09/25/20 04:57 PT 15.4 secs (9.9-12.6) H 09/27/20 05:40 INR 1.4 (0.8-1.2) H 09/27/20 05:40 Sodium 137 mmol/L (135-145) 09/27/20 05:40 Potassium 3.6 mmol/L (3.5-5.0) 09/27/20 05:40 Chloride 101 mmol/L (101-111) 09/27/20 05:40 Carbon Dioxide 25 mmol/L (21-32) 09/27/20 05:40 Anion Gap 11.0 (6-13) 09/27/20 05:40 BUN 19 mg/dL (6-20) 09/27/20 05:40 Creatinine 0.9 mg/dL (0.4-1.0) 09/27/20 05:40 Estimated GFR (MDRD) 60 (>89) L 09/27/20 05:40 Glucose 103 mg/dL (70-100) H 09/27/20 05:40 Estimat Average Glucose 131 mg/dL (70-100) H 09/24/20 04:09 Hemoglobin A1c % 6.2 % (4.27-6.07) H 09/24/20 04:09 Calcium 8.3 mg/dL (8.5-10.3) L 09/27/20 05:40 Magnesium 1.6 mg/dL (1.7-2.8) L 09/24/20 04:09 Total Bilirubin 1.1 mg/dL (0.2-1.0) H 09/23/20 21:45 AST 43 IU/L (10-42) H 09/23/20 21:45 ALT 27 IU/L (10-60) 09/23/20 21:45 Alkaline Phosphatase 48 IU/L (42-121) 09/23/20 21:45 Total Protein 7.4 g/dL (6.7-8.2) 09/23/20 21:45 Albumin 4.1 g/dL (3.2-5.5) 09/23/20 21:45 Globulin 3.3 g/dL (2.1-4.2) 09/23/20 21:45 Albumin/Globulin Ratio 1.2 (1.0-2.2) 09/23/20 21:45 Lipase 29 U/L (22-51) 09/23/20 21:45 Urine Color YELLOW 09/23/20 22:26 Urine Clarity CLEAR (CLEAR) 09/23/20 22: Urine pH 5.5 PH (5.0-7.5) 09/23/20 22:26 Ur Specific [place] 1.015 (1.002-1.030) 09/23/20 22:26 Urine Protein TRACE mg/dL (NEGATIVE) 09/23/20 22: Urine Glucose (UA) NEGATIVE mg/dL (NEGATIVE) 09/23/20 22:26 Urine Ketones NEGATIVE mg/dL (NEGATIVE) 09/23/20 22:26 Urine Occult Blood SMALL (NEGATIVE) H 09/23/20 22:26 Urine Nitrite NEGATIVE (NEGATIVE) 09/23/20 22: Urine Bilirubin NEGATIVE (NEGATIVE) 09/23/20 22: Urine Urobilinogen 0.2 (NORMAL) E.U./dL (NORMAL) 09/23/20 22:26 Ur Leukocyte Esterase NEGATIVE (NEGATIVE) 09/23/20 22:26 Urine RBC 0-5 /HPF (0-5) 09/23/20 22:26 Urine WBC 0-3 /HPF (0-5) 09/23/20 22:26 Ur Epithelial Cells FEW Renal Tubular /HPF (<= Few) 09/23/20 22:26 Ur Squamous Epith Cells MOD Squamous (<= Few) H 09/23/20 22:26 Urine Bacteria Rare /HPF (None Seen) 09/23/20 22:26 Urine Casts 6-10 Hyaline Casts /LPF 09/23/20 22:26 Urine Mucus Few Strands 09/23/20 22:26 Ur Microscopic Review INDICATED 09/23/20 22:26 Urine Culture Comments NOT INDICATED 09/23/20 22:26 Nasal Adenovirus (PCR) NOT DETECTED 09/23/20 22:16 Nasal B. parapertussis DNA (PCR) NOT DETECTED 09/23/20 22:16 Nasal Coronavir 229E PCR NOT DETECTED 09/23/20 22:16 Nasal Coronavir HKU1 PCR NOT DETECTED 09/23/20 22:16 Nasal Coronavir NL63 PCR NOT DETECTED 09/23/20 22:16 Nasal Coronavir OC43 PCR NOT DETECTED 09/23/20 22:16 Nasal Enterovir/Rhinovir PCR NOT DETECTED 09/23/20 22:16 Nasal Influenza B PCR NOT DETECTED 09/23/20 22:16 Nasal Influenza A PCR NOT DETECTED 09/23/20 22:16 Nasal Parainfluen 1 PCR NOT DETECTED 09/23/20 22:16 Nasal Parainfluen 2 PCR NOT DETECTED 09/23/20 22:16 Nasal Parainfluen 3 PCR NOT DETECTED 09/23/20 22:16 Nasal Parainfluen 4 PCR NOT DETECTED 09/23/20 22:16 Nasal RSV (PCR) NOT DETECTED 09/23/20 22:16 Nasal B.pertussis DNA PCR NOT DETECTED 09/23/20 22:16 Nasal C.pneumoniae (PCR) NOT DETECTED 09/23/20 22:16 Yuriy Human Metapneumo PCR NOT DETECTED 09/23/20 22:16 Nasal M.pneumoniae (PCR) NOT DETECTED 09/23/20 22:16 Nasal SARS-CoV-2 (PCR) NOT DETECTED 09/23/20 22:16 Last Dose Date 09-23-20 09/24/20 04:09 Last Dose Time 0900 09/24/20 04:09 Digoxin 1.1 ng/mL 09/24/20 04:09 Ethyl Alcohol < 5.0 mg/dL 09/24/20 05:45 - Procedures Procedures: Procedures REPLACEMENT OF LEFT LENS WITH SYNTH SUB, PERC APPROACH (05/17/17) REPLACEMENT OF RIGHT LENS WITH SYNTH SUB, PERC APPROACH (08/30/17)
[2020-09-27] MEDS ORDERED: BISACODYL 10 MG SUPP PR ONE (11:21)
[2020-09-27 12:18] LABS: FOLATE 7.92 ng/mL (5.90 - >24.8)
[2020-09-27] MEDS: polyethylene glycoL 3350 17 GM PACKET PO SCH (12:39)
[2020-09-27] MEDS: WARFARIN 2.5 MG TABLET PO SCH (14:22)
[2020-09-28] MEDS: SODIUM CHLORIDE FLUSH 0.9% 10 ML SYRINGE IVP SCH ×3 (00:50→17:16)
[2020-09-28] MEDS: INSULIN ASPART 300 UNIT/3 ML PEN SUBQ SCH ×4 (07:47→22:14)
[2020-09-28] MEDS: PRENATAL VITAMIN TABLET PO SCH (08:14)
[2020-09-28 08:26] LABS: BASOPHILS % (AUTO) 0.5 %; EOSINOPHILS % (AUTO) 1.6 %; HCT - HEMATOCRIT 28.1 % (37.0-47.0); HGB - HEMOGLOBIN 9.2 g/dL (12.0-16.0); LYMPHOCYTES % (AUTO) 11.7 %; MEAN CORPUSCULAR HEMOGLOBIN 35.1 pg (27.0-31.0); MEAN CORPUSCULAR HGB CONC 32.7 g/dL (32.0-36.0); MEAN CORPUSCULAR VOLUME 107.3 fL (81.0-99.0); MEAN PLATELET VOLUME 9.8 fL (7.9-10.8); MONOCYTES % (AUTO) 11.8 %; NEUTROPHILS % (AUTO) 66.9 %; PLT - PLATELET COUNT 353 10^3/uL (130-450); RED BLOOD COUNT 2.62 10^6/uL (4.20-5.40); RED CELL DISTRIBUTION WIDTH 14.1 % (12.0-15.0); WHITE BLOOD COUNT 13.5 x10^3/uL (4.8-10.8)
[2020-09-28 08:31] LABS: ABNORMAL LYMPHS % (MANUAL) 0 %; INR 1.7 (0.8-1.2); PT - PROTHROMBIN TIME 18.4 secs (9.9-12.6)
[2020-09-28 08:38] LABS: CALCIUM 8.1 mg/dL (8.5-10.3); POTASSIUM 3.5 mmol/L (3.5-5.0)
[2020-09-28 08:39] LABS: ABSOLUTE RETICS # AUTO 0.125 10^6/uL (0.020-0.110); RED BLOOD COUNT 2.58 10^6/uL (4.20-5.40); RETICULOCYTE COUNT % (AUTO) 4.83 % (0.5-2.3)
[2020-09-28 09:05] LABS: LYMPHOCYTES # (MANUAL) 2.2 10^3/uL (1.5-3.5); LYMPHOCYTES % (MANUAL) 16 %; MONOCYTES # (MANUAL) 1.6 10^3/uL (0.0-1.0)
[2020-09-28 09:06] LABS: BAND NEUTROPHILS % (MANUAL) 4 %; EOSINOPHILS # (MANUAL) 0.3 10^3/uL (0-0.7); METAMYELOCYTES % (MANUAL) 2 %; MYELOCYTES % (MANUAL) 2 %; NEUTROPHILS # (MANUAL) 8.9 10^3/uL (1.5-6.6)
[2020-09-28 09:07] LABS: DIFFERENTIAL COMMENT MANUAL DIFFERENTIAL; PLATELET ESTIMATE, MANUAL NORMAL (130-450,000) (NORMAL); PLATELET MORPHOLOGY NORMAL APPEARANCE (NORMAL); WBC MORPHOLOGY (MULTIPLE) 1+ TOXIC GRANULATION (NORMAL)
[2020-09-28] MEDS: DOCUSATE SODIUM 250 MG CAPSULE PO SCH (09:23)
[2020-09-28] MEDS: FAMOTIDINE 20 MG TABLET PO SCH ×2 (09:23→17:52)
[2020-09-28] MEDS: DIGOXIN 125 MCG TABLET PO SCH (09:23)
[2020-09-28 09:24] LABS: % IRON SATURATION 8 % (20-50); IRON 24 ug/dL (28-170); TOTAL IRON BINDING CAPACITY 290 ug/dL (250-450); TRANSFERRIN 207 mg/dL (192-382)
[2020-09-28] MEDS: ACETAMINOPHEN 325 MG TABLET PO PRN ×2 (09:24→14:06)
[2020-09-28] MEDS: GABAPENTIN 300 MG CAPSULE PO SCH ×2 (09:24→17:52)
[2020-09-28] MEDS: THIAMINE 100 MG TABLET PO SCH (09:24)
[2020-09-28] MEDS: polyethylene glycoL 3350 17 GM PACKET PO SCH (09:25)
[2020-09-28] MEDS: METOPROLOL SUCCINATE 50 MG TABLET PO SCH (09:27)
[2020-09-28] MEDS: BUMETANIDE 1 MG TABLET PO SCH (10:28)
[2020-09-28 11:34] LABS: BASOPHILS % (AUTO) 0.6 %; EOSINOPHILS % (AUTO) 1.3 %; HCT - HEMATOCRIT 26.6 % (37.0-47.0); HGB - HEMOGLOBIN 8.8 g/dL (12.0-16.0); LYMPHOCYTES % (AUTO) 9.7 %; MEAN CORPUSCULAR HEMOGLOBIN 35.3 pg (27.0-31.0); MEAN CORPUSCULAR HGB CONC 33.1 g/dL (32.0-36.0); MEAN CORPUSCULAR VOLUME 106.8 fL (81.0-99.0); MEAN PLATELET VOLUME 9.6 fL (7.9-10.8); MONOCYTES % (AUTO) 12.8 %; PLT - PLATELET COUNT 366 10^3/uL (130-450); RED BLOOD COUNT 2.49 10^6/uL (4.20-5.40); RED CELL DISTRIBUTION WIDTH 14.1 % (12.0-15.0)
[2020-09-28 11:36] LABS: ABNORMAL LYMPHS % (MANUAL) 0 %
[2020-09-28 12:10] LABS: BAND NEUTROPHILS % (MANUAL) 1 %; EOSINOPHILS # (MANUAL) 0.3 10^3/uL (0-0.7); LYMPHOCYTES # (MANUAL) 1.8 10^3/uL (1.5-3.5); LYMPHOCYTES % (MANUAL) 12 %; METAMYELOCYTES % (MANUAL) 1 %; MONOCYTES # (MANUAL) 1.2 10^3/uL (0.0-1.0); NEUTROPHILS # (MANUAL) 11.6 10^3/uL (1.5-6.6)
[2020-09-28 12:11] LABS: PLATELET MORPHOLOGY NORMAL APPEARANCE (NORMAL)
[2020-09-28 12:12] LABS: DIFFERENTIAL COMMENT MANUAL DIFFERENTIAL; PLATELET ESTIMATE, MANUAL NORMAL (130-450,000) (NORMAL); WBC MORPHOLOGY (MULTIPLE) NORMAL APPEARANCE (NORMAL)
[2020-09-28] MEDS: FERROUS GLUCONATE 324 MG TABLET PO SCH (12:16)
--- NOTE | 2020-09-28 12:52 | XRAY Report ---
PROCEDURE: Chest 1 View X-Ray INDICATIONS: SOB, elevated WBC TECHNIQUE: One view of the chest was acquired. COMPARISON: CXR 09/24/2019, 04/23/2020. CT pulmonary angiogram 04/23/2020. FINDINGS: Surgical changes and devices: TAVR stent is unchanged. Lungs and pleura: No pleural effusions or pneumothorax. Lungs are clear. Mediastinum: Mediastinal contours is unchanged. Heart size is unchanged. Mitral annular calcificati on. Bones and chest wall: No suspicious bony lesions. Overlying soft tissues appear unremarkable. IMPRESSION: No airspace opacity identified. Reviewed by: Wilbert Mckeon MD on 09/28/2020 12:50 PM PST Approved by: Wilbert Mckeon MD on 09/28/2020 12:50 PM PST Station ID: [id number]
[2020-09-28] MEDS: KETOROLAC 15 MG/ML VIAL IVP PRN (13:21)
[2020-09-28] MEDS: WARFARIN 2.5 MG TABLET PO SCH (13:21)
--- NOTE | 2020-09-28 13:44 | PROVIDER PROGRESS NOTE ---
Assessment/Plan - Problem List (1) Closed right hip fracture Qualifiers: Encounter type: initial encounter Qualified Code(s): S72.001A - Fracture of unspecified part of neck of right femur, initial encounter for closed fracture Assessment/Plan: This is day 3 status post of right hip repair, We will continue PT and OT evaluation and treatment, Continue pain control. 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 add incentive spirometer. (2) Atrial fibrillation pt's heart rate is controlled. continue On Coumadin 2.5 mg p.o. daily. Resumed for the following day. check PT/INR daily continue he is on metoprolol succinate 100 mg p.o. daily and digoxin 125 mcg p.o. daily. (3) Diabetes continue On sliding scale insulin. her A1C is 6.2 Accu-Cheks before every meal and at bedtime. (4) Hypertension stable, continue metoprolol succinate 100 mg p.o. daily (5) Confusion pt is still present some confused on today. Dementia is suspected. it is likely combination of recently surgery, opiates for pt, and hx of dementia. The patient's daughter reports cognitive decline. Occupational Therapy consulted for a cognitive eval on 09/27/20. checking vitamin B12, folate are unremarkable. treponema antibody test is pending. continue neuro check. (6) History of alcohol abuse Assessment/Plan: It was reported that patient drinks at least 2 cocktails daily. CIWA protocol ordered. Librium was disContinued before because the patient was significantly sedated, pt did not show obvious alcohol withdrawal We will continue to monitor and treat accordingly. (7) Acute kidney injury Assessment/Plan: Resolved with IV hydration. (8)anemia Patient has 8.8 hemoglobin on today. Patient's anemia is likely combination of acute blood loss from recently surgery and iron deficiency anemia according to anemia study. Iron pill is prescribed for patient. (9)hx of transcatheter aortic valve replacement pt has been on Coumadin, INR is 1.7 today, will Coumadin, and Continue check PT and INR - Current Meds Current Meds: Current Medications Generic Name Dose Route Start Last Admin Trade Name Freq PRN Reason Stop Dose Admin Acetaminophen 650 - 975 mg 09/25/20 10:42 09/28/20 09:24 Acetaminophen 325 Mg Tablet PO 650 mg Q4HR PRN Administration PAIN Albuterol 2.5 mg 09/24/20 08:16 09/24/20 08:22 Albuterol Neb 2.5 Mg/3 Ml INH 2.5 mg RTQ4H PRN Administration Wheezing Bumetanide 2 mg 09/24/20 09:00 09/28/20 10:28 Bumetanide 1 Mg Tablet PO 2 mg DAILY RAMIRO Administration Digoxin 125 mcg 09/24/20 09:00 09/28/20 09:23 Digoxin 125 Mcg Tablet PO 125 mcg DAILY RAMIRO Administration Docusate Sodium 100 mg 09/25/20 10:42 09/27/20 09:04 Docusate Sodium 100 Mg Capsule PO 100 mg BID PRN Administration Constipation Docusate Sodium 250 - 500 mg 09/28/20 09:00 09/28/20 09:23 Docusate Sodium 250 Mg Capsule PO 250 mg DAILY RAMIRO Administration Famotidine 20 mg 09/24/20 09:00 09/28/20 09:23 Famotidine 20 Mg Tablet PO 20 mg BID RAMIRO Administration Ferrous Gluconate 324 mg 09/28/20 11:00 09/28/20 12:16 Ferrous Gluconate 324 Mg Tablet PO 324 mg DAILYWM RAMIRO Administration Gabapentin 300 mg 09/24/20 09:00 09/28/20 09:24 Gabapentin 300 Mg Capsule PO 300 mg BID RAMIRO Administration Insulin Aspart 1 - 5 unit 09/24/20 08:00 09/28/20 12:20 Insulin Aspart 300 Unit/3 Ml Pen SUBQ Not Given 0800,1200,1700,2100 [facility] Protocol Ketorolac Tromethamine 15 mg 09/27/20 12:48 09/28/20 13:21 Ketorolac 15 Mg/Ml Vial IVP 10/02/20 12:47 15 mg Q6HR PRN Administration PAIN Metoprolol Succinate 100 mg 09/24/20 09:00 09/28/20 09:27 Metoprolol Succinate 50 Mg Tablet PO 100 mg DAILY RAMIRO Administration Oxycodone HCl 5 mg 09/24/20 10:10 09/27/20 09:54 Oxycodone 5 Mg Tablet PO 5 mg Q6HR PRN Administration PAIN Polyethylene Glycol 17 gm 09/27/20 10:00 09/28/20 09:25 Polyethylene Glycol 3350 17 Gm Packet PO 17 gm DAILY RAMIRO Administration Multivit/Folic Acid/Iron 1 tab 09/24/20 08:00 09/28/20 08:14 Vitamin Tablet PO 1 tab DAILYWM RAMIRO Administration Sodium Chloride 10 ml 09/25/20 17:00 09/28/20 09:25 Sodium Chloride Flush 0.9% 10 Ml Syringe IVP 10 ml 0100,0900,1700 RAMIRO Administration Thiamine HCl 100 mg 09/24/20 09:00 09/28/20 09:24 Thiamine 100 Mg Tablet PO 100 mg DAILY RAMIRO Administration Warfarin Sodium 2.5 mg 09/26/20 14:00 09/28/20 13:21 Warfarin 2.5 Mg Tablet PO 2.5 mg QDWARFARIN RAMIRO Administration - Lab Result Fish Bone Diagrams: 09/28/20 11:32 09/28/20 08:17 - Additional Planning My Orders: My Active Orders 09/28/20 UA w/ MICROSCOPIC, CULT IF [URIN] Urgent 09/28/20 11:00 Ferrous Gluconate [Fergon] 324 mg PO DAILYWM 09/28/20 13:17 Incentive Spirometry - RT [RC] TID 09/29/20 05:00 BMP - BASIC METABOLIC PANEL [CHEM] DAILYLAB CBC - COMP BLD CT W/AUTO DIFF [HEME] DAILYLAB 09/30/20 05:00 BMP - BASIC METABOLIC PANEL [CHEM] DAILYLAB CBC - COMP BLD CT W/AUTO DIFF [HEME] DAILYLAB 10/01/20 05:00 BMP - BASIC METABOLIC PANEL [CHEM] DAILYLAB CBC - COMP BLD CT W/AUTO DIFF [HEME] DAILYLAB 10/02/20 05:00 BMP - BASIC METABOLIC PANEL [CHEM] DAILYLAB CBC - COMP BLD CT W/AUTO DIFF [HEME] DAILYLAB 10/03/20 05:00 BMP - BASIC METABOLIC PANEL [CHEM] DAILYLAB CBC - COMP BLD CT W/AUTO DIFF [HEME] DAILYLAB Subjective - Subjective Nursing Reports: Confused Objective Vital Signs: Vital Signs - 24 hr 09/27/20 09/27/20 09/28/20 15:58 20:56 01:00 Temperature 36.3 C L 36.3 C L 37 C Heart Rate Heart Rate [ 79 79 87 Brachial] Respiratory 27 H 22 16 Rate Blood Pressure 106/59 L 133/46 H 118/60 [Right Brachial artery] O2 Saturation 96 99 94 0109/28/20 09/28/20 06:00 07:41 09:28 Temperature 36.9 C 37.3 C Heart Rate Heart Rate [ 78 80 Brachial] Respiratory 24 14 Rate Blood Pressure 119/75 106/55 L 115/51 L [Right Brachial artery] O2 Saturation 93 94 09/28/20 09/28/20 09:43 12:21 Temperature 37.4 C Heart Rate 94 Heart Rate [ 73 Brachial] Respiratory 28 H 14 Rate Blood Pressure 102/53 L [Right Brachial artery] O2 Saturation 99 Oxygen O2 Source Room air I&O (Last 24 Hrs): Intake and Output Totals x24h 09/26/20 09/27/20 09/28/20 23:59 23:59 23:59 Intake Total 2836.667 2160 240 Output Total 1325 1225 Balance 1511.667 935 240 General: Alert, No acute distress HEENT: Atraumatic Neck: Supple Lymphatic: no adenopathy Neuro: Alert, Non Focal Cardiovascular: Regular rate, Normal S1, Normal S2 Respiratory: Chest non-tender, No respiratory distress Extremities: Normal pulses Skin: No breakdown - Results Results: Laboratory Results WBC 15.0 x10^3/uL (4.8-10.8) H 09/28/20 11:32 RBC 2.49 10^6/uL (4.20-5.40) L 09/28/20 11:32 Hgb 8.8 g/dL (12.0-16.0) L 09/28/20 11:32 Hct 26.6 % (37.0-47.0) L 09/28/20 11:32 MCV 106.8 fL (81.0-99.0) H 09/28/20 11:32 MCH 35.3 pg (27.0-31.0) H 09/28/20 11:32 MCHC 33.1 g/dL (32.0-36.0) 09/28/20 11:32 RDW 14.1 % (12.0-15.0) 09/28/20 11:32 Plt Count 366 10^3/uL (130-450) 09/28/20 11:32 MPV 9.6 fL (7.9-10.8) 09/28/20 11:32 Reticulocyte % (Auto) 4.83 % (0.5-2.3) H 09/28/20 08:17 Neut # (Auto) Not Reportable 09/28/20 11:32 Lymph # (Auto) Not Reportable 09/28/20 11:32 [place] # (Auto) Not Reportable 09/28/20 11:32 Eos # (Auto) Not Reportable 09/28/20 11:32 Baso # (Auto) Not Reportable 09/28/20 11:32 Absolute Nucleated RBC Not Reportable 09/28/20 11:32 Total Counted 100 09/28/20 11:32 Band Neuts % (Manual) 1 % (0-10) 09/28/20 11:32 Reactive Lymphs % (Man) 4 % 09/23/20 21:45 Abnorm Lymph % (Manual) 0 % 09/28/20 11:32 Metamyelocytes % 1 % (-0) H 09/28/20 11:32 Myelocytes % 2 % (-0) H 09/28/20 08:17 Nucleated RBC % Not Reportable 09/28/20 11:32 Neutrophils # (Manual) 11.6 10^3/uL (1.5-6.6) H 09/28/20 11:32 Lymphocytes # (Manual) 1.8 10^3/uL (1.5-3.5) 09/28/20 11:32 Monocytes # (Manual) 1.2 10^3/uL (0.0-1.0) H 09/28/20 11:32 Eosinophils # (Manual) 0.3 10^3/uL (0-0.7) 09/28/20 11:32 Basophils # (Manual) 0.0 10^3/uL (0-0.1) 09/28/20 11:32 Differential Comment MANUAL DIFFERENTIAL 09/28/20 11:32 WBC Morphology NORMAL APPEARANCE (NORMAL) 09/28/20 11:32 Platelet Estimate NORMAL (130-450,000) (NORMAL) 09/28/20 11:32 Platelet Morphology NORMAL APPEARANCE (NORMAL) 09/28/20 11:32 RBC Morph Micro Appear 1+ ANISOCYTOSIS (NORMAL) 1+ MACROCYTOSIS (NORMAL) 1+ POLYCHROMASIA (NORMAL) 09/28/20 11:32 RBC Morph Micro Appear 1+ ANISOCYTOSIS (NORMAL) 1+ MACROCYTOSIS (NORMAL) 1+ POLYCHROMASIA (NORMAL) 09/28/20 11:32 RBC Morph Micro Appear 1+ ANISOCYTOSIS (NORMAL) 1+ MACROCYTOSIS (NORMAL) 1+ POLYCHROMASIA (NORMAL) 09/28/20 11:32 Absolute Retic 0.125 10^6/uL (0.020-0.110) H 09/28/20 08:17 PT 18.4 secs (9.9-12.6) H 09/28/20 08:17 INR 1.7 (0.8-1.2) H 09/28/20 08:17 Sodium 135 mmol/L (135-145) 09/28/20 08:17 Potassium 3.5 mmol/L (3.5-5.0) 09/28/20 08:17 Chloride 98 mmol/L (101-111) L 09/28/20 08:17 Carbon Dioxide 25 mmol/L (21-32) 09/28/20 08:17 Anion Gap 12.0 (6-13) 09/28/20 08:17 BUN 18 mg/dL (6-20) 09/28/20 08:17 Creatinine 1.0 mg/dL (0.4-1.0) 09/28/20 08:17 Estimated GFR (MDRD) 53 (>89) L 09/28/20 08:17 Glucose 102 mg/dL (70-100) H 09/28/20 08:17 Estimat Average Glucose 131 mg/dL (70-100) H 09/24/20 04:09 Hemoglobin A1c % 6.2 % (4.27-6.07) H 09/24/20 04:09 Calcium 8.1 mg/dL (8.5-10.3) L 09/28/20 08:17 Magnesium 2.0 mg/dL (1.7-2.8) 09/28/20 08:17 Iron 24 ug/dL (28-170) L 09/28/20 08:17 TIBC 290 ug/dL (250-450) 09/28/20 08:17 % Saturation 8 % (20-50) L 09/28/20 08:17 Transferrin 207 mg/dL (192-382) 09/28/20 08:17 Ferritin 280.1 ng/mL (11.0-306.8) 09/28/20 08:17 Total Bilirubin 1.1 mg/dL (0.2-1.0) H 09/23/20 21:45 AST 43 IU/L (10-42) H 09/23/20 21:45 ALT 27 IU/L (10-60) 09/23/20 21:45 Alkaline Phosphatase 48 IU/L (42-121) 09/23/20 21:45 Lactate Dehydrogenase 252 IU/L (91-225) H 09/28/20 08:17 Total Protein 7.4 g/dL (6.7-8.2) 09/23/20 21:45 Albumin 4.1 g/dL (3.2-5.5) 09/23/20 21:45 Globulin 3.3 g/dL (2.1-4.2) 09/23/20 21:45 Albumin/Globulin Ratio 1.2 (1.0-2.2) 09/23/20 21:45 Lipase 29 U/L (22-51) 09/23/20 21:45 Vitamin B12 470 pg/mL (180-914) 09/27/20 11:32 Folate 7.92 ng/mL (5.90 - >24.8) 09/27/20 11:32 Urine Color YELLOW 09/23/20 22:26 Urine Clarity CLEAR (CLEAR) 09/23/20 22:26 Urine pH 5.5 PH (5.0-7.5) 09/23/20 22:26 Ur Specific [place] 1.015 (1.002-1.030) 09/23/20 22:26 Urine Protein TRACE mg/dL (NEGATIVE) 09/23/20 22:26 Urine Glucose (UA) NEGATIVE mg/dL (NEGATIVE) 09/23/20 22:26 Urine Ketones NEGATIVE mg/dL (NEGATIVE) 09/23/20 22:26 Urine Occult Blood SMALL (NEGATIVE) H 09/23/20 22:26 Urine Nitrite NEGATIVE (NEGATIVE) 09/23/20 22:26 Urine Bilirubin NEGATIVE (NEGATIVE) 09/23/20 22: Urine Urobilinogen 0.2 (NORMAL) E.U./dL (NORMAL) 09/23/20 22:26 Ur Leukocyte Esterase NEGATIVE (NEGATIVE) 09/23/20 22:26 Urine RBC 0-5 /HPF (0-5) 09/23/20 22:26 Urine WBC 0-3 /HPF (0-5) 09/23/20 22:26 Ur Epithelial Cells FEW Renal Tubular /HPF (<= Few) 09/23/20 22:26 Ur Squamous Epith Cells MOD Squamous (<= Few) H 09/23/20 22:26 Urine Bacteria Rare /HPF (None Seen) 09/23/20 22:26 Urine Casts 6-10 Hyaline Casts /LPF 09/23/20 22:26 Urine Mucus Few Strands 09/23/20 22:26 Ur Microscopic Review INDICATED 09/23/20 22:26 Urine Culture Comments NOT INDICATED 09/23/20 22:26 Nasal Adenovirus (PCR) NOT DETECTED 09/23/20 22:16 Nasal B. parapertussis DNA (PCR) NOT DETECTED 09/23/20 22:16 Nasal Coronavir 229E PCR NOT DETECTED 09/23/20 22:16 Nasal Coronavir HKU1 PCR NOT DETECTED 09/23/20 22:16 Nasal Coronavir NL63 PCR NOT DETECTED 09/23/20 22:16 Nasal Coronavir OC43 PCR NOT DETECTED 09/23/20 22:16 Nasal Enterovir/Rhinovir PCR NOT DETECTED 09/23/20 22:16 Nasal Influenza B PCR NOT DETECTED 09/23/20 22:16 Nasal Influenza A PCR NOT DETECTED 09/23/20 22:16 Nasal Parainfluen 1 PCR NOT DETECTED 09/23/20 22:16 Nasal Parainfluen 2 PCR NOT DETECTED 09/23/20 22:16 Nasal Parainfluen 3 PCR NOT DETECTED 09/23/20 22:16 Nasal Parainfluen 4 PCR NOT DETECTED 09/23/20 22:16 Nasal RSV (PCR) NOT DETECTED 09/23/20 22:16 Nasal B.pertussis DNA PCR NOT DETECTED 09/23/20 22:16 Nasal C.pneumoniae (PCR) NOT DETECTED 09/23/20 22:16 Yuriy Human Metapneumo PCR NOT DETECTED 09/23/20 22:16 Nasal M.pneumoniae (PCR) NOT DETECTED 09/23/20 22:16 Nasal SARS-CoV-2 (PCR) NOT DETECTED 09/23/20 22:16 Last Dose Date 09-23-20 09/24/20 04:09 Last Dose Time 0900 09/24/20 04:09 Digoxin 1.1 ng/mL 09/24/20 04:09 Ethyl Alcohol < 5.0 mg/dL 09/24/20 05:45 - Procedures Procedures: Procedures REPLACEMENT OF LEFT LENS WITH SYNTH SUB, PERC APPROACH (05/17/17) REPLACEMENT OF RIGHT LENS WITH SYNTH SUB, PERC APPROACH (08/30/17) ABX Reporting Has patient been on IV antibiotics over the past 48 hours?: No Current Medications - Current Medications Current Medications: Active Medications Acetaminophen (Acetaminophen 325 Mg Tablet) 650 - 975 mg PO Q4HR PRN PRN Reason: PAIN Last Admin: 09/28/20 09:24 Dose: 650 mg Documented by: Albuterol (Albuterol Neb 2.5 Mg/3 Ml) 2.5 mg INH RTQ4H PRN PRN Reason: Wheezing Last Admin: 09/24/20 08:22 Dose: 2.5 mg Documented by: Albuterol/Ipratropium (Ipratropium/Albuterol 3 Ml Neb) 3 ml INH RTQID PRN PRN Reason: Shortness of Air/Wheezing Bumetanide (Bumetanide 1 Mg Tablet) 2 mg PO DAILY [facility] Last Admin: 09/28/20 10:28 Dose: 2 mg Documented by: Digoxin (Digoxin 125 Mcg Tablet) 125 mcg PO DAILY [facility] Last Admin: 09/28/20 09:23 Dose: 125 mcg Documented by: Docusate Sodium (Docusate Sodium 100 Mg Capsule) 100 mg PO BID PRN PRN Reason: Constipation Last Admin: 09/27/20 09:04 Dose: 100 mg Documented by: Docusate Sodium (Docusate Sodium 250 Mg Capsule) 250 - 500 mg PO DAILY [facility] Last Admin: 09/28/20 09:23 Dose: 250 mg Documented by: Famotidine (Famotidine 20 Mg Tablet) 20 mg PO BID [facility] Last Admin: 09/28/20 09:23 Dose: 20 mg Documented by: Ferrous Gluconate (Ferrous Gluconate 324 Mg Tablet) 324 mg PO DAILYWM [facility] Last Admin: 09/28/20 12:16 Dose: 324 mg Documented by: Gabapentin (Gabapentin 300 Mg Capsule) 300 mg PO BID [facility] Last Admin: 09/28/20 09:24 Dose: 300 mg Documented by: Hydromorphone HCl (Hydromorphone 0.5 Mg/0.5 Ml Syringe) 0.5 mg IVP Q2H PRN PRN Reason: PAIN Insulin Aspart (Insulin Aspart 300 Unit/3 Ml Pen) 1 - 5 unit SUBQ 0800,1200,1700,2100 [facility]; Protocol Last Admin: 09/28/20 12:20 Dose: Not Given Documented by: Ketorolac Tromethamine (Ketorolac 15 Mg/Ml Vial) 15 mg IVP Q6HR PRN PRN Reason: PAIN Stop: 10/02/20 12:47 Last Admin: 09/28/20 13:21 Dose: 15 mg Documented by: Lorazepam (Lorazepam 2 Mg/Ml Vial) 1 mg IVP Q30M PRN; Protocol PRN Reason: CIWA >8 Metoprolol Succinate (Metoprolol Succinate 50 Mg Tablet) 100 mg PO DAILY [facility] Last Admin: 09/28/20 09:27 Dose: 100 mg Documented by: Ondansetron HCl (Ondansetron 4 Mg/2 Ml Vial) 4 mg IVP Q6HR PRN PRN Reason: Nausea / Vomiting Oxycodone HCl (Oxycodone 5 Mg Tablet) 5 mg PO Q6HR PRN PRN Reason: PAIN Last Admin: 09/27/20 09:54 Dose: 5 mg Documented by: Polyethylene Glycol (Polyethylene Glycol 3350 17 Gm Packet) 17 gm PO DAILY [facility] Last Admin: 09/28/20 09:25 Dose: 17 gm Documented by: Multivit/Folic Acid/Iron ( Vitamin Tablet) 1 tab PO DAILYWM [facility] Last Admin: 09/28/20 08:14 Dose: 1 tab Documented by: Prochlorperazine Edisylate (Prochlorperazine 10 Mg/2 Ml Vial) 10 mg IVP Q6HR PRN PRN Reason: Nausea / Vomiting Senna (Senna 8.6 Mg Tablet) 17.2 mg PO Q12H PRN PRN Reason: Constipation Sodium Chloride (Sodium Chloride Flush 0.9% 10 Ml Syringe) 10 ml IVP 010 0,0900,1700 [facility] Last Admin: 09/28/20 09:25 Dose: 10 ml Documented by: Sodium Chloride (Sodium Chloride Flush 0.9% 10 Ml Syringe) 10 ml IVP PRN PRN PRN Reason: NEEDED PER PROVIDER ORDERS Thiamine HCl (Thiamine 100 Mg Tablet) 100 mg PO DAILY [facility] Last Admin: 09/28/20 09:24 Dose: 100 mg Documented by: Warfarin Sodium (Warfarin 2.5 Mg Tablet) 2.5 mg PO QDWARFARIN [facility] Last Admin: 09/28/20 13:21 Dose: 2.5 mg Documented by: Gabapentin [Neurontin] 300 mg PO BID 03/04/13 metFORMIN [Glucophage] 500 mg PO DAILY 04/06/15 Digoxin 0.125 mg PO DAILY 08/30/16 Warfarin [Coumadin] 2.5 mg PO QDWARFARIN 01/22/17 Aspirin 81 mg PO DAILY 12/11/18 Bumetanide 2 mg PO BID 08/19/20 Metoprolol Succinate [Toprol Xl] 50 mg PO DAILY 09/24/20
[2020-09-28 14:31] LABS: BILIRUBIN,URINE NEGATIVE (NEGATIVE); GLUCOSE, URINE (UA) NEGATIVE (NEGATIVE); KETONES,URINE (UA) NEGATIVE (NEGATIVE); LEUKOCYTE ESTERASE, URINE TRACE (NEGATIVE); NITRITE,URINE NEGATIVE (NEGATIVE); OCCULT BLOOD,URINE NEGATIVE (NEGATIVE); PROTEIN,URINE NEGATIVE (NEGATIVE); UROBILINOGEN,URINE 0.2 (NORMAL) E.U./dL (NORMAL)
[2020-09-28 14:37] LABS: CLARITY,URINE HAZY (CLEAR)
[2020-09-28 14:47] LABS: BACTERIA,URINE Few /HPF (None Seen); RBC,URINE 0-5 /HPF (0-5); SQUAMOUS EPITHELIAL CELL,UR MANY Squamous (<= Few)
[2020-09-28 14:48] LABS: MUCUS,URINE Few Strands
[2020-09-28] MEDS ORDERED: FAMOTIDINE 20 MG TABLET PO SCH (17:34)
[2020-09-28] MEDS ORDERED: GABAPENTIN 300 MG CAPSULE PO SCH (17:36)
[2020-09-28] MEDS ORDERED: SODIUM CHLORIDE 0.9% 500 ML IV ONE (20:41)
[2020-09-28 21:05] LABS: HCT - HEMATOCRIT 24.3 % (37.0-47.0); HGB - HEMOGLOBIN 7.9 g/dL (12.0-16.0)
[2020-09-29] MEDS: SODIUM CHLORIDE FLUSH 0.9% 10 ML SYRINGE IVP SCH ×3 (01:17→17:58)
[2020-09-29] MEDS: KETOROLAC 15 MG/ML VIAL IVP PRN ×2 (04:55→19:26)
[2020-09-29 05:43] LABS: BASOPHILS % (AUTO) 0.6 %; EOSINOPHILS % (AUTO) 2.3 %; HCT - HEMATOCRIT 25.7 % (37.0-47.0); HGB - HEMOGLOBIN 8.4 g/dL (12.0-16.0); LYMPHOCYTES % (AUTO) 14.8 %; MEAN CORPUSCULAR HEMOGLOBIN 35.6 pg (27.0-31.0); MEAN CORPUSCULAR HGB CONC 32.7 g/dL (32.0-36.0); MEAN CORPUSCULAR VOLUME 108.9 fL (81.0-99.0); MEAN PLATELET VOLUME 9.8 fL (7.9-10.8); MONOCYTES % (AUTO) 11.6 %; NEUTROPHILS % (AUTO) 63.3 %; PLT - PLATELET COUNT 387 10^3/uL (130-450); RED BLOOD COUNT 2.36 10^6/uL (4.20-5.40); RED CELL DISTRIBUTION WIDTH 14.2 % (12.0-15.0); WHITE BLOOD COUNT 11.2 x10^3/uL (4.8-10.8)
[2020-09-29 05:50] LABS: ABNORMAL LYMPHS % (MANUAL) 0 %
[2020-09-29 05:51] LABS: CALCIUM 8.1 mg/dL (8.5-10.3); CREATININE 1.1 mg/dL (0.4-1.0); POTASSIUM 3.7 mmol/L (3.5-5.0)
[2020-09-29 06:21] LABS: BAND NEUTROPHILS % (MANUAL) 8 %; EOSINOPHILS # (MANUAL) 0.2 10^3/uL (0-0.7); LYMPHOCYTES # (MANUAL) 1.9 10^3/uL (1.5-3.5); LYMPHOCYTES % (MANUAL) 17 %; METAMYELOCYTES % (MANUAL) 2 %; MYELOCYTES % (MANUAL) 5 %; NEUTROPHILS # (MANUAL) 7.3 10^3/uL (1.5-6.6)
[2020-09-29 06:22] LABS: DIFFERENTIAL COMMENT MANUAL DIFFERENTIAL; PLATELET ESTIMATE, MANUAL NORMAL (130-450,000) (NORMAL); WBC MORPHOLOGY (MULTIPLE) 1+ TOXIC GRANULATION (NORMAL)
[2020-09-29] MEDS: FERROUS GLUCONATE 324 MG TABLET PO SCH (08:25)
[2020-09-29] MEDS: GABAPENTIN 300 MG CAPSULE PO SCH ×2 (08:25→17:43)
[2020-09-29] MEDS: FAMOTIDINE 20 MG TABLET PO SCH ×2 (08:25→17:43)
[2020-09-29] MEDS: INSULIN ASPART 300 UNIT/3 ML PEN SUBQ SCH ×4 (08:29→22:27)
[2020-09-29] MEDS: PRENATAL VITAMIN TABLET PO SCH (08:38)
[2020-09-29] MEDS: DIGOXIN 125 MCG TABLET PO SCH (08:40)
[2020-09-29] MEDS ORDERED: METOPROLOL SUCCINATE 50 MG TABLET PO SCH (08:41)
[2020-09-29] MEDS: DOCUSATE SODIUM 100 MG CAPSULE PO PRN ×3 (08:42→08:47)
[2020-09-29] MEDS: polyethylene glycoL 3350 17 GM PACKET PO SCH (08:55)
[2020-09-29] MEDS: DOCUSATE SODIUM 250 MG CAPSULE PO SCH ×2 (08:56→13:36)
[2020-09-29] MEDS: THIAMINE 100 MG TABLET PO SCH (08:57)
[2020-09-29 08:59] LABS: PT - PROTHROMBIN TIME 21.6 secs (9.9-12.6)
[2020-09-29] MEDS: SODIUM CHLORIDE 0.9% 1,000 ML IV SCH ×2 (09:10→19:26)
[2020-09-29] MEDS: BUMETANIDE 1 MG TABLET PO SCH (12:10)
[2020-09-29] MEDS: WARFARIN 2.5 MG TABLET PO SCH (13:34)
--- NOTE | 2020-09-29 14:38 | PROVIDER PROGRESS NOTE ---
Assessment/Plan - Problem List (1) Hypotension Assessment/Plan: 09/29 pt Had blood pressure 87/32 in last night, Patient continue to have low blood pressure, Patient still has some confused To answer the questions. Troponin was slightly elevated but continue to reduce and flat. Patient denied any chest pain. We will reduce patient blood pressure medicine metoprolol from 100 mg daily to 50 mg daily, Nurse hold the Bumex now. Patient also was given intravenous IV fluids for her dehydration. We will continue closely monitor patient's vital signs. (2) Closed right hip fracture 09/29 continue PT/OT, INR is 2.0, home coumadin can be used as DVT prophylaxis. 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 This is day 3 status post of right hip repair, We will continue PT and OT evaluation and treatment, Continue pain control. 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 add incentive spirometer. (3) Atrial fibrillation 09/29 Heart rate is controlled, metoprolol succinate is changed to 50 mg p.o. daily and continue digoxin 125 mcg p.o. daily, Continue Coumadin, continue PT INR, INR is 2.0 today pt's heart rate is controlled. continue On Coumadin 2.5 mg p.o. daily. Resumed for the following day. check PT/INR daily continue he is on metoprolol succinate 100 mg p.o. daily and digoxin 125 mcg p.o. daily. (4) Diabetes continue On sliding scale insulin. her A1C is 6.2 Accu-Cheks before every meal and at bedtime. (5) Hypertension stable, continue metoprolol succinate 100 mg p.o. daily (6) Confusion pt is still present some confused on today. Dementia is suspected. it is likely combination of recently surgery, opiates for pt, and hx of dementia. The patient's daughter reports cognitive decline. Occupational Therapy consulted for a cognitive eval on 09/27/20. checking vitamin B12, folate are unremarkable. treponema antibody test is pending. continue neuro check. (7) History of alcohol abuse Assessment/Plan: It was reported that patient drinks at least 2 cocktails daily. CIWA protocol ordered. Librium was disContinued before because the patient was significantly sedated, pt did not show obvious alcohol withdrawal We will continue to monitor and treat accordingly. (8) Acute kidney injury Assessment/Plan: Resolved with IV hydration. (9)anemia Patient has 8.8 hemoglobin on today. Patient's anemia is likely combination of acute blood loss from recently surgery and iron deficiency anemia according to anemia study. Iron pill is prescribed for patient. (10) hx of transcatheter aortic valve replacement 09/29 Today INR is 2.0, We will continue Coumadin, continue check PT/INR. pt has been on Coumadin, INR is 1.7 today, will Coumadin, and Continue check PT and INR (11) dementia OT had cognitive testing for patient , patient has history of dementia, Patient still has some confused on today. (2) Closed right hip fracture Qualifiers: Encounter type: initial encounter Qualified Code(s): S72.001A - Fracture of unspecified part of neck of right femur, initial encounter for closed fracture - Current Meds Current Meds: Current Medications Generic Name Dose Route Start Last Admin Trade Name Freq PRN Reason Stop Dose Admin Acetaminophen 650 - 975 mg 09/25/20 10:42 09/28/20 14:06 Acetaminophen 325 Mg Tablet PO 650 mg Q4HR PRN Administration PAIN Albuterol 2.5 mg 09/24/20 08:16 09/24/20 08:22 Albuterol Neb 2.5 Mg/3 Ml INH 2.5 mg RTQ4H PRN Administration Wheezing Bumetanide 2 mg 09/24/20 09:00 09/29/20 12:10 Bumetanide 1 Mg Tablet PO Not Given DAILY RAMIRO Digoxin 125 mcg 09/24/20 09:00 09/29/20 08:40 Digoxin 125 Mcg Tablet PO 125 mcg DAILY RAMIRO Administration Docusate Sodium 100 mg 09/25/20 10:42 09/29/20 08:47 Docusate Sodium 100 Mg Capsule PO 100 mg BID PRN Administration Constipation Docusate Sodium 250 - 500 mg 09/28/20 09:00 09/29/20 13:36 Docusate Sodium 250 Mg Capsule PO Not Given DAILY RAMIRO Famotidine 20 mg 09/28/20 18:00 09/29/20 08:25 Famotidine 20 Mg Tablet PO 20 mg BIDWM RAMIRO Administration Ferrous Gluconate 324 mg 09/28/20 11:00 09/29/20 08:25 Ferrous Gluconate 324 Mg Tablet PO 324 mg DAILYWM [facility]IRO Administration Gabapentin 300 mg 09/28/20 18:00 09/29/20 08:25 Gabapentin 300 Mg Capsule PO 300 mg BIDWM RAMIRO Administration Hydromorphone HCl 0.5 mg 09/25/20 10:42 09/29/20 01:23 Hydromorphone 0.5 Mg/0.5 Ml Syringe IVP 0.5 mg Q2H PRN Administration PAIN Sodium Chloride 1,000 mls @ 100 mls/hr 09/29/20 09:00 09/29/20 14:17 Normal Saline 0.9% IV 09/30/20 04:59 100 mls/hr .Q10H RAMIRO Infusion Insulin Aspart 1 - 5 unit 09/24/20 08:00 09/29/20 12:08 Insulin Aspart 300 Unit/3 Ml Pen SUBQ Not Given 0800,1200,1700,2100 [facility] Protocol Ketorolac Tromethamine 15 mg 09/27/20 12:48 09/29/20 04:55 Ketorolac 15 Mg/Ml Vial IVP 10/02/20 12:47 15 mg Q6HR PRN Administration PAIN Oxycodone HCl 5 mg 09/24/20 10:10 09/27/20 09:54 Oxycodone 5 Mg Tablet PO 5 mg Q6HR PRN Administration PAIN Polyethylene Glycol 17 gm 09/27/20 10:00 09/29/20 08:55 Polyethylene Glycol 3350 17 Gm Packet PO 17 gm DAILY [facility] Administration Multivit/Folic Acid/Iron 1 tab 09/24/20 08:00 09/29/20 08:38 Vitamin Tablet PO 1 tab DAILYWM [facility] Administration Sodium Chloride 10 ml 09/25/20 17:00 09/29/20 08:50 Sodium Chloride Flush 0.9% 10 Ml Syringe IVP Not Given 0100,0900,1700 [facility] Thiamine HCl 100 mg 09/24/20 09:00 09/29/20 08:57 Thiamine 100 Mg Tablet PO 100 mg DAILY [facility] Administration Warfarin Sodium 2.5 mg 09/26/20 14:00 09/29/20 13:34 Warfarin 2.5 Mg Tablet PO 2.5 mg QDWARFARIN [facility] Administration - Lab Result Fish Bone Diagrams: 09/29/20 05:07 09/29/20 05:07 - Additional Planning My Orders: My Active Orders 09/28/20 13:42 Nutrition Consult [CONS] Routine 09/28/20 14:02 Neuro Check [RC] QSHIFT 09/29/20 09:00 Sodium Chloride 0.9% [Normal Saline 0.9%] 1,000 ml IV 100 mls/hr 09/30/20 05:00 BMP - BASIC METABOLIC PANEL [CHEM] DAILYLAB CBC - COMP BLD CT W/AUTO DIFF [HEME] DAILYLAB PT WITH INR [COAG] DAILYLAB 09/30/20 09:00 Metoprolol Succinate [Toprol Xl] 50 mg PO DAILY 10/01/20 05:00 BMP - BASIC METABOLIC PANEL [CHEM] DAILYLAB CBC - COMP BLD CT W/AUTO DIFF [HEME] DAILYLAB PT WITH INR [COAG] DAILYLAB 10/02/20 05:00 BMP - BASIC METABOLIC PANEL [CHEM] DAILYLAB CBC - COMP BLD CT W/AUTO DIFF [HEME] DAILYLAB PT WITH INR [COAG] DAILYLAB 10/03/20 05:00 BMP - BASIC METABOLIC PANEL [CHEM] DAILYLAB CBC - COMP BLD CT W/AUTO DIFF [HEME] DAILYLAB PT WITH INR [COAG] DAILYLAB 10/04/20 05:00 PT WITH INR [COAG] DAILYLAB Subjective - Subjective Patient Reports: Fatigue Objective Vital Signs: Vital Signs - 24 hr 09/28/20 09/28/20 09/28/20 15:46 20:24 21:30 Temperature 36.5 C 36.1 C L 36.2 C L Heart Rate [ 64 63 71 Brachial] Respiratory 24 24 24 Rate Blood Pressure 87/32 L [Left Brachial artery] Blood Pressure 108/50 L 92/34 L 97/43 L [Right Brachial artery] O2 Saturation 97 95 94 09/29/20 09/29/20 09/29/20 01:00 05:00 07:30 Temperature 36.7 C 36.4 C L 36.7 C Heart Rate [ 73 70 72 Brachial] Respiratory 16 28 H 14 Rate Blood Pressure [Left Brachial artery] Blood Pressure 95/48 L 104/43 L 103/41 L [Right Brachial artery] O2 Saturation 96 94 95 09/29/20 09/29/20 09:03 12:51 Temperature 36.7 C Heart Rate [ 56 L 82 Brachial] Respiratory 16 16 Rate Blood Pressure [Left Brachial artery] Blood Pressure 95/47 L 105/56 L [Right Brachial artery] O2 Saturation 98 96 Oxygen O2 Source Room air I&O (Last 24 Hrs): Intake and Output Totals x24h 09/27/20 09/28/20 09/29/20 23:59 23:59 23:59 Intake Total 2160 1746 1671.667 Output Total 1225 550 100 Balance 935 1196 1571.667 General: Alert, No acute distress HEENT: Atraumatic, PERRLA Neck: Supple Lymphatic: no adenopathy Neuro: Alert, Non Focal Cardiovascular: Regular rate, Normal S1, Normal S2 Respiratory: Chest non-tender, No respiratory distress Abdomen: Normal bowel sounds, Soft, No tenderness Extremities: Normal pulses - Results Results: Laboratory Results WBC 11.2 x10^3/uL (4.8-10.8) H 09/29/20 05:07 RBC 2.36 10^6/uL (4.20-5.40) L 09/29/20 05:07 Hgb 8.4 g/dL (12.0-16.0) L 09/29/20 05:07 Hct 25.7 % (37.0-47.0) L 09/29/20 05:07 MCV 108.9 fL (81.0-99.0) H 09/29/20 05:07 MCH 35.6 pg (27.0-31.0) H 09/29/20 05:07 MCHC 32.7 g/dL (32.0-36.0) 09/29/20 05:07 RDW 14.2 % (12.0-15.0) 09/29/20 05:07 Plt Count 387 10^3/uL (130-450) 09/29/20 05:07 MPV 9.8 fL (7.9-10.8) 09/29/20 05:07 Reticulocyte % (Auto) 4.83 % (0.5-2.3) H 09/28/20 08:17 Neut # (Auto) Not Reportable 09/29/20 05:07 Lymph # (Auto) Not Reportable 09/29/20 05:07 [place]ett # (Auto) Not Reportable 09/29/20 05:07 Eos # (Auto) Not Reportable 09/29/20 05:07 Baso # (Auto) Not Reportable 09/29/20 05:07 Absolute Nucleated RBC Not Reportable 09/29/20 05:07 Total Counted 100 09/29/20 05:07 Band Neuts % (Manual) 8 % (0-10) 09/29/20 05:07 Reactive Lymphs % (Man) 4 % 09/23/20 21:45 Abnorm Lymph % (Manual) 0 % 09/29/20 05:07 Metamyelocytes % 2 % (-0) H 09/29/20 05:07 Myelocytes % 5 % (-0) H 09/29/20 05:07 Nucleated RBC % Not Reportable 09/29/20 05:07 Neutrophils # (Manual) 7.3 10^3/uL (1.5-6.6) H 09/29/20 05:07 Lymphocytes # (Manual) 1.9 10^3/uL (1.5-3.5) 09/29/20 05:07 Monocytes # (Manual) 1.0 10^3/uL (0.0-1.0) 09/29/20 05:07 Eosinophils # (Manual) 0.2 10^3/uL (0-0.7) 09/29/20 05:07 Basophils # (Manual) 0.0 10^3/uL (0-0.1) 09/29/20 05:07 Differential Comment MANUAL DIFFERENTIAL 09/29/20 05:07 WBC Morphology 1+ TOXIC GRANULATION (NORMAL) 09/29/20 05:07 Platelet Estimate NORMAL (130-450,000) (NORMAL) 09/29/20 05:07 Platelet Morphology NORMAL APPEARANCE (NORMAL) 09/28/20 11:32 RBC Morph Micro Appear 1+ ANISOCYTOSIS (NORMAL) 2+ MACROCYTOSIS (NORMAL) 1+ HYPOCHROMASIA (NORMAL) 1+ POLYCHROMASIA (NORMAL) 09/29/20 05:07 RBC Morph Micro Appear 1+ ANISOCYTOSIS (NORMAL) 2+ MACROCYTOSIS (NORMAL) 1+ HYPOCHROMASIA (NORMAL) 1+ POLYCHROMASIA (NORMAL) 09/29/20 05:07 RBC Morph Micro Appear 1+ ANISOCYTOSIS (NORMAL) 2+ MACROCYTOSIS (NORMAL) 1+ HYPOCHROMASIA (NORMAL) 1+ POLYCHROMASIA (NORMAL) 09/29/20 05:07 RBC Morph Micro Appear 1+ ANISOCYTOSIS (NORMAL) 2+ MACROCYTOSIS (NORMAL) 1+ HYPOCHROMASIA (NORMAL) 1+ POLYCHROMASIA (NORMAL) 09/29/20 05:07 Absolute Retic 0.125 10^6/uL (0.020-0.110) H 09/28/20 08:17 PT 21.6 secs (9.9-12.6) H 09/29/20 08:49 INR 2.0 (0.8-1.2) H 09/29/20 08:49 Sodium 135 mmol/L (135-145) 09/29/20 05:07 Potassium 3.7 mmol/L (3.5-5.0) 09/29/20 05:07 Chloride 100 mmol/L (101-111) L 09/29/20 05:07 Carbon Dioxide 29 mmol/L (21-32) 09/29/20 05:07 Anion Gap 6.0 (6-13) 09/29/20 05:07 BUN 25 mg/dL (6-20) H 09/29/20 05:07 Creatinine 1.1 mg/dL (0.4-1.0) H 09/29/20 05:07 Estimated GFR (MDRD) 48 (>89) L 09/29/20 05:07 Glucose 104 mg/dL (70-100) H 09/29/20 05:07 Estimat Average Glucose 131 mg/dL (70-100) H 09/24/20 04:09 Hemoglobin A1c % 6.2 % (4.27-6.07) H 09/24/20 04:09 Calcium 8.1 mg/dL (8.5-10.3) L 09/29/20 05:07 Magnesium 2.0 mg/dL (1.7-2.8) 09/28/20 08:17 Iron 24 ug/dL (28-170) L 09/28/20 08:17 TIBC 290 ug/dL (250-450) 09/28/20 08:17 % Saturation 8 % (20-50) L 09/28/20 08:17 Transferrin 207 mg/dL (192-382) 09/28/20 08:17 Ferritin 280.1 ng/mL (11.0-306.8) 09/28/20 08:17 Total Bilirubin 1.1 mg/dL (0.2-1.0) H 09/23/20 21:45 AST 43 IU/L (10-42) H 09/23/20 21:45 ALT 27 IU/L (10-60) 09/23/20 21:45 Alkaline Phosphatase 48 IU/L (42-121) 09/23/20 21:45 Lactate Dehydrogenase 252 IU/L (91-225) H 09/28/20 08:17 Troponin I High Sens 38.1 ng/L (2.3-14.8) H* 09/29/20 08:49 Total Protein 7.4 g/dL (6.7-8.2) 09/23/20 21:45 Albumin 4.1 g/dL (3.2-5.5) 09/23/20 21:45 Globulin 3.3 g/dL (2.1-4.2) 09/23/20 21:45 Albumin/Globulin Ratio 1.2 (1.0-2.2) 09/23/20 21:45 Lipase 29 U/L (22-51) 09/23/20 21:45 Vitamin B12 470 pg/mL (180-914) 09/27/20 11:32 Folate 7.92 ng/mL (5.90 - >24.8) 09/27/20 11:32 Urine Color YELLOW 09/28/20 14:20 Urine Clarity HAZY (CLEAR) 09/28/20 14:20 Urine pH 6.0 PH (5.0-7.5) 09/28/20 14:20 Ur Specific [place] 1.015 (1.002-1.030) 09/28/20 14:20 Urine Protein NEGATIVE mg/dL (NEGATIVE) 09/28/20 14:20 Urine Glucose (UA) NEGATIVE mg/dL (NEGATIVE) 09/28/20 14:20 Urine Ketones NEGATIVE mg/dL (NEGATIVE) 09/28/20 14:20 Urine Occult Blood NEGATIVE (NEGATIVE) 09/28/20 14:20 Urine Nitrite NEGATIVE (NEGATIVE) 09/28/20 14:20 Urine Bilirubin NEGATIVE (NEGATIVE) 09/28/20 14:20 Urine Urobilinogen 0.2 (NORMAL) E.U./dL (NORMAL) 09/28/20 14:20 Ur Leukocyte Esterase TRACE (NEGATIVE) H 09/28/20 14:20 Urine RBC 0-5 /HPF (0-5) 09/28/20 14:20 Urine WBC 11-25 /HPF (0-5) H 09/28/20 14:20 Ur Epithelial Cells FEW Renal Tubular /HPF (<= Few) 09/23/20 22:26 Ur Squamous Epith Cells MANY Squamous (<= Few) H 09/28/20 14:20 Urine Bacteria Few /HPF (None Seen) 09/28/20 14:20 Urine Casts 6-10 Hyaline Casts /LPF 09/23/20 22:26 Urine Mucus Few Strands 09/28/20 14:20 Ur Microscopic Review INDICATED 09/23/20 22:26 Urine Culture Comments NOT INDICATED 09/28/20 14:20 Nasal Adenovirus (PCR) NOT DETECTED 09/23/20 22:16 Nasal B. parapertussis DNA (PCR) NOT DETECTED 09/23/20 22:16 Nasal Coronavir 229E PCR NOT DETECTED 09/23/20 22:16 Nasal Coronavir HKU1 PCR NOT DETECTED 09/23/20 22:16 Nasal Coronavir NL63 PCR NOT DETECTED 09/23/20 22:16 Nasal Coronavir OC43 PCR NOT DETECTED 09/23/20 22:16 Nasal Enterovir/Rhinovir PCR NOT DETECTED 09/23/20 22:16 Nasal Influenza B PCR NOT DETECTED 09/23/20 22:16 Nasal Influenza A PCR NOT DETECTED 09/23/20 22:16 Nasal Parainfluen 1 PCR NOT DETECTED 09/23/20 22:16 Nasal Parainfluen 2 PCR NOT DETECTED 09/23/20 22:16 Nasal Parainfluen 3 PCR NOT DETECTED 09/23/20 22:16 Nasal Parainfluen 4 PCR NOT DETECTED 09/23/20 22:16 Nasal RSV (PCR) NOT DETECTED 09/23/20 22:16 Nasal B.pertussis DNA PCR NOT DETECTED 09/23/20 22:16 Nasal C.pneumoniae (PCR) NOT DETECTED 09/23/20 22:16 Yuriy Human Metapneumo PCR NOT DETECTED 09/23/20 22:16 Nasal M.pneumoniae (PCR) NOT DETECTED 09/23/20 22:16 Nasal SARS-CoV-2 (PCR) NOT DETECTED 09/23/20 22:16 Last Dose Date 09-23-20 09/24/20 04:09 Last Dose Time 0900 09/24/20 04:09 Digoxin 1.1 ng/mL 09/24/20 04:09 Ethyl Alcohol < 5.0 mg/dL 09/24/20 05:45 - Procedures Procedures: Procedures REPLACEMENT OF LEFT LENS WITH SYNTH SUB, PERC APPROACH (05/17/17) REPLACEMENT OF RIGHT LENS WITH SYNTH SUB, PERC APPROACH (08/30/17) Sepsis Event Note (H) - Evaluation Current Stage of Sepsis: Ruled out ABX Reporting Has patient been on IV antibiotics over the past 48 hours?: No Current Medications - Current Medications Current Medications: Active Medications Acetaminophen (Acetaminophen 325 Mg Tablet) 650 - 975 mg PO Q4HR PRN PRN Reason: PAIN Last Admin: 09/28/20 14:06 Dose: 650 mg Documented by: Albuterol (Albuterol Neb 2.5 Mg/3 Ml) 2.5 mg INH RTQ4H PRN PRN Reason: Wheezing Last Admin: 09/24/20 08:22 Dose: 2.5 mg Documented by: Albuterol/Ipratropium (Ipratropium/Albuterol 3 Ml Neb) 3 ml INH RTQID PRN PRN Reason: Shortness of Air/Wheezing Bumetanide (Bumetanide 1 Mg Tablet) 2 mg PO DAILY [facility] Last Admin: 09/29/20 12:10 Dose: Not Given Documented by: Digoxin (Digoxin 125 Mcg Tablet) 125 mcg PO DAILY [facility] Last Admin: 09/29/20 08:40 Dose: 125 mcg Documented by: Docusate Sodium (Docusate Sodium 100 Mg Capsule) 100 mg PO BID PRN PRN Reason: Constipation Last Admin: 09/29/20 08:47 Dose: 100 mg Documented by: Docusate Sodium (Docusate Sodium 250 Mg Capsule) 250 - 500 mg PO DAILY [facility] Last Admin: 09/29/20 13:36 Dose: Not Given Documented by: Famotidine (Famotidine 20 Mg Tablet) 20 mg PO BIDWM [facility] Last Admin: 09/29/20 08:25 Dose: 20 mg Documented by: Ferrous Gluconate (Ferrous Gluconate 324 Mg Tablet) 324 mg PO DAILYWM [facility] Last Admin: 09/29/20 08:25 Dose: 324 mg Documented by: Gabapentin (Gabapentin 300 Mg Capsule) 300 mg PO BIDWM [facility] Last Admin: 09/29/20 08:25 Dose: 300 mg Documented by: Hydromorphone HCl (Hydromorphone 0.5 Mg/0.5 Ml Syringe) 0.5 mg IVP Q2H PRN PRN Reason: PAIN Last Admin: 09/29/20 01:23 Dose: 0.5 mg Documented by: Sodium Chloride (Normal Saline 0.9%) 1,000 mls @ 100 mls/hr IV .Q10H [facility] Stop: 09/30/20 04:59 Last Infusion: 09/29/20 14:17 Dose: 100 mls/hr Documented by: Insulin Aspart (Insulin Aspart 300 Unit/3 Ml Pen) 1 - 5 unit SUBQ 0800, 1200,1700,2100 [facility]; Protocol Last Admin: 09/29/20 12:08 Dose: Not Given Documented by: Ketorolac Tromethamine (Ketorolac 15 Mg/Ml Vial) 15 mg IVP Q6HR PRN PRN Reason: PAIN Stop: 10/02/20 12:47 Last Admin: 09/29/20 04:55 Dose: 15 mg Documented by: Lorazepam (Lorazepam 2 Mg/Ml Vial) 1 mg IVP Q30M PRN; Protocol PRN Reason: CIWA >8 Metoprolol Succinate (Metoprolol Succinate 50 Mg Tablet) 50 mg PO DAILY [facility] Ondansetron HCl (Ondansetron 4 Mg/2 Ml Vial) 4 mg IVP Q6HR PRN PRN Reason: Nausea / Vomiting Oxycodone HCl (Oxycodone 5 Mg Tablet) 5 mg PO Q6HR PRN PRN Reason: PAIN Last Admin: 09/27/20 09:54 Dose: 5 mg Documented by: Polyethylene Glycol (Polyethylene Glycol 3350 17 Gm Packet) 17 gm PO DAILY [facility] Last Admin: 09/29/20 08:55 Dose: 17 gm Documented by: Multivit/Folic Acid/Iron ( Vitamin Tablet) 1 tab PO DAILYWM [facility] Last Admin: 09/29/20 08:38 Dose: 1 tab Documented by: Prochlorperazine Edisylate (Prochlorperazine 10 Mg/2 Ml Vial) 10 mg IVP Q6HR PRN PRN Reason: Nausea / Vomiting Senna (Senna 8.6 Mg Tablet) 17.2 mg PO Q12H PRN PRN Reason: Constipation Sodium Chloride (Sodium Chloride Flush 0.9% 10 Ml Syringe) 10 ml IVP 0100,0900,1700 [facility] Last Admin: 09/29/20 08:50 Dose: Not Given Documented by: Sodium Chloride (Sodium Chloride Flush 0.9% 10 Ml Syringe) 10 ml IVP PRN PRN PRN Reason: NEEDED PER PROVIDER ORDERS Thiamine HCl (Thiamine 100 Mg Tablet) 100 mg PO DAILY [facility] Last Admin: 09/29/20 08:57 Dose: 100 mg Documented by: Warfarin Sodium (Warfarin 2.5 Mg Tablet) 2.5 mg PO QDWARFARIN [facility] Last Admin: 09/29/20 13:34 Dose: 2.5 mg Documented by: Gabapentin [Neurontin] 300 mg PO BID 03/04/13 metFORMIN [Glucophage] 500 mg PO DAILY 04/06/15 Digoxin 0.125 mg PO DAILY 08/30/16 Warfarin [Coumadin] 2.5 mg PO QDWARFARIN 01/22/17 Aspirin 81 mg PO DAILY 12/11/18 Bumetanide 2 mg PO BID 08/19/20 Metoprolol Succinate [Toprol Xl] 50 mg PO DAILY 09/24/20
[2020-09-29] MEDS: oxyCODONE 5 MG TABLET PO PRN (22:57)
[2020-09-30] MEDS: SODIUM CHLORIDE FLUSH 0.9% 10 ML SYRINGE IVP SCH ×4 (00:05→23:54)
[2020-09-30] MEDS: oxyCODONE 5 MG TABLET PO PRN (05:21)
[2020-09-30 05:57] LABS: BASOPHILS % (AUTO) 0.9 %; EOSINOPHILS % (AUTO) 2.2 %; HCT - HEMATOCRIT 25.8 % (37.0-47.0); HGB - HEMOGLOBIN 8.3 g/dL (12.0-16.0); LYMPHOCYTES % (AUTO) 17.8 %; MEAN CORPUSCULAR HGB CONC 32.2 g/dL (32.0-36.0); MEAN CORPUSCULAR VOLUME 108.9 fL (81.0-99.0); MEAN PLATELET VOLUME 9.6 fL (7.9-10.8); MONOCYTES % (AUTO) 10.1 %; NEUTROPHILS % (AUTO) 61.9 %; PLT - PLATELET COUNT 416 10^3/uL (130-450); RED BLOOD COUNT 2.37 10^6/uL (4.20-5.40); RED CELL DISTRIBUTION WIDTH 14.3 % (12.0-15.0); WHITE BLOOD COUNT 10.4 x10^3/uL (4.8-10.8)
[2020-09-30 06:01] LABS: ABNORMAL LYMPHS % (MANUAL) 0 %
[2020-09-30 06:04] LABS: CALCIUM 8.1 mg/dL (8.5-10.3); POTASSIUM 3.5 mmol/L (3.5-5.0)
[2020-09-30 06:32] LABS: BAND NEUTROPHILS % (MANUAL) 5 %; BASOPHILS # (MANUAL) 0.1 10^3/uL (0-0.1); BASOPHILS % (MANUAL) 1 %; DIFFERENTIAL COMMENT MANUAL DIFFERENTIAL; LYMPHOCYTES % (MANUAL) 29 %; METAMYELOCYTES % (MANUAL) 2 %; MONOCYTES # (MANUAL) 0.8 10^3/uL (0.0-1.0); MYELOCYTES % (MANUAL) 3 %; NEUTROPHILS # (MANUAL) 5.9 10^3/uL (1.5-6.6); PLATELET ESTIMATE, MANUAL NORMAL (130-450,000) (NORMAL); RBC MORPHOLOGY (MULTIPLE) 1+ MACROCY (NORMAL)
[2020-09-30 06:56] LABS: INR 2.3 (0.8-1.2); PT - PROTHROMBIN TIME 24.7 secs (9.9-12.6)
[2020-09-30] MEDS: FAMOTIDINE 20 MG TABLET PO SCH ×2 (07:56→16:35)
[2020-09-30] MEDS: INSULIN ASPART 300 UNIT/3 ML PEN SUBQ SCH ×4 (07:56→20:53)
[2020-09-30] MEDS: FERROUS GLUCONATE 324 MG TABLET PO SCH (07:56)
[2020-09-30] MEDS: PRENATAL VITAMIN TABLET PO SCH (07:56)
[2020-09-30] MEDS: GABAPENTIN 300 MG CAPSULE PO SCH ×2 (07:56→16:35)
[2020-09-30] MEDS: METOPROLOL SUCCINATE 50 MG TABLET PO SCH (09:15)
[2020-09-30] MEDS: THIAMINE 100 MG TABLET PO SCH (09:15)
[2020-09-30] MEDS: DIGOXIN 125 MCG TABLET PO SCH (09:15)
[2020-09-30] MEDS: BUMETANIDE 1 MG TABLET PO SCH (09:15)
[2020-09-30] MEDS: DOCUSATE SODIUM 100 MG CAPSULE PO PRN (09:15)
[2020-09-30] MEDS: DOCUSATE SODIUM 250 MG CAPSULE PO SCH (09:16)
[2020-09-30] MEDS: polyethylene glycoL 3350 17 GM PACKET PO SCH (09:16)
[2020-09-30] MEDS: WARFARIN 2.5 MG TABLET PO SCH (13:08)
[2020-09-30] MEDS: KETOROLAC 15 MG/ML VIAL IVP PRN (13:13)
--- NOTE | 2020-09-30 14:14 | PROVIDER PROGRESS NOTE ---
Assessment/Plan - Problem List (1) Hypotension Assessment/Plan: 09/30 Resolved 09/29 pt Had blood pressure 87/32 in last night, Patient continue to have low blood pressure, Patient still has some confused To answer the questions. Troponin was slightly elevated but continue to reduce and flat. Patient denied any chest pain. We will reduce patient blood pressure medicine metoprolol from 100 mg daily to 50 mg daily, Nurse hold the Bumex now. Patient also was given intravenous IV fluids for her dehydration. We will continue closely monitor patient's vital signs. (2) Closed right hip fracture 09/30 Patient was recommended to SNF, Continue PT OT, Social work was consulted for patient disposition To SNF. 09/29 continue PT/OT, INR is 2.0, home coumadin can be used as DVT prophylaxis. 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 This is day 3 status post of right hip repair, We will continue PT and OT evaluation and treatment, Continue pain control. 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 add incentive spirometer. (3) Atrial fibrillation 09/30 Stable, continue metoprolol, dig, Continue Coumadin, INR 2.3. 09/29 Heart rate is controlled, metoprolol succinate is changed to 50 mg p.o. daily and continue digoxin 125 mcg p.o. daily, Continue Coumadin, continue PT INR, INR is 2.0 today pt's heart rate is controlled. continue On Coumadin 2.5 mg p.o. daily. Resumed for the following day. check PT/INR daily continue he is on metoprolol succinate 100 mg p.o. daily and digoxin 125 mcg p.o. daily. (4) Diabetes continue On sliding scale insulin. her A1C is 6.2 Accu-Cheks before every meal and at bedtime. (5) Hypertension stable, continue metoprolol succinate 100 mg p.o. daily (6) Confusion 09/30 Improved, Patient is alert and oriented to herself. pt is still present some confused on today. Dementia is suspected. it is likely combination of recently surgery, opiates for pt, and hx of dementia. The patient's daughter reports cognitive decline. Occupational Therapy consulted for a cognitive eval on 09/27/20. checking vitamin B12, folate are unremarkable. treponema antibody test is pending. continue neuro check. (7) History of alcohol abuse Assessment/Plan: It was reported that patient drinks at least 2 cocktails daily. CIWA protocol ordered. Librium was disContinued before because the patient was significantly sedated, pt did not show obvious alcohol withdrawal We will continue to monitor and treat accordingly. (8) Acute kidney injury Assessment/Plan: Resolved with IV hydration. (9)anemia Patient has 8.8 hemoglobin on today. Patient's anemia is likely combination of acute blood loss from recently surgery and iron deficiency anemia according to anemia study. Iron pill is prescribed for patient. (10) hx of transcatheter aortic valve replacement 09/29 Today INR is 2.0, We will continue Coumadin, continue check PT/INR. pt has been on Coumadin, INR is 1.7 today, will Coumadin, and Continue check PT and INR (11) dementia OT had cognitive testing for patient , patient has history of dementia, Patient still has some confused on today. (2) Closed right hip fracture Qualifiers: Encounter type: initial encounter Qualified Code(s): S72.001A - Fracture of unspecified part of neck of right femur, initial encounter for closed fracture - Current Meds Current Meds: Current Medications Generic Name Dose Route Start Last Admin Trade Name Freq PRN Reason Stop Dose Admin Acetaminophen 650 - 975 mg 09/25/20 10:42 09/28/20 14:06 Acetaminophen 325 Mg Tablet PO 650 mg Q4HR PRN Administration PAIN Albuterol 2.5 mg 09/24/20 08:16 09/24/20 08:22 Albuterol Neb 2.5 Mg/3 Ml INH 2.5 mg RTQ4H PRN Administration Wheezing Albuterol/Ipratropium 3 ml 09/24/20 08:16 09/30/20 09:40 Ipratropium/Albuterol 3 Ml Neb INH 3 ml RTQID PRN Administration Shortness of Air/Wheezing Bumetanide 2 mg 09/24/20 09:00 09/30/20 09:15 Bumetanide 1 Mg Tablet PO 2 mg DAILY RAMIRO Administration Digoxin 125 mcg 09/24/20 09:00 09/30/20 09:15 Digoxin 125 Mcg Tablet PO 125 mcg DAILY RAMIRO Administration Docusate Sodium 100 mg 09/25/20 10:42 09/30/20 09:15 Docusate Sodium 100 Mg Capsule PO 100 mg BID PRN Administration Constipation Docusate Sodium 250 - 500 mg 09/28/20 09:00 09/30/20 09:16 Docusate Sodium 250 Mg Capsule PO 250 mg DAILY RAMIRO Administration Famotidine 20 mg 09/28/20 18:00 09/30/20 07:56 Famotidine 20 Mg Tablet PO 20 mg BIDWM RAMIRO Administration Ferrous Gluconate 324 mg 09/28/20 11:00 09/30/20 07:56 Ferrous Gluconate 324 Mg Tablet PO 324 mg DAILYWM RAMIRO Administration Gabapentin 300 mg 09/28/20 18:00 09/30/20 07:56 Gabapentin 300 Mg Capsule PO 300 mg BIDWM [facility] Administration Hydromorphone HCl 0.5 mg 09/25/20 10:42 09/29/20 01:23 Hydromorphone 0.5 Mg/0.5 Ml Syringe IVP 0.5 mg Q2H PRN Administration PAIN Insulin Aspart 1 - 5 unit 09/24/20 08:00 09/30/20 11:20 Insulin Aspart 300 Unit/3 Ml Pen SUBQ Not Given 0800,1200,1700,2100 [facility] Protocol Ketorolac Tromethamine 15 mg 09/27/20 12:48 09/30/20 13:13 Ketorolac 15 Mg/Ml Vial IVP 10/02/20 12:47 15 mg Q6HR PRN Administration PAIN Metoprolol Succinate 50 mg 09/30/20 09:00 09/30/20 09:15 Metoprolol Succinate 50 Mg Tablet PO 50 mg DAILY [facility] Administration Oxycodone HCl 5 mg 09/24/20 10:10 09/30/20 05:21 Oxycodone 5 Mg Tablet PO 5 mg Q6HR PRN Administration PAIN Polyethylene Glycol 17 gm 09/27/20 10:00 09/30/20 09:16 Polyethylene Glycol 3350 17 Gm Packet PO 17 gm DAILY [facility] Administration Multivit/Folic Acid/Iron 1 tab 09/24/20 08:00 09/30/20 07:56 Vitamin Tablet PO 1 tab DAILYWM [facility] Administration Sodium Chloride 10 ml 09/25/20 17:00 09/30/20 09:16 Sodium Chloride Flush 0.9% 10 Ml Syringe IVP 10 ml 0100,0900,1700 [facility] Administration Thiamine HCl 100 mg 09/24/20 09:00 09/30/20 09:15 Thiamine 100 Mg Tablet PO 100 mg DAILY RAMIRO Administration Warfarin Sodium 2.5 mg 09/26/20 14:00 09/30/20 13:08 Warfarin 2.5 Mg Tablet PO 2.5 mg QDWARFARIN RAMIRO Administration - Lab Result Fish Bone Diagrams: 09/30/20 05:18 09/30/20 05:18 - Additional Planning My Orders: My Active Orders 09/30/20 RESPIRATORY PCR PANEL Stat 09/30/20 09:00 Metoprolol Succinate [Toprol Xl] 50 mg PO DAILY 10/01/20 05:00 BMP - BASIC METABOLIC PANEL [CHEM] DAILYLAB CBC - COMP BLD CT W/AUTO DIFF [HEME] DAILYLAB PT WITH INR [COAG] DAILYLAB 10/02/20 05:00 BMP - BASIC METABOLIC PANEL [CHEM] DAILYLAB CBC - COMP BLD CT W/AUTO DIFF [HEME] DAILYLAB PT WITH INR [COAG] DAILYLAB 10/03/20 05:00 BMP - BASIC METABOLIC PANEL [CHEM] DAILYLAB CBC - COMP BLD CT W/AUTO DIFF [HEME] DAILYLAB PT WITH INR [COAG] DAILYLAB 10/04/20 05:00 PT WITH INR [COAG] DAILYLAB Subjective - Subjective Patient Reports: Feeling Better Objective Vital Signs: Vital Signs - 24 hr 09/29/20 09/29/20 09/29/20 17:00 19:55 21:00 Temperature 36.7 C 36.9 C Heart Rate 60 Heart Rate [ 65 54 L Brachial] Respiratory 18 18 18 Rate Blood Pressure [Left Brachial artery] Blood Pressure 106/54 L 104/48 L [Right Brachial artery] O2 Saturation 98 95 09/30/20 09/30/20 09/30/20 00:08 05:00 07:26 Temperature 37.0 C 36.6 C 37 C Heart Rate Heart Rate [ 75 87 83 Brachial] Respiratory 16 17 20 Rate Blood Pressure 113/47 L [Left Brachial artery] Blood Pressure 143/53 H 115/59 L [Right Brachial artery] O2 Saturation 95 96 92 09/30/20 09/30/20 09:40 12:13 Temperature Heart Rate 88 Heart Rate [ 91 Brachial] Respiratory 24 22 Rate Blood Pressure 139/76 H [Left Brachial artery] Blood Pressure [Right Brachial artery] O2 Saturation 93 Oxygen O2 Source Room air I&O (Last 24 Hrs): Intake and Output Totals x24h 09/28/20 09/29/20 09/30/20 23:59 23:59 23:59 Intake Total 1746 2160.000 1440 Output Total 550 100 150 Balance 1196 2060.000 1290 General: Alert, Cooperative, No acute distress HEENT: Atraumatic Neck: Supple Lymphatic: no adenopathy Neuro: Alert, Non Focal Cardiovascular: Regular rate, Normal S1, Normal S2 Respiratory: Chest non-tender, No respiratory distress Abdomen: Normal bowel sounds, Soft, No tenderness Extremities: Normal pulses - Results Results: Laboratory Results WBC 10.4 x10^3/uL (4.8-10.8) 09/30/20 05:18 RBC 2.37 10^6/uL (4.20-5.40) L 09/30/20 05:18 Hgb 8.3 g/dL (12.0-16.0) L 09/30/20 05:18 Hct 25.8 % (37.0-47.0) L 09/30/20 05:18 MCV 108.9 fL (81.0-99.0) H 09/30/20 05:18 MCH 35.0 pg (27.0-31.0) H 09/30/20 05:18 MCHC 32.2 g/dL (32.0-36.0) 09/30/20 05:18 RDW 14.3 % (12.0-15.0) 09/30/20 05:18 Plt Count 416 10^3/uL (130-450) 09/30/20 05:18 MPV 9.6 fL (7.9-10.8) 09/30/20 05:18 Reticulocyte % (Auto) 4.83 % (0.5-2.3) H 09/28/20 08:17 Neut # (Auto) Not Reportable 09/30/20 05:18 Lymph # (Auto) Not Reportable 09/30/20 05:18 Tate # (Auto) Not Reportable 09/30/20 05:18 Eos # (Auto) Not Reportable 09/30/20 05:18 Baso # (Auto) Not Reportable 09/30/20 05:18 Absolute Nucleated RBC Not Reportable 09/30/20 05:18 Total Counted 100 09/30/20 05:18 Band Neuts % (Manual) 5 % (0-10) 09/30/20 05:18 Reactive Lymphs % (Man) 4 % 09/23/20 21:45 Abnorm Lymph % (Manual) 0 % 09/30/20 05:18 Metamyelocytes % 2 % (-0) H 09/30/20 05:18 Myelocytes % 3 % (-0) H 09/30/20 05:18 Nucleated RBC % Not Reportable 09/30/20 05:18 Neutrophils # (Manual) 5.9 10^3/uL (1.5-6.6) 09/30/20 05:18 Lymphocytes # (Manual) 3.0 10^3/uL (1.5-3.5) 09/30/20 05:18 Monocytes # (Manual) 0.8 10^3/uL (0.0-1.0) 09/30/20 05:18 Eosinophils # (Manual) 0.0 10^3/uL (0-0.7) 09/30/20 05:18 Basophils # (Manual) 0.1 10^3/uL (0-0.1) 09/30/20 05:18 Differential Comment MANUAL DIFFERENTIAL 09/30/20 05:18 WBC Morphology 1+ TOXIC GRANULATION (NORMAL) 09/29/20 05:07 Platelet Estimate NORMAL (130-450,000) (NORMAL) 09/30/20 05:18 Platelet Morphology NORMAL APPEARANCE (NORMAL) 09/28/20 11:32 RBC Morph Micro Appear 1+ MACROCY (NORMAL) 09/30/20 05:18 Absolute Retic 0.125 10^6/uL (0.020-0.110) H 09/28/20 08:17 PT 24.7 secs (9.9-12.6) H 09/30/20 05:18 INR 2.3 (0.8-1.2) H 09/30/20 05:18 Sodium 135 mmol/L (135-145) 09/30/20 05:18 Potassium 3.5 mmol/L (3.5-5.0) 09/30/20 05:18 Chloride 103 mmol/L (101-111) 09/30/20 05:18 Carbon Dioxide 25 mmol/L (21-32) 09/30/20 05:18 Anion Gap 7.0 (6-13) 09/30/20 05:18 BUN 21 mg/dL (6-20) H 09/30/20 05:18 Creatinine 1.0 mg/dL (0.4-1.0) 09/30/20 05:18 Estimated GFR (MDRD) 53 (>89) L 09/30/20 05:18 Glucose 95 mg/dL (70-100) 09/30/20 05:18 POC Whole Bld Glucose 110 mg/dL (70 - 100) H 09/30/20 11:12 Estimat Average Glucose 131 mg/dL (70-100) H 09/24/20 04:09 Hemoglobin A1c % 6.2 % (4.27-6.07) H 09/24/20 04:09 Calcium 8.1 mg/dL (8.5-10.3) L 09/30/20 05:18 Magnesium 2.0 mg/dL (1.7-2.8) 09/28/20 08:17 Iron 24 ug/dL (28-170) L 09/28/20 08:17 TIBC 290 ug/dL (250-450) 09/28/20 08:17 % Saturation 8 % (20-50) L 09/28/20 08:17 Transferrin 207 mg/dL (192-382) 09/28/20 08:17 Ferritin 280.1 ng/mL (11.0-306.8) 09/28/20 08:17 Total Bilirubin 1.1 mg/dL (0.2-1.0) H 09/23/20 21:45 AST 43 IU/L (10-42) H 09/23/20 21:45 ALT 27 IU/L (10-60) 09/23/20 21:45 Alkaline Phosphatase 48 IU/L (42-121) 09/23/20 21:45 Lactate Dehydrogenase 252 IU/L (91-225) H 09/28/20 08:17 Troponin I High Sens 38.1 ng/L (2.3-14.8) H* 09/29/20 08:49 Total Protein 7.4 g/dL (6.7-8.2) 09/23/20 21:45 Albumin 4.1 g/dL (3.2-5.5) 09/23/20 21:45 Globulin 3.3 g/dL (2.1-4.2) 09/23/20 21:45 Albumin/Globulin Ratio 1.2 (1.0-2.2) 09/23/20 21:45 Lipase 29 U/L (22-51) 09/23/20 21:45 Vitamin B12 470 pg/mL (180-914) 09/27/20 11:32 Folate 7.92 ng/mL (5.90 - >24.8) 09/27/20 11:32 Urine Color YELLOW 09/28/20 14:20 Urine Clarity HAZY (CLEAR) 09/28/20 14:20 Urine pH 6.0 PH (5.0-7.5) 09/28/20 14:20 Ur Specific [place] 1.015 (1.002-1.030) 09/28/20 14:20 Urine Protein NEGATIVE mg/dL (NEGATIVE) 09/28/20 14:20 Urine Glucose (UA) NEGATIVE mg/dL (NEGATIVE) 09/28/20 14:20 Urine Ketones NEGATIVE mg/dL (NEGATIVE) 09/28/20 14:20 Urine Occult Blood NEGATIVE (NEGATIVE) 09/28/20 14:20 Urine Nitrite NEGATIVE (NEGATIVE) 09/28/20 14:20 Urine Bilirubin NEGATIVE (NEGATIVE) 09/28/20 14:20 Urine Urobilinogen 0.2 (NORMAL) E.U./dL (NORMAL) 09/28/20 14:20 Ur Leukocyte Esterase TRACE (NEGATIVE) H 09/28/20 14:20 Urine RBC 0-5 /HPF (0-5) 09/28/20 14:20 Urine WBC 11-25 /HPF (0-5) H 09/28/20 14:20 Ur Epithelial Cells FEW Renal Tubular /HPF (<= Few) 09/23/20 22:26 Ur Squamous Epith Cells MANY Squamous (<= Few) H 09/28/20 14:20 Urine Bacteria Few /HPF (None Seen) 09/28/20 14:20 Urine Casts 6-10 Hyaline Casts /LPF 09/23/20 22:26 Urine Mucus Few Strands 09/28/20 14:20 Ur Microscopic Review INDICATED 09/23/20 22:26 Urine Culture Comments NOT INDICATED 09/28/20 14:20 Nasal Adenovirus (PCR) NOT DETECTED 09/23/20 22:16 Nasal B. parapertussis DNA (PCR) NOT DETECTED 09/23/20 22:16 Nasal Coronavir 229E PCR NOT DETECTED 09/23/20 22:16 Nasal Coronavir HKU1 PCR NOT DETECTED 09/23/20 22:16 Nasal Coronavir NL63 PCR NOT DETECTED 09/23/20 22:16 Nasal Coronavir OC43 PCR NOT DETECTED 09/23/20 22:16 Nasal Enterovir/Rhinovir PCR NOT DETECTED 09/23/20 22:16 Nasal Influenza B PCR NOT DETECTED 09/23/20 22:16 Nasal Influenza A PCR NOT DETECTED 09/23/20 22:16 Nasal Parainfluen 1 PCR NOT DETECTED 09/23/20 22:16 Nasal Parainfluen 2 PCR NOT DETECTED 09/23/20 22:16 Nasal Parainfluen 3 PCR NOT DETECTED 09/23/20 22:16 Nasal Parainfluen 4 PCR NOT DETECTED 09/23/20 22:16 Nasal RSV (PCR) NOT DETECTED 09/23/20 22:16 Nasal B.pertussis DNA PCR NOT DETECTED 09/23/20 22:16 Nasal C.pneumoniae (PCR) NOT DETECTED 09/23/20 22:16 Yuriy Human Metapneumo PCR NOT DETECTED 09/23/20 22:16 Nasal M.pneumoniae (PCR) NOT DETECTED 09/23/20 22:16 Nasal SARS-CoV-2 (PCR) NOT DETECTED 09/23/20 22:16 Last Dose Date 09-23-20 09/24/20 04:09 Last Dose Time 0900 09/24/20 04:09 Digoxin 1.1 ng/mL 09/24/20 04:09 Ethyl Alcohol < 5.0 mg/dL 09/24/20 05:45 T.pallidum IgG (EIA) NEGATIVE 09/27/20 11:32 - Procedures Procedures: Procedures REPLACEMENT OF LEFT LENS WITH SYNTH SUB, PERC APPROACH (05/17/17) REPLACEMENT OF RIGHT LENS WITH SYNTH SUB, PERC APPROACH (08/30/17) Sepsis Event Note (H) - Evaluation Current Stage of Sepsis: Ruled out ABX Reporting Has patient been on IV antibiotics over the past 48 hours?: No Current Medications - Current Medications Current Medications: Active Medications Acetaminophen (Acetaminophen 325 Mg Tablet) 650 - 975 mg PO Q4HR PRN PRN Reason: PAIN Last Admin: 09/28/20 14:06 Dose: 650 mg Documented by: Albuterol (Albuterol Neb 2.5 Mg/3 Ml) 2.5 mg INH RTQ4H PRN PRN Reason: Wheezing Last Admin: 09/24/20 08:22 Dose: 2.5 mg Documented by: Albuterol/Ipratropium (Ipratropium/Albuterol 3 Ml Neb) 3 ml INH RTQID PRN PRN Reason: Shortness of Air/Wheezing Last Admin: 09/30/20 09:40 Dose: 3 ml Documented by: Bumetanide (Bumetanide 1 Mg Tablet) 2 mg PO DAILY [facility] Last Admin: 09/30/20 09:15 Dose: 2 mg Documented by: Digoxin (Digoxin 125 Mcg Tablet) 125 mcg PO DAILY [facility] Last Admin: 09/30/20 09:15 Dose: 125 mcg Documented by: Docusate Sodium (Docusate Sodium 100 Mg Capsule) 100 mg PO BID PRN PRN Reason: Constipation Last Admin: 09/30/20 09:15 Dose: 100 mg Documented by: Docusate Sodium (Docusate Sodium 250 Mg Capsule) 250 - 500 mg PO DAILY [facility] Last Admin: 09/30/20 09:16 Dose: 250 mg Documented by: Famotidine (Famotidine 20 Mg Tablet) 20 mg PO BIDWM [facility] Last Admin: 09/30/20 07:56 Dose: 20 mg Documented by: Ferrous Gluconate (Ferrous Gluconate 324 Mg Tablet) 324 mg PO DAILYWM [facility] Last Admin: 09/30/20 07:56 Dose: 324 mg Documented by: Gabapentin (Gabapentin 300 Mg Capsule) 300 mg PO BIDWM [facility] Last Admin: 09/30/20 07:56 Dose: 300 mg Documented by: Hydromorphone HCl (Hydromorphone 0.5 Mg/0.5 Ml Syringe) 0.5 mg IVP Q2H PRN PRN Reason: PAIN Last Admin: 09/29/20 01:23 Dose: 0.5 mg Documented by: Insulin Aspart (Insulin Aspart 300 Unit/3 Ml Pen) 1 - 5 unit SUBQ 0800,1200,1700,2100 [facility]; Protocol Last Admin: 09/30/20 11:20 Dose: Not Given Documented by: Ketorolac Tromethamine (Ketorolac 15 Mg/Ml Vial) 15 mg IVP Q6HR PRN PRN Reason: PAIN Stop: 10/02/20 12:47 Last Admin: 09/30/20 13:13 Dose: 15 mg Documented by: Lorazepam (Lorazepam 2 Mg/Ml Vial) 1 mg IVP Q30M PRN; Protocol PRN Reason: CIWA >8 Metoprolol Succinate (Metoprolol Succinate 50 Mg Tablet) 50 mg PO DAILY [facility] Last Admin: 09/30/20 09:15 Dose: 50 mg Documented by: Ondansetron HCl (Ondansetron 4 Mg/2 Ml Vial) 4 mg IVP Q6HR PRN PRN Reason: Nausea / Vomiting Oxycodone HCl (Oxycodone 5 Mg Tablet) 5 mg PO Q6HR PRN PRN Reason: PAIN Last Admin: 09/30/20 05:21 Dose: 5 mg Documented by: Polyethylene Glycol (Polyethylene Glycol 3350 17 Gm Packet) 17 gm PO DAILY [facility] Last Admin: 09/30/20 09:16 Dose: 17 gm Documented by: Multivit/Folic Acid/Iron ( Vitamin Tablet) 1 tab PO DAILYWM [facility] Last Admin: 09/30/20 07:56 Dose: 1 tab Documented by: Prochlorperazine Edisylate (Prochlorperazine 10 Mg/2 Ml Vial) 10 mg IVP Q6HR PRN PRN Reason: Nausea / Vomiting Senna (Senna 8.6 Mg Tablet) 17.2 mg PO Q12H PRN PRN Reason: Constipation Sodium Chloride (Sodium Chloride Flush 0.9% 10 Ml Syringe) 10 ml IVP 0100,0900,1700 [facility] Last Admin: 09/30/20 09:16 Dose: 10 ml Documented by: Sodium Chloride (Sodium Chloride Flush 0.9% 10 Ml Syringe) 10 ml IVP PRN PRN PRN Reason: NEEDED PER PROVIDER ORDERS Thiamine HCl (Thiamine 100 Mg Tablet) 100 mg PO DAILY [facility] Last Admin: 09/30/20 09:15 Dose: 100 mg Documented by: Warfarin Sodium (Warfarin 2.5 Mg Tablet) 2.5 mg PO QDWARFARIN [facility] Last Admin: 09/30/20 13:08 Dose: 2.5 mg Documented by: Gabapentin [Neurontin] 300 mg PO BID 03/04/13 metFORMIN [Glucophage] 500 mg PO DAILY 04/06/15 Digoxin 0.125 mg PO DAILY 08/30/16 Warfarin [Coumadin] 2.5 mg PO QDWARFARIN 01/22/17 Aspirin 81 mg PO DAILY 12/11/18 Bumetanide 2 mg PO BID 08/19/20 Metoprolol Succinate [Toprol Xl] 50 mg PO DAILY 09/24/20
[2020-10-01] MEDS: KETOROLAC 15 MG/ML VIAL IVP PRN (02:17)
[2020-10-01] MEDS: oxyCODONE 5 MG TABLET PO PRN (02:17)
[2020-10-01 05:47] LABS: BASOPHILS % (AUTO) 0.7 %; EOSINOPHILS % (AUTO) 1.5 %; HCT - HEMATOCRIT 26.3 % (37.0-47.0); HGB - HEMOGLOBIN 8.1 g/dL (12.0-16.0); LYMPHOCYTES % (AUTO) 14.1 %; MEAN CORPUSCULAR HGB CONC 30.8 g/dL (32.0-36.0); MEAN CORPUSCULAR VOLUME 110.5 fL (81.0-99.0); MEAN PLATELET VOLUME 9.2 fL (7.9-10.8); MONOCYTES % (AUTO) 11.1 %; NEUTROPHILS % (AUTO) 67.9 %; PLT - PLATELET COUNT 461 10^3/uL (130-450); RED BLOOD COUNT 2.38 10^6/uL (4.20-5.40); RED CELL DISTRIBUTION WIDTH 14.7 % (12.0-15.0); WHITE BLOOD COUNT 11.8 x10^3/uL (4.8-10.8)
[2020-10-01 05:49] LABS: ABNORMAL LYMPHS % (MANUAL) 0 %
[2020-10-01 05:51] LABS: PT - PROTHROMBIN TIME 30.8 secs (9.9-12.6)
[2020-10-01 05:54] LABS: CALCIUM 8.2 mg/dL (8.5-10.3); CREATININE 0.9 mg/dL (0.4-1.0); POTASSIUM 3.5 mmol/L (3.5-5.0)
[2020-10-01 06:13] LABS: BAND NEUTROPHILS % (MANUAL) 1 %; LYMPHOCYTES # (MANUAL) 1.1 10^3/uL (1.5-3.5); LYMPHOCYTES % (MANUAL) 9 %; MONOCYTES # (MANUAL) 1.1 10^3/uL (0.0-1.0); MYELOCYTES % (MANUAL) 2 %; NEUTROPHILS # (MANUAL) 9.4 10^3/uL (1.5-6.6)
[2020-10-01 06:15] LABS: DIFFERENTIAL COMMENT MANUAL DIFFERENTIAL; PLATELET ESTIMATE, MANUAL INCREASED (>450,000) (NORMAL); PLATELET MORPHOLOGY NORMAL APPEARANCE (NORMAL); WBC MORPHOLOGY (MULTIPLE) NORMAL APPEARANCE (NORMAL)
[2020-10-01 07:30] VITALS: BP 111/48
[2020-10-01] MEDS: PRENATAL VITAMIN TABLET PO SCH (07:52)
[2020-10-01] MEDS: GABAPENTIN 300 MG CAPSULE PO SCH (07:52)
[2020-10-01] MEDS: FAMOTIDINE 20 MG TABLET PO SCH (07:52)
[2020-10-01] MEDS: INSULIN ASPART 300 UNIT/3 ML PEN SUBQ SCH (07:53)
[2020-10-01] MEDS: FERROUS GLUCONATE 324 MG TABLET PO SCH (07:53)
[2020-10-01] MEDS: DIGOXIN 125 MCG TABLET PO SCH (08:34)
[2020-10-01] MEDS: DOCUSATE SODIUM 100 MG CAPSULE PO PRN (08:35)
[2020-10-01] MEDS: THIAMINE 100 MG TABLET PO SCH (08:35)
[2020-10-01] MEDS: BUMETANIDE 1 MG TABLET PO SCH (08:35)
[2020-10-01] MEDS: DOCUSATE SODIUM 250 MG CAPSULE PO SCH (08:35)
[2020-10-01] MEDS: polyethylene glycoL 3350 17 GM PACKET PO SCH (08:35)
[2020-10-01] MEDS: METOPROLOL SUCCINATE 50 MG TABLET PO SCH (08:35)
[2020-10-01] MEDS: SODIUM CHLORIDE FLUSH 0.9% 10 ML SYRINGE IVP SCH (08:36)
[2020-10-01] MEDS ORDERED: WARFARIN 2.5 MG TABLET PO SCH ×2 (10:00→14:00)
--- NOTE | 2020-10-01 11:00 | Discharge Plan ---
"Discharge Plan for SNF / [facility] - Discharge Plan And Transition Orders Problem Reviewed?: Yes Disposition: 03 SNF DC/Xfer Condition: Stable Allergies and Adverse Reactions: Allergies Allergy/AdvReac Type Severity Reaction Status Date / Time No Known Drug Allergies Allergy Verified 09/23/20 21:41 Health Concerns: status post of right hip repair Plan of Treatment: Pt has INR 3.0 today, pt may have INR check in one to two day. Pt take Coumadin for her Afib and transcatheter aortic valve replacement. Pt has HGB 8.1 today, pt is prescribed iron, pt may have HGB recheck in 2-3 days. Pt may followup with orthopedics office in two weeks or early needed Care Goals: stabilization and healing/improvement of her medical conditions Assessment: discussed the care plan with pt, answered her questions. - SNF / [facility] Transition Orders Admit to (Facility): [facility] Under the care of (Name): Dr. Nolan Discharge Diagnosis: status post of right hip repair, afib, diabetes, dementia, hx of alcohol abuse, HTN, anemia, hx of transcatheter aortic valve replacement. Medicare Certification Statement: I certify that [facility] halfway care is medically necessary on a continuing basis for any of the conditions for which she/he is receiving care during hospitalization. Notify PCP of admission and forward orders to primary provider for signature. Weight on admission and: Daily Call PCP immediately if weight increases by: 2 kg Other Notification Orders: Call PCP immediately if patient develops dyspnea, chest pain/tightness or edema. House Bowel Program: Yes Additional Bowel Program Orders: If no BM after 2 days, nurse may give M.O.M. 30ml PO PRN and/or ducolax Supp 1 MD and/or ADRIEL 250mg P.O., and/or senna 1-2 tabs PO. On day 3 nurse may give repeat above order until residents constipation is resolved. Annual Influenza Vaccine (between May 11 and December 08): Yes Two-step PPD per [facility] [phone] or approved exception documents: Yes Treatments & Other Orders: Pt has INR 3.0 today, pt may have INR check in one to two day. Pt take Coumadin for her Afib and transcatheter aortic valve replacement. Pt has HGB 8.1 today, pt is prescribed iron, pt may have HGB recheck in 2-3 days. Pt may followup with orthopedics office in two weeks or early needed Medication Orders: PLEASE REFER TO THE DISCHARGE MEDICATION LIST. Insulin Orders?: No - Medications New Prescriptions: oxyCODONE [Roxicodone] 5 mg PO Q6HR PRN #15 tablet PRN Reason: Pain Calcium Carbonate/Vitamin D3 [Calcium 500 mg-Vit D3 600 Unit] 1 each PO DAILY #30 tablet Ferrous Gluconate [Fergon] 324 mg PO DAILYWM #30 tablet Alendronate [Fosamax] 70 mg PO Q7D #2 tablet Pnv No.121/Iron/Folic Acid [ Multivitamin Tablet] 1 each PO DAILY #30 tablet Thiamine [Vitamin B-1] 100 mg PO DAILY #30 tablet - Diet Type: Geriatric Texture: Regular Liquids: Thin May have monthly special meal: Yes - Therapies | Activity Therapy: Evaluation | Treat if indicated: PT, OT Rehabilitation Potential: Maximize functional status Activity: Activity as Tolerated"
[2020-10-01 11:01] LABS: B. PARAPERTUSSIS- RESP PCR PAN NOT DETECTED; B. PERTUSSIS- RESP PCR PANEL NOT DETECTED; C. PNEUMONIAE- RESP PCR PANEL NOT DETECTED; CORONAVIRUS 229E-RESP PCR NOT DETECTED; CORONAVIRUS HKU1-RESP PCR NOT DETECTED; CORONAVIRUS NL63-RESP PCR NOT DETECTED; CORONAVIRUS OC43-RESP PCR NOT DETECTED; HUMAN METAPNEUMOVIRUS NOT DETECTED; INFLUENZA A- RESP PCR PANEL NOT DETECTED; INFLUENZA B - RESP PCR PANEL NOT DETECTED; M. PNEUMONIAE- RESP PCR PANEL NOT DETECTED; PARAINFLUENZA VIRUS 1 NOT DETECTED; PARAINFLUENZA VIRUS 2 NOT DETECTED; PARAINFLUENZA VIRUS 3 NOT DETECTED; PARAINFLUENZA VIRUS 4 NOT DETECTED; RHINOVIRUS/ENTEROVIRUS NOT DETECTED; RSV- RESP PCR PANEL NOT DETECTED; SARS-CoV-2 -RESP PCR PANEL NOT DETECTED
--- NOTE | 2020-10-01 11:20 | DISCHARGE SUMMARY ---
"Discharge Summary Admit Date: 09/24/20 Discharge Date: 10/01/20 Discharging Provider: Toan Grover Primary Care Provider: Edson Cunningham Condition at Discharge: Stable Discharge Disposition: SNF DC/Xfer Discharge Facility Name: [facility] - DIAGNOSES Discharge Diagnoses with Status of Each Condition: (1) Hypotension Resolved (2) Closed right hip fracture Patient had a right hip repair by orthopedic surgeon. Patient had a PT and OT evaluation and treatment, patient was recommended to SNF. (3) Atrial fibrillation Stable, resume home medication, Continue check INR in SNF. Patient take Coumadin for anticoagulation. (4) Diabetes Stable (5) Hypertension stable (6) Confusion Improved As patient's base line. (7) History of alcohol abuse Stable. Patient is prescribed vitamin B1 and multiple vitamin. (8) Acute kidney injury Resolved (9)anemia Patient has 8.1 hemoglobin on today. Patient's anemia is likely combination of acute blood loss from recently surgery and iron deficiency anemia according to anemia study. Iron pill is prescribed for patient. Continue to monitor hemoglobin in SNF. (10) hx of transcatheter aortic valve replacement Continue Coumadin, continue check INR in SNF (11) dementia Stable as his history - HPI History of Present Illness: This is a 80 years old female has a medical history significant for biprosthetic valve insertion in 2017 for aortic stenosis,mitraclip done at 2019 for her severe Mitral regurgitation, Pulmonary hypertension, atrial fibrillation with Coumadin, Diabetic, asthma, Who had a mechanical fall in the home. Patient was found to have right hip fracture. Orthopedic surgeon was consulted. - CONSULTS | PROCEDURES Consultations: Dr. Melendez Procedures: Long interTan nailing of right IT hip fracture - HOSPITAL COURSE Hospital Course: Patient was admitted for right hip fracture. Patient had right hip repaired by orthopedic surgeon. Patient had PT and OT evaluation And treatment in the hospital. Patient develop confusion, hypotension, Anemia In the hospital. After the patient was treated in hospita, he became hemodynamic stable. Patient was discharged to [facility]. - ALLERGIES Allergies/Adverse Reactions: Allergies Allergy/AdvReac Type Severity Reaction Status Date / Time No Known Drug Allergies Allergy Verified 09/23/20 21:41 - MEDICATIONS Home Medications: Ambulatory Orders Medication Instructions Recorded Confirmed Gabapentin [Neurontin] 300 mg PO BID 03/04/13 09/24/20 metFORMIN [Glucophage] 500 mg PO DAILY 04/06/15 09/24/20 Digoxin 0.125 mg PO DAILY 08/30/16 09/24/20 Potassium Chloride [K-Dur] 20 meq PO DAILYWM #30 tablet 09/05/16 09/24/20 Warfarin [Coumadin] 2.5 mg PO QDWARFARIN 01/22/17 09/24/20 Aspirin 81 mg PO DAILY 12/11/18 09/24/20 Bumetanide 2 mg PO BID 08/19/20 09/24/20 Metoprolol Succinate [Toprol Xl] 50 mg PO DAILY 09/24/20 09/24/20 Alendronate [Fosamax] 70 mg PO Q7D #2 tablet 10/01/20 Calcium Carbonate/Vitamin D3 1 each PO DAILY #30 tablet 10/01/20 [Calcium 500 mg-Vit D3 600 Unit] Ferrous Gluconate [Fergon] 324 mg PO DAILYWM #30 tablet 10/01/20 Pnv No.121/Iron/Folic Acid 1 each PO DAILY #30 tablet 10/01/20 [ Multivitamin Tablet] Thiamine [Vitamin B-1] 100 mg PO DAILY #30 tablet 10/01/20 oxyCODONE [Roxicodone] 5 mg PO Q6HR PRN #15 tablet 10/01/20 - PHYSICAL EXAM AT DISCHARGE General Appearance: positive: No acute distress, Alert. negative: Lethargic Eyes Bilateral: positive: Normal inspection, PERRL, No lid inflammation ENT: positive: ENT inspection nml, No signs of dehydration. negative: Purulent nasal drainage Neck: positive: Nml inspection, Trachea midline. negative: Thyromegaly, Tracheal deviation Respiratory: positive: Chest non-tender, No respiratory distress. negative: Wheezes, Rales Cardiovascular: positive: Regular rate & rhythm, No murmur. negative: Tachycardia, Bradycardia, Systolic murmur, Diastolic murmur Peripheral Pulses: positive: 2+ Abdomen: positive: Non-tender, Nml bowel sounds, No distention. negative: Tenderness, Guarding, Rebound Back: positive: Nml inspection Skin: positive: Color nml, Warm, Dry. negative: Cyanosis, Diaphoresis, Pallor Extremities: positive: Non-tender, Nml appearance. negative: Calf tenderness Neurologic/Psychiatric: positive: Sensation nml, Mood/affect nml. negative: Weakness, Sensory loss, Facial droop, Slurred/abnml speech, Depressed mood/affect - LABS Result Diagrams: 10/01/20 05:20 10/01/20 05:20 - SEPSIS Current Stage of Sepsis: Ruled out - FOLLOW UP Follow Up: Pt has INR 3.0 today, pt may have INR check in one to two day. Pt take Coumadin for her Afib and transcatheter aortic valve replacement. Pt has HGB 8.1 today, pt is prescribed iron, pt may have HGB recheck in 2-3 days. Pt may followup with orthopedics office in two weeks or early needed - TIME SPENT Time Spent in Discharge (Minutes): 30"
== END 2020-10-01 12:45 | DRG 481 ==
LOC: EDUNIT# → ED 21:32 → MS2 09-24 00:27
PROVIDERS: ADMIT Internal Medicine; ATTEND Nurse Practitioner Gerontology
PROC: 0QS634Z Reposition Right Upper Femur with Internal Fixation Device, Percutaneous Approach (ICD-10-PCS; principal; 2020-09-25 08:00)
DX: S72.141A Displaced intertrochanteric fracture of right femur, initial encounter for closed fracture (principal); S72.001A Fracture of unspecified part of neck of right femur, initial encounter for closed fracture; N17.9 Acute kidney failure, unspecified; D62 Acute posthemorrhagic anemia; L97.909 Non-pressure chronic ulcer of unspecified part of unspecified lower leg with unspecified severity; I48.11 Longstanding persistent atrial fibrillation; S09.90XA Unspecified injury of head, initial encounter; I48.91 Unspecified atrial fibrillation; W18.30XA Fall on same level, unspecified, initial encounter; Y92.009 Unspecified place in unspecified non-institutional (private) residence as the place of occurrence of the external cause; E11.9 Type 2 diabetes mellitus without complications; Z79.84 Long term (current) use of oral hypoglycemic drugs; I95.9 Hypotension, unspecified; M54.2 Cervicalgia; E11.65 Type 2 diabetes mellitus with hyperglycemia; R41.0 Disorientation, unspecified; Z87.898 Personal history of other specified conditions; D50.9 Iron deficiency anemia, unspecified; Z79.01 Long term (current) use of anticoagulants; F03.90 Unspecified dementia, unspecified severity, without behavioral disturbance, psychotic disturbance, mood disturbance, and anxiety; I27.20 Pulmonary hypertension, unspecified; I87.2 Venous insufficiency (chronic) (peripheral); J45.909 Unspecified asthma, uncomplicated; Z95.2 Presence of prosthetic heart valve; I11.0 Hypertensive heart disease with heart failure; I50.9 Heart failure, unspecified; R79.89 Other specified abnormal findings of blood chemistry
CPT/HCPCS: 36415; 70450; 71045; 72125; 73700; 80048; 80053; 80162; 81001; 82607; 82728; 82746; 83036; 83540; 83615; 83690; 83735; 84466; 84484; 85014; 85018; 85025; 85045; 85610; 86780; 87631; 93005; 94640; 96374; 96375; 96376; 97162; 97167; 97530; 97535; 99284; 99285; A9270; C1713; J0690; J1170; J7120; 0202U; 80320; 81003; 87086

== ENCOUNTER 2020-09-30 08:00 | Outpatient (CLI) | payer MEDICARE, BC | END 2020-09-30 23:59 | disposition home or self-care (01) | LOC: LAB.WCP 08:00 | PROVIDERS: ATTEND Family Medicine | DX: Z79.01 Long term (current) use of anticoagulants (principal) ==

== ENCOUNTER 2020-10-11 09:31 | Outpatient (CLI) | payer MEDICARE, BC ==
--- NOTE | 2020-10-11 16:32 | XRAY Report ---
PROCEDURE: Hip w/Pelvis 1V RT INDICATIONS: DISPLACED INTERTROCHANTERIC FX OF R FEMUR, POST OP TECHNIQUE: AP pelvis with lateral view(s) of the right hip(s). COMPARISON: CT lower extremity 09/23/2020 FINDINGS: Bones: In interval since the prior exam, there is been fixation of the previous right femoral neck an d intertrochanteric fracture. There is relatively good anatomic alignment with lucencies remaining at fracture sites. Hardware is intact. Soft tissues: The visualized bowel gas pattern is normal. No suspicious soft tissue calcifications. IMPRESSION: Interval fixation of right femoral neck and intertrochanteric fracture. Reviewed by: Pauline Adan MD on 10/11/2020 4:31 PM PST Approved by: Pauline Adan MD on 10/11/2020 4:31 PM PST Station ID: [id number]
== END 2020-10-11 23:59 | disposition home or self-care (01) ==
LOC: DI.N 09:31
PROVIDERS: ATTEND Physician Assistant
DX: S72.001D Fracture of unspecified part of neck of right femur, subsequent encounter for closed fracture with routine healing (principal); S72.141D Displaced intertrochanteric fracture of right femur, subsequent encounter for closed fracture with routine healing

== ENCOUNTER 2020-11-23 08:00 | Outpatient (CLI) | payer MEDICARE, BC ==
[2020-11-23 18:20] LABS: BASOPHILS # (AUTO) 0.1 10^3/uL (0.0-0.1); BASOPHILS % (AUTO) 0.9 %; EOSINOPHILS # (AUTO) 0.5 10^3/uL (0.0-0.7); EOSINOPHILS % (AUTO) 4.7 %; HCT - HEMATOCRIT 35.1 % (37.0-47.0); HGB - HEMOGLOBIN 10.6 g/dL (12.0-16.0); LYMPHOCYTES # (AUTO) 1.6 10^3/uL (1.5-3.5); LYMPHOCYTES % (AUTO) 14.7 %; MEAN CORPUSCULAR HGB CONC 30.2 g/dL (32.0-36.0); MEAN CORPUSCULAR VOLUME 102.6 fL (81.0-99.0); MEAN PLATELET VOLUME 9.4 fL (7.9-10.8); MONOCYTES # (AUTO) 0.9 10^3/uL (0.0-1.0); MONOCYTES % (AUTO) 7.9 %; NEUTROPHILS # (AUTO) 7.8 10^3/uL (1.5-6.6); NEUTROPHILS % (AUTO) 70.7 %; PLT - PLATELET COUNT 560 10^3/uL (130-450); RED BLOOD COUNT 3.42 10^6/uL (4.20-5.40); RED CELL DISTRIBUTION WIDTH 14.5 % (12.0-15.0)
[2020-11-23 18:30] LABS: INR 2.6 (0.8-1.2); PT - PROTHROMBIN TIME 27.4 secs (9.9-12.6)
[2020-11-23 18:32] LABS: ALBUMIN/GLOBULIN RATIO 0.9 (1.0-2.2); BILIRUBIN,TOTAL 0.7 mg/dL (0.2-1.0); CALCIUM 9.7 mg/dL (8.5-10.3); CREATININE 0.9 mg/dL (0.4-1.0); POTASSIUM 4.2 mmol/L (3.5-5.0); TOTAL PROTEIN 8.3 g/dL (6.7-8.2)
[2020-11-23 18:37] LABS: PARTIAL THROMBOPLASTIN TIME 43.9 secs (24.9-33.3)
[2020-11-23 18:47] LABS: THYROID STIMULATING HORMONE 4.33 uIU/mL (0.34-5.60)
[2020-11-23 20:41] LABS: ESTIMATED AVERAGE GLUCOSE 97 mg/dL (70-100)
== END 2020-11-23 23:59 | disposition home or self-care (01) ==
LOC: LAB.WCP 08:00
PROVIDERS: ATTEND Family Medicine
DX: I48.20 Chronic atrial fibrillation, unspecified (principal); Z79.01 Long term (current) use of anticoagulants; M54.16 Radiculopathy, lumbar region; Z95.2 Presence of prosthetic heart valve; D62 Acute posthemorrhagic anemia; S72.141A Displaced intertrochanteric fracture of right femur, initial encounter for closed fracture; M25.552 Pain in left hip; I50.20 Unspecified systolic (congestive) heart failure; E11.59 Type 2 diabetes mellitus with other circulatory complications
CPT/HCPCS: 36415; 80053; 82043; 82570; 83036; 84443; 85025; 85610; 85730

== ENCOUNTER 2020-11-25 08:18 | Outpatient (CLI) | payer MEDICARE, BC ==
--- NOTE | 2020-11-25 12:46 | XRAY Report ---
PROCEDURE: Hip w/Pelvis 1V RT INDICATIONS: RIGHT INTERTROCHANTERIC FEMUR FRACTURE TECHNIQUE: AP pelvis with lateral view(s) of the right hip(s). COMPARISON: Right hip radiographs 10/11/2020 CT right hip 09/23/2020.. FINDINGS: Bones: Expected appearance of the right femur intramedullary tarah in screw fixation. Prior right femo ral neck and intertrochanteric fracture. No lucency surrounding the femoral intramedullary tarah. No di slocation. Pelvic ring appears intact. No suspicious bony lesions. Soft tissues: The visualized bowel gas pattern is normal. No suspicious soft tissue calcifications. IMPRESSION: Stable right femur intramedullary tarah and fixation. Reviewed by: Wilbert Mckeon MD on 11/25/2020 11:44 AM COLLEEN Approved by: Wilbert Mckeon MD on 11/25/2020 11:44 AM COLLEEN Station ID: [id number]
[2020-11-25 19:06] LABS: CREATININE,URINE < 13.0 mg/dL
[2020-11-25 19:08] LABS: MICROALBUMIN,URINE < 0.2 mg/dL (0-300.0)
== END 2020-11-25 23:59 | disposition home or self-care (01) ==
LOC: DI.N 08:18
PROVIDERS: ATTEND Physician Assistant
DX: S72.141A Displaced intertrochanteric fracture of right femur, initial encounter for closed fracture (principal); I48.20 Chronic atrial fibrillation, unspecified; Z95.2 Presence of prosthetic heart valve; Z79.01 Long term (current) use of anticoagulants; M54.16 Radiculopathy, lumbar region; I50.1 Left ventricular failure, unspecified; E11.51 Type 2 diabetes mellitus with diabetic peripheral angiopathy without gangrene
CPT/HCPCS: 82043; 82570

== ENCOUNTER 2020-12-24 00:05 | Outpatient (CLI) | payer MEDICARE, BC | END 2020-12-24 00:06 | disposition critical access hospital (66) | LOC: EMS 00:05 | DX: R06.00 Dyspnea, unspecified (principal) | CPT/HCPCS: A0425; A0429 ==

== ENCOUNTER 2020-12-24 00:18 | Emergency (ER) | payer MEDICARE, BC ==
--- NOTE | 2020-12-24 00:46 | ED Physician Documentation ---
History of Present Illness - Stated complaint Stated Complaint: SOA - Chief complaint Chief Complaint: Resp - History obtained from History obtained from: Patient - Additonal information Additional information: 80-year-old woman with history of asthma not on home oxygen, atrial fibrillation on Coumadin, presents from [facility] complaint of several months of progressive shortness of breath, acutely worsening this evening and improved with nebulizer treatment and oxygen administration by EMS. Patient states that her shortness of breath has now resolved. She is currently on 2 L of oxygen NC. patient denies cp, palpitations, nausea, diaphoresis, back pain, cough, fever. she does endorse progressive leg swelling this week. Review of Systems Ten Systems: 10 systems reviewed and negative Constitutional: denies: Fever Cardiac: denies: Chest pain / pressure Respiratory: reports: Dyspnea. 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: section, Hysterectomy, Other Cardiovascular: Valve replacement HEENT: Cataracts - Present Medications Home Medications: Ambulatory Orders Medication Instructions Recorded Confirmed Gabapentin [Neurontin] 300 mg PO BID 03/04/13 12/24/20 metFORMIN [Glucophage] 500 mg PO DAILY 04/06/15 12/24/20 Digoxin 0.125 mg PO DAILY 08/30/16 12/24/20 Potassium Chloride [K-Dur] 20 meq PO DAILYWM #30 tablet 09/05/16 12/24/20 Aspirin 81 mg PO DAILY 12/11/18 12/24/20 Bumetanide 2 mg PO BID 08/19/20 12/24/20 Metoprolol Succinate [Toprol Xl] 50 mg PO DAILY 09/24/20 12/24/20 Alendronate [Fosamax] 70 mg PO Q7D #2 tablet 10/01/20 12/24/20 Calcium Carbonate/Vitamin D3 1 each PO DAILY #30 tablet 10/01/20 12/24/20 [Calcium 500 mg-Vit D3 600 Unit] Ferrous Gluconate [Fergon] 324 mg PO DAILYWM #30 tablet 10/01/20 12/24/20 Pnv No.121/Iron/Folic Acid 1 each PO DAILY #30 tablet 10/01/20 12/24/20 [ Multivitamin Tablet] Thiamine [Vitamin B-1] 100 mg PO DAILY #30 tablet 10/01/20 12/24/20 oxyCODONE [Roxicodone] 5 mg PO Q6HR PRN #15 tablet 10/01/20 12/24/20 Warfarin [Coumadin] 1 mg PO 12/24/20 Warfarin [Coumadin] 1 mg PO 12/24/20 Warfarin [Coumadin] 2 mg PO 12/24/20 - Allergies Allergies/Adverse Reactions: Allergies Allergy/AdvReac Type Severity Reaction Status Date / Time No Known Drug Allergies Allergy Verified 12/24/20 00:29 - Social History Does the pt smoke?: No Smoking Status: Never smoker Does the pt drink ETOH?: Yes Does the pt have substance abuse?: No - Immunizations Immunizations are current?: No - POLST Patient has POLST: No POLST Status: Full Code PD ED PE NORMAL - Vitals Vital signs reviewed: Yes - General General: Alert and oriented X 3, No acute distress, Well developed/nourished - HEENT HEENT: Atraumatic, PERRL, EOMI - Neck Neck: Supple, no meningeal sign - Cardiac Cardiac: Other (Borderline tachycardic rate, regular rhythm) - Respiratory Respiratory: Other (diminished bibasilar breath sounds. decreased air entry bilaterally) - Abdomen Abdomen: Non tender, Non distended - Derm Derm: Normal color, Warm and dry - Neuro Neuro: Alert and oriented X 3 - Psych Psych: Normal mood, Normal affect Results - Vitals Vitals: Vital Signs - 24 hr 12/24/20 12/24/20 12/24/20 00:18 00:50 00:53 Temperature 35.8 C L 35.8 C L Heart Rate 92 104 H 92 Respiratory 20 18 20 Rate Blood Pressure 115/77 115/77 O2 Saturation 92 92 Oxygen O2 Source Nasal cannula - Labs Labs: Laboratory Tests 12/24/20 12/24/20 12/24/20 00:49 00:49 00:49 WBC 8.8 RBC 3.29 L Hgb 9.9 L Hct 32.0 L MCV 97.3 MCH 30.1 MCHC 30.9 L RDW 15.4 H Plt Count 383 MPV 9.0 Neut # (Auto) 5.6 Lymph # (Auto) 1.9 [place] # (Auto) 0.7 Eos # (Auto) 0.4 Baso # (Auto) 0.1 Absolute Nucleated RBC 0.00 Nucleated RBC % 0.0 PT INR APTT D-Dimer VBG pH VBG pCO2 VBG pO2 VBG HCO3 VBG Total CO2 VBG O2 Saturation VBG Base Excess Sodium 139 Potassium 3.7 Chloride 103 Carbon Dioxide 26 Anion Gap 10.0 BUN 12 Creatinine 1.0 Estimated GFR (MDRD) 53 L Glucose 107 H Calcium 9.6 Total Bilirubin 0.8 AST 24 ALT 13 Alkaline Phosphatase 66 Troponin I High Sens 19.5 H* B-Natriuretic Peptide Total Protein 7.5 Albumin 4.1 Globulin 3.4 Albumin/Globulin Ratio 1.2 Lipase 28 Last Dose Date Last Dose Time Digoxin 12/24/20 12/24/20 12/24/20 00:49 00:49 00:49 WBC RBC Hgb Hct MCV MCH MCHC RDW Plt Count MPV Neut # (Auto) Lymph # (Auto) [place] # (Auto) Eos # (Auto) Baso # (Auto) Absolute Nucleated RBC Nucleated RBC % PT INR APTT D-Dimer VBG pH 7.423 H VBG pCO2 38.2 L VBG pO2 47.2 H VBG HCO3 24.4 VBG Total CO2 25.6 VBG O2 Saturation 82.8 H VBG Base Excess 0.1 Sodium Potassium Chloride Carbon Dioxide Anion Gap BUN Creatinine Estimated GFR (MDRD) Glucose Calcium Total Bilirubin AST ALT Alkaline Phosphatase Troponin I High Sens B-Natriuretic Peptide 306 H Total Protein Albumin Globulin Albumin/Globulin Ratio Lipase Last Dose Date 12-23-20 Last Dose Time 0800 Digoxin 0.6 12/24/20 01:15 WBC RBC Hgb Hct MCV MCH MCHC RDW Plt Count MPV Neut # (Auto) Lymph # (Auto) [place] # (Auto) Eos # (Auto) Baso # (Auto) Absolute Nucleated RBC Nucleated RBC % PT 19.8 H INR 1.8 H APTT 33.0 D-Dimer 491.2 H VBG pH VBG pCO2 VBG pO2 VBG HCO3 VBG Total CO2 VBG O2 Saturation VBG Base Excess Sodium Potassium Chloride Carbon Dioxide Anion Gap BUN Creatinine Estimated GFR (MDRD) Glucose Calcium Total Bilirubin AST ALT Alkaline Phosphatase Troponin I High Sens B-Natriuretic Peptide Total Protein Albumin Globulin Albumin/Globulin Ratio Lipase Last Dose Date Last Dose Time Digoxin PD MEDICAL DECISION MAKING - ED course ED course: 80-year-old woman with history of asthma and atrial fibrillation presents with shortness of breath from [facility]. Her shortness of breath is improved with breathing treatment and oxygen by nasal cannula. Will complete medical work-up and reevaluate. Labwork noncontributory, with troponin lower than her baseline. Anemia stable from previous. age adjusted d-dimer negative. Patient with resolution of symptoms. Sleeping comfortably in the ED. removed nasal cannula and she is asym ptomatic and maintaining sats on room air. d/w her re: cxr results showing increased bronchial markings. she is aware she needs to return to the ed if her symptoms return or if she has fevers. Patient will return to [facility] and f/u with her pmd. Departure - Departure Disposition: 01 Home, Self Care Clinical Impression: Shortness of breath, Anemia Condition: Good Instructions: COPD Dc Comments: You were seen in the emergency department for shortness of breath. Your labwork did not have overtly concerning features and your EKG did not show an emergent cause for your shortness of breath. You do have some mild anemia and should have bloodwork repeated in one week. Your chest xray showed inflammation around the large airways (bronchi) in the lungs that is consistent with asthma/copd. Please return to the emergency department if you experience fevers, bleeding, or have any new or worsening symptoms. Follow-up with your primary doctor this week.
[2020-12-24] MEDS ORDERED: IPRATROPIUM/ALBUTEROL 3 ML NEB INH STA (00:49)
[2020-12-24 00:55] LABS: BASOPHILS # (AUTO) 0.1 10^3/uL (0.0-0.1); BASOPHILS % (AUTO) 0.8 %; EOSINOPHILS # (AUTO) 0.4 10^3/uL (0.0-0.7); EOSINOPHILS % (AUTO) 4.4 %; HGB - HEMOGLOBIN 9.9 g/dL (12.0-16.0); LYMPHOCYTES # (AUTO) 1.9 10^3/uL (1.5-3.5); LYMPHOCYTES % (AUTO) 22.1 %; MEAN CORPUSCULAR HEMOGLOBIN 30.1 pg (27.0-31.0); MEAN CORPUSCULAR HGB CONC 30.9 g/dL (32.0-36.0); MEAN CORPUSCULAR VOLUME 97.3 fL (81.0-99.0); MONOCYTES # (AUTO) 0.7 10^3/uL (0.0-1.0); MONOCYTES % (AUTO) 7.5 %; NEUTROPHILS # (AUTO) 5.6 10^3/uL (1.5-6.6); NEUTROPHILS % (AUTO) 64.2 %; PLT - PLATELET COUNT 383 10^3/uL (130-450); RED BLOOD COUNT 3.29 10^6/uL (4.20-5.40); RED CELL DISTRIBUTION WIDTH 15.4 % (12.0-15.0); WHITE BLOOD COUNT 8.8 x10^3/uL (4.8-10.8)
[2020-12-24 00:56] LABS: VBG BASE EXCESS 0.1 mmol/L (-2 - +2); VBG HCO3 24.4 mmol/L (23-28); VBG PCO2 38.2 mmHg (41-51); VBG PH 7.423 (7.31-7.41); VBG PO2 47.2 mmHg (25-47); VBG TOTAL CO2 25.6 mmol/L (24-29)
[2020-12-24 00:57] LABS: VBG OXYGEN SATURATION 82.8 % (60-80)
[2020-12-24 01:16] LABS: ALBUMIN 4.1 g/dL (3.2-5.5); ALBUMIN/GLOBULIN RATIO 1.2 (1.0-2.2); BILIRUBIN,TOTAL 0.8 mg/dL (0.2-1.0); CALCIUM 9.6 mg/dL (8.5-10.3); POTASSIUM 3.7 mmol/L (3.5-5.0); TOTAL PROTEIN 7.5 g/dL (6.7-8.2)
[2020-12-24 01:28] LABS: INR 1.8 (0.8-1.2); PT - PROTHROMBIN TIME 19.8 secs (9.9-12.6)
[2020-12-24 01:29] LABS: DIGOXIN 0.6 ng/mL
[2020-12-24 01:35] LABS: D-DIMER 491.2 ng/mL (200.0-255.0)
[2020-12-24 04:14] VITALS: BP 101/79
--- NOTE | 2020-12-24 07:56 | XRAY Report ---
PROCEDURE: Chest 1 View X-Ray INDICATIONS: Chest pain TECHNIQUE: One view of the chest was acquired. COMPARISON: 09/28/2020 FINDINGS: Surgical changes and devices: None. Lungs and pleura: No pleural effusions or pneumothorax. Lungs are clear. Mild antral bronchial wall thickening. Mediastinum: Mediastinal contours appear normal. Heart size is normal. Bones and chest wall: No suspicious bony lesions. Overlying soft tissues appear unremarkable. IMPRESSION: Mild central bronchial wall thickening which is nonspecific may be related to bronchitis or pulmonary edema. No lung consolidation. Reviewed by: Anna Fisher MD, PhD on 12/24/2020 7:55 AM PDT Approved by: Anna Fisher MD, PhD on 12/24/2020 7:55 AM PDT Station ID: [id number]
== END 2020-12-24 04:12 | disposition home or self-care (01) ==
LOC: EDUNIT# → EDSEX → ED 00:18
DX: R06.02 Shortness of breath (principal); D64.9 Anemia, unspecified; I50.9 Heart failure, unspecified; I11.0 Hypertensive heart disease with heart failure; E11.9 Type 2 diabetes mellitus without complications; I48.91 Unspecified atrial fibrillation; J45.909 Unspecified asthma, uncomplicated; Z79.01 Long term (current) use of anticoagulants; Z79.84 Long term (current) use of oral hypoglycemic drugs
CPT/HCPCS: 36415; 80053; 80162; 82803; 83690; 83880; 84484; 85025; 85379; 85610; 85730; 93005; 94640; 99284

== ENCOUNTER 2020-12-24 04:07 | Outpatient (CLI) | payer MEDICARE, BC | END 2020-12-24 04:08 | disposition home or self-care (01) | LOC: EMS 04:07 | PROVIDERS: ATTEND Emergency Medicine | DX: J44.9 Chronic obstructive pulmonary disease, unspecified (principal); R41.0 Disorientation, unspecified | CPT/HCPCS: A0425; A0428 ==

== ENCOUNTER 2021-01-04 05:25 | Outpatient (CLI) | payer MEDICARE, BC | END 2021-01-04 05:26 | disposition critical access hospital (66) | LOC: EMS 05:25 | DX: M79.604 Pain in right leg (principal) | CPT/HCPCS: A0425; A0429 ==

== ENCOUNTER 2021-01-04 05:41 | Emergency (ER) | payer MEDICARE, BC ==
--- OUTSIDE RECORDS SUMMARY | 2021-01-04 05:59 | EXTERNAL MEDICAL SUMMARY RPT | Continuity of Care Document ---
:1940 Demographics Phone Unavailable Preferred Language Unknown Marital Status Unknown Caodaism Affiliation Unknown Race Unknown Ethnic Group Unknown Author Organization [facility] Address [address] [id number] Phone Social History date description facility [phone]
--- NOTE | 2021-01-04 06:00 | ED Physician Documentation ---
PD HPI LOWER EXT INJURY - Stated complaint Stated Complaint: RT LEG PX - Chief complaint Chief Complaint: Ext Problem - History obtained from History obtained from: Patient - History of Present Illness PD HPI LOW EXT INJURY LOCATION: Right, Thigh Type of injury: Other (she is not aware of a fall/injury). No: Fall, Twist Where injury occurred: Home (she lives in SNF, and was noted to have right thigh pain and some swelling during the night into today.) Timing - onset: Last night Timing - details: Abrupt onset, Still present Worsened by: Moving, Palpating Associated symptoms: Swelling. No: Weakness, Numbness, Discolored Contributing factors: Prior ortho surgery (hip fracture repair Sep 2020.) Recently seen: Emergency Dept (12/24/20 for exac COPD/dyspnea.) Review of Systems Unable to obtain: Dementia (some short term memory loss but still able to remember recent events, like being to ER recently for dypsnea, and she remembered hip surgery recently, though thought it was in Jun rather than September.) Constitutional: denies: Fever Nose: denies: Congestion Cardiac: denies: Chest pain / pressure, Palpitations Respiratory: denies: Dyspnea (denies current dyspnea), Cough GI: denies: Abdominal Pain, Diarrhea Skin: denies: Rash, Lesions Neurologic: denies: Focal weakness, Numbness, Headache PD PAST MEDICAL HISTORY - Past Medical History Past Medical History: Yes Cardiovascular: Congestive heart failure, Hypertension, Atrial fibrillation, Valve disorder Respiratory: Asthma Neuro: None, Dementia Endocrine/Autoimmune: Type 2 diabetes GI: None 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 HEENT: None Psych: None Musculoskeletal: Chronic back pain Derm: None - Past Surgical History Past Surgical History: Yes General: Other Ortho: Hip replacement /MEDICAID ELIGIBILITY SPECIALIST: section, Hysterectomy, Other Cardiovascular: Valve replacement HEENT: Cataracts - Present Medications Home Medications: Ambulatory Orders Medication Instructions Recorded Confirmed Gabapentin [Neurontin] 300 mg PO BID 03/04/13 01/04/21 metFORMIN [Glucophage] 500 mg PO DAILY 04/06/15 01/04/21 Digoxin 0.125 mg PO DAILY 08/30/16 01/04/21 Potassium Chloride [K-Dur] 20 meq PO DAILYWM #30 tablet 09/05/16 01/04/21 Aspirin 81 mg PO DAILY 12/11/18 01/04/21 Bumetanide 2 mg PO BID 08/19/20 01/04/21 Metoprolol Succinate [Toprol Xl] 50 mg PO DAILY 09/24/20 01/04/21 Alendronate [Fosamax] 70 mg PO Q7D #2 tablet 10/01/20 01/04/21 Calcium Carbonate/Vitamin D3 1 each PO DAILY #30 tablet 10/01/20 01/04/21 [Calcium 500 mg-Vit D3 600 Unit] Ferrous Gluconate [Fergon] 324 mg PO DAILYWM #30 tablet 10/01/20 01/04/21 Pnv No.121/Iron/Folic Acid 1 each PO DAILY #30 tablet 10/01/20 01/04/21 [ Multivitamin Tablet] Thiamine [Vitamin B-1] 100 mg PO DAILY #30 tablet 10/01/20 01/04/21 oxyCODONE [Roxicodone] 5 mg PO Q6HR PRN #15 tablet 10/01/20 01/04/21 Warfarin [Coumadin] 1 mg PO 12/24/20 Warfarin [Coumadin] 1 mg PO BIDWM 12/24/20 01/04/21 Warfarin [Coumadin] 2 mg PO 12/24/20 - Allergies Allergies/Adverse Reactions: Allergies Allergy/AdvReac Type Severity Reaction Status Date / Time No Known Drug Allergies Allergy Verified 01/04/21 05:46 - Social History Does the pt smoke?: No Smoking Status: Never smoker Does the pt drink ETOH?: Yes Does the pt have substance abuse?: No - Immunizations Immunizations are current?: No - POLST Patient has POLST: No POLST Status: Full Code PD ED PE NORMAL - Vitals Vital signs reviewed: Yes - General General: No acute distress, Well developed/nourished. No: Alert and oriented X 3 (oriented to person and place, but not month.) - HEENT HEENT: Atraumatic - Neck Neck: Supple, no meningeal sign, No adenopathy - Cardiac Cardiac: No: RRR (irregular but rate controlled.) - Respiratory Respiratory: No respiratory distress, Clear bilaterally - Abdomen Abdomen: Soft, Non tender - Derm Derm: Normal color, Warm and dry, Other (no redness, warmth, rash) - Extremities Extremities: Other (right anterior mid thigh with area of tender and firmness. No redness nor warmth. No skin sores. Lateral and medial are not tender. She is able to move leg but hurts in anterior thigh. No hip pain. Passive ROM without hurting. ) - Neuro Neuro: No motor deficit, No sensory deficit Results - Vitals Vitals: Vital Signs - 24 hr 01/04/21 01/04/21 01/04/21 05:46 05:50 06:22 Temperature 36.2 C L 36.2 C L 36.3 C L Heart Rate 83 83 81 Respiratory 16 16 18 Rate Blood Pressure 108/69 108/69 109/68 O2 Saturation 93 93 88 L 01/04/21 01/04/21 01/04/21 06:23 06:54 07:55 Temperature 36.3 C L 36.3 C L Heart Rate 81 79 91 Respiratory 18 18 18 Rate Blood Pressure 109/68 104/64 100/61 O2 Saturation 98 100 96 01/04/21 10:12 Temperature 36.6 C Heart Rate 91 Respiratory 16 Rate Blood Pressure 111/58 L O2 Saturation 92 Oxygen O2 Source Room air - Labs Labs: Laboratory Tests 01/04/21 01/04/21 01/04/21 05:59 05:59 05:59 WBC 10.6 RBC 2.79 L Hgb 8.6 L Hct 27.1 L MCV 97.1 MCH 30.8 MCHC 31.7 L RDW 15.1 H Plt Count 318 MPV 8.6 Neut # (Auto) 8.1 H Lymph # (Auto) 1.0 L [place] # (Auto) 1.1 H Eos # (Auto) 0.3 Baso # (Auto) 0.1 Absolute Nucleated RBC 0.00 Nucleated RBC % 0.0 PT 24.3 H INR 2.3 H Sodium 136 Potassium 3.3 L Chloride 97 L Carbon Dioxide 28 Anion Gap 11.0 BUN 15 Creatinine 1.0 Estimated GFR (MDRD) 53 L Glucose 109 H Calcium 9.1 Total Bilirubin 1.0 AST 20 ALT 11 Alkaline Phosphatase 58 Total Creatine Kinase Total Protein 7.3 Albumin 3.7 Globulin 3.6 Albumin/Globulin Ratio 1.0 Lipase 104 H 01/04/21 09:25 WBC RBC Hgb Hct MCV MCH MCHC RDW Plt Count MPV Neut # (Auto) Lymph # (Auto) [place] # (Auto) Eos # (Auto) Baso # (Auto) Absolute Nucleated RBC Nucleated RBC % PT INR Sodium Potassium Chloride Carbon Dioxide Anion Gap BUN Creatinine Estimated GFR (MDRD) Glucose Calcium Total Bilirubin AST ALT Alkaline Phosphatase Total Creatine Kinase 22 Total Protein Albumin Globulin Albumin/Globulin Ratio Lipase - Rads (name of study) right femur Radiology: Prelim report reviewed (no fractures nor acute process), See rad report thigh CT Radiology: Prelim report reviewed (no fluid collections (hematomas, abscess).), See rad report PD MEDICAL DECISION MAKING - ED course Complexity details: reviewed results, considered differential (has firm tender area in thigh, presume hematoma. Will get xray to eval, possible CT. Does not seem like infection but will check WBC. Check INR. ), d/w patient Departure - Departure Disposition: Home, Self Care Clinical Impression: Right thigh pain, Muscle swelling Clinical Impression: (Ruled Out): Hematoma Condition: Stable Record reviewed to determine appropriate education?: Yes Instructions: ED Muscle Pain Leg Cramps Follow-Up: Edson Bee MD [Primary Care Provider] - Comments: Continue with your usual medicines. Tylenol every 4-6 hours if needed for pains. You can use some warm towels to the thigh area and the area of the tender muscle. It is appears to be some inflammation of the muscle. No signs of infection at this time. Your CT scan and blood test did not show any hematom a/abscess/obvious infection. Recheck if not improved well over the next week or so. Recheck sooner if worsening or other associated symptoms. Discharge Date/Time: 01/04/21 11:45
[2021-01-04 06:03] LABS: BASOPHILS # (AUTO) 0.1 10^3/uL (0.0-0.1); BASOPHILS % (AUTO) 0.5 %; EOSINOPHILS # (AUTO) 0.3 10^3/uL (0.0-0.7); EOSINOPHILS % (AUTO) 2.6 %; HCT - HEMATOCRIT 27.1 % (37.0-47.0); HGB - HEMOGLOBIN 8.6 g/dL (12.0-16.0); LYMPHOCYTES % (AUTO) 9.8 %; MEAN CORPUSCULAR HEMOGLOBIN 30.8 pg (27.0-31.0); MEAN CORPUSCULAR HGB CONC 31.7 g/dL (32.0-36.0); MEAN CORPUSCULAR VOLUME 97.1 fL (81.0-99.0); MEAN PLATELET VOLUME 8.6 fL (7.9-10.8); MONOCYTES # (AUTO) 1.1 10^3/uL (0.0-1.0); MONOCYTES % (AUTO) 10.5 %; NEUTROPHILS # (AUTO) 8.1 10^3/uL (1.5-6.6); NEUTROPHILS % (AUTO) 75.9 %; PLT - PLATELET COUNT 318 10^3/uL (130-450); RED BLOOD COUNT 2.79 10^6/uL (4.20-5.40); RED CELL DISTRIBUTION WIDTH 15.1 % (12.0-15.0); WHITE BLOOD COUNT 10.6 x10^3/uL (4.8-10.8)
[2021-01-04 06:08] LABS: INR 2.3 (0.8-1.2); PT - PROTHROMBIN TIME 24.3 secs (9.9-12.6)
[2021-01-04 06:16] LABS: ALBUMIN 3.7 g/dL (3.2-5.5); CALCIUM 9.1 mg/dL (8.5-10.3); POTASSIUM 3.3 mmol/L (3.5-5.0); TOTAL PROTEIN 7.3 g/dL (6.7-8.2)
[2021-01-04] MEDS ORDERED: SODIUM CHLORIDE 0.9% 1,000 ML IV STA (06:58)
[2021-01-04] MEDS ORDERED: IOPAMIDOL-300 100 ML VIAL ONE (07:18)
[2021-01-04] MEDS ORDERED: IOPAMIDOL-300 100 ML VIAL IVP ONE (07:51)
--- NOTE | 2021-01-04 08:23 | XRAY Report ---
PROCEDURE: Femur 2V RT INDICATIONS: pain right thigh with swelling, today TECHNIQUE: 2 views of the femur were acquired. COMPARISON: 11/25/2020 FINDINGS: Anterograde intramedullary tarah and compression screw in the femoral neck and distal interlo cking screws, unchanged from prior. Intertrochanteric fracture fragments are unchanged in alignment. No new fracture identified. IMPRESSION: No acute finding. Reviewed by: Keanu Brambila MD on 01/04/2021 8:22 AM PDT Approved by: Keanu Brambila MD on 01/04/2021 8:22 AM PDT Station ID: [id number]
--- NOTE | 2021-01-04 08:46 | CT Report ---
PROCEDURE: LOWER EXTREMITY W - RT INDICATIONS: right thigh swelling/? hematoma TECHNIQUE: Axial CT images of the right lower extremity were obtained after IV contrast administratio n, from the level of the iliac crest to below the level of the knee. COMPARISON: 09/23/2020 CT right lower extremity FINDINGS: Comminuted intertrochanteric femur fracture status post internal fixation by means of intramedullary tarah and compression screw in the femoral neck with distal locking screws. No acute complicating hardw are features. Scarring and inflammatory change in the subcutaneous soft tissues overlying the lateral compartment, not unexpected in the immediate postsurgical setting. There is circumferential fat stra nding and edema in the thigh, nonspecific. There is no organized fluid collection to indicate hematom a or abscess. IMPRESSION: No organized fluid collection in the thigh soft tissues 2 suggest hematoma or abscess. Circumferential edema in the thigh, most pronounced in the lateral compartment presumably related to the surgical approach. Reviewed by: Keanu Brambila MD on 01/04/2021 8:44 AM PDT Approved by: Keanu Brambila MD on 01/04/2021 8:44 AM PDT Station ID: [id number]
[2021-01-04 10:12] VITALS: BP 111/58
== END 2021-01-04 11:45 | disposition home or self-care (01) ==
LOC: EDUNIT# → ED 05:41
DX: M79.651 Pain in right thigh (principal); I10 Essential (primary) hypertension; I48.91 Unspecified atrial fibrillation; Z79.01 Long term (current) use of anticoagulants; E11.9 Type 2 diabetes mellitus without complications; Z79.84 Long term (current) use of oral hypoglycemic drugs
CPT/HCPCS: 36415; 73552; 73701; 80053; 82550; 83690; 85025; 85610; 99282; 99284; Q9967

== ENCOUNTER 2021-02-11 08:00 | Outpatient (CLI) | payer MEDICARE, BC | END 2021-02-11 23:59 | disposition home or self-care (01) | LOC: LAB.WCP 08:00 | PROVIDERS: ATTEND Family Medicine | DX: I48.20 Chronic atrial fibrillation, unspecified (principal); Z79.01 Long term (current) use of anticoagulants ==

== ENCOUNTER 2021-02-18 08:00 | Outpatient (CLI) | payer MEDICARE, BC | END 2021-02-18 23:59 | disposition home or self-care (01) | LOC: LAB.WCP 08:00 | PROVIDERS: ATTEND Family Medicine | DX: I48.20 Chronic atrial fibrillation, unspecified (principal); Z79.01 Long term (current) use of anticoagulants ==

== ENCOUNTER 2021-03-07 08:00 | Outpatient (CLI) | payer MEDICARE, BC ==
--- NOTE | 2021-03-07 13:49 | XRAY Report ---
PROCEDURE: Hip w/Pelvis 1V RT INDICATIONS: R HIP EFFUSION TECHNIQUE: AP pelvis with lateral view(s) of the right hip(s). COMPARISON: 10/11/2020, 11/25/2020.. FINDINGS: Bones: No acute fractures or dislocations. Prior fracture fixation at the intertrochanteric right hi p Pelvic ring appears intact. No suspicious bony lesions. Soft tissues: The visualized bowel gas pattern is normal. No suspicious soft tissue calcifications. IMPRESSION: Prior fracture fixation right hip with near anatomic alignment established by a long med ullary tarah and an intersecting diagonal dynamic hip screw at the right hip. Reviewed by: Cristian Lozano MD on 03/07/2021 1:48 PM PDT Approved by: Cristian Lozano MD on 03/07/2021 1:48 PM PDT Station ID: [id number]
== END 2021-03-07 23:59 | disposition home or self-care (01) ==
LOC: DI.N 08:00
PROVIDERS: ATTEND Nurse Practitioner
DX: S72.001D Fracture of unspecified part of neck of right femur, subsequent encounter for closed fracture with routine healing (principal)

== ENCOUNTER 2021-03-09 18:46 | Emergency (ER) | payer MEDICARE, BC ==
[2021-03-09] MEDS ORDERED: oxyCODONE 5 MG TABLET PO STA (19:10)
--- NOTE | 2021-03-09 19:13 | ED Physician Documentation ---
History of Present Illness - Stated complaint Stated Complaint: BACK PX - Additonal information Additional information: 80-year-old female comes to the emergency department with her daughter from [facility] where she resides. She was sent here for evaluation of acute low back pain. Patient reports that she felt the pain last night which woke her from sleep. She denies a history of similar. She has had no falls or known trauma. Though she does have a history of dementia and is typically ambulatory with a walker. she does have a hx of htn, atrial fib anticolagulated on coumadin, dementia, DM II There have been no fevers, no saddle anesthesia, no loss of bowel or bladder function. Pt does not have a known hx of cancer, There is no abdominal pain,nausea or vomiting. The daughter reports that the staff at [facility] told her she was more confused than normal but the daughter feels that she is at her baseline mentation. I have seen this patient in the past and I would also agree that she does not appear acutely altered from known baseline. Review of Systems Unable to obtain: Dementia Constitutional: denies: Fever, Chills Eyes: reports: Reviewed and negative Nose: reports: Reviewed and negative Throat: reports: Reviewed and negative Cardiac: reports: Reviewed and negative Respiratory: reports: Reviewed and negative GI: reports: Reviewed and negative : reports: Reviewed and negative Skin: reports: Reviewed and negative Musculoskeletal: reports: Back pain Neurologic: reports: Numbness (right lower lateral leg). denies: Generalized weakness, Focal weakness Psychiatric: reports: Reviewed and negative PD PAST MEDICAL HISTORY - Past Medical History Cardiovascular: Congestive heart failure, Hypertension, Atrial fibrillation, Valve disorder Respiratory: Asthma Neuro: None, Dementia Endocrine/Autoimmune: Type 2 diabetes GI: None DISH UP PERSON: Other : None HEENT: None Psych: None Musculoskeletal: Chronic back pain Derm: None - Past Surgical History Past Surgical History: Yes General: Other Ortho: Hip replacement /DISH UP PERSON: section, Hysterectomy, Other Cardiovascular: Valve replacement HEENT: Cataracts - Present Medications Home Medications: Ambulatory Orders Medication Instructions Recorded Confirmed Gabapentin [Neurontin] 300 mg PO BID 03/04/13 01/04/21 metFORMIN [Glucophage] 500 mg PO DAILY 04/06/15 01/04/21 Digoxin 0.125 mg PO DAILY 08/30/16 01/04/21 Potassium Chloride [K-Dur] 20 meq PO DAILYWM #30 tablet 09/05/16 01/04/21 Aspirin 81 mg PO DAILY 12/11/18 01/04/21 Bumetanide 2 mg PO BID 08/19/20 01/04/21 Metoprolol Succinate [Toprol Xl] 50 mg PO DAILY 09/24/20 01/04/21 Alendronate [Fosamax] 70 mg PO Q7D #2 tablet 10/01/20 01/04/21 Calcium Carbonate/Vitamin D3 1 each PO DAILY #30 tablet 10/01/20 01/04/21 [Calcium 500 mg-Vit D3 600 Unit] Ferrous Gluconate [Fergon] 324 mg PO DAILYWM #30 tablet 10/01/20 01/04/21 Pnv No.121/Iron/Folic Acid 1 each PO DAILY #30 tablet 10/01/20 01/04/21 [ Multivitamin Tablet] Thiamine [Vitamin B-1] 100 mg PO DAILY #30 tablet 10/01/20 01/04/21 oxyCODONE [Roxicodone] 5 mg PO Q6HR PRN #15 tablet 10/01/20 01/04/21 Warfarin [Coumadin] 1 mg PO 12/24/20 Warfarin [Coumadin] 1 mg PO BIDWM 12/24/20 01/04/21 Warfarin [Coumadin] 2 mg PO 12/24/20 oxyCODONE [Roxicodone] 5 mg PO ONCE PRN #10 tablet 03/09/21 - Allergies Allergies/Adverse Reactions: Allergies Allergy/AdvReac Type Severity Reaction Status Date / Time No Known Drug Allergies Allergy Verified 03/09/21 19:11 - Social History Does the pt smoke?: No Smoking Status: Never smoker Does the pt drink ETOH?: Yes Does the pt have substance abuse?: No - Immunizations Immunizations are current?: No - POLST Patient has POLST: No POLST Status: Full Code PD ED PE EXPANDED - General General: Alert, No acute distress - Cardiac Cardiac: Regular Rate, Radial strong equal, Pedal strong equal, Cap refill < 2 sec - Respiratory Respiratory: Clear to ausultation kit. No: Distress, Labored - Abdomen Abdomen: Normal Bowel sounds. No: Tender to palpation - Back Back: Vertebral tenderness (Focal lower lumbar sacral spinous process tenderness without crepitus or step-off. No swelling or erythema. No lateral paraspinous tenderness elicited. Patient able to do positive left leg raise against resistance. Limited right leg raise though this is the leg in which she had an ORIF. ), Other (no parathesias of BLE. Reduced ROM righ thip secondary to ORIF. Full ROM and ability to raise left leg against resistance. Normal gait with walker) - Extremities Extremities: Normal, Pedal edema bilateral - Neuro Neuro: Confused, CNII-XII intact, Normal speech - GCS Eye Opening: Spontaneous Motor: Obeys Commands Verbal: Oriented Total: 15 Results - Vitals Vitals: Vital Signs - 24 hr 03/09/21 03/09/21 03/09/21 19:00 21:11 22:18 Temperature 36.9 C Heart Rate 52 L 76 75 Respiratory 16 18 23 Rate Blood Pressure 129/80 114/72 110/64 O2 Saturation 98 94 96 Oxygen O2 Source Room air - Labs Labs: Laboratory Tests 03/09/21 03/09/21 03/09/21 18:59 19:10 19:10 WBC 9.4 RBC 4.30 Hgb 12.7 Hct 39.3 MCV 91.4 MCH 29.5 MCHC 32.3 RDW 14.6 Plt Count 366 MPV 8.3 Neut # (Auto) 6.7 H Lymph # (Auto) 1.6 Norton # (Auto) 0.7 Eos # (Auto) 0.3 Baso # (Auto) 0.1 Absolute Nucleated RBC 0.00 Nucleated RBC % 0.0 Sodium 134 L Potassium 3.8 Chloride 92 L Carbon Dioxide 31 Anion Gap 11.0 BUN 19 Creatinine 1.1 H Estimated GFR (MDRD) 48 L Glucose 116 H Calcium 9.3 Total Bilirubin 1.0 AST 25 ALT 12 Alkaline Phosphatase 71 C-React Prot High Sens 36.4 Total Protein 8.5 H Albumin 4.5 Globulin 4.0 Albumin/Globulin Ratio 1.1 Lipase 26 Urine Color Urine Clarity Urine pH Ur Specific [place] Urine Protein Urine Glucose (UA) Urine Ketones Urine Occult Blood Urine Nitrite Urine Bilirubin Urine Urobilinogen Ur Leukocyte Esterase Ur Microscopic Review Urine Culture Comments 03/09/21 20:09 WBC RBC Hgb Hct MCV MCH MCHC RDW Plt Count MPV Neut # (Auto) Lymph # (Auto) Norton # (Auto) Eos # (Auto) Baso # (Auto) Absolute Nucleated RBC Nucleated RBC % Sodium Potassium Chloride Carbon Dioxide Anion Gap BUN Creatinine Estimated GFR (MDRD) Glucose Calcium Total Bilirubin AST ALT Alkaline Phosphatase C-React Prot High Sens Total Protein Albumin Globulin Albumin/Globulin Ratio Lipase Urine Color YELLOW Urine Clarity CLEAR Urine pH 7.0 Ur Specific [place] 1.015 Urine Protein NEGATIVE Urine Glucose (UA) NEGATIVE Urine Ketones NEGATIVE Urine Occult Blood NEGATIVE Urine Nitrite NEGATIVE Urine Bilirubin NEGATIVE Urine Urobilinogen 0.2 (NORMAL) Ur Leukocyte Esterase NEGATIVE Ur Microscopic Review NOT INDICATED Urine Culture Comments NOT INDICATED - Rads (name of study) CT lumbar Radiology: Final report received (Extensive degenerative changes currently present along the lumbosacral spine which is severe. Severe spinal and foraminal stenosis and likelihood of multilevel nerve root impingement. Endplate erosive changes especially at L1-L2 are severe and correlation for presence or absence of evidence of spi) PD MEDICAL DECISION MAKING - ED course Complexity details: reviewed results, re-evaluated patient, d/w patient, d/w family ED course: 80-year-old lady who has a history of dementia presents the emergency department for evaluation of acute focal lower back pain that woke her from sleep last night. She has no history of similar. She has had no recent fevers or known fa lls though she does have a history of dementia and typically ambulates with a walker. Her mobility has not changed it is the pain that concerns her. Screening labs showed no leukocytosis though she does have a fairly moderate CRP elevation greater than 30. On exam she is focally tender in the lower lumbar L4 L5-S1 area. A CT was completed and it shows significant and severe degenerative changes however most concerning are endplate erosive changes that could be concerning for a spine infection. Despite the lack of fever or leukocytosis given her age and elevated CRP I will discuss this with spine surgery at [facility]. The patient and her daughter were made aware. [facility] spine paged at 2030 I have spoken with orthopedic spine surgeon Dr. Silva on-call at [facility] regarding the CT imaging and labs findings. His suspicion that the erosive changes are secondary to an infectious process are fairly low. He would however recommend an MRI both with and without contrast. This should attempt to be get done sometime within the next week. He would not recommend outpatient antibiotics unless her symptoms change or fever develops.No antibiotics at this time. I did discuss the case with the patient's daughter and we did offer her the option for an observation admit to obtain the MRI in the a.m. however because observation admits are typically not covered by insurance the decision was made to discharge patient home to try and get an outpatient MRI arranged with Dr. Washington. If she develops fevers, has worsening pain despite her pain management routine or develops red flags such as saddle anesthesia loss of bowel or bladder function she is to return immediately to the ER. I will prescribe a limited amount of oxycodone for as needed pain control I am prescribing a short course of short-acting opioid pain medication for this patient. 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 I have discussed that the opioids are for short term therapy only, and will not be refilled from the ED. Departure - Departure Disposition: 01 Home, Self Care Clinical Impression: Degenerative arthritis of lumbar spine Qualifiers: Spinal osteoarthritis complication: unspecified spinal osteoarthritis Qualified Code(s): M47.816 - Spondylosis without myelopathy or radiculopathy, lumbar region Condition: Stable Record reviewed to determine appropriate education?: Yes Prescriptions: oxyCODONE [Roxicodone] 5 mg PO ONCE PRN #10 tablet PRN Reason: Pain Comments: You are seen in the ER today for acute onset low back pain. As we discussed we did the CT of your spine to rule out a sudden fracture. We expected to see degenerative disc disease which is very common in older patients. The CT today showed severe degenerative disc disease and arthritis in your spine. There was a question if perhaps some of the changes could be due to infection. I did discuss this case with on-call orthopedic surgeon who deals only with the spine at [facility] and his suspicion that this is due to infection is very low. He would like you to have an MRI of your spine with and without contrast to be completed within the next week. If at any point you find that your pain is worsening despite the pain medication, you develop fevers, have inability to control your bowel or bladder function, or develop numbness between your legs then please return immediately to the ER for a second evaluation. I am prescribing a short course of narcotic pain medication for you. These are potentially dangerous and addictive medications that should be used carefully. These medications may constipate you. Take an nexs-vix-fvqkxym stool softener (docusate) twice daily with plenty of water while taking these medications. If you go 24 hours without a bowel movement, take [id number]-[id number] miralax, per package instructions. Do not drink or drive while taking these medications. If you received narcotic or sedating medications while in the emergency department, do not drive for 24 hours. Store this medication in a safe, secure place and out of reach of children. It is a violation of federal law to give or sell this medication to another person or to use in a manner other than prescribed. The ED will not refill narcotic prescriptions, including prescriptions lost or stolen. To dispose of unwanted medications: 1. [facility] at [address] in [place] has a medication drop box. They accept prescription medications (in pill form) Sunday through Sunday 9:00 a.m. to 5:00 p.m. 2. [facility] accepts prescription medications (in pill form only) for disposal year round. Call for more information. 3. Contact the [facility] for the next [facility] sponsored prescription drug collection event. , [phone], or [phone]; Note that many narcotic pain relievers also contain Tylenol/acetaminophen. Please ensure that your total dose of acetaminophen from all sources does not exceed 3 g (3000 mg) per day.
[2021-03-09 19:15] LABS: BASOPHILS # (AUTO) 0.1 10^3/uL (0.0-0.1); BASOPHILS % (AUTO) 0.6 %; EOSINOPHILS # (AUTO) 0.3 10^3/uL (0.0-0.7); EOSINOPHILS % (AUTO) 3.2 %; HCT - HEMATOCRIT 39.3 % (37.0-47.0); HGB - HEMOGLOBIN 12.7 g/dL (12.0-16.0); LYMPHOCYTES # (AUTO) 1.6 10^3/uL (1.5-3.5); LYMPHOCYTES % (AUTO) 16.7 %; MEAN CORPUSCULAR HEMOGLOBIN 29.5 pg (27.0-31.0); MEAN CORPUSCULAR HGB CONC 32.3 g/dL (32.0-36.0); MEAN CORPUSCULAR VOLUME 91.4 fL (81.0-99.0); MEAN PLATELET VOLUME 8.3 fL (7.9-10.8); MONOCYTES # (AUTO) 0.7 10^3/uL (0.0-1.0); MONOCYTES % (AUTO) 7.9 %; NEUTROPHILS # (AUTO) 6.7 10^3/uL (1.5-6.6); NEUTROPHILS % (AUTO) 71.1 %; PLT - PLATELET COUNT 366 10^3/uL (130-450); RED CELL DISTRIBUTION WIDTH 14.6 % (12.0-15.0); WHITE BLOOD COUNT 9.4 x10^3/uL (4.8-10.8)
[2021-03-09 19:28] LABS: ALBUMIN 4.5 g/dL (3.2-5.5); ALBUMIN/GLOBULIN RATIO 1.1 (1.0-2.2); CALCIUM 9.3 mg/dL (8.5-10.3); CREATININE 1.1 mg/dL (0.4-1.0); POTASSIUM 3.8 mmol/L (3.5-5.0); TOTAL PROTEIN 8.5 g/dL (6.7-8.2)
--- NOTE | 2021-03-09 19:59 | CT Report ---
PROCEDURE: LUMBAR SPINE WO INDICATIONS: acute focal lower L5S1 TTP TECHNIQUE: Noncontrast 3 mm thick sections acquired from the T12 level to the sacrum. Sagittal and coronal refo rmats were constructed. For radiation dose reduction, the following was used: automated exposure co ntrol, adjustment of mA and/or kV according to patient size. COMPARISON: None. FINDINGS: Image quality: Excellent. Bones: There is normal bony alignment. No acute vertebral body compression fractures. No suspiciou s lytic or blastic bony lesions. Central spinal caliber is of normal overall caliber. No pars defec ts. T12-L1: Normal in appearance. L1-L2: Severe degenerative changes at the disc space, where traq-jc-tjwr articulation is present. Irregular margination of the disc margins is present. Osseous erosions are present as a result. Moder ate bilateral foraminal stenosis. Suspect mild spinal stenosis. L2-L3: The degenerative disc disease at this level is near severe, with avbn-dw-zqll articulation but with lesser osseous erosion then at the level above. Asymmetric facet osteoarthritis greater on t he left than the right with resultant severe left and moderate right foraminal stenosis. Suspect mild left-sided spinal stenosis. L3-L4: The degenerative disc disease at this level is severe, with cahb-tz-pkur articulation and mo derate endplate erosions. Concentric spinal stenosis is severe, associated with posterior transverse disc bulging, facet hyperostosis, and disc height reduction. This results in severe bilateral foramin al stenosis in addition to the severe spinal stenosis. L4-L5: Degenerative disc disease at this level results in cwaq-tr-lkcq articulation and 8 endplate erosion at the upper margin of the L5 vertebral body. L5-S1: Severe degenerative disc disease with iele-sy-llod articulation. Moderate symmetric foramina l stenosis. Soft tissues: No retroperitoneal masses or hematomas. Visualized aorta is normal in caliber. IMPRESSION: The extensive degenerative changes currently present along the lumbosacral spine is severe. There is severe spinal and foraminal stenosis and likelihood of multilevel nerve root impingement as discussed in detail by level in the body of the report above. The endplate erosive changes discussed above maco ecially at L1-L2 are severe and correlation for presence or absence of evidence of spine infection is recommended given the severity of disease. Reviewed by: Cristian Lozano MD on 03/09/2021 7:57 PM PDT Approved by: Cristian Lozano MD on 03/09/2021 7:57 PM PDT Station ID: [id number]
[2021-03-09 20:14] LABS: BILIRUBIN,URINE NEGATIVE (NEGATIVE); GLUCOSE, URINE (UA) NEGATIVE (NEGATIVE); KETONES,URINE (UA) NEGATIVE (NEGATIVE); LEUKOCYTE ESTERASE, URINE NEGATIVE (NEGATIVE); NITRITE,URINE NEGATIVE (NEGATIVE); OCCULT BLOOD,URINE NEGATIVE (NEGATIVE); PROTEIN,URINE NEGATIVE (NEGATIVE); UROBILINOGEN,URINE 0.2 (NORMAL) E.U./dL (NORMAL)
[2021-03-09 20:15] LABS: CLARITY,URINE CLEAR (CLEAR)
[2021-03-09 22:42] VITALS: BP 110/66
[2021-03-09 23:10] LABS: B. PARAPERTUSSIS- RESP PCR PAN NOT DETECTED; B. PERTUSSIS- RESP PCR PANEL NOT DETECTED; C. PNEUMONIAE- RESP PCR PANEL NOT DETECTED; CORONAVIRUS 229E-RESP PCR NOT DETECTED; CORONAVIRUS HKU1-RESP PCR NOT DETECTED; CORONAVIRUS NL63-RESP PCR NOT DETECTED; CORONAVIRUS OC43-RESP PCR NOT DETECTED; HUMAN METAPNEUMOVIRUS NOT DETECTED; INFLUENZA A- RESP PCR PANEL NOT DETECTED; INFLUENZA B - RESP PCR PANEL NOT DETECTED; M. PNEUMONIAE- RESP PCR PANEL NOT DETECTED; PARAINFLUENZA VIRUS 1 NOT DETECTED; PARAINFLUENZA VIRUS 2 NOT DETECTED; PARAINFLUENZA VIRUS 3 NOT DETECTED; PARAINFLUENZA VIRUS 4 NOT DETECTED; RHINOVIRUS/ENTEROVIRUS NOT DETECTED; RSV- RESP PCR PANEL NOT DETECTED; SARS-CoV-2 -RESP PCR PANEL NOT DETECTED
== END 2021-03-09 22:55 | disposition home or self-care (01) ==
LOC: ED 18:46
DX: M47.816 Spondylosis without myelopathy or radiculopathy, lumbar region (principal); I48.91 Unspecified atrial fibrillation; Z79.01 Long term (current) use of anticoagulants; E11.9 Type 2 diabetes mellitus without complications; Z79.84 Long term (current) use of oral hypoglycemic drugs; F03.90 Unspecified dementia, unspecified severity, without behavioral disturbance, psychotic disturbance, mood disturbance, and anxiety; I11.0 Hypertensive heart disease with heart failure; I50.9 Heart failure, unspecified; Z20.822 Contact with and (suspected) exposure to COVID-19
CPT/HCPCS: 0202U; 36415; 80053; 81001; 81003; 83690; 85025; 86141; 87086; 99284

== ENCOUNTER 2021-06-12 10:34 | Outpatient (CLI) | payer MEDICARE, BC | END 2021-06-12 10:35 | disposition critical access hospital (66) | LOC: EMS 10:34 | DX: M79.604 Pain in right leg (principal); R41.9 Unspecified symptoms and signs involving cognitive functions and awareness | CPT/HCPCS: A0425; A0429 ==

== ENCOUNTER 2021-06-12 10:49 | Emergency (ER) | payer MEDICARE, BC ==
[2021-06-12] MEDS ORDERED: DOXYCYCLINE 100 MG TABLET PO STA (10:55)
[2021-06-12 11:13] VITALS: BP 101/49
[2021-06-12 11:18] LABS: BILIRUBIN,URINE NEGATIVE (NEGATIVE); GLUCOSE, URINE (UA) NEGATIVE (NEGATIVE); KETONES,URINE (UA) NEGATIVE (NEGATIVE); LEUKOCYTE ESTERASE, URINE SMALL (NEGATIVE); NITRITE,URINE NEGATIVE (NEGATIVE); OCCULT BLOOD,URINE NEGATIVE (NEGATIVE); PROTEIN,URINE NEGATIVE (NEGATIVE); UROBILINOGEN,URINE 0.2 (NORMAL) E.U./dL (NORMAL)
[2021-06-12 11:25] LABS: CLARITY,URINE CLEAR (CLEAR)
[2021-06-12 11:56] LABS: BACTERIA,URINE Few /HPF (None Seen); RBC,URINE 0-5 /HPF (0-5); SQUAMOUS EPITHELIAL CELL,UR FEW Squamous (<= Few)
--- NOTE | 2021-06-12 12:03 | ED Physician Documentation ---
History of Present Illness - Stated complaint Stated Complaint: L LEG PX - Chief complaint Chief Complaint: Ext Problem - History obtained from History obtained from: Patient, EMS - Additonal information Additional information: PT was sent to the ED for CC of contusion on R thigh/hip, as well as ALOC, possible UTI. The pt has been alert and coherent per EMS. She reports that she fell some days ago, but has been ambulatory without difficulty or pain since. She states the bruised area is a little "sore". Pt denies any new falls. No pain anywhere else. No N/V or dysuria/frequency. No fevers/chills. Review of Systems Ten Systems: 10 systems reviewed and negative Constitutional: reports: Reviewed and negative Eyes: reports: Reviewed and negative Ears: reports: Reviewed and negative Nose: reports: Reviewed and negative Throat: reports: Reviewed and negative Cardiac: reports: Reviewed and negative Respiratory: reports: Reviewed and negative GI: reports: Reviewed and negative : reports: Reviewed and negative Skin: reports: Reviewed and negative Musculoskeletal: reports: Reviewed and negative Neurologic: reports: Reviewed and negative Psychiatric: reports: Reviewed and negative Endocrine: reports: Reviewed and negative Immunocompromised: reports: Reviewed and negative PD PAST MEDICAL HISTORY - Past Medical History Cardiovascular: Congestive heart failure, Hypertension, Atrial fibrillation, Valve disorder Respiratory: Asthma Neuro: None, Dementia Endocrine/Autoimmune: Type 2 diabetes GI: None 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: Other : None HEENT: None Psych: None Musculoskeletal: Chronic back pain Derm: None - Past Surgical History Past Surgical History: Yes General: Other Ortho: Hip replacement /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: section, Hysterectomy, Other Cardiovascular: Valve replacement HEENT: Cataracts - Present Medications Home Medications: Ambulatory Orders Medication Instructions Recorded Confirmed Gabapentin [Neurontin] 300 mg PO BID 03/04/13 01/04/21 metFORMIN [Glucophage] 500 mg PO DAILY 04/06/15 01/04/21 Digoxin 0.125 mg PO DAILY 08/30/16 01/04/21 Potassium Chloride [K-Dur] 20 meq PO DAILYWM #30 tablet 09/05/16 01/04/21 Aspirin 81 mg PO DAILY 12/11/18 01/04/21 Bumetanide 2 mg PO BID 08/19/20 01/04/21 Metoprolol Succinate [Toprol Xl] 50 mg PO DAILY 09/24/20 01/04/21 Alendronate [Fosamax] 70 mg PO Q7D #2 tablet 10/01/20 01/04/21 Calcium Carbonate/Vitamin D3 1 each PO DAILY #30 tablet 10/01/20 01/04/21 [Calcium 500 mg-Vit D3 600 Unit] Ferrous Gluconate [Fergon] 324 mg PO DAILYWM #30 tablet 10/01/20 01/04/21 Pnv No.121/Iron/Folic Acid 1 each PO DAILY #30 tablet 10/01/20 01/04/21 [ Multivitamin Tablet] Thiamine [Vitamin B-1] 100 mg PO DAILY #30 tablet 10/01/20 01/04/21 oxyCODONE [Roxicodone] 5 mg PO Q6HR PRN #15 tablet 10/01/20 01/04/21 Warfarin [Coumadin] 1 mg PO 12/24/20 Warfarin [Coumadin] 1 mg PO BIDWM 12/24/20 01/04/21 Warfarin [Coumadin] 2 mg PO 12/24/20 oxyCODONE [Roxicodone] 5 mg PO ONCE PRN #10 tablet 03/09/21 Doxycycline Monohydrate 100 mg PO BID #14 06/12/21 - Allergies Allergies/Adverse Reactions: Allergies Allergy/AdvReac Type Severity Reaction Status Date / Time No Known Drug Allergies Allergy Verified 06/12/21 11:03 - Social History Does the pt smoke?: No Smoking Status: Never smoker Does the pt drink ETOH?: Yes Does the pt have substance abuse?: No - Immunizations Immunizations are current?: No - POLST Patient has POLST: No POLST Status: Full Code PD ED PE NORMAL - Vitals Vital signs reviewed: Yes - General General: No acute distress, Well developed/nourished, Other (Pt is alert and answes questions appropriately.) - HEENT HEENT: Atraumatic, PERRL, EOMI, Moist mucous membranes - Neck Neck: Supple, no meningeal sign - Cardiac Cardiac: RRR, No murmur, Strong equal pulses - Respiratory Respiratory: No respiratory distress, Clear bilaterally - Abdomen Abdomen: Soft, Non tender, Non distended - Back Back: No CVA TTP, No spinal TTP - Derm Derm: Warm and dry, No rash, Other (Subacute-appearing contusion over R hip. No edema or hematoma. Centrally-located area of erythema within contused area. Mild induration.) - Extremities Extremities: No deformity, Normal ROM s pain - Neuro Neuro: Other (Alert, appropriate. Grossly intact otherwise.) - Psych Psych: Normal mood, Normal affect Results - Vitals Vitals: Oxygen O2 Source Room air - Labs Labs: Microbiology 06/12/21 11:08 Urine Culture - Final Urine,Clean Catch LESS THAN 10,000 COLONIES/ML polymicrobial growth including potential pathogens. This is suggestive of skin or other contamination. Laboratory Tests 06/12/21 11:08 Urine Color YELLOW Urine Clarity CLEAR Urine pH 6.0 Ur Specific [place] 1.015 Urine Protein NEGATIVE Urine Glucose (UA) NEGATIVE Urine Ketones NEGATIVE Urine Occult Blood NEGATIVE Urine Nitrite NEGATIVE Urine Bilirubin NEGATIVE Urine Urobilinogen 0.2 (NORMAL) Ur Leukocyte Esterase SMALL H Urine RBC 0-5 Urine WBC 11-25 H Ur Squamous Epith Cells FEW Squamous Urine Bacteria Few Ur Microscopic Review INDICATED Urine Culture Comments INDICATED PD MEDICAL DECISION MAKING - ED course Complexity details: reviewed results, re-evaluated patient, considered differential, d/w patient ED course: Pt appeared to have a small cellulitis forming within the contused area. She was started on doxycycline for this. SHe was quite well-appearing, and did not appear to be altered in the least. UA was negative. Pt is stable for d/c home. We have discussed the usual indications for return. Departure - Departure Disposition: 01 Home, Self Care Clinical Impression: Cellulitis Qualifiers: Site of cellulitis: extremity Site of cellulitis of extremity: lower extremity Laterality: right Qualified Code(s): L03.115 - Cellulitis of right lower limb Condition: Stable Instructions: ED Infec Skin Cellulitis Prescriptions: Doxycycline Monohydrate 100 mg PO BID #14 Comments: Please take the antibiotics as directed for the skin infection overlying your bruise. Urinalysis is not clear-cut positive for infection, so we will wait for the culture results. If the culture results are convincingly positive, we will call you at home to discuss further antibiotic coverage. No emergent condition has been identified today. Discharge Date/Time: 06/12/21 13:04
== END 2021-06-12 13:04 | disposition home or self-care (01) ==
LOC: EDUNIT# → ED 10:49
DX: L03.115 Cellulitis of right lower limb (principal); S70.01XA Contusion of right hip, initial encounter; W19.XXXA Unspecified fall, initial encounter; I10 Essential (primary) hypertension; Z95.2 Presence of prosthetic heart valve; Z79.01 Long term (current) use of anticoagulants; Z79.82 Long term (current) use of aspirin; F03.90 Unspecified dementia, unspecified severity, without behavioral disturbance, psychotic disturbance, mood disturbance, and anxiety
CPT/HCPCS: 81001; 87086; 99283; 99284; A9270; 81003